=== PATIENT | male | born 1955 | race African-American/Black ===

== ENCOUNTER 2016-02-29 10:43 | Emergency (ER) | payer MEDICARE ==
[~2016-02-29] VITALS: Ht 167.6 cm; Wt 90.7 kg
[~2016-02-29 10:43] MED LIST: AMLO10TA4 PO; HYDR25TA9 PO
[2016-02-29 10:56] VITALS: BP 133/78
--- NOTE | 2016-02-29 12:24 | PHYS DOC ---
Past Medical History Past Medical History: Alcoholism, Arthritis, Hypertension Past Surgical History: Other Additional Past Surgical Histo: right ankle surgery Alcohol Use: Sober Drug Use: Marijuana Adult General Chief Complaint Chief Complaint: FINGER INJURY HPI HPI Patient is a 60 year old male presents to emergency Department today with ongoing concern for pain and inability to fully extend left fifth finger. Patient states is been ongoing for approximately a month. He does not distinctly recall an injury to his finger. He denies any history of bone forming disorders. He does have a history of osteoarthritis. Review of Systems Review of Systems Constitutional: Denies fever or chills [] Eyes: Denies change in visual acuity, redness, or eye pain [] HENT: Denies nasal congestion or sore throat [] Respiratory: Denies cough or shortness of breath [] Cardiovascular: No additional information not addressed in HPI [] GI: Denies abdominal pain, nausea, vomiting, bloody stools or diarrhea [] : Denies dysuria or hematuria [] Musculoskeletal: Denies back pain or joint pain [] Integument: Denies rash or skin lesions [] Neurologic: Denies headache, focal weakness or sensory changes [] Endocrine: Denies polyuria or polydipsia [] Allergies Allergies Allergies Coded Allergies Type Severity Reaction Last Updated Verified No Known Drug Allergies 08/08/14 No Physical Exam Physical Exam Constitutional: Well developed, well nourished, no acute distress, non-toxic appearance. [] HENT: Normocephalic, atraumatic, bilateral external ears normal, oropharynx moist, no oral exudates, nose normal. [] Eyes: PERRLA, EOMI, conjunctiva normal, no discharge. [] Neck: Normal range of motion, no tenderness, supple, no stridor. [] Cardiovascular:Heart rate regular rhythm, no murmur [] Lungs & Thorax: Bilateral breath sounds clear to auscultation [] Abdomen: Bowel sounds normal, soft, no tenderness, no masses, no pulsatile masses. [] Skin: Warm, dry, no erythema, no rash. [] Back: No tenderness, no CVA tenderness. [] Extremities: Left fifth finger shows unopposed flexion at the DIPJ. There is no distinct tenderness to palpation or palpable defect. Fingers neurovascularly intact with capillary refill less than 2 seconds. Neurologic: Alert and oriented X 3, normal motor function, normal sensory function, no focal deficits noted. [] Psychologic: Affect normal, judgement normal, mood normal. [] Current Patient Data Vital Signs Vital Signs Date Time Temp Pulse Resp B/P Pulse Ox O2 Delivery O2 Flow Rate FiO2 02/29/16 10:56 98.1 82 16 98 Room Air 98.1 EKG EKG [] Radiology/Procedures Radiology/Procedures 3 views of left fifth finger show no evidence of acute bony injury or healed avulsion fracture. Course & Med Decision Making Course & Med Decision Making Pertinent Labs and Imaging studies reviewed. (See chart for details) [] Dragon Disclaimer Dragon Disclaimer This electronic medical record was generated, in whole or in part, using a voice recognition dictation system. Departure Departure Impression: Primary Impression: Finger pain, left Disposition: 01 HOME, SELF-CARE Condition: GOOD Referrals: NO PCP (PCP) ANGELA ESCUDERO MD Patient Instructions: Musculoskeletal Pain Additional Instructions: 1. The x-rays of your finger today showed no bony injuries or dislocation. 2. It appears as if you have tendon dysfunction in your left fifth finger. You need to follow-up with an protein specialist to discuss this. 3. Take the medication as prescribed. 4. Call the orthopedic doctors number listed with this discharge paperwork to schedule follow-up appointment. Scripts Diclofenac Sodium 50 Mg Tablet.dr1 Tab PO BID #30 TAB Ref 1 Prov:DAKOTA PEDERSON 02/29/16 DAKOTA PEDERSON Feb 29, 2016 12:24
[2016-02-29] MEDS ORDERED: DICL50TA4 PO (12:26)
--- NOTE | 2016-02-29 12:26 | RAD ---
Three-view study of the fifth digit of the left hand Clinical indications: Fifth digit injury one month ago. Persistent pain of the DIP joint. Findings: No acute fracture or dislocation or osteolytic process is seen. There is a flexion deformity of the DIP joint consistent with an extensor tendon mechanism injury or mallet finger. IMPRESSION: Extensor tendon injury or mallet finger of the fifth DIP joint.
== END 2016-02-29 12:35 | disposition home or self-care (01) ==
LOC: ER 10:47
DX: M79.645 Pain in left finger(s) (principal); M19.90 Unspecified osteoarthritis, unspecified site; F10.20 Alcohol dependence, uncomplicated; I10 Essential (primary) hypertension; F12.10 Cannabis abuse, uncomplicated
CPT/HCPCS: 73140; 99284

== ENCOUNTER 2017-11-28 02:19 | Emergency (ER) | payer MEDICAID, MEDICARE ==
[~2017-11-28] VITALS: Ht 175.3 cm; Wt 78.9 kg
[~2017-11-28 02:19] MED LIST changes: +DICL50TA4 PO
--- NOTE | 2017-11-28 02:30 | PHYS DOC ---
Past Medical History Past Medical History: Alcoholism, Arthritis, Hypertension, Other Past Surgical History: Other Additional Past Surgical Histo: right ankle surgery Alcohol Use: Heavy Drug Use: Marijuana Adult General Chief Complaint Chief Complaint: ALCOHOL INTOXICATION HPI HPI Patient is a 62 year old man who presents with alcohol intoxication Patient is a known alcoholic to the paramedics and presented inebriated in front of [employer]. Patient seen sleeping in front of [employer] for the past 3 hours. Patient regularly gets drunk and wanders around the neighborhood. Patient has no complaints. Review of Systems Review of Systems Constitutional: Denies fever or chills Eyes: Denies change in visual acuity, redness, or eye pain HENT: Denies nasal congestion or sore throat Respiratory: Denies cough or shortness of breath Cardiovascular: Denies chest pain GI: Denies abdominal pain, nausea, vomiting, bloody stools or diarrhea : Denies dysuria or hematuria Musculoskeletal: Denies back pain or joint pain Integument: Denies rash or skin lesions Neurologic: Denies headache, focal weakness or sensory changes Endocrine: Denies polyuria or polydipsia All other systems were reviewed and found to be within normal limits, except as documented in this note. Current Medications Current Medications Current Medications Medications (Trade) Dose Ordered Sig/Kay Start Time Stop Time Status Last Admin Dose Admin Multivitamins 10 ml/Thiamine HCl 100 mg/Folic Acid 1 mg/Sodium Chloride 1,011.2 ml @ 1,000.088 mls/hr 1X ONCE 11/28/17 03:15 11/28/17 04:15 DC 11/28/17 03:11 1,000.088 MLS/HR Ziprasidone (Geodon Im) 20 mg 1X ONCE 11/28/17 02:45 11/28/17 03:00 DC 11/28/17 02:57 20 MG Allergies Allergies Allergies Coded Allergies Type Severity Reaction Last Updated Verified No Known Drug Allergies 08/08/14 No Physical Exam Physical Exam Constitutional: Well developed, well nourished, no acute distress, non-toxic appearance. Inebriated with alcohol on breath HENT: Normocephalic, atraumatic, bilateral external ears normal, oropharynx moist, no oral exudates, nose normal. Eyes: PERRLA, EOMI, conjunctiva normal, no discharge. Neck: Normal range of motion, no tenderness, supple, no stridor. Cardiovascular:Heart rate regular rhythm, no murmur Lungs & Thorax: Bilateral breath sounds clear to auscultation Abdomen: Bowel sounds normal, soft, no tenderness, no masses, no pulsatile masses. Skin: Warm, dry, no erythema, no rash. Back: No tenderness, no CVA tenderness. Extremities: No tenderness, no cyanosis, no clubbing, ROM intact, no edema. Neurologic: Alert and oriented X 3, normal motor function, normal sensory function, no focal deficits noted. Psychologic: Affect normal, judgement normal, mood normal. Current Patient Data Vital Signs Vital Signs Date Time Temp Pulse Resp B/P (MAP) Pulse Ox O2 Delivery O2 Flow Rate FiO2 11/28/17 04:23 84 20 120/76 (91) 97 11/28/17 02:20 97.8 Room Air 97.8 Lab Values Laboratory Tests Test 11/28/17 03:10 11/28/17 04:20 White Blood Count 3.8 x10^3/uL (4.0-11.0) L Red Blood Count 3.98 x10^6/uL (4.30-5.70) L Hemoglobin 12.1 g/dL (13.0-17.5) L Hematocrit 35.8 % (39.0-53.0) L Mean Corpuscular Volume 90 fL (79-100) Mean Corpuscular Hemoglobin 30 pg (25-35) Mean Corpuscular Hemoglobin Concent 34 g/dL (31-37) Red Cell Distribution Width 13.7 % (11.5-14.5) Platelet Count 194 x10^3/uL (140-400) Neutrophils (%) (Auto) 33 % (31-73) Lymphocytes (%) (Auto) 54 % (24-48) H Monocytes (%) (Auto) 13 % (0-9) H Eosinophils (%) (Auto) 1 % (0-3) Basophils (%) (Auto) 0 % (0-3) Neutrophils # (Auto) 1.2 x10^3uL (1.8-7.7) L Lymphocytes # (Auto) 2.0 x10^3/uL (1.0-4.8) Monocytes # (Auto) 0.5 x10^3/uL (0.0-1.1) Eosinophils # (Auto) 0.0 x10^3/uL (0.0-0.7) Basophils # (Auto) 0.0 x10^3/uL (0.0-0.2) Sodium Level 145 mmol/L (136-145) Potassium Level 3.8 mmol/L (3.5-5.1) Chloride Level 110 mmol/L (98-107) H Carbon Dioxide Level 25 mmol/L (21-32) Anion Gap 10 (6-14) Blood Urea Nitrogen 11 mg/dL (8-26) Creatinine 1.1 mg/dL (0.7-1.3) Estimated GFR (Cockcroft-Gault) 82.3 BUN/Creatinine Ratio 10 (6-20) Glucose Level 102 mg/dL (70-99) H Calcium Level 8.0 mg/dL (8.5-10.1) L Total Bilirubin 0.2 mg/dL (0.2-1.0) Aspartate Amino Transferase (AST) 97 U/L (15-37) H Alanine Aminotransferase (ALT) 99 U/L (16-63) H Alkaline Phosphatase 105 U/L (46-116) Total Protein 7.3 g/dL (6.4-8.2) Albumin 2.9 g/dL (3.4-5.0) L Albumin/Globulin Ratio 0.7 (1.0-1.7) L Lipase 406 U/L (73-393) H Ethyl Alcohol Level 305 mg/dL (0-10) H Urine Collection Type U cath Urine Color Yellow Urine Clarity Clear Urine pH 5.5 Urine Specific [place] 1.010 Urine Protein Negative mg/dL (NEG-TRACE) Urine Glucose (UA) Negative mg/dL (NEG) Urine Ketones (Stick) Negative mg/dL (NEG) Urine Blood Negative (NEG) Urine Nitrite Negative (NEG) Urine Bilirubin Negative (NEG) Urine Urobilinogen Dipstick 0.2 mg/dL (0.2 mg/dL) Urine Leukocyte Esterase Negative (NEG) Urine RBC 0 /HPF (0-2) Urine WBC 0 /HPF (0-4) Urine Squamous Epithelial Cells Occ /LPF Urine Bacteria 0 /HPF (0-FEW) Urine Mucus Slight /LPF Urine Opiates Screen Neg (NEG) Urine Methadone Screen Neg (NEG) Urine Barbiturates Neg (NEG) Urine Phencyclidine Screen Neg (NEG) Urine Amphetamine/Methamphetamine Neg (NEG) Urine Benzodiazepines Screen Neg (NEG) Urine Cocaine Screen Neg (NEG) Urine Cannabinoids Screen Pos (NEG) Urine Ethyl Alcohol Pos (NEG) Laboratory Tests 11/28/17 03:10 Laboratory Tests 11/28/17 03:10 EKG EKG ECG 02:54 NSR @ [address]-T wave changes Radiology/Procedures Radiology/Procedures [facility] [address] [place] [address] IMAGING REPORT Signed PATIENT: SHAKIR ROCKWELL ACCOUNT: [id number] : 1955 LOCATION: ER AGE: 62 SEX: M EXAM STATUS: REG ER ORD. PHYSICIAN: ELIE GARSIA MD REASON: AMS PROCEDURE: CT HEAD WO CONTRAST EXAM: CT Head without IV contrast CLINICAL HISTORY: etoh altered mental status. COMPARISON: None. TECHNIQUE: Routine CT of the head without contrast. Soft tissues and bone windows were reviewed. PQRS compliance statement - One or more of the following individualized dose reduction techniques were utilized for this study: 1. Automated exposure control 2. Adjustment of the mA and/or kV according to patient size 3. Use of iterative reconstruction technique FINDINGS: There is no evidence of hemorrhage, mass or extra-axial fluid collection. Arnett-white differentiation is maintained with no evidence of edema. There are non-specific foci of hypodensity in the periventricular and subcortical white matter of the cerebral hemispheres. There is no mass effect or shift of the intracranial structures. The ventricles and cerebral sulci are prominent for the patients stated age consistent with generalized cerebral volume loss. The cerebellum and brainstem are unremarkable. The calvarium demonstrates no evidence of fracture or focal lesion. There is normal aeration of the visualized paranasal sinuses and mastoid air cells. The visualized portions of the orbits are normal. IMPRESSION: 1. No evidence for acute intracranial abnormality. Electronically signed by: Dedrick Roman MD (11/28/2017 3:35 AM) [facility] DICTATED and SIGNED BY: DEDRICK ROMAN MD DATE: 11/28/17 0334 Course & Med Decision Making Course & Med Decision Making Pertinent Labs and Imaging studies reviewed. (See chart for details) Emergency Department Course Patient presents inebriated with environmental exposure and without physical complaint DDx- alcohol intoxication, dehydration, electrolyte abnormality Patient was verbally and physically disruptive in the ED. ECG and troponin showed no evidence of ACS. Patient was given Geodon and fell asleep. Head CT scan unremarkable. CXR unremarkable. Labs remarkable elevated LFTs, elevated Lipase, serum ethanol elevated to 305, UDS positive for cannabis. 06:15 Patient still asleep, intoxicated. Case endorsed to Dr. Joellen Person Disclaimer Naya Disclaimer This electronic medical record was generated, in whole or in part, using a voice recognition dictation system. Departure Departure Impression: Primary Impression: Alcohol intoxication Additional Impression: Cannabis abuse Referrals: NO PCP (PCP) Problem Qualifiers Primary Impression: Alcohol intoxication Complication of substance-induced condition: uncomplicated Qualified Codes: F10.920 - Alcohol use, unspecified with intoxication, uncomplicated ELIE GARSIA MD Nov 28, 2017 02:30
[2017-11-28] MEDS ORDERED: ZIPRASIDONE IM 20 MG VIAL. IM ONE (02:45)
[2017-11-28] MEDS ORDERED: MULTIVIT INFUSN,ADULT 4,VIT K 10 ML, THIAMINE INJ 100 MG, FOLIC ACID INJ 1 MG in IV NOR... IV ONE (03:15)
[2017-11-28 03:25] LABS: BASO % 0 % (0-3); EOS % 1 % (0-3); HEMATOCRIT 35.8 % (39.0-53.0); HEMOGLOBIN 12.1 g/dL (13.0-17.5); LYMPH % 54 % (24-48); MEAN CORPUSCULAR HEMOGLOBIN 30 pg (25-35); MEAN CORPUSCULAR HGB CONC 34 g/dL (31-37); MEAN CORPUSCULAR VOLUME 90 fL (79-100); MONO # 0.5 x10^3/uL (0.0-1.1); MONO % 13 % (0-9); NEUT # 1.2 x10^3uL (1.8-7.7); NEUT % 33 % (31-73); PLATELET COUNT 194 x10^3/uL (140-400); RED BLOOD COUNT 3.98 x10^6/uL (4.30-5.70); RED CELL DISTRIBUTION WIDTH 13.7 % (11.5-14.5); WHITE BLOOD COUNT 3.8 x10^3/uL (4.0-11.0)
[2017-11-28 03:34] LABS: CREATININE 1.1 mg/dL (0.7-1.3); GFR 82.3; POTASSIUM 3.8 mmol/L (3.5-5.1)
--- NOTE | 2017-11-28 03:39 | RAD ---
EXAM: CT Head without IV contrast CLINICAL HISTORY: etoh altered mental status. COMPARISON: None. TECHNIQUE: Routine CT of the head without contrast. Soft tissues and bone windows were reviewed. PQRS compliance statement - One or more of the following individualized dose reduction techniques were utilized for this study: 1. Automated exposure control 2. Adjustment of the mA and/or kV according to patient size 3. Use of iterative reconstruction technique FINDINGS: There is no evidence of hemorrhage, mass or extra-axial fluid collection. Arnett-white differentiation is maintained with no evidence of edema. There are non-specific foci of hypodensity in the periventricular and subcortical white matter of the cerebral hemispheres. There is no mass effect or shift of the intracranial structures. The ventricles and cerebral sulci are prominent for the patients stated age consistent with generalized cerebral volume loss. The cerebellum and brainstem are unremarkable. The calvarium demonstrates no evidence of fracture or focal lesion. There is normal aeration of the visualized paranasal sinuses and mastoid air cells. The visualized portions of the orbits are normal. IMPRESSION: 1. No evidence for acute intracranial abnormality. Electronically signed by: Dedrick Mejia MD (11/28/2017 3:35 AM) [facility]
[2017-11-28 03:40] LABS: ALBUMIN 2.9 g/dL (3.4-5.0); ALBUMIN/GLOBULIN RATIO 0.7 (1.0-1.7); TOTAL BILIRUBIN 0.2 mg/dL (0.2-1.0); TOTAL PROTEIN 7.3 g/dL (6.4-8.2)
[2017-11-28 04:34] LABS: BILIRUBIN,URINE NEGATIVE (NEG); CLARITY,URINE CLEAR; COLOR,URINE YELLOW; NITRITE,URINE NEGATIVE (NEG); PH,URINE 5.5; PROTEIN,URINE NEGATIVE (NEG-TRACE); UROBILINOGEN,URINE 0.2 mg/dL (0.2 mg/dL)
[2017-11-28 04:40] LABS: BARBITURATES NEG (NEG); BENZODIAZEPINES NEG (NEG); CANNABINOIDS POS (NEG); COCAINE NEG (NEG); METHADONE NEG (NEG); OPIATES NEG (NEG); PHENCYCLIDINE NEG (NEG)
[2017-11-28 04:41] LABS: AMPHETAMINE/METHAMPHETAMINE NEG (NEG)
[2017-11-28 04:57] LABS: BACTERIA,URINE 0 /HPF (0-FEW); RBC,URINE 0 /HPF (0-2); SQUAMOUS EPITHELIAL CELL,UR OCC /LPF; WBC,URINE 0 /HPF (0-4)
--- NOTE | 2017-11-28 05:52 | EKG ---
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
--- NOTE | 2017-11-28 07:42 | RAD ---
Portable chest, 11/28/2017: HISTORY: Ethanol intoxication, altered mental status The heart is within normal limits in size. There is minimal linear atelectasis in the left base. The right lung is clear. No pleural fluid is evident. IMPRESSION: Minimal left basilar atelectasis. Electronically signed by: Hola Harrison MD (11/28/2017 7:39 AM) [facility]
[2017-11-28 12:18] VITALS: BP 184/102
== END 2017-11-28 13:47 | disposition home or self-care (01) ==
LOC: ER 02:19
DX: F10.129 Alcohol abuse with intoxication, unspecified (principal); I10 Essential (primary) hypertension; Y90.9 Presence of alcohol in blood, level not specified
CPT/HCPCS: 36415; 70450; 71045; 80053; 80307; 81001; 83690; 85025; 93005; 96365; 96372; 99285; G0480; J3486; J7030; P9612; G0479

== ENCOUNTER 2018-10-22 23:59 | Inpatient (IN) | payer MEDICARE, OTHER ==
[~2018-10-22] VITALS: Ht 167.6 cm; Wt 84.4 kg
[~2018-10-22 23:59] MED LIST changes: +HYDR-2145 PO; -HYDR25TA9 PO; +LEVE500T56 PO; +LISI-334 PO; +PANT40GR PO
--- NOTE | 2018-10-23 00:16 | PHYS DOC ---
Past Medical History Past Medical History: Alcoholism, Arthritis, Hypertension, Seizure, Other Past Surgical History: Other Additional Past Surgical Histo: right ankle surgery Alcohol Use: Heavy Drug Use: Marijuana Adult General Chief Complaint Chief Complaint: ALCOHOL INTOXICATION HPI HPI Patient is a 63-year-old male who presents via EMS with report of being intoxicated. Patient reportedly has smoked some marijuana as well as taking some crack earlier today. Patient states that he is feeling sick and needs help. He denies any chest pain or shortness of breath. He also denies abdominal pain. Patient is not able to say what kind of help he needs. Additional history is limited as patient is very intoxicated.[] Review of Systems Review of Systems Constitutional: Denies fever or chills [] Respiratory: Denies cough or shortness of breath [] Cardiovascular: No additional information not addressed in HPI [] GI: Denies abdominal pain, nausea, vomiting or diarrhea [] Integument: Denies rash or skin lesions [] Neurologic: Denies headache, focal weakness or sensory changes [] Unable to fully assess review of systems due to level of intoxication. Current Medications Current Medications Current Medications Medications (Trade) Dose Ordered Sig/Kay Start Time Stop Time Status Last Admin Dose Admin Lorazepam (Ativan Inj) 1 mg 1X ONCE 10/23/18 02:30 10/23/18 02:31 DC Multivitamins 10 ml/Thiamine HCl 100 mg/Folic Acid 1 mg/Sodium Chloride 1,011.2 ml @ 1,000 mls/ hr 1X ONCE 10/23/18 00:45 10/23/18 01:45 DC 10/23/18 00:25 1,000 MLS/HR Sodium Chloride 1,000 ml @ 500 mls/hr 1X ONCE 10/23/18 02:00 10/23/18 03:59 DC 10/23/18 02:14 500 MLS/HR Allergies Allergies Allergies Coded Allergies Type Severity Reaction Last Updated Verified No Known Drug Allergies 08/08/14 No Physical Exam Physical Exam Constitutional: Well developed, well nourished, no acute distress, strong smell of alcohol on patient and patient clearly intoxicated. [] HENT: Normocephalic, atraumatic, bilateral external ears normal, oropharynx moist, no oral exudates, nose normal. [] Eyes: PERRLA, EOMI, conjunctiva normal, no discharge. [] Neck: Normal range of motion, no tenderness, supple, no stridor. [] Cardiovascular: Regular rate and rhythm[] Lungs & Thorax: Bilateral breath sounds clear to auscultation [] Abdomen: Bowel sounds normal, soft, no tenderness. [] Skin: Warm, dry, no erythema, no rash. [] Extremities: No tenderness, no cyanosis, no clubbing, ROM intact. [] Neurologic: Alert and oriented X 3, no focal deficits noted. [] Current Patient Data Vital Signs Vital Signs Date Time Temp Pulse Resp B/P (MAP) Pulse Ox O2 Delivery O2 Flow Rate FiO2 10/23/18 02:30 88 97 Room Air 10/23/18 01:00 156/95 (115) 10/23/18 00:00 98.7 18 98.7 Lab Values Laboratory Tests Test 10/23/18 00:10 10/23/18 02:00 White Blood Count 3.7 x10^3/uL (4.0-11.0) L Red Blood Count 3.99 x10^6/uL (4.30-5.70) L Hemoglobin 11.9 g/dL (13.0-17.5) L Hematocrit 35.3 % (39.0-53.0) L Mean Corpuscular Volume 89 fL (79-100) Mean Corpuscular Hemoglobin 30 pg (25-35) Mean Corpuscular Hemoglobin Concent 34 g/dL (31-37) Red Cell Distribution Width 14.3 % (11.5-14.5) Platelet Count 126 x10^3/uL (140-400) L Neutrophils (%) (Auto) 35 % (31-73) Lymphocytes (%) (Auto) 50 % (24-48) H Monocytes (%) (Auto) 13 % (0-9) H Eosinophils (%) (Auto) 1 % (0-3) Basophils (%) (Auto) 1 % (0-3) Neutrophils # (Auto) 1.3 x10^3/uL (1.8-7.7) L Lymphocytes # (Auto) 1.9 x10^3/uL (1.0-4.8) Monocytes # (Auto) 0.5 x10^3/uL (0.0-1.1) Eosinophils # (Auto) 0.0 x10^3/uL (0.0-0.7) Basophils # (Auto) 0.0 x10^3/uL (0.0-0.2) Sodium Level 151 mmol/L (136-145) H Potassium Level 3.6 mmol/L (3.5-5.1) Chloride Level 114 mmol/L (98-107) H Carbon Dioxide Level 22 mmol/L (21-32) Anion Gap 15 (6-14) H Blood Urea Nitrogen 9 mg/dL (8-26) Creatinine 0.9 mg/dL (0.7-1.3) Estimated GFR (Cockcroft-Gault) 103.5 Glucose Level 110 mg/dL (70-99) H Calcium Level 7.7 mg/dL (8.5-10.1) L Magnesium Level 1.9 mg/dL (1.8-2.4) Total Bilirubin 0.3 mg/dL (0.2-1.0) Direct Bilirubin 0.2 mg/dL (0.0-0.2) Aspartate Amino Transferase (AST) 117 U/L (15-37) H Alanine Aminotransferase (ALT) 104 U/L (16-63) H Alkaline Phosphatase 110 U/L (46-116) Total Protein 7.7 g/dL (6.4-8.2) Albumin 3.1 g/dL (3.4-5.0) L Ethyl Alcohol Level 367 mg/dL (0-10) H Urine Collection Type Unknown Urine Color Yellow Urine Clarity Clear Urine pH 5.0 Urine Specific [place] 1.015 Urine Protein Negative mg/dL (NEG-TRACE) Urine Glucose (UA) Negative mg/dL (NEG) Urine Ketones (Stick) Negative mg/dL (NEG) Urine Blood Negative (NEG) Urine Nitrite Negative (NEG) Urine Bilirubin Negative (NEG) Urine Urobilinogen Dipstick 1.0 mg/dL (0.2 mg/dL) Urine Leukocyte Esterase Negative (NEG) Urine RBC 0 /HPF (0-2) Urine WBC 1-4 /HPF (0-4) Urine Squamous Epithelial Cells Few /LPF Urine Bacteria 0 /HPF (0-FEW) Urine Mucus Slight /LPF Urine Opiates Screen Neg (NEG) Urine Methadone Screen Neg (NEG) Urine Barbiturates Neg (NEG) Urine Phencyclidine Screen Neg (NEG) Urine Amphetamine/Methamphetamine Neg (NEG) Urine Benzodiazepines Screen Neg (NEG) Urine Cocaine Screen Pos (NEG) Urine Cannabinoids Screen Pos (NEG) Urine Ethyl Alcohol Pos (NEG) Laboratory Tests 10/23/18 00:10 Laboratory Tests 10/23/18 00:10 EKG EKG [] Radiology/Procedures Radiology/Procedures [] Course & Med Decision Making Course & Med Decision Making Pertinent Labs and Imaging studies reviewed. (See chart for details) [] Dragon Disclaimer Dragon Disclaimer This electronic medical record was generated, in whole or in part, using a voice recognition dictation system. Departure Departure Impression: Primary Impression: Hypernatremia Additional Impression: Alcohol intoxication Disposition: ADMITTED INPATIENT Admitting Physician: DAPHNEY Condition: IMPROVED Referrals: NO PCP (PCP) Problem Qualifiers Additional Impression: Alcohol intoxication Complication of substance-induced condition: uncomplicated Qualified Codes: F10.920 - Alcohol use, unspecified with intoxication, uncomplicated SUSAN DEWEY Jr. DO Oct 23, 2018 00:16
[2018-10-23 00:22] LABS: BASO % 1 % (0-3); EOS % 1 % (0-3); HEMATOCRIT 35.3 % (39.0-53.0); HEMOGLOBIN 11.9 g/dL (13.0-17.5); LYMPH # 1.9 x10^3/uL (1.0-4.8); LYMPH % 50 % (24-48); MEAN CORPUSCULAR HEMOGLOBIN 30 pg (25-35); MEAN CORPUSCULAR HGB CONC 34 g/dL (31-37); MEAN CORPUSCULAR VOLUME 89 fL (79-100); MONO # 0.5 x10^3/uL (0.0-1.1); MONO % 13 % (0-9); NEUT # 1.3 x10^3/uL (1.8-7.7); NEUT % 35 % (31-73); PLATELET COUNT 126 x10^3/uL (140-400); RED BLOOD COUNT 3.99 x10^6/uL (4.30-5.70); RED CELL DISTRIBUTION WIDTH 14.3 % (11.5-14.5); WHITE BLOOD COUNT 3.7 x10^3/uL (4.0-11.0)
[2018-10-23 00:29] LABS: CALCIUM 7.7 mg/dL (8.5-10.1); CREATININE 0.9 mg/dL (0.7-1.3); GFR 103.5; POTASSIUM 3.6 mmol/L (3.5-5.1)
[2018-10-23 00:35] LABS: ALBUMIN 3.1 g/dL (3.4-5.0); DIRECT BILIRUBIN 0.2 mg/dL (0.0-0.2); MAGNESIUM 1.9 mg/dL (1.8-2.4); TOTAL BILIRUBIN 0.3 mg/dL (0.2-1.0); TOTAL PROTEIN 7.7 g/dL (6.4-8.2)
[2018-10-23] MEDS ORDERED: MULTIVIT INFUSN,ADULT 4,VIT K 10 ML, THIAMINE INJ 100 MG, FOLIC ACID INJ 1 MG in IV NOR... IV ONE (00:45)
[2018-10-23] MEDS ORDERED: IV 1/2 NORMAL SALINE 1,000 ML IV ONE (02:00)
[2018-10-23 02:22] LABS: BILIRUBIN,URINE NEGATIVE (NEG); CLARITY,URINE CLEAR; COLOR,URINE YELLOW; NITRITE,URINE NEGATIVE (NEG); PROTEIN,URINE NEGATIVE (NEG-TRACE)
[2018-10-23 02:29] LABS: BARBITURATES NEG (NEG); BENZODIAZEPINES NEG (NEG); CANNABINOIDS POS (NEG); COCAINE POS (NEG); METHADONE NEG (NEG); OPIATES NEG (NEG); PHENCYCLIDINE NEG (NEG)
[2018-10-23 02:31] LABS: AMPHETAMINE/METHAMPHETAMINE NEG (NEG)
[2018-10-23 02:34] LABS: BACTERIA,URINE 0 /HPF (0-FEW); RBC,URINE 0 /HPF (0-2); SQUAMOUS EPITHELIAL CELL,UR FEW /LPF
[2018-10-23] MEDS ORDERED: ONDANSETRON PF 4 MG/2 ML VIAL. IV PRN ×2 (04:00→14:15)
[2018-10-23 05:00] VITALS: BP 135/95
[2018-10-23 07:15] VITALS: BP 152/86
--- NOTE | 2018-10-23 07:53 | PDOC1 ---
History and Physical Date of Admission Date of Admission DATE: 10/23/18 TIME: 07:53 Identification/Chief Complaint Chief Complaint seen in er , presented via EMS with report of being intoxicated. Patient reportedly has smoked some marijuana as well as taking some crack earlier 10/22 . Patient states that he is feeling sick and needs help, willing to attend AA . He denies any chest pain or shortness of breath. He also denies abdominal pain. .Reported had 2 seizures on 07/30/19 to be brought to the ER of [facility]. He was reportedly to have a history of alcohol-related seizure in the past. was initially placed in CVICU but downgraded. suspect Alcohol-related seizures. Past Medical History Past Medical History Past Medical History Past Medical History: Alcoholism, Arthritis, Hypertension, Seizure, Other Past Surgical History: Other Additional Past Surgical Histo: right ankle surgery Alcohol Use: Heavy Drug Use: Marijuana FAMILY HX DEPRESSION Cardiovascular: HTN Past Surgical History Past Surgical History: No pertinent history Family History Family History: Hypertension Social History Smoke: <1 pack per day ALCOHOL: heavy Drugs: None, Cocaine Current Problem List Problem List Problems Medical Problems: (1) Alcohol intoxication Status: Acute Current Medications Current Medications Current Medications Multivitamins 10 ml/Thiamine HCl 100 mg/Folic Acid 1 mg/Sodium Chloride 1,011.2 ml @ 1,000 mls/ hr 1X ONCE IV Last administered on 10/23/18at 00:25; Start 10/23/18 at 00:45; Stop 10/23/18 at 01:45; Status DC Sodium Chloride 1,000 ml @ 500 mls/hr 1X ONCE IV Last administered on 10/23/18at 02:14; Start 10/23/18 at 02:00; Stop 10/23/18 at 03:59; Status DC Lorazepam (Ativan Inj) 1 mg 1X ONCE IV ; Start 10/23/18 at 02:30; Stop 10/23/18 at 02:31; Status DC Ondansetron HCl (Zofran) 4 mg PRN Q8HRS PRN IV NAUSEA/VOMITING 1ST CHOICE; Start 10/23/18 at 04:00; Stop 10/24/18 at 03:59 Active Scripts Active Keppra (Levetiracetam) 500 Mg Tablet 500 Mg PO BID 30 Days Reported Protonix Packet (Pantoprazole Sodium) 40 Mg Granpkt.dr 40 Mg PO DAILY Lisinopril 20 Mg Tablet 1 Tab PO DAILY Hydrochlorothiazide Tablet (Hydrochlorothiazide) 25 Mg Tablet 1 Tab PO DAILY Norvasc (Amlodipine Besylate) 10 Mg Tablet 10 Mg PO DAILY Allergies Allergies: Coded Allergies: No Known Drug Allergies (Unverified , 08/08/14) ROS Review of System Review of Systems Review of Systems Constitutional: Denies fever or chills [] Respiratory: Denies cough or shortness of breath [] Cardiovascular: No additional information not addressed in HPI [] GI: Denies abdominal pain, nausea, vomiting or diarrhea [] Integument: Denies rash or skin lesions [] Neurologic: Denies headache, focal weakness or sensory changes [] 14 PT ROS OTHERWISE NEG PSYCHOLOGICAL ROS: YES: Anxiety, Depression ALLERGY AND IMMUNOLOGY: No: Hives, Insect Bite Sensitivity, Itchy/Watery Eyes, Nasal Congestion, Post Nasal Drip, Seasonal Allergies, Other Hematological and Lymphatic: No: Bleeding Problems, Blood Clots, Blood Transfusions, Brusing, Night Sweats, Pallor, Swollen Lymph Nodes, Other Cardiovascular: No Chest Pain, No Palpitations, No Orthopnea, No Paroxysmal Noc. Dyspnea, No Edema, No Lt Headedness, No Other Musculoskeletal: No Gait Disturbance, No Joint Pain, No Joint Stiffness, No Joint Swelling, No Muscle Pain, No Muscular Weakness, No Pain In:, No Swelling In:, No Other Physical Exam Physical Exam Physical Exam Physical Exam Constitutional: Well developed, well nourished, no acute distress, ALERT[] HENT: Normocephalic, atraumatic, bilateral external ears normal, oropharynx moist, no oral exudates, nose normal. [] Eyes: PERRLA, EOMI, conjunctiva normal, no discharge. [] Neck: Normal range of motion, no tenderness, supple, no stridor. [] Cardiovascular: Regular rate and rhythm[] Lungs & Thorax: Bilateral breath sounds clear to auscultation [] Abdomen: Bowel sounds normal, soft, no tenderness. [] Skin: Warm, dry, no erythema, no rash. [] Extremities: No tenderness, no cyanosis, no clubbing, ROM intact. [] Neurologic: Alert and oriented X 3, no focal deficits noted. [] General: Alert, Oriented X3, Cooperative, No acute distress HEENT: Atraumatic, PERRLA, EOMI Lungs: Clear to auscultation Heart: RRR, no thrills, no murmurs Rectal Exam: not examined PELVIC: Examination not indicated Extremities: No cyanosis Skin: No rashes Neuro: Normal speech, Sensation intact, Cranial nerves 3-12 NL Psych/Mental Status: Mental status NL, Mood NL Vitals Vitals Vital Signs Date Time Temp Pulse Resp B/P (MAP) Pulse Ox O2 Delivery O2 Flow Rate FiO2 10/23/18 07:15 97.9 94 20 152/86 (108) 96 Room Air 97.9 Labs Labs Laboratory Tests Test 10/23/18 00:10 10/23/18 02:00 White Blood Count 3.7 x10^3/uL (4.0-11.0) Red Blood Count 3.99 x10^6/uL (4.30-5.70) Hemoglobin 11.9 g/dL (13.0-17.5) Hematocrit 35.3 % (39.0-53.0) Mean Corpuscular Volume 89 fL (79-100) Mean Corpuscular Hemoglobin 30 pg (25-35) Mean Corpuscular Hemoglobin Concent 34 g/dL (31-37) Red Cell Distribution Width 14.3 % (11.5-14.5) Platelet Count 126 x10^3/uL (140-400) Neutrophils (%) (Auto) 35 % (31-73) Lymphocytes (%) (Auto) 50 % (24-48) Monocytes (%) (Auto) 13 % (0-9) Eosinophils (%) (Auto) 1 % (0-3) Basophils (%) (Auto) 1 % (0-3) Neutrophils # (Auto) 1.3 x10^3/uL (1.8-7.7) Lymphocytes # (Auto) 1.9 x10^3/uL (1.0-4.8) Monocytes # (Auto) 0.5 x10^3/uL (0.0-1.1) Eosinophils # (Auto) 0.0 x10^3/uL (0.0-0.7) Basophils # (Auto) 0.0 x10^3/uL (0.0-0.2) Sodium Level 151 mmol/L (136-145) Potassium Level 3.6 mmol/L (3.5-5.1) Chloride Level 114 mmol/L (98-107) Carbon Dioxide Level 22 mmol/L (21-32) Anion Gap 15 (6-14) Blood Urea Nitrogen 9 mg/dL (8-26) Creatinine 0.9 mg/dL (0.7-1.3) Estimated GFR (Cockcroft-Gault) 103.5 Glucose Level 110 mg/dL (70-99) Calcium Level 7.7 mg/dL (8.5-10.1) Magnesium Level 1.9 mg/dL (1.8-2.4) Total Bilirubin 0.3 mg/dL (0.2-1.0) Direct Bilirubin 0.2 mg/dL (0.0-0.2) Aspartate Amino Transf (AST/SGOT) 117 U/L (15-37) Alanine Aminotransferase (ALT/SGPT) 104 U/L (16-63) Alkaline Phosphatase 110 U/L (46-116) Total Protein 7.7 g/dL (6.4-8.2) Albumin 3.1 g/dL (3.4-5.0) Ethyl Alcohol Level 367 mg/dL (0-10) Urine Collection Type Unknown Urine Color Yellow Urine Clarity Clear Urine pH 5.0 Urine Specific [place] 1.015 Urine Protein Negative mg/dL (NEG-TRACE) Urine Glucose (UA) Negative mg/dL (NEG) Urine Ketones (Stick) Negative mg/dL (NEG) Urine Blood Negative (NEG) Urine Nitrite Negative (NEG) Urine Bilirubin Negative (NEG) Urine Urobilinogen Dipstick 1.0 mg/dL (0.2 mg/dL) Urine Leukocyte Esterase Negative (NEG) Urine RBC 0 /HPF (0-2) Urine WBC 1-4 /HPF (0-4) Urine Squamous Epithelial Cells Few /LPF Urine Bacteria 0 /HPF (0-FEW) Urine Mucus Slight /LPF Urine Opiates Screen Neg (NEG) Urine Methadone Screen Neg (NEG) Urine Barbiturates Neg (NEG) Urine Phencyclidine Screen Neg (NEG) Urine Amphetamine/Methamphetamine Neg (NEG) Urine Benzodiazepines Screen Neg (NEG) Urine Cocaine Screen Pos (NEG) Urine Cannabinoids Screen Pos (NEG) Urine Ethyl Alcohol Pos (NEG) Laboratory Tests Test 10/23/18 00:10 10/23/18 02:00 White Blood Count 3.7 x10^3/uL (4.0-11.0) Red Blood Count 3.99 x10^6/uL (4.30-5.70) Hemoglobin 11.9 g/dL (13.0-17.5) Hematocrit 35.3 % (39.0-53.0) Mean Corpuscular Volume 89 fL (79-100) Mean Corpuscular Hemoglobin 30 pg (25-35) Mean Corpuscular Hemoglobin Concent 34 g/dL (31-37) Red Cell Distribution Width 14.3 % (11.5-14.5) Platelet Count 126 x10^3/uL (140-400) Neutrophils (%) (Auto) 35 % (31-73) Lymphocytes (%) (Auto) 50 % (24-48) Monocytes (%) (Auto) 13 % (0-9) Eosinophils (%) (Auto) 1 % (0-3) Basophils (%) (Auto) 1 % (0-3) Neutrophils # (Auto) 1.3 x10^3/uL (1.8-7.7) Lymphocytes # (Auto) 1.9 x10^3/uL (1.0-4.8) Monocytes # (Auto) 0.5 x10^3/uL (0.0-1.1) Eosinophils # (Auto) 0.0 x10^3/uL (0.0-0.7) Basophils # (Auto) 0.0 x10^3/uL (0.0-0.2) Sodium Level 151 mmol/L (136-145) Potassium Level 3.6 mmol/L (3.5-5.1) Chloride Level 114 mmol/L (98-107) Carbon Dioxide Level 22 mmol/L (21-32) Anion Gap 15 (6-14) Blood Urea Nitrogen 9 mg/dL (8-26) Creatinine 0.9 mg/dL (0.7-1.3) Estimated GFR (Cockcroft-Gault) 103.5 Glucose Level 110 mg/dL (70-99) Calcium Level 7.7 mg/dL (8.5-10.1) Magnesium Level 1.9 mg/dL (1.8-2.4) Total Bilirubin 0.3 mg/dL (0.2-1.0) Direct Bilirubin 0.2 mg/dL (0.0-0.2) Aspartate Amino Transf (AST/SGOT) 117 U/L (15-37) Alanine Aminotransferase (ALT/SGPT) 104 U/L (16-63) Alkaline Phosphatase 110 U/L (46-116) Total Protein 7.7 g/dL (6.4-8.2) Albumin 3.1 g/dL (3.4-5.0) Ethyl Alcohol Level 367 mg/dL (0-10) Urine Collection Type Unknown Urine Color Yellow Urine Clarity Clear Urine pH 5.0 Urine Specific [place] 1.015 Urine Protein Negative mg/dL (NEG-TRACE) Urine Glucose (UA) Negative mg/dL (NEG) Urine Ketones (Stick) Negative mg/dL (NEG) Urine Blood Negative (NEG) Urine Nitrite Negative (NEG) Urine Bilirubin Negative (NEG) Urine Urobilinogen Dipstick 1.0 mg/dL (0.2 mg/dL) Urine Leukocyte Esterase Negative (NEG) Urine RBC 0 /HPF (0-2) Urine WBC 1-4 /HPF (0-4) Urine Squamous Epithelial Cells Few /LPF Urine Bacteria 0 /HPF (0-FEW) Urine Mucus Slight /LPF Urine Opiates Screen Neg (NEG) Urine Methadone Screen Neg (NEG) Urine Barbiturates Neg (NEG) Urine Phencyclidine Screen Neg (NEG) Urine Amphetamine/Methamphetamine Neg (NEG) Urine Benzodiazepines Screen Neg (NEG) Urine Cocaine Screen Pos (NEG) Urine Cannabinoids Screen Pos (NEG) Urine Ethyl Alcohol Pos (NEG) VTE Prophylaxis Ordered VTE Prophylaxis Devices: Yes VTE Pharmacological Prophylaxi: Yes Assessment/Plan Assessment/Plan Impression: Hypernatremia Alcohol intoxication, ACUTE HX COCAINE ABUSE OBESITY HX DEPRESSION HX ALCOHOL RELATED SEIZURES ADMITTED ALCOHOL WITHDRAWAL PRECAUTIONS TELE AGREES TO ATTEND AA IV FLUID SUPPORT BANANA BAG DVT PROPHYLAXIS 55 MIN PT EXAM, CHART REVIEW, > 50% OF TIME SPENT WITH EXAM, CHART REVIEW, PT CARE COORDINATION ARDEN RIOS MD Oct 23, 2018 07:53
[2018-10-23 10:54] VITALS: BP 149/81
[2018-10-23] MEDS ORDERED: diphenhydrAMINE 50 MG/ML VIAL IVP PRN (14:00)
[2018-10-23] MEDS ORDERED: LORazepam 1 MG TABLET PO PRN ×2 (14:00)
[2018-10-23] MEDS ORDERED: MULTIVIT INFUSN,ADULT 4,VIT K 10 ML, THIAMINE INJ 100 MG, FOLIC ACID INJ 1 MG in IV NOR... IV SCH ×2 (14:00→14:15)
[2018-10-23] MEDS ORDERED: cloNIDine HCL 0.1 MG TABLET PO PRN (14:00)
[2018-10-23] MEDS ORDERED: HALOPERIDOL LACTATE 5 MG/ML VIAL. IVP PRN (14:00)
--- NOTE | 2018-10-23 14:14 | NUR ---
SW following pt for dc planning. Chart reviewed and pt lives at home. Pt seen by Vicente from PAT team. Pt has a hx of anxiety and referred to [facility] for services. Pt also will f/u with [facility] upon dc for OP tx. Will continue to follow pending dc needs.
[2018-10-23] MEDS ORDERED: 0.9 % SODIUM CHLORIDE 10 ML DISP.SYRIN. IV PRN (14:15)
[2018-10-23] MEDS ORDERED: ALBUTEROL SULFATE 2.5 MG/3 ML NEBU. NEB PRN (14:15)
[2018-10-23] MEDS ORDERED: guaiFENesin ORAL 200 MG/10 ML LIQUID. PO PRN (14:15)
[2018-10-23] MEDS ORDERED: LORazepam 0.5 MG TABLET PO PRN (14:15)
[2018-10-23] MEDS ORDERED: ACETAMINOPHEN 325 MG TABLET. PO PRN (14:15)
[2018-10-23] MEDS ORDERED: DOCUSATE SODIUM 100 MG CAPSULE. PO PRN (14:15)
[2018-10-23] MEDS ORDERED: MAG HYDROX/ALUMINUM HYD/SIMETH 30 ML ORAL.SUSP PO PRN (14:15)
[2018-10-23 14:52] VITALS: BP 177/101
[2018-10-23] MEDS: ENOXAPARIN 40 MG/0.4 ML SYRINGE. SQ SCH (15:00)
--- NOTE | 2018-10-23 17:43 | NUR ---
Pt attempted to AMA r/t severity of withdrawal symptoms. Pt pulled out IV. Ativan was administer'd IM, pt agreed to stay. Will cont. to monitor.
[2018-10-23 19:00] VITALS: BP 142/86
[2018-10-23 23:00] VITALS: BP 164/94
[2018-10-23] MEDS: cloNIDine HCL 0.1 MG TABLET PO PRN (23:36)
[2018-10-24 03:06] VITALS: BP 166/98
[2018-10-24 04:36] LABS: BASO % 0 % (0-3); EOS % 1 % (0-3); HEMATOCRIT 39.8 % (39.0-53.0); HEMOGLOBIN 13.4 g/dL (13.0-17.5); LYMPH % 37 % (24-48); MEAN CORPUSCULAR HEMOGLOBIN 30 pg (25-35); MEAN CORPUSCULAR HGB CONC 34 g/dL (31-37); MEAN CORPUSCULAR VOLUME 88 fL (79-100); MONO # 0.3 x10^3/uL (0.0-1.1); MONO % 13 % (0-9); NEUT # 1.3 x10^3/uL (1.8-7.7); NEUT % 49 % (31-73); PLATELET COUNT 124 x10^3/uL (140-400); RED BLOOD COUNT 4.51 x10^6/uL (4.30-5.70); RED CELL DISTRIBUTION WIDTH 14.2 % (11.5-14.5); WHITE BLOOD COUNT 2.7 x10^3/uL (4.0-11.0)
[2018-10-24 04:55] LABS: CREATININE 0.9 mg/dL (0.7-1.3); GFR 103.5; POTASSIUM 3.2 mmol/L (3.5-5.1)
[2018-10-24 07:00] VITALS: BP 141/95
--- NOTE | 2018-10-24 07:12 | PDOC ---
PROGRESS NOTES History of Present Illness History of Present Illness VTE Prophylaxis Ordered VTE Prophylaxis Devices: Yes VTE Pharmacological Prophylaxi: Yes Assessment/Plan Assessment/Plan Impression: Hypernatremia Alcohol intoxication, ACUTE HX COCAINE ABUSE OBESITY HX DEPRESSION HX ALCOHOL RELATED SEIZURES hypertension ADMITTED ALCOHOL WITHDRAWAL PRECAUTIONS TELE AGREES TO ATTEND AA IV FLUID SUPPORT BANANA BAG DVT PROPHYLAXIS home meds replace lytes 27 MIN PT EXAM, CHART REVIEW, > 50% OF TIME SPENT WITH EXAM, CHART REVIEW, PT CARE COORDINATION Vitals Vitals Vital Signs Date Time Temp Pulse Resp B/P (MAP) Pulse Ox O2 Delivery O2 Flow Rate FiO2 10/24/18 03:06 98.6 74 18 166/98 (120) 97 Room Air 98.6 Physical Exam General: Alert, Oriented X3, Cooperative, No acute distress Heart: Regular rate Lungs: Clear Abdomen: Soft Extremities: No clubbing, No cyanosis, No edema Skin: No rashes Labs LABS Laboratory Tests Test 10/24/18 03:55 White Blood Count 2.7 x10^3/uL (4.0-11.0) Red Blood Count 4.51 x10^6/uL (4.30-5.70) Hemoglobin 13.4 g/dL (13.0-17.5) Hematocrit 39.8 % (39.0-53.0) Mean Corpuscular Volume 88 fL (79-100) Mean Corpuscular Hemoglobin 30 pg (25-35) Mean Corpuscular Hemoglobin Concent 34 g/dL (31-37) Red Cell Distribution Width 14.2 % (11.5-14.5) Platelet Count 124 x10^3/uL (140-400) Neutrophils (%) (Auto) 49 % (31-73) Lymphocytes (%) (Auto) 37 % (24-48) Monocytes (%) (Auto) 13 % (0-9) Eosinophils (%) (Auto) 1 % (0-3) Basophils (%) (Auto) 0 % (0-3) Neutrophils # (Auto) 1.3 x10^3/uL (1.8-7.7) Lymphocytes # (Auto) 1.0 x10^3/uL (1.0-4.8) Monocytes # (Auto) 0.3 x10^3/uL (0.0-1.1) Eosinophils # (Auto) 0.0 x10^3/uL (0.0-0.7) Basophils # (Auto) 0.0 x10^3/uL (0.0-0.2) Sodium Level 142 mmol/L (136-145) Potassium Level 3.2 mmol/L (3.5-5.1) Chloride Level 105 mmol/L (98-107) Carbon Dioxide Level 28 mmol/L (21-32) Anion Gap 9 (6-14) Blood Urea Nitrogen 9 mg/dL (8-26) Creatinine 0.9 mg/dL (0.7-1.3) Estimated GFR (Cockcroft-Gault) 103.5 Glucose Level 96 mg/dL (70-99) Calcium Level 8.0 mg/dL (8.5-10.1) Ionized Calcium 1.02 mmol/L (1.13-1.32) Assessment and Plan Assessmemt and Plan Problems Medical Problems: (1) Alcohol intoxication Status: Acute Comment Review of Relevant I have reviewed the following items edward (where applicable) has been applied. Labs Laboratory Tests Test 10/23/18 00:10 10/23/18 02:00 10/24/18 03:55 White Blood Count 3.7 x10^3/uL (4.0-11.0) 2.7 x10^3/uL (4.0-11.0) Red Blood Count 3.99 x10^6/uL (4.30-5.70) 4.51 x10^6/uL (4.30-5.70) Hemoglobin 11.9 g/dL (13.0-17.5) 13.4 g/dL (13.0-17.5) Hematocrit 35.3 % (39.0-53.0) 39.8 % (39.0-53.0) Mean Corpuscular Volume 89 fL (79-100) 88 fL (79-100) Mean Corpuscular Hemoglobin 30 pg (25-35) 30 pg (25-35) Mean Corpuscular Hemoglobin Concent 34 g/dL (31-37) 34 g/dL (31-37) Red Cell Distribution Width 14.3 % (11.5-14.5) 14.2 % (11.5-14.5) Platelet Count 126 x10^3/uL (140-400) 124 x10^3/uL (140-400) Neutrophils (%) (Auto) 35 % (31-73) 49 % (31-73) Lymphocytes (%) (Auto) 50 % (24-48) 37 % (24-48) Monocytes (%) (Auto) 13 % (0-9) 13 % (0-9) Eosinophils (%) (Auto) 1 % (0-3) 1 % (0-3) Basophils (%) (Auto) 1 % (0-3) 0 % (0-3) Neutrophils # (Auto) 1.3 x10^3/uL (1.8-7.7) 1.3 x10^3/uL (1.8-7.7) Lymphocytes # (Auto) 1.9 x10^3/uL (1.0-4.8) 1.0 x10^3/uL (1.0-4.8) Monocytes # (Auto) 0.5 x10^3/uL (0.0-1.1) 0.3 x10^3/uL (0.0-1.1) Eosinophils # (Auto) 0.0 x10^3/uL (0.0-0.7) 0.0 x10^3/uL (0.0-0.7) Basophils # (Auto) 0.0 x10^3/uL (0.0-0.2) 0.0 x10^3/uL (0.0-0.2) Sodium Level 151 mmol/L (136-145) 142 mmol/L (136-145) Potassium Level 3.6 mmol/L (3.5-5.1) 3.2 mmol/L (3.5-5.1) Chloride Level 114 mmol/L (98-107) 105 mmol/L (98-107) Carbon Dioxide Level 22 mmol/L (21-32) 28 mmol/L (21-32) Anion Gap 15 (6-14) 9 (6-14) Blood Urea Nitrogen 9 mg/dL (8-26) 9 mg/dL (8-26) Creatinine 0.9 mg/dL (0.7-1.3) 0.9 mg/dL (0.7-1.3) Estimated GFR (Cockcroft-Gault) 103.5 103.5 Glucose Level 110 mg/dL (70-99) 96 mg/dL (70-99) Calcium Level 7.7 mg/dL (8.5-10.1) 8.0 mg/dL (8.5-10.1) Magnesium Level 1.9 mg/dL (1.8-2.4) Total Bilirubin 0.3 mg/dL (0.2-1.0) Direct Bilirubin 0.2 mg/dL (0.0-0.2) Aspartate Amino Transf (AST/SGOT) 117 U/L (15-37) Alanine Aminotransferase (ALT/SGPT) 104 U/L (16-63) Alkaline Phosphatase 110 U/L (46-116) Total Protein 7.7 g/dL (6.4-8.2) Albumin 3.1 g/dL (3.4-5.0) Ethyl Alcohol Level 367 mg/dL (0-10) Urine Collection Type Unknown Urine Color Yellow Urine Clarity Clear Urine pH 5.0 Urine Specific [place] 1.015 Urine Protein Negative mg/dL (NEG-TRACE) Urine Glucose (UA) Negative mg/dL (NEG) Urine Ketones (Stick) Negative mg/dL (NEG) Urine Blood Negative (NEG) Urine Nitrite Negative (NEG) Urine Bilirubin Negative (NEG) Urine Urobilinogen Dipstick 1.0 mg/dL (0.2 mg/dL) Urine Leukocyte Esterase Negative (NEG) Urine RBC 0 /HPF (0-2) Urine WBC 1-4 /HPF (0-4) Urine Squamous Epithelial Cells Few /LPF Urine Bacteria 0 /HPF (0-FEW) Urine Mucus Slight /LPF Urine Opiates Screen Neg (NEG) Urine Methadone Screen Neg (NEG) Urine Barbiturates Neg (NEG) Urine Phencyclidine Screen Neg (NEG) Urine Amphetamine/Methamphetamine Neg (NEG) Urine Benzodiazepines Screen Neg (NEG) Urine Cocaine Screen Pos (NEG) Urine Cannabinoids Screen Pos (NEG) Urine Ethyl Alcohol Pos (NEG) Ionized Calcium 1.02 mmol/L (1.13-1.32) Laboratory Tests Test 10/24/18 03:55 White Blood Count 2.7 x10^3/uL (4.0-11.0) Red Blood Count 4.51 x10^6/uL (4.30-5.70) Hemoglobin 13.4 g/dL (13.0-17.5) Hematocrit 39.8 % (39.0-53.0) Mean Corpuscular Volume 88 fL (79-100) Mean Corpuscular Hemoglobin 30 pg (25-35) Mean Corpuscular Hemoglobin Concent 34 g/dL (31-37) Red Cell Distribution Width 14.2 % (11.5-14.5) Platelet Count 124 x10^3/uL (140-400) Neutrophils (%) (Auto) 49 % (31-73) Lymphocytes (%) (Auto) 37 % (24-48) Monocytes (%) (Auto) 13 % (0-9) Eosinophils (%) (Auto) 1 % (0-3) Basophils (%) (Auto) 0 % (0-3) Neutrophils # (Auto) 1.3 x10^3/uL (1.8-7.7) Lymphocytes # (Auto) 1.0 x10^3/uL (1.0-4.8) Monocytes # (Auto) 0.3 x10^3/uL (0.0-1.1) Eosinophils # (Auto) 0.0 x10^3/uL (0.0-0.7) Basophils # (Auto) 0.0 x10^3/uL (0.0-0.2) Sodium Level 142 mmol/L (136-145) Potassium Level 3.2 mmol/L (3.5-5.1) Chloride Level 105 mmol/L (98-107) Carbon Dioxide Level 28 mmol/L (21-32) Anion Gap 9 (6-14) Blood Urea Nitrogen 9 mg/dL (8-26) Creatinine 0.9 mg/dL (0.7-1.3) Estimated GFR (Cockcroft-Gault) 103.5 Glucose Level 96 mg/dL (70-99) Calcium Level 8.0 mg/dL (8.5-10.1) Ionized Calcium 1.02 mmol/L (1.13-1.32) Medications Current Medications Multivitamins 10 ml/Thiamine HCl 100 mg/Folic Acid 1 mg/Sodium Chloride 1,011.2 ml @ 1,000 mls/ hr 1X ONCE IV Last administered on 10/23/18at 00:25; Start 10/23/18 at 00:45; Stop 10/23/18 at 01:45; Status DC Sodium Chloride 1,000 ml @ 500 mls/hr 1X ONCE IV Last administered on 10/23/18at 02:14; Start 10/23/18 at 02:00; Stop 10/23/18 at 03:59; Status DC Lorazepam (Ativan Inj) 1 mg 1X ONCE IV ; Start 10/23/18 at 02:30; Stop 10/23/18 at 02:31; Status DC Ondansetron HCl (Zofran) 4 mg PRN Q8HRS PRN IV NAUSEA/VOMITING 1ST CHOICE; Start 10/23/18 at 04:00; Stop 10/24/18 at 04:00; Status DC Multivitamins 10 ml/Thiamine HCl 100 mg/Folic Acid 1 mg/Sodium Chloride 1,011.2 ml @ 100 mls/ hr DAILY IV ; Start 10/23/18 at 14:00; Stop 10/27/18 at 19:07; Status Cancel Multivitamins (Thera M Plus) 1 tab DAILY PO ; Start 10/28/18 at 09:00 Folic Acid (Folic Acid) 1 mg DAILY PO ; Start 10/28/18 at 09:00 Thiamine HCl 100 mg DAILY IM ; Start 10/24/18 at 09:00; Stop 10/29/18 at 08:59; Status UNV Lorazepam (Ativan) 4 mg PRN Q1HR PRN PO For CIWA 8-14; Start 10/23/18 at 14:00 Lorazepam (Ativan) 8 mg PRN Q1HR PRN PO For CIWA 15 or greater; Start 10/23/18 at 14:00 Lorazepam (Ativan Inj) 2 mg PRN Q1HR PRN IV For CIWA 8-14 Last administered on 10/23/18at 21:01; Start 10/23/18 at 14:00 Lorazepam (Ativan Inj) 4 mg PRN Q1HR PRN IV For CIWA 15 or greater Last administered on 10/23/18at 15:43; Start 10/23/18 at 14:00 Haloperidol Lactate (Haldol Inj) 5 mg PRN Q4HRS PRN IVP Hallucinatns,Confusn,Delirium; Start 10/23/18 at 14:00 Diphenhydramine HCl (Benadryl) 25 mg PRN Q15MIN PRN IVP EPS symptoms 2'Haldol admin; Start 10/23/18 at 14:00 Clonidine HCl (Catapres) 0.1 mg PRN Q1HR PRN PO SBP > 180 or DBP > 100, MRX3; Start 10/23/18 at 14:00; Stop 10/23/18 at 14:13; Status DC Lorazepam (Ativan Inj) 2 mg PRN Q15MIN PRN IV SEE COMMENTS; Start 10/23/18 at 14:00 Lorazepam (Ativan Inj) 4 mg PRN Q15MIN PRN IV SEE COMMENTS; Start 10/23/18 at 14:00 Sodium Chloride (Normal Saline Flush) 3 ml QSHIFT PRN IV AFTER MEDS AND BLOOD DRAWS; Start 10/23/18 at 14:15 Multivitamins 10 ml/Thiamine HCl 100 mg/Folic Acid 1 mg/Sodium Chloride 1,011.2 ml @ 125 mls/ hr Q8H IV ; Start 10/23/18 at 14:15 Ondansetron HCl (Zofran) 4 mg PRN Q4HRS PRN IV NAUSEA/VOMITING; Start 10/23/18 at 14:15 Acetaminophen (Tylenol) 650 mg PRN Q4HRS PRN PO TEMP OVER 100.4F OR MILD PAIN; Start 10/23/18 at 14:15 Al Hydroxide/Mg Hydroxide (Mylanta Plus Xs) 30 ml PRN DAILY PRN PO HEARTBURN / GAS; Start 10/23/18 at 14:15 Clonidine HCl (Catapres) 0.1 mg PRN Q6HRS PRN PO SBP>160 OR DBP>90 Last administered on 10/23/18at 23:36; Start 10/23/18 at 14:15 Docusate Sodium (Colace) 100 mg PRN BID PRN PO CONSTIPATION; Start 10/23/18 at 14:15 Albuterol Sulfate (Ventolin Neb Soln) 2.5 mg PRN Q4HRS PRN NEB SHORTNESS OF BREATH; Start 10/23/18 at 14:15 Guaifenesin (Robitussin) 200 mg PRN Q4HRS PRN PO COUGH; Start 10/23/18 at 14:15 Lorazepam (Ativan) 0.5 mg PRN Q4HRS PRN PO ANXIETY / AGITATION Last administered on 10/23/18at 17:43; Start 10/23/18 at 14:15 Enoxaparin Sodium (Lovenox 40mg Syringe) 40 mg Q24H SQ ; Start 10/23/18 at 15:00 Multivitamins 10 ml/Thiamine HCl 100 mg/Folic Acid 1 mg/Sodium Chloride 1,011.2 ml @ 100 mls/ hr DAILY IV ; Start 10/24/18 at 09:00; Stop 10/27/18 at 19:07 Active Scripts Active Keppra (Levetiracetam) 500 Mg Tablet 500 Mg PO BID 30 Days Reported Protonix Packet (Pantoprazole Sodium) 40 Mg Granmedhatkt. 40 Mg PO DAILY Lisinopril 20 Mg Tablet 1 Tab PO DAILY Hydrochlorothiazide Tablet (Hydrochlorothiazide) 25 Mg Tablet 1 Tab PO DAILY Norvasc (Amlodipine Besylate) 10 Mg Tablet 10 Mg PO DAILY Vitals/I & O Vital Sign - Last 24 Hours 10/23/18 10/23/18 10/23/18 10/23/18 07:15 10:54 14:52 16:55 Temp 97.9 98.2 98.5 97.9 98.2 98.5 Pulse 94 90 88 Resp 20 18 18 B/P (MAP) 152/86 (108) 149/81 (103) 177/101 (126) Pulse Ox 96 97 96 96 O2 Delivery Room Air Room Air Room Air Room Air 10/23/18 10/23/18 10/23/18 10/23/18 19:00 20:20 23:00 23:36 Temp 99.1 98.4 99.1 98.4 Pulse 94 84 84 Resp 18 18 B/P (MAP) 142/86 (104) 164/94 (117) 164/94 Pulse Ox 99 96 O2 Delivery Room Air Room Air Room Air 10/24/18 03:06 Temp 98.6 98.6 Pulse 74 Resp 18 B/P (MAP) 166/98 (120) Pulse Ox 97 O2 Delivery Room Air Intake and Output 10/23/18 10/23/18 10/24/18 14:59 22:59 06:59 Intake Total 560 ml Output Total 0 ml Balance 560 ml 0 ml ARDEN RIOS MD Oct 24, 2018 07:12
--- NOTE | 2018-10-24 07:49 | RAD ---
CHEST PA LATERAL History: Hypertension Comparison: 11/28/2017 Findings: 2 views of the chest are submitted. There is no infiltrate, pneumothorax, or effusion. Pericardial cardiac silhouette is within normal limits in size. There is some atherosclerotic calcification near the aortic arch. Impression: 1. There is no radiographic evidence of acute cardiopulmonary disease. Electronically signed by: Prasad Mirza MD (10/24/2018 7:46 AM) [id number]
[2018-10-24] MEDS: MULTIVIT INFUSN,ADULT 4,VIT K 10 ML, THIAMINE INJ 100 MG, FOLIC ACID INJ 1 MG in IV NOR... IV SCH (08:47)
[2018-10-24] MEDS ORDERED: THIAMINE IM 200 MG/2 ML VIAL. IM SCH (09:00)
[2018-10-24 11:00] VITALS: BP 166/98
--- NOTE | 2018-10-24 11:58 | PDOC2 ---
GI CONSULT Reason For Consult: Alcoholic liver disease HPI: HPI: 63 y/o male with long h/o ETOH abuse. Presented to ER drunk with electrolyte abnormalities. Recalls having been told at [facility] "bad liver". Seems to indicate drinks less now than in the past. Denies any pain. H/o withdrawal seizures in the past, most recently July here. Says checked for viral markers at [facility] and "okay". Had sono there, but no results recalled. No h/o IVDU, transfusions, tattoos. No FH of chronic liver disease. Denies heartburn, dysphagia, PUD, GB, pancreatic history. Smokes some. Tox screen positive for THC and cocaine as well. Denies D, C, overt blood in stool or melena. No prior endoscopy. Wt/appetite OK. No N, V. Denies any FH of other GI issues. PMH: PMH: HTN, OA. Prior right ankle surgery. FH: Family History: Hypertension Social History: Smoke: <1 pack per day ALCOHOL: heavy Drugs: Cocaine, Marijuana ROS: GEN: Denies fevers, chills, sweats HEENT: Denies blurred vision, sore throat CV: Denies chest pain RESP: Denies shortness of air, cough GI: Per HPI : Denies hematuria, dysuria ENDO: Denies weight changes NEURO: Denies confusion, dizziness MSK: Denies weakness, joint pain/swelling SKIN: Denies jaundice, pruritus Vitals: Vitals: Vital Signs Date Time Temp Pulse Resp B/P (MAP) Pulse Ox O2 Delivery O2 Flow Rate FiO2 10/24/18 11:00 98.5 85 12 166/98 (120) 96 Room Air 98.5 Labs: Labs: Laboratory Tests Test 10/24/18 03:55 10/24/18 07:17 White Blood Count 2.7 x10^3/uL (4.0-11.0) Red Blood Count 4.51 x10^6/uL (4.30-5.70) Hemoglobin 13.4 g/dL (13.0-17.5) Hematocrit 39.8 % (39.0-53.0) Mean Corpuscular Volume 88 fL (79-100) Mean Corpuscular Hemoglobin 30 pg (25-35) Mean Corpuscular Hemoglobin Concent 34 g/dL (31-37) Red Cell Distribution Width 14.2 % (11.5-14.5) Platelet Count 124 x10^3/uL (140-400) Neutrophils (%) (Auto) 49 % (31-73) Lymphocytes (%) (Auto) 37 % (24-48) Monocytes (%) (Auto) 13 % (0-9) Eosinophils (%) (Auto) 1 % (0-3) Basophils (%) (Auto) 0 % (0-3) Neutrophils # (Auto) 1.3 x10^3/uL (1.8-7.7) Lymphocytes # (Auto) 1.0 x10^3/uL (1.0-4.8) Monocytes # (Auto) 0.3 x10^3/uL (0.0-1.1) Eosinophils # (Auto) 0.0 x10^3/uL (0.0-0.7) Basophils # (Auto) 0.0 x10^3/uL (0.0-0.2) Sodium Level 142 mmol/L (136-145) Potassium Level 3.2 mmol/L (3.5-5.1) Chloride Level 105 mmol/L (98-107) Carbon Dioxide Level 28 mmol/L (21-32) Anion Gap 9 (6-14) Blood Urea Nitrogen 9 mg/dL (8-26) Creatinine 0.9 mg/dL (0.7-1.3) Estimated GFR (Cockcroft-Gault) 103.5 Glucose Level 96 mg/dL (70-99) Calcium Level 8.0 mg/dL (8.5-10.1) Ionized Calcium 1.02 mmol/L (1.13-1.32) Glucose (Fingerstick) 93 mg/dL (70-99) Mild leukopenia and thrombocytopenia (suspect direct alcoholic marrow toxicity). LFT"s modestly up. Bili normal. Generous globulin fraction c/w CLD. Allergies: Coded Allergies: No Known Drug Allergies (Unverified , 08/08/14) Medications: Current Medications Medications (Trade) Dose Ordered Sig/Kay Route PRN Reason Start Time Stop Time Status Last Admin Dose Admin Lorazepam (Ativan Inj) 2 mg PRN Q1HR PRN IV For CIWA 8-14 10/23/18 14:00 10/23/18 21:01 Lorazepam (Ativan Inj) 4 mg PRN Q1HR PRN IV For CIWA 15 or greater 10/23/18 14:00 10/23/18 15:43 Clonidine HCl (Catapres) 0.1 mg PRN Q6HRS PRN PO SBP>160 OR DBP>90 10/23/18 14:15 10/23/18 23:36 Lorazepam (Ativan) 0.5 mg PRN Q4HRS PRN PO ANXIETY / AGITATION 10/23/18 14:15 10/23/18 17:43 Multivitamins 10 ml/Thiamine HCl 100 mg/Folic Acid 1 mg/Sodium Chloride 1,011.2 ml @ 100 mls/ hr DAILY IV 10/24/18 09:00 10/27/18 19:07 10/24/18 08:47 Imaging: Imaging: No abdominal imaging. PE: GEN: NAD HEENT: Atraumatic, PERRLA LUNGS: CTAB HEART: RRR, no murmurs ABD: NABS, S/ND/NT, no masses EXTREMITY: No edema SKIN: No rashes, no jaundice NEURO/PSYCH: A & O �3. A bit fuzzy on historical details. A/P: A/P: IMP; Chronic liver disease, perhaps cirrhotic, likely from alcohol, though AST/ALT ratio not classic for alcohol. H/o withdrawal seizures. REC: Abdominal sono. Hepatitis markers, iron studies. Continue w/drawal precautions, thiamine, etc. OK to feed as able. MIGNON HURTADO MD Oct 24, 2018 11:57
[2018-10-24] MEDS: cloNIDine HCL 0.1 MG TABLET PO PRN (12:19)
[2018-10-24] MEDS ORDERED: POTASSIUM CHLORIDE 20 MEQ TABLET.ER. PO ONE (12:30)
[2018-10-24] MEDS: LISINOPRIL 20 MG TABLET PO SCH (13:13)
[2018-10-24] MEDS: hydroCHLOROthiazide 25 MG TABLET PO SCH (13:13)
[2018-10-24] MEDS: PANTOPRAZOLE 40 MG TABLET.DR. PO SCH (13:13)
[2018-10-24] MEDS: levETIRAcetam 500 MG TABLET PO SCH ×2 (13:13→21:01)
[2018-10-24] MEDS: amLODIPine BESYLATE 10 MG TABLET PO SCH (13:13)
[2018-10-24] MEDS: ENOXAPARIN 40 MG/0.4 ML SYRINGE. SQ SCH (14:18)
[2018-10-24] MEDS: FLUoxetine HCL 10 MG CAPSULE PO SCH (14:48)
[2018-10-24 15:00] VITALS: BP 119/80
[2018-10-24 19:39] VITALS: BP 142/88
[2018-10-24 23:47] VITALS: BP 156/85
[2018-10-25] VITALS (7 sets, daily range): BP systolic 139–167; BP diastolic 84–99
[2018-10-25 05:04] LABS: BASO % 0 % (0-3); EOS % 2 % (0-3); HEMATOCRIT 39.2 % (39.0-53.0); HEMOGLOBIN 13.2 g/dL (13.0-17.5); LYMPH # 1.3 x10^3/uL (1.0-4.8); LYMPH % 41 % (24-48); MEAN CORPUSCULAR HEMOGLOBIN 30 pg (25-35); MEAN CORPUSCULAR HGB CONC 34 g/dL (31-37); MEAN CORPUSCULAR VOLUME 89 fL (79-100); MONO # 0.4 x10^3/uL (0.0-1.1); MONO % 12 % (0-9); NEUT # 1.5 x10^3/uL (1.8-7.7); NEUT % 46 % (31-73); PLATELET COUNT 120 x10^3/uL (140-400); RED BLOOD COUNT 4.44 x10^6/uL (4.30-5.70); RED CELL DISTRIBUTION WIDTH 14.1 % (11.5-14.5); WHITE BLOOD COUNT 3.3 x10^3/uL (4.0-11.0)
[2018-10-25 05:39] LABS: ALBUMIN/GLOBULIN RATIO 0.7 (1.0-1.7); CALCIUM 8.7 mg/dL (8.5-10.1); CREATININE 0.9 mg/dL (0.7-1.3); GFR 103.5; POTASSIUM 3.4 mmol/L (3.5-5.1); TOTAL BILIRUBIN 1.3 mg/dL (0.2-1.0); TOTAL PROTEIN 7.6 g/dL (6.4-8.2)
--- NOTE | 2018-10-25 07:29 | RAD ---
ABDOMEN COMPLETE History: Chronic liver disease Comparison: None. Findings: Multiple sonographic images of the abdomen are submitted. Exam is limited due to bowel gas. Pancreas is mostly obscured by bowel gas. Abdominal aortic caliber is within normal limits up to 2.7 cm. There is scattered plaque of the abdominal aorta. There is segmental visualization of the inferior vena cava. There is coarsening of the hepatic echotexture. Right lobe of the liver measured 15 cm longitudinal. Gallbladder is present without intraluminal abnormality, wall thickening, pericholecystic fluid. Right kidney measured 10.8 x 4.6 x 3.8 cm, no hydronephrosis. Left kidney measured 11.1 x 5.9 x 4 cm, no hydronephrosis. Spleen measured about 7 cm greatest dimension. Impression: 1. There is coarsening of the hepatic echotexture most commonly due to steatosis. Otherwise no significant abnormality is demonstrated, pancreas not well-visualized due to bowel gas. Electronically signed by: Prasad Mirza MD (10/25/2018 7:26 AM) [id number]
--- NOTE | 2018-10-25 08:26 | PDOC ---
PROGRESS NOTES History of Present Illness History of Present Illness VTE Prophylaxis Ordered VTE Prophylaxis Devices: Yes VTE Pharmacological Prophylaxi: Yes Assessment/Plan Assessment/Plan Impression: Hypernatremia Alcohol intoxication, ACUTE HX COCAINE ABUSE OBESITY HX DEPRESSION HX ALCOHOL RELATED SEIZURES hypertension HYPOKALEMIA coarsening of the hepatic echotexture most commonly due to steatosis. Otherwise no significant abnormality is demonstrated, pancreas not well- visualized due to bowel gas. 10/23 Pt attempted to AMA r/t severity of withdrawal symptoms. Pt pulled out IV THC ABUSE HC ADMITTED ALCOHOL WITHDRAWAL PRECAUTIONS TELE AGREES TO ATTEND AA IV FLUID SUPPORT BANANA BAG DVT PROPHYLAXIS home meds replace lytes GI CONSULTED REPLETE K 29 MIN PT EXAM, CHART REVIEW, > 50% OF TIME SPENT WITH EXAM, CHART REVIEW, PT CARE COORDINATION Vitals Vitals Vital Signs Date Time Temp Pulse Resp B/P (MAP) Pulse Ox O2 Delivery O2 Flow Rate FiO2 10/25/18 07:00 98.4 68 16 149/91 (110) 98 Room Air 98.4 Physical Exam General: Alert, Oriented X3, Cooperative, No acute distress Heart: Regular rate Lungs: Clear Abdomen: Soft Extremities: No clubbing, No cyanosis, No edema Skin: No rashes Labs LABS ABDOMEN COMPLETE History: Chronic liver disease Comparison: None. Findings: Multiple sonographic images of the abdomen are submitted. Exam is limited due to bowel gas. Pancreas is mostly obscured by bowel gas. Abdominal aortic caliber is within normal limits up to 2.7 cm. There is scattered plaque of the abdominal aorta. There is segmental visualization of the inferior vena cava. There is coarsening of the hepatic echotexture. Right lobe of the liver measured 15 cm longitudinal. Gallbladder is present without intraluminal abnormality, wall thickening, pericholecystic fluid. Right kidney measured 10.8 x 4.6 x 3.8 cm, no hydronephrosis. Left kidney measured 11.1 x 5.9 x 4 cm, no hydronephrosis. Spleen measured about 7 cm greatest dimension. Impression: 1. There is coarsening of the hepatic echotexture most commonly due to steatosis. Otherwise no significant abnormality is demonstrated, pancreas not well-visualized due to bowel gas. Electronically signed by: Prasad Mirza MD (10/25/2018 7:26 AM) [id number] Laboratory Tests Test 10/24/18 12:32 10/24/18 16:55 10/25/18 03:30 Glucose (Fingerstick) 98 mg/dL (70-99) 89 mg/dL (70-99) White Blood Count 3.3 x10^3/uL (4.0-11.0) Red Blood Count 4.44 x10^6/uL (4.30-5.70) Hemoglobin 13.2 g/dL (13.0-17.5) Hematocrit 39.2 % (39.0-53.0) Mean Corpuscular Volume 89 fL (79-100) Mean Corpuscular Hemoglobin 30 pg (25-35) Mean Corpuscular Hemoglobin Concent 34 g/dL (31-37) Red Cell Distribution Width 14.1 % (11.5-14.5) Platelet Count 120 x10^3/uL (140-400) Neutrophils (%) (Auto) 46 % (31-73) Lymphocytes (%) (Auto) 41 % (24-48) Monocytes (%) (Auto) 12 % (0-9) Eosinophils (%) (Auto) 2 % (0-3) Basophils (%) (Auto) 0 % (0-3) Neutrophils # (Auto) 1.5 x10^3/uL (1.8-7.7) Lymphocytes # (Auto) 1.3 x10^3/uL (1.0-4.8) Monocytes # (Auto) 0.4 x10^3/uL (0.0-1.1) Eosinophils # (Auto) 0.0 x10^3/uL (0.0-0.7) Basophils # (Auto) 0.0 x10^3/uL (0.0-0.2) Sodium Level 139 mmol/L (136-145) Potassium Level 3.4 mmol/L (3.5-5.1) Chloride Level 103 mmol/L (98-107) Carbon Dioxide Level 26 mmol/L (21-32) Anion Gap 10 (6-14) Blood Urea Nitrogen 12 mg/dL (8-26) Creatinine 0.9 mg/dL (0.7-1.3) Estimated GFR (Cockcroft-Gault) 103.5 BUN/Creatinine Ratio 13 (6-20) Glucose Level 89 mg/dL (70-99) Calcium Level 8.7 mg/dL (8.5-10.1) Total Bilirubin 1.3 mg/dL (0.2-1.0) Aspartate Amino Transf (AST/SGOT) 72 U/L (15-37) Alanine Aminotransferase (ALT/SGPT) 79 U/L (16-63) Alkaline Phosphatase 67 U/L (46-116) Total Protein 7.6 g/dL (6.4-8.2) Albumin 3.0 g/dL (3.4-5.0) Albumin/Globulin Ratio 0.7 (1.0-1.7) Assessment and Plan Assessmemt and Plan Problems Medical Problems: (1) Alcohol intoxication Status: Acute Comment Review of Relevant I have reviewed the following items edward (where applicable) has been applied. Labs Laboratory Tests Test 10/24/18 03:55 10/24/18 07:17 10/24/18 12:32 10/24/18 16:55 White Blood Count 2.7 x10^3/uL (4.0-11.0) Red Blood Count 4.51 x10^6/uL (4.30-5.70) Hemoglobin 13.4 g/dL (13.0-17.5) Hematocrit 39.8 % (39.0-53.0) Mean Corpuscular Volume 88 fL (79-100) Mean Corpuscular Hemoglobin 30 pg (25-35) Mean Corpuscular Hemoglobin Concent 34 g/dL (31-37) Red Cell Distribution Width 14.2 % (11.5-14.5) Platelet Count 124 x10^3/uL (140-400) Neutrophils (%) (Auto) 49 % (31-73) Lymphocytes (%) (Auto) 37 % (24-48) Monocytes (%) (Auto) 13 % (0-9) Eosinophils (%) (Auto) 1 % (0-3) Basophils (%) (Auto) 0 % (0-3) Neutrophils # (Auto) 1.3 x10^3/uL (1.8-7.7) Lymphocytes # (Auto) 1.0 x10^3/uL (1.0-4.8) Monocytes # (Auto) 0.3 x10^3/uL (0.0-1.1) Eosinophils # (Auto) 0.0 x10^3/uL (0.0-0.7) Basophils # (Auto) 0.0 x10^3/uL (0.0-0.2) Sodium Level 142 mmol/L (136-145) Potassium Level 3.2 mmol/L (3.5-5.1) Chloride Level 105 mmol/L (98-107) Carbon Dioxide Level 28 mmol/L (21-32) Anion Gap 9 (6-14) Blood Urea Nitrogen 9 mg/dL (8-26) Creatinine 0.9 mg/dL (0.7-1.3) Estimated GFR (Cockcroft-Gault) 103.5 Glucose Level 96 mg/dL (70-99) Calcium Level 8.0 mg/dL (8.5-10.1) Ionized Calcium 1.02 mmol/L (1.13-1.32) Iron Level 133 ug/dL (65-175) Total Iron Binding Capacity 396 ug/dL (250-450) Iron Saturation 34 % (15-34) Glucose (Fingerstick) 93 mg/dL (70-99) 98 mg/dL (70-99) 89 mg/dL (70-99) Test 10/25/18 03:30 White Blood Count 3.3 x10^3/uL (4.0-11.0) Red Blood Count 4.44 x10^6/uL (4.30-5.70) Hemoglobin 13.2 g/dL (13.0-17.5) Hematocrit 39.2 % (39.0-53.0) Mean Corpuscular Volume 89 fL (79-100) Mean Corpuscular Hemoglobin 30 pg (25-35) Mean Corpuscular Hemoglobin Concent 34 g/dL (31-37) Red Cell Distribution Width 14.1 % (11.5-14.5) Platelet Count 120 x10^3/uL (140-400) Neutrophils (%) (Auto) 46 % (31-73) Lymphocytes (%) (Auto) 41 % (24-48) Monocytes (%) (Auto) 12 % (0-9) Eosinophils (%) (Auto) 2 % (0-3) Basophils (%) (Auto) 0 % (0-3) Neutrophils # (Auto) 1.5 x10^3/uL (1.8-7.7) Lymphocytes # (Auto) 1.3 x10^3/uL (1.0-4.8) Monocytes # (Auto) 0.4 x10^3/uL (0.0-1.1) Eosinophils # (Auto) 0.0 x10^3/uL (0.0-0.7) Basophils # (Auto) 0.0 x10^3/uL (0.0-0.2) Sodium Level 139 mmol/L (136-145) Potassium Level 3.4 mmol/L (3.5-5.1) Chloride Level 103 mmol/L (98-107) Carbon Dioxide Level 26 mmol/L (21-32) Anion Gap 10 (6-14) Blood Urea Nitrogen 12 mg/dL (8-26) Creatinine 0.9 mg/dL (0.7-1.3) Estimated GFR (Cockcroft-Gault) 103.5 BUN/Creatinine Ratio 13 (6-20) Glucose Level 89 mg/dL (70-99) Calcium Level 8.7 mg/dL (8.5-10.1) Total Bilirubin 1.3 mg/dL (0.2-1.0) Aspartate Amino Transf (AST/SGOT) 72 U/L (15-37) Alanine Aminotransferase (ALT/SGPT) 79 U/L (16-63) Alkaline Phosphatase 67 U/L (46-116) Total Protein 7.6 g/dL (6.4-8.2) Albumin 3.0 g/dL (3.4-5.0) Albumin/Globulin Ratio 0.7 (1.0-1.7) Laboratory Tests Test 10/24/18 12:32 10/24/18 16:55 10/25/18 03:30 Glucose (Fingerstick) 98 mg/dL (70-99) 89 mg/dL (70-99) White Blood Count 3.3 x10^3/uL (4.0-11.0) Red Blood Count 4.44 x10^6/uL (4.30-5.70) Hemoglobin 13.2 g/dL (13.0-17.5) Hematocrit 39.2 % (39.0-53.0) Mean Corpuscular Volume 89 fL (79-100) Mean Corpuscular Hemoglobin 30 pg (25-35) Mean Corpuscular Hemoglobin Concent 34 g/dL (31-37) Red Cell Distribution Width 14.1 % (11.5-14.5) Platelet Count 120 x10^3/uL (140-400) Neutrophils (%) (Auto) 46 % (31-73) Lymphocytes (%) (Auto) 41 % (24-48) Monocytes (%) (Auto) 12 % (0-9) Eosinophils (%) (Auto) 2 % (0-3) Basophils (%) (Auto) 0 % (0-3) Neutrophils # (Auto) 1.5 x10^3/uL (1.8-7.7) Lymphocytes # (Auto) 1.3 x10^3/uL (1.0-4.8) Monocytes # (Auto) 0.4 x10^3/uL (0.0-1.1) Eosinophils # (Auto) 0.0 x10^3/uL (0.0-0.7) Basophils # (Auto) 0.0 x10^3/uL (0.0-0.2) Sodium Level 139 mmol/L (136-145) Potassium Level 3.4 mmol/L (3.5-5.1) Chloride Level 103 mmol/L (98-107) Carbon Dioxide Level 26 mmol/L (21-32) Anion Gap 10 (6-14) Blood Urea Nitrogen 12 mg/dL (8-26) Creatinine 0.9 mg/dL (0.7-1.3) Estimated GFR (Cockcroft-Gault) 103.5 BUN/Creatinine Ratio 13 (6-20) Glucose Level 89 mg/dL (70-99) Calcium Level 8.7 mg/dL (8.5-10.1) Total Bilirubin 1.3 mg/dL (0.2-1.0) Aspartate Amino Transf (AST/SGOT) 72 U/L (15-37) Alanine Aminotransferase (ALT/SGPT) 79 U/L (16-63) Alkaline Phosphatase 67 U/L (46-116) Total Protein 7.6 g/dL (6.4-8.2) Albumin 3.0 g/dL (3.4-5.0) Albumin/Globulin Ratio 0.7 (1.0-1.7) Medications Current Medications Multivitamins 10 ml/Thiamine HCl 100 mg/Folic Acid 1 mg/Sodium Chloride 1,011.2 ml @ 1,000 mls/ hr 1X ONCE IV Last administered on 10/23/18at 00:25; Start 9 /13/19 at 00:45; Stop 10/23/18 at 01:45; Status DC Sodium Chloride 1,000 ml @ 500 mls/hr 1X ONCE IV Last administered on 10/11 04/28at 02:14; Start 10/23/18 at 02:00; Stop 10/23/18 at 03:59; Status DC Lorazepam (Ativan Inj) 1 mg 1X ONCE IV ; Start 10/23/18 at 02:30; Stop 10/23/18 at 02:31; Status DC Ondansetron HCl (Zofran) 4 mg PRN Q8HRS PRN IV NAUSEA/VOMITING 1ST CHOICE; Sta rt 10/23/18 at 04:00; Stop 10/24/18 at 04:00; Status DC Multivitamins 10 ml/Thiamine HCl 100 mg/Folic Acid 1 mg/Sodium Chloride 1,011.2 ml @ 100 mls/ hr DAILY IV ; Start 10/23/18 at 14:00; Stop 10/27/18 at 19:07; Status Cancel Multivitamins (Thera M Plus) 1 tab DAILY PO ; Start 10/28/18 at 09:00 Folic Acid (Folic Acid) 1 mg DAILY PO ; Start 10/28/18 at 09:00 Thiamine HCl 100 mg DAILY IM ; Start 10/24/18 at 09:00; Stop 10/29/18 at 08:59; Status UNV Lorazepam (Ativan) 4 mg PRN Q1HR PRN PO For CIWA 8-14; Start 10/23/18 at 14:00 Lorazepam (Ativan) 8 mg PRN Q1HR PRN PO For CIWA 15 or greater; Start 10/23/18 at 14:00 Lorazepam (Ativan Inj) 2 mg PRN Q1HR PRN IV For CIWA 8-14 Last administered on 10/24/18at 17:47; Start 10/23/18 at 14:00 Lorazepam (Ativan Inj) 4 mg PRN Q1HR PRN IV For CIWA 15 or greater Last administered on 10/23/18at 15:43; Start 10/23/18 at 14:00 Haloperidol Lactate (Haldol Inj) 5 mg PRN Q4HRS PRN IVP Hallucinatns,Confusn,Delirium; Start 10/23/18 at 14:00 Diphenhydramine HCl (Benadryl) 25 mg PRN Q15MIN PRN IVP EPS symptoms 2'Haldol admin; Start 10/23/18 at 14:00 Clonidine HCl (Catapres) 0.1 mg PRN Q1HR PRN PO SBP > 180 or DBP > 100, MRX3; Start 10/23/18 at 14:00; Stop 10/23/18 at 14:13; Status DC Lorazepam (Ativan Inj) 2 mg PRN Q15MIN PRN IV SEE COMMENTS; Start 10/23/18 at 14:00; Stop 10/24/18 at 14:15; Status DC Lorazepam (Ativan Inj) 4 mg PRN Q15MIN PRN IV SEE COMMENTS; Start 10/23/18 at 14:00; Stop 10/24/18 at 14:15; Status DC Sodium Chloride (Normal Saline Flush) 3 ml QSHIFT PRN IV AFTER MEDS AND BLOOD DRAWS; Start 10/23/18 at 14:15 Multivitamins 10 ml/Thiamine HCl 100 mg/Folic Acid 1 mg/Sodium Chloride 1,011.2 ml @ 125 mls/ hr Q8H IV ; Start 10/23/18 at 14:15; Status Cancel Ondansetron HCl (Zofran) 4 mg PRN Q4HRS PRN IV NAUSEA/VOMITING; Start 10/23/18 at 14:15 Acetaminophen (Tylenol) 650 mg PRN Q4HRS PRN PO TEMP OVER 100.4F OR MILD PAIN; Start 10/23/18 at 14:15 Al Hydroxide/Mg Hydroxide (Mylanta Plus Xs) 30 ml PRN DAILY PRN PO HEARTBURN / GAS; Start 10/23/18 at 14:15 Clonidine HCl (Catapres) 0.1 mg PRN Q6HRS PRN PO SBP>160 OR DBP>90 Last administered on 10/24/18at 12:19; Start 10/23/18 at 14:15 Docusate Sodium (Colace) 100 mg PRN BID PRN PO CONSTIPATION; Start 10/23/18 at 14:15 Albuterol Sulfate (Ventolin Neb Soln) 2.5 mg PRN Q4HRS PRN NEB SHORTNESS OF BREATH; Start 10/23/18 at 14:15 Guaifenesin (Robitussin) 200 mg PRN Q4HRS PRN PO COUGH; Start 10/23/18 at 14:15 Lorazepam (Ativan) 0.5 mg PRN Q4HRS PRN PO ANXIETY / AGITATION Last administered on 10/23/18at 17:43; Start 10/23/18 at 14:15 Enoxaparin Sodium (Lovenox 40mg Syringe) 40 mg Q24H SQ ; Start 10/23/18 at 15:00 Multivitamins 10 ml/Thiamine HCl 100 mg/Folic Acid 1 mg/Sodium Chloride 1,011.2 ml @ 100 mls/ hr DAILY IV Last administered on 10/24/18at 08:47; Start 10/24/18 at 09:00; Stop 10/27/18 at 19:07 Amlodipine Besylate (Norvasc) 10 mg DAILY PO Last administered on 10/24/18at 13:13; Start 10/24/18 at 13:00 Hydrochlorothiazide (Hydrodiuril) 25 mg DAILY PO Last administered on 10/24/18at 13:13; Start 10/24/18 at 13:00 Levetiracetam (Keppra) 500 mg BID PO Last administered on 10/24/18at 21:01; Start 10/24/18 at 13:00 Lisinopril (Prinivil) 20 mg DAILY PO Last administered on 10/24/18at 13:13; Start 10/24/18 at 13:00 Pantoprazole Sodium (Protonix) 40 mg DAILYAC PO Last administered on 10/24/18at 13:13; Start 10/24/18 at 13:00 Potassium Chloride (Klor-Con) 40 meq 1X ONCE PO Last administered on 10/24/18at 13:13; Start 10/24/18 at 12:30; Stop 10/24/18 at 12:37; Status DC Potassium Chloride (Klor-Con) 20 meq DAILYWBKFT PO ; Start 10/25/18 at 08:00 Fluoxetine HCl (PROzac) 10 mg DAILY PO ; Start 10/24/18 at 15:30 Active Scripts Active Keppra (Levetiracetam) 500 Mg Tablet 500 Mg PO BID 30 Days Reported Protonix Packet (Pantoprazole Sodium) 40 Mg Granpkt.dr 40 Mg PO DAILY Lisinopril 20 Mg Tablet 1 Tab PO DAILY Hydrochlorothiazide Tablet (Hydrochlorothiazide) 25 Mg Tablet 1 Tab PO DAILY Norvasc (Amlodipine Besylate) 10 Mg Tablet 10 Mg PO DAILY Vitals/I & O Vital Sign - Last 24 Hours 10/24/18 10/24/18 10/24/18 10/24/18 11:00 12:19 13:13 13:13 Temp 98.5 98.5 Pulse 85 85 85 85 Resp 12 B/P (MAP) 166/98 (120) 166/98 166/98 166/98 Pulse Ox 96 O2 Delivery Room Air 10/24/18 10/24/18 10/24/18 10/24/18 15:00 19:39 20:00 23:47 Temp 98.3 98.8 98.7 98.3 98.8 98.7 Pulse 64 65 61 Resp 12 18 18 B/P (MAP) 119/80 (93) 142/88 (106) 156/85 (108) Pulse Ox 99 98 94 O2 Delivery Room Air Room Air Room Air Room Air 10/25/18 10/25/18 03:50 07:00 Temp 98.3 98.4 98.3 98.4 Pulse 67 68 Resp 18 16 B/P (MAP) 139/90 (106) 149/91 (110) Pulse Ox 97 98 O2 Delivery Room Air Room Air Intake and Output 10/24/18 10/24/18 10/25/18 14:59 22:59 06:59 Intake Total 0 ml 0 ml Output Total 250 ml Balance -250 ml 0 ml ARDEN RIOS MD Oct 25, 2018 08:26
[2018-10-25] MEDS: PANTOPRAZOLE 40 MG TABLET.DR. PO SCH (09:03)
[2018-10-25] MEDS: amLODIPine BESYLATE 10 MG TABLET PO SCH (09:03)
[2018-10-25] MEDS: POTASSIUM CHLORIDE 20 MEQ TABLET.ER. PO SCH (09:04)
[2018-10-25] MEDS: hydroCHLOROthiazide 25 MG TABLET PO SCH (09:04)
[2018-10-25] MEDS: MULTIVIT INFUSN,ADULT 4,VIT K 10 ML, THIAMINE INJ 100 MG, FOLIC ACID INJ 1 MG in IV NOR... IV SCH (09:04)
[2018-10-25] MEDS: levETIRAcetam 500 MG TABLET PO SCH ×2 (09:04→19:40)
[2018-10-25] MEDS: LISINOPRIL 20 MG TABLET PO SCH (09:04)
[2018-10-25] MEDS: FLUoxetine HCL 10 MG CAPSULE PO SCH (09:04)
--- NOTE | 2018-10-25 12:00 | PDOC ---
G I PROGRESS NOTE Subjective No complaints. Eating well. Physical Exam Lungs clear. RRR Aabdomen soft, not tender nor distended. Review of Relevant I have reviewed the following items edward (where applicable) has been applied. Labs Laboratory Tests Test 10/24/18 03:55 10/24/18 07:17 10/24/18 12:32 10/24/18 16:55 White Blood Count 2.7 x10^3/uL (4.0-11.0) Red Blood Count 4.51 x10^6/uL (4.30-5.70) Hemoglobin 13.4 g/dL (13.0-17.5) Hematocrit 39.8 % (39.0-53.0) Mean Corpuscular Volume 88 fL (79-100) Mean Corpuscular Hemoglobin 30 pg (25-35) Mean Corpuscular Hemoglobin Concent 34 g/dL (31-37) Red Cell Distribution Width 14.2 % (11.5-14.5) Platelet Count 124 x10^3/uL (140-400) Neutrophils (%) (Auto) 49 % (31-73) Lymphocytes (%) (Auto) 37 % (24-48) Monocytes (%) (Auto) 13 % (0-9) Eosinophils (%) (Auto) 1 % (0-3) Basophils (%) (Auto) 0 % (0-3) Neutrophils # (Auto) 1.3 x10^3/uL (1.8-7.7) Lymphocytes # (Auto) 1.0 x10^3/uL (1.0-4.8) Monocytes # (Auto) 0.3 x10^3/uL (0.0-1.1) Eosinophils # (Auto) 0.0 x10^3/uL (0.0-0.7) Basophils # (Auto) 0.0 x10^3/uL (0.0-0.2) Sodium Level 142 mmol/L (136-145) Potassium Level 3.2 mmol/L (3.5-5.1) Chloride Level 105 mmol/L (98-107) Carbon Dioxide Level 28 mmol/L (21-32) Anion Gap 9 (6-14) Blood Urea Nitrogen 9 mg/dL (8-26) Creatinine 0.9 mg/dL (0.7-1.3) Estimated GFR (Cockcroft-Gault) 103.5 Glucose Level 96 mg/dL (70-99) Calcium Level 8.0 mg/dL (8.5-10.1) Ionized Calcium 1.02 mmol/L (1.13-1.32) Iron Level 133 ug/dL (65-175) Total Iron Binding Capacity 396 ug/dL (250-450) Iron Saturation 34 % (15-34) Glucose (Fingerstick) 93 mg/dL (70-99) 98 mg/dL (70-99) 89 mg/dL (70-99) Test 10/25/18 03:30 White Blood Count 3.3 x10^3/uL (4.0-11.0) Red Blood Count 4.44 x10^6/uL (4.30-5.70) Hemoglobin 13.2 g/dL (13.0-17.5) Hematocrit 39.2 % (39.0-53.0) Mean Corpuscular Volume 89 fL (79-100) Mean Corpuscular Hemoglobin 30 pg (25-35) Mean Corpuscular Hemoglobin Concent 34 g/dL (31-37) Red Cell Distribution Width 14.1 % (11.5-14.5) Platelet Count 120 x10^3/uL (140-400) Neutrophils (%) (Auto) 46 % (31-73) Lymphocytes (%) (Auto) 41 % (24-48) Monocytes (%) (Auto) 12 % (0-9) Eosinophils (%) (Auto) 2 % (0-3) Basophils (%) (Auto) 0 % (0-3) Neutrophils # (Auto) 1.5 x10^3/uL (1.8-7.7) Lymphocytes # (Auto) 1.3 x10^3/uL (1.0-4.8) Monocytes # (Auto) 0.4 x10^3/uL (0.0-1.1) Eosinophils # (Auto) 0.0 x10^3/uL (0.0-0.7) Basophils # (Auto) 0.0 x10^3/uL (0.0-0.2) Sodium Level 139 mmol/L (136-145) Potassium Level 3.4 mmol/L (3.5-5.1) Chloride Level 103 mmol/L (98-107) Carbon Dioxide Level 26 mmol/L (21-32) Anion Gap 10 (6-14) Blood Urea Nitrogen 12 mg/dL (8-26) Creatinine 0.9 mg/dL (0.7-1.3) Estimated GFR (Cockcroft-Gault) 103.5 BUN/Creatinine Ratio 13 (6-20) Glucose Level 89 mg/dL (70-99) Calcium Level 8.7 mg/dL (8.5-10.1) Total Bilirubin 1.3 mg/dL (0.2-1.0) Aspartate Amino Transf (AST/SGOT) 72 U/L (15-37) Alanine Aminotransferase (ALT/SGPT) 79 U/L (16-63) Alkaline Phosphatase 67 U/L (46-116) Total Protein 7.6 g/dL (6.4-8.2) Albumin 3.0 g/dL (3.4-5.0) Albumin/Globulin Ratio 0.7 (1.0-1.7) Laboratory Tests Test 10/24/18 12:32 10/24/18 16:55 10/25/18 03:30 Glucose (Fingerstick) 98 mg/dL (70-99) 89 mg/dL (70-99) White Blood Count 3.3 x10^3/uL (4.0-11.0) Red Blood Count 4.44 x10^6/uL (4.30-5.70) Hemoglobin 13.2 g/dL (13.0-17.5) Hematocrit 39.2 % (39.0-53.0) Mean Corpuscular Volume 89 fL (79-100) Mean Corpuscular Hemoglobin 30 pg (25-35) Mean Corpuscular Hemoglobin Concent 34 g/dL (31-37) Red Cell Distribution Width 14.1 % (11.5-14.5) Platelet Count 120 x10^3/uL (140-400) Neutrophils (%) (Auto) 46 % (31-73) Lymphocytes (%) (Auto) 41 % (24-48) Monocytes (%) (Auto) 12 % (0-9) Eosinophils (%) (Auto) 2 % (0-3) Basophils (%) (Auto) 0 % (0-3) Neutrophils # (Auto) 1.5 x10^3/uL (1.8-7.7) Lymphocytes # (Auto) 1.3 x10^3/uL (1.0-4.8) Monocytes # (Auto) 0.4 x10^3/uL (0.0-1.1) Eosinophils # (Auto) 0.0 x10^3/uL (0.0-0.7) Basophils # (Auto) 0.0 x10^3/uL (0.0-0.2) Sodium Level 139 mmol/L (136-145) Potassium Level 3.4 mmol/L (3.5-5.1) Chloride Level 103 mmol/L (98-107) Carbon Dioxide Level 26 mmol/L (21-32) Anion Gap 10 (6-14) Blood Urea Nitrogen 12 mg/dL (8-26) Creatinine 0.9 mg/dL (0.7-1.3) Estimated GFR (Cockcroft-Gault) 103.5 BUN/Creatinine Ratio 13 (6-20) Glucose Level 89 mg/dL (70-99) Calcium Level 8.7 mg/dL (8.5-10.1) Total Bilirubin 1.3 mg/dL (0.2-1.0) Aspartate Amino Transf (AST/SGOT) 72 U/L (15-37) Alanine Aminotransferase (ALT/SGPT) 79 U/L (16-63) Alkaline Phosphatase 67 U/L (46-116) Total Protein 7.6 g/dL (6.4-8.2) Albumin 3.0 g/dL (3.4-5.0) Albumin/Globulin Ratio 0.7 (1.0-1.7) Vitals/I & O Vital Sign - Last 24 Hours 10/24/18 10/24/18 10/24/18 10/24/18 12:19 13:13 13:13 15:00 Temp 98.3 98.3 Pulse 85 85 85 64 Resp 12 B/P (MAP) 166/98 166/98 166/98 119/80 (93) Pulse Ox 99 O2 Delivery Room Air 10/24/18 10/24/18 10/24/18 10/25/18 19:39 20:00 23:47 03:50 Temp 98.8 98.7 98.3 98.8 98.7 98.3 Pulse 65 61 67 Resp 18 18 18 B/P (MAP) 142/88 (106) 156/85 (108) 139/90 (106) Pulse Ox 98 94 97 O2 Delivery Room Air Room Air Room Air Room Air 10/25/18 10/25/18 10/25/18 10/25/18 07:00 08:00 09:04 09:04 Temp 98.4 98.4 Pulse 68 68 68 Resp 16 B/P (MAP) 149/91 (110) 149/91 149/91 Pulse Ox 98 O2 Delivery Room Air Room Air Intake and Output 10/24/18 10/24/18 10/25/18 15:00 23:00 07:00 Intake Total 0 ml 0 ml Output Total 250 ml Balance -250 ml 0 ml Images On sonogram: Impression: 1. There is coarsening of the hepatic echotexture most commonly due to steatosis. Otherwise no significant abnormality is demonstrated, pancreas not well-visualized due to bowel gas. Problem List Problems Medical Problems: (1) Alcohol intoxication Status: Acute Assessment Likely some degree of alcoholic liver disease; could have fibrosis/early cirrhosis. Hepatitis markers pending. Plan of Care: Continue current Tx, Mgmt Plan of Care Note Once out or withdrawal window, OK to dismiss. Await pending results. Admonished to stop ddrinking. MIGNON HURTADO MD Oct 25, 2018 12:00
[2018-10-25] MEDS ORDERED: POTASSIUM CHLORIDE 20 MEQ TABLET.ER. PO ONE (14:30)
[2018-10-25] MEDS: ENOXAPARIN 40 MG/0.4 ML SYRINGE. SQ SCH (15:00)
[2018-10-26 03:35] VITALS: BP 158/96
[2018-10-26 07:00] VITALS: BP 158/93
[2018-10-26] MEDS ORDERED: POTASSIUM CHLORIDE 20 MEQ TABLET.ER. PO SCH (08:00)
[2018-10-26] MEDS: MULTIVIT INFUSN,ADULT 4,VIT K 10 ML, THIAMINE INJ 100 MG, FOLIC ACID INJ 1 MG in IV NOR... IV SCH (08:25)
[2018-10-26] MEDS: POTASSIUM CHLORIDE 20 MEQ TABLET.ER. PO SCH (08:26)
[2018-10-26] MEDS: amLODIPine BESYLATE 10 MG TABLET PO SCH (08:26)
[2018-10-26] MEDS: PANTOPRAZOLE 40 MG TABLET.DR. PO SCH (08:26)
[2018-10-26] MEDS: LISINOPRIL 20 MG TABLET PO SCH (08:27)
[2018-10-26] MEDS: hydroCHLOROthiazide 25 MG TABLET PO SCH (08:27)
[2018-10-26] MEDS: levETIRAcetam 500 MG TABLET PO SCH (08:27)
[2018-10-26] MEDS: FLUoxetine HCL 10 MG CAPSULE PO SCH (08:27)
--- NOTE | 2018-10-26 09:13 | PDOC ---
PROGRESS NOTES Chief Complaint Chief Complaint Assessment/Plan Hypernatremia Alcohol intoxication, ACUTE HX COCAINE ABUSE OBESITY HX DEPRESSION HX ALCOHOL RELATED SEIZURES hypertension HYPOKALEMIA Hepatitic steatosis - coarsening of the hepatic echotexture most commonly due to steatosis. Otherwise no significant abnormality is demonstrated, pancreas not well-visualized due to bowel gas. THC ABUSE HC Plan: ALCOHOL WITHDRAWAL PRECAUTIONS TELE AGREES TO ATTEND AA IV FLUID SUPPORT BANANA BAG DVT PROPHYLAXIS home meds replace lytes GI CONSULTED REPLETE K 29 MIN PT EXAM, CHART REVIEW, > 50% OF TIME SPENT WITH EXAM, CHART REVIEW, PT CARE COORDINATION History of Present Illness History of Present Illness Mr Hoover is a 63 y/o male with long h/o ETOH abuse. Presented to ED intoxicated with ETOH, cocaine, marijuana, also with electrolyte abnormalities. Had chest pain, underwent EKG, troponins, negative for acute HI. Had echocardiogram this morning that was essentially normal. He fills most his medications at [place] and has not filled for a few days, needs med refills. Wishes for discharge. Denies CP or SOB today. Vitals Vitals Vital Signs Date Time Temp Pulse Resp B/P (MAP) Pulse Ox O2 Delivery O2 Flow Rate FiO2 10/26/18 08:27 66 158/93 10/26/18 07:00 98.4 18 98 Room Air 98.4 Physical Exam General: Alert, Oriented X3, Cooperative, No acute distress Heart: Regular rate Lungs: Clear Abdomen: Soft Extremities: No clubbing, No cyanosis, No edema Skin: No rashes Assessment and Plan Assessmemt and Plan Problems Medical Problems: (1) Alcohol intoxication Status: Acute (2) Hypernatremia Status: Acute Comment Review of Relevant I have reviewed the following items edward (where applicable) has been applied. Labs Laboratory Tests Test 10/24/18 12:32 10/24/18 16:55 10/25/18 03:30 Glucose (Fingerstick) 98 mg/dL (70-99) 89 mg/dL (70-99) White Blood Count 3.3 x10^3/uL (4.0-11.0) Red Blood Count 4.44 x10^6/uL (4.30-5.70) Hemoglobin 13.2 g/dL (13.0-17.5) Hematocrit 39.2 % (39.0-53.0) Mean Corpuscular Volume 89 fL (79-100) Mean Corpuscular Hemoglobin 30 pg (25-35) Mean Corpuscular Hemoglobin Concent 34 g/dL (31-37) Red Cell Distribution Width 14.1 % (11.5-14.5) Platelet Count 120 x10^3/uL (140-400) Neutrophils (%) (Auto) 46 % (31-73) Lymphocytes (%) (Auto) 41 % (24-48) Monocytes (%) (Auto) 12 % (0-9) Eosinophils (%) (Auto) 2 % (0-3) Basophils (%) (Auto) 0 % (0-3) Neutrophils # (Auto) 1.5 x10^3/uL (1.8-7.7) Lymphocytes # (Auto) 1.3 x10^3/uL (1.0-4.8) Monocytes # (Auto) 0.4 x10^3/uL (0.0-1.1) Eosinophils # (Auto) 0.0 x10^3/uL (0.0-0.7) Basophils # (Auto) 0.0 x10^3/uL (0.0-0.2) Sodium Level 139 mmol/L (136-145) Potassium Level 3.4 mmol/L (3.5-5.1) Chloride Level 103 mmol/L (98-107) Carbon Dioxide Level 26 mmol/L (21-32) Anion Gap 10 (6-14) Blood Urea Nitrogen 12 mg/dL (8-26) Creatinine 0.9 mg/dL (0.7-1.3) Estimated GFR (Cockcroft-Gault) 103.5 BUN/Creatinine Ratio 13 (6-20) Glucose Level 89 mg/dL (70-99) Calcium Level 8.7 mg/dL (8.5-10.1) Total Bilirubin 1.3 mg/dL (0.2-1.0) Aspartate Amino Transf (AST/SGOT) 72 U/L (15-37) Alanine Aminotransferase (ALT/SGPT) 79 U/L (16-63) Alkaline Phosphatase 67 U/L (46-116) Total Protein 7.6 g/dL (6.4-8.2) Albumin 3.0 g/dL (3.4-5.0) Albumin/Globulin Ratio 0.7 (1.0-1.7) Medications Current Medications Multivitamins 10 ml/Thiamine HCl 100 mg/Folic Acid 1 mg/Sodium Chloride 1,011.2 ml @ 1,000 mls/ hr 1X ONCE IV Last administered on 10/23/18at 00:25; Start 10/23/18 at 00:45; Stop 10/23/18 at 01:45; Status DC Sodium Chloride 1,000 ml @ 500 mls/hr 1X ONCE IV Last administered on 10/23/18at 02:14; Start 10/23/18 at 02:00; Stop 10/23/18 at 03:59; Status DC Lorazepam (Ativan Inj) 1 mg 1X ONCE IV ; Start 10/23/18 at 02:30; Stop 10/23/18 at 02:31; Status DC Ondansetron HCl (Zofran) 4 mg PRN Q8HRS PRN IV NAUSEA/VOMITING 1ST CHOICE; Start 10/23/18 at 04:00; Stop 10/24/18 at 04:00; Status DC Multivitamins 10 ml/Thiamine HCl 100 mg/Folic Acid 1 mg/Sodium Chloride 1,011.2 ml @ 100 mls/ hr DAILY IV ; Start 10/23/18 at 14:00; Stop 10/27/18 at 19:07; Status Cancel Multivitamins (Thera M Plus) 1 tab DAILY PO ; Start 10/27/18 at 09:00 Folic Acid (Folic Acid) 1 mg DAILY PO ; Start 10/27/18 at 09:00 Thiamine HCl 100 mg DAILY IM ; Start 10/24/18 at 09:00; Stop 10/29/18 at 08:59; Status UNV Lorazepam (Ativan) 4 mg PRN Q1HR PRN PO For CIWA 8-14; Start 10/23/18 at 14:00 Lorazepam (Ativan) 8 mg PRN Q1HR PRN PO For CIWA 15 or greater; Start 10/23/18 at 14:00 Lorazepam (Ativan Inj) 2 mg PRN Q1HR PRN IV For CIWA 8-14 Last administered on 10/24/18at 17:47; Start 10/23/18 at 14:00 Lorazepam (Ativan Inj) 4 mg PRN Q1HR PRN IV For CIWA 15 or greater Last administered on 10/23/18at 15:43; Start 10/23/18 at 14:00 Haloperidol Lactate (Haldol Inj) 5 mg PRN Q4HRS PRN IVP Hallucinatns,Confusn,Delirium; Start 10/23/18 at 14:00 Diphenhydramine HCl (Benadryl) 25 mg PRN Q15MIN PRN IVP EPS symptoms 2'Haldol admin; Start 10/23/18 at 14:00 Clonidine HCl (Catapres) 0.1 mg PRN Q1HR PRN PO SBP > 180 or DBP > 100, MRX3; Start 10/23/18 at 14:00; Stop 10/23/18 at 14:13; Status DC Lorazepam (Ativan Inj) 2 mg PRN Q15MIN PRN IV SEE COMMENTS; Start 10/23/18 at 14:00; Stop 10/24/18 at 14:15; Status DC Lorazepam (Ativan Inj) 4 mg PRN Q15MIN PRN IV SEE COMMENTS; Start 10/23/18 at 14:00; Stop 10/24/18 at 14:15; Status DC Sodium Chloride (Normal Saline Flush) 3 ml QSHIFT PRN IV AFTER MEDS AND BLOOD DRAWS; Start 10/23/18 at 14:15 Multivitamins 10 ml/Thiamine HCl 100 mg/Folic Acid 1 mg/Sodium Chloride 1,011.2 ml @ 125 mls/ hr Q8H IV ; Start 10/23/18 at 14:15; Status Cancel Ondansetron HCl (Zofran) 4 mg PRN Q4HRS PRN IV NAUSEA/VOMITING; Start 10/23/18 at 14:15 Acetaminophen (Tylenol) 650 mg PRN Q4HRS PRN PO TEMP OVER 100.4F OR MILD PAIN; Start 10/23/18 at 14:15 Al Hydroxide/Mg Hydroxide (Mylanta Plus Xs) 30 ml PRN DAILY PRN PO HEARTBURN / GAS; Start 10/23/18 at 14:15 Clonidine HCl (Catapres) 0.1 mg PRN Q6HRS PRN PO SBP>160 OR DBP>90 Last administered on 10/24/18at 12:19; Start 10/23/18 at 14:15 Docusate Sodium (Colace) 100 mg PRN BID PRN PO CONSTIPATION; Start 10/23/18 at 14:15 Albuterol Sulfate (Ventolin Neb Soln) 2.5 mg PRN Q4HRS PRN NEB SHORTNESS OF BREATH; Start 10/23/18 at 14:15 Guaifenesin (Robitussin) 200 mg PRN Q4HRS PRN PO COUGH; Start 10/23/18 at 14:15 Lorazepam (Ativan) 0.5 mg PRN Q4HRS PRN PO ANXIETY / AGITATION Last administered on 10/23/18at 17:43; Start 10/23/18 at 14:15 Enoxaparin Sodium (Lovenox 40mg Syringe) 40 mg Q24H SQ ; Start 10/23/18 at 15:00 Multivitamins 10 ml/Thiamine HCl 100 mg/Folic Acid 1 mg/Sodium Chloride 1,011.2 ml @ 100 mls/ hr DAILY IV Last administered on 10/26/18 08:27; Start 10/24/18 at 09:00; Stop 10/26/18 at 23:00 Amlodipine Besylate (Norvasc) 10 mg DAILY PO Last administered on 10/26/18 08 :27; Start 10/24/18 at 13:00 Hydrochlorothiazide (Hydrodiuril) 25 mg DAILY PO Last administered on 10/26/18 08:27; Start 10/24/18 at 13:00 Levetiracetam (Keppra) 500 mg BID PO Last administered on 10/26/18 08:27; Start 10/24/18 at 13:00 Lisinopril (Prinivil) 20 mg DAILY PO Last administered on 10/26/18 08:27; Start 10/24/18 at 13:00 Pantoprazole Sodium (Protonix) 40 mg DAILYAC PO Last administered on 10/26/18 08:27; Start 10/24/18 at 13:00 Potassium Chloride (Klor-Con) 40 meq 1X ONCE PO Last administered on 10/24/18 13:13; Start 10/24/18 at 12:30; Stop 10/24/18 at 12:37; Status DC Potassium Chloride (Klor-Con) 20 meq DAILYWBKFT PO Last administered on 10/26/18 08:27; Start 10/25/18 at 08:00 Fluoxetine HCl (PROzac) 10 mg DAILY PO Last administered on 9/16/19at 08:27; Start 10/24/18 at 15:30 Thiamine Mononitrate (Vitamin B-1) 100 mg DAILY PO ; Start 10/27/18 at 09:00 Potassium Chloride (Klor-Con) 40 meq 1X ONCE PO Last administered on 10/25/18at 15:06; Start 10/25/18 at 14:30; Stop 10/25/18 at 14:31; Status DC Potassium Chloride (Klor-Con) 20 meq DAILYWBKFT PO ; Start 10/26/18 at 08:00; Status UNV Active Scripts Active Keppra (Levetiracetam) 500 Mg Tablet 500 Mg PO BID 30 Days Reported Protonix Packet (Pantoprazole Sodium) 40 Mg Granpkt.dr 40 Mg PO DAILY Lisinopril 20 Mg Tablet 1 Tab PO DAILY Hydrochlorothiazide Tablet (Hydrochlorothiazide) 25 Mg Tablet 1 Tab PO DAILY Norvasc (Amlodipine Besylate) 10 Mg Tablet 10 Mg PO DAILY Vitals/I & O Vital Sign - Last 24 Hours 10/25/18 10/25/18 10/25/18 10/25/18 11:00 15:00 19:50 20:00 Temp 98.5 98.3 98.6 98.5 98.3 98.6 Pulse 108 78 84 Resp 16 18 20 B/P (MAP) 157/89 (111) 149/84 (105) 152/86 (108) Pulse Ox 97 97 96 O2 Delivery Room Air Room Air Room Air Room Air 10/25/18 10/26/18 10/26/18 10/26/18 23:30 03:35 07:00 08:27 Temp 98.5 98.1 98.4 98.5 98.1 98.4 Pulse 77 73 66 66 Resp 18 18 18 B/P (MAP) 167/99 (121) 158/96 (116) 158/93 (114) 158/93 Pulse Ox 96 98 98 O2 Delivery Room Air Room Air Room Air 10/26/18 08:27 Pulse 66 B/P (MAP) 158/93 Intake and Output 10/25/18 10/25/18 10/26/18 14:59 22:59 06:59 Intake Total 450 ml 250 ml Output Total 300 ml Balance 450 ml -50 ml AUSTIN GILBERT MD Oct 26, 2018 09:13
--- NOTE | 2018-10-26 10:21 | PDOC ---
Subjective: Subjective: Feeling okay, tolerating PO. Objective: Vital Signs: Vital Signs Date Time Temp Pulse Resp B/P (MAP) Pulse Ox O2 Delivery O2 Flow Rate FiO2 10/26/18 08:27 66 158/93 10/26/18 08:00 Room Air 10/26/18 07:00 98.4 18 98 98.4 PE: GEN: NAD LUNGS: CTAB HEART: RRR ABD: NABS, S/ND/NT NEURO/PSYCH: A & O �3 - was asleep A/P: Substance abuse/possible alcoholic liver disease Mild leukopenia and thrombocytopenia Hepatic steatosis -- Hepatitis panel pending. Continue same per GI. ORA VERMA Oct 26, 2018 10:21
[2018-10-26 11:17] VITALS: BP 137/85
--- NOTE | 2018-10-26 11:38 | CARD ---
MR#: [id number] Date of Study: 10/26/2018 Ordering Physician: ARDEN RIOS, Referring Physician: ARDEN RIOS, Tech: Isa Muller RDCS APPROVED REPORT EXAM: Two-dimensional and M-mode echocardiogram with Doppler and color Doppler. Other Information Quality : Good INDICATION Hypertension/HCVD 2D DIMENSIONS RVDd2.5 (2.9-3.5cm)Left Atrium(2D)3.9 (1.6-4.0cm) IVSd1.3 (0.7-1.1cm)Aortic Root(2D)2.9 (2.0-3.7cm) LVDd3.8 (3.9-5.9cm)LVOT Diameter2.3 (1.8-2.4cm) PWd1.3 (0.7-1.1cm)LVDs2.5 (2.5-4.0cm) FS (%) 33.2 %SV38.5 ml LVEF(%)60.0 (>50%) Aortic Valve AoV Peak Rebel.117.3cm/sAoV VTI18.2cm AO Peak GR.5.5mmHgLVOT Peak Rebel.81.2cm/s LVOT VTI 15.78cmAO Mean GR.3mmHg ISAAC (VMAX)2.78bm3WZI (VTI)3.70cm2 AI P 1/2 Qotx099im Mitral Valve MV E Vfplimri27.4cm/sMV DECEL QQYX067zo MV A Cdtjthws92.4cm/sMV KMD205bo E/A Ratio0.6MVA (PHT)2.17cm2 TDI E/Lateral E'11.0E/Medial E'16.8 Tricuspid Valve TR P. Gddofrpe247bm/sRAP NXUFQLMI3peIv TR Peak Gr.72uaViQRCB07kyOo Pulmonary Vein S1 Uwwwiyzr65.9cm/sD2 Bgbhgdst64.5cm/s LEFT VENTRICLE The left ventricle is normal size. There is mild concentric left ventricular hypertrophy. The left ve ntricular systolic function is normal. The Ejection Fraction is 55-60%. There is normal LV segmental wall motion. Transmitral Doppler flow pattern is Grade I-abnormal relaxation pattern. RIGHT VENTRICLE The right ventricle is normal size. The right ventricular systolic function is normal. ATRIA The left atrium size is normal. The right atrium size is normal. The interatrial septum is intact wit h no evidence for an atrial septal defect or patent foramen ovale as noted on 2-D or Doppler imaging. AORTIC VALVE The aortic valve is calcified but opens well. Doppler and Color Flow revealed mild aortic regurgitati on. There is no significant aortic valvular stenosis. MITRAL VALVE The mitral valve is calcified but opens well. Mitral annular calcification is mild. There is no evide nce of mitral valve prolapse. There is no mitral valve stenosis. Doppler and Color-flow revealed trac e mitral regurgitation. TRICUSPID VALVE The tricuspid valve is normal in structure and function. Doppler and Color Flow revealed trace tricus pid regurgitation. The PA pressure was estimated at 19 mmHg. There is no tricuspid valve stenosis. PULMONIC VALVE The pulmonic valve is not well visualized. Doppler and Color Flow revealed no pulmonic valvular regur gitation. There is no pulmonic valvular stenosis. GREAT VESSELS The aortic root is normal in size. The ascending aorta is normal in size. The IVC is normal in size a nd collapses >50% with inspiration. PERICARDIAL EFFUSION There is no evidence of significant pericardial effusion. Critical Notification Critical Value: No <Conclusion> The left ventricular systolic function is normal. The Ejection Fraction is 55-60%. There is normal LV segmental wall motion. Transmitral Doppler flow pattern is Grade I-abnormal relaxation pattern. Mild aortic regurgitation. Trace mitral regurgitation. Trace tricuspid regurgitation. The PA pressure was estimated at 19 mmHg. There is no evidence of significant pericardial effusion. Signed by : Delroy Reagan, Electronically Approved : 10/26/2018 11:38:12
[2018-10-26] MEDS ORDERED: LISI-334 PO (12:05)
[2018-10-26] MEDS ORDERED: PANT40GR PO (12:05)
[2018-10-26] MEDS ORDERED: FLUO10CA7 PO (12:05)
[2018-10-26] MEDS ORDERED: HYDR-2145 PO (12:05)
[2018-10-26] MEDS ORDERED: AMLO10TA4 PO (12:05)
--- NOTE | 2018-10-26 14:04 | NUR ---
Discharge Note: RACQUEL ROCKWELL Discharge instructions and discharge home medications reviewed with patient and a copy given. All questions have been answered and understanding verbalized. Prescriptions for fluoxetine, amlodipine, lisinopril, hydrochlorthiazide,and pantoprazole given to the patient. The following instructions and handouts were given: RSI handout, crisis call center given to the patient. Follow up with [facility] for outpatient treatment (substance use, alcohol) Follow up with PCP for continuity of care, GI ff up regarding hepatitis screen. Handouts on anxiety, alcohol withdrawal, intoxication. Abstain from alcohol. Patient education regarding utilizing resources for help, family support available. Discontinued lines and drains: peripheral IV intact, patient tolerated removal, no complications noted. Patient discharged to home via wheelchair accompanied by patient's sister and nephew at 1400.
[2018-10-27] MEDS ORDERED: THIAMINE 100 MG TABLET. PO SCH (09:00)
[2018-10-27] MEDS ORDERED: FOLIC ACID 1 MG TABLET. PO SCH (09:00)
[2018-10-27] MEDS ORDERED: MULTIVITAMIN with MINERAL TABLET. PO SCH (09:00)
== END 2018-10-26 14:00 | disposition home or self-care (01) | DRG 641 ==
LOC: ER 23:59 → 6 SOUTH 10-23 03:53
PROVIDERS: ADMIT Internal Medicine; ATTEND Internal Medicine
DX: E87.0 Hyperosmolality and hypernatremia (principal); E87.6 Hypokalemia; F10.229 Alcohol dependence with intoxication, unspecified; D69.6 Thrombocytopenia, unspecified; D72.819 Decreased white blood cell count, unspecified; M19.90 Unspecified osteoarthritis, unspecified site; I10 Essential (primary) hypertension; F17.210 Nicotine dependence, cigarettes, uncomplicated; F12.10 Cannabis abuse, uncomplicated; E66.9 Obesity, unspecified; K70.9 Alcoholic liver disease, unspecified; K76.0 Fatty (change of) liver, not elsewhere classified; Z82.49 Family history of ischemic heart disease and other diseases of the circulatory system; Z68.30 Body mass index [BMI] 30.0-30.9, adult
CPT/HCPCS: 36415; 71046; 76700; 80048; 80053; 80076; 80307; 81001; 82310; 82962; 83540; 83550; 83735; 85025; 86705; 86709; 86803; 87340; 87521; 93306; 94760; G0480; J2060; J7030; 99285-25; G0378

== ENCOUNTER 2018-10-31 00:30 | Emergency (ER) | payer MEDICARE, OTHER ==
[~2018-10-31] VITALS: Ht 165.1 cm; Wt 81.6 kg
[~2018-10-31 00:30] MED LIST changes: +FLUO10CA7 PO
[2018-10-31] MEDS ORDERED: FAMOTIDINE 20 MG/2 ML VIAL IVP ONE (00:45)
[2018-10-31 00:46] LABS: BASO % 1 % (0-3); EOS % 1 % (0-3); HEMATOCRIT 36.8 % (39.0-53.0); HEMOGLOBIN 12.3 g/dL (13.0-17.5); LYMPH # 2.3 x10^3/uL (1.0-4.8); LYMPH % 58 % (24-48); MEAN CORPUSCULAR HEMOGLOBIN 29 pg (25-35); MEAN CORPUSCULAR HGB CONC 33 g/dL (31-37); MEAN CORPUSCULAR VOLUME 88 fL (79-100); MONO # 0.6 x10^3/uL (0.0-1.1); MONO % 15 % (0-9); NEUT % 26 % (31-73); PLATELET COUNT 160 x10^3/uL (140-400); RED BLOOD COUNT 4.17 x10^6/uL (4.30-5.70); RED CELL DISTRIBUTION WIDTH 15.2 % (11.5-14.5); WHITE BLOOD COUNT 3.9 x10^3/uL (4.0-11.0)
[2018-10-31 00:55] LABS: CALCIUM 8.3 mg/dL (8.5-10.1); CREATININE 1.1 mg/dL (0.7-1.3); GFR 82.1; POTASSIUM 3.6 mmol/L (3.5-5.1)
[2018-10-31 01:01] LABS: ALBUMIN 3.5 g/dL (3.4-5.0); ALBUMIN/GLOBULIN RATIO 0.8 (1.0-1.7); TOTAL BILIRUBIN 0.5 mg/dL (0.2-1.0); TOTAL PROTEIN 8.1 g/dL (6.4-8.2)
--- NOTE | 2018-10-31 01:30 | RAD ---
AP chest x-ray HISTORY: Shortness of breath. COMPARISON: Chest x-ray October 24, 2018. Fines: Heart size normal. Mediastinal silhouette is normal. No pneumothorax, pulmonary opacities or pleural effusions. Bones are unremarkable. IMPRESSION: No acute process. Electronically signed by: Hunter Cool MD (10/31/2018 1:27 AM) [id number]
--- NOTE | 2018-10-31 04:30 | PHYS DOC ---
Past Medical History Past Medical History: Diabetes-Type II, GERD, Hypertension, Liver Disease Past Surgical History: Other Additional Past Surgical Histo: RIGHT ANKLE Alcohol Use: Heavy Drug Use: Cocaine, Marijuana Adult General Chief Complaint Chief Complaint: ALCOHOL INTOXICATION HPI HPI Patient is a 63 year old AA male with type 2 diabetes hypertension who presents with on-call intoxication. Patient consumed a large quantity of alcohol and marijuana prior with possible cocaine to contacting EMS. Denies chest pain palpitations, shortness of breath. Patient nauseated reports midepigastric pain. Requesting food well in the ED. No other acute symptoms or complaints[] Review of Systems Review of Systems Review symptoms limited per patient cooperation. All other systems were reviewed and found to be within normal limits, except as documented in this note. Current Medications Current Medications Current Medications Medications (Trade) Dose Ordered Sig/Kay Start Time Stop Time Status Last Admin Dose Admin Famotidine (Pepcid Vial) 20 mg 1X ONCE 10/31/18 00:45 10/31/18 00:46 DC 10/31/18 01:34 20 MG Allergies Allergies Allergies Coded Allergies Type Severity Reaction Last Updated Verified No Known Drug Allergies 08/08/14 No Physical Exam Physical Exam Constitutional: Shovel, smells of EtOH.. [] HENT: Normocephalic, atraumatic, bilateral external ears normal, oropharynx moist, no oral exudates, nose normal. [] Eyes: PERRLA, EOMI, conjunctiva normal, no discharge. [] Neck: Normal range of motion, no tenderness, supple, no stridor. [] Cardiovascular:Heart rate regular rhythm, no murmur [] Lungs & Thorax: Bilateral breath sounds clear to auscultation [] Abdomen: Bowel sounds normal, soft, no tenderness. [] Skin: Warm, dry, no erythema, no rash. [] Back: No tenderness, no CVA tenderness. [] Extremities: No tenderness. [] Neurologic: Alert and oriented, slurring of speech, normal motor function, normal sensory function, no focal deficits noted. [] Psychologic: Affect is anxious. [] Current Patient Data Vital Signs Vital Signs Date Time Temp Pulse Resp B/P (MAP) Pulse Ox O2 Delivery O2 Flow Rate FiO2 10/31/18 00:40 98.2 106 23 150/114 (126) 97 Room Air 98.2 Lab Values Laboratory Tests Test 10/31/18 00:37 White Blood Count 3.9 x10^3/uL (4.0-11.0) L Red Blood Count 4.17 x10^6/uL (4.30-5.70) L Hemoglobin 12.3 g/dL (13.0-17.5) L Hematocrit 36.8 % (39.0-53.0) L Mean Corpuscular Volume 88 fL (79-100) Mean Corpuscular Hemoglobin 29 pg (25-35) Mean Corpuscular Hemoglobin Concent 33 g/dL (31-37) Red Cell Distribution Width 15.2 % (11.5-14.5) H Platelet Count 160 x10^3/uL (140-400) Neutrophils (%) (Auto) 26 % (31-73) L Lymphocytes (%) (Auto) 58 % (24-48) H Monocytes (%) (Auto) 15 % (0-9) H Eosinophils (%) (Auto) 1 % (0-3) Basophils (%) (Auto) 1 % (0-3) Neutrophils # (Auto) 1.0 x10^3/uL (1.8-7.7) L Lymphocytes # (Auto) 2.3 x10^3/uL (1.0-4.8) Monocytes # (Auto) 0.6 x10^3/uL (0.0-1.1) Eosinophils # (Auto) 0.0 x10^3/uL (0.0-0.7) Basophils # (Auto) 0.0 x10^3/uL (0.0-0.2) Sodium Level 147 mmol/L (136-145) H Potassium Level 3.6 mmol/L (3.5-5.1) Chloride Level 111 mmol/L (98-107) H Carbon Dioxide Level 23 mmol/L (21-32) Anion Gap 13 (6-14) Blood Urea Nitrogen 11 mg/dL (8-26) Creatinine 1.1 mg/dL (0.7-1.3) Estimated GFR (Cockcroft-Gault) 82.1 BUN/Creatinine Ratio 10 (6-20) Glucose Level 147 mg/dL (70-99) H Calcium Level 8.3 mg/dL (8.5-10.1) L Total Bilirubin 0.5 mg/dL (0.2-1.0) Aspartate Amino Transferase (AST) 192 U/L (15-37) H Alanine Aminotransferase (ALT) 145 U/L (16-63) H Alkaline Phosphatase 128 U/L (46-116) H Troponin I Quantitative < 0.017 ng/mL (0.000-0.055) Total Protein 8.1 g/dL (6.4-8.2) Albumin 3.5 g/dL (3.4-5.0) Albumin/Globulin Ratio 0.8 (1.0-1.7) L Lipase 388 U/L (73-393) Laboratory Tests 10/31/18 00:37 Laboratory Tests 10/31/18 00:37 EKG EKG [EKG: Reviewed] Radiology/Procedures Radiology/Procedures [] Course & Med Decision Making Course & Med Decision Making Pertinent Labs and Imaging studies reviewed. (See chart for details) [Patient monitored in the ED for clinical improvement. Labs, EKG reviewed. Patient resting comfortably with stable vital signs at time of discharge. Recommendations are outpatient PCP follow-up. Return precautions reviewed.] Dragon Disclaimer Dragon Disclaimer This electronic medical record was generated, in whole or in part, using a voice recognition dictation system. Departure Departure Impression: Primary Impression: Polysubstance abuse Additional Impression: Accelerated hypertension Disposition: 01 HOME, SELF-CARE Condition: IMPROVED Referrals: NO PCP (PCP) Patient Instructions: Polysubstance Abuse Additional Instructions: Please avoid alcohol and drug use and take blood pressure medications as directed. Follow up with your PCP in 2-3 days. Return to the ED if new or concerning symptoms. Problem Qualifiers SHAHAB MARIE DO Oct 31, 2018 04:30
[2018-10-31 04:36] VITALS: BP 135/161
--- NOTE | 2018-10-31 10:50 | EKG ---
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
== END 2018-10-31 05:30 | disposition home or self-care (01) ==
LOC: ER 00:30
DX: F19.10 Other psychoactive substance abuse, uncomplicated (principal); I10 Essential (primary) hypertension; F10.20 Alcohol dependence, uncomplicated; Y90.9 Presence of alcohol in blood, level not specified; K21.9 Gastro-esophageal reflux disease without esophagitis; E11.9 Type 2 diabetes mellitus without complications
CPT/HCPCS: 36415; 71045; 80053; 83690; 84484; 85025; 93005; 96374; 99285; J3490

== ENCOUNTER 2018-11-04 19:56 | Emergency (ER) | payer MEDICARE, OTHER ==
[~2018-11-04] VITALS: Ht 177.8 cm; Wt 81.6 kg
--- NOTE | 2018-11-04 20:49 | RAD ---
CT HEAD WO CONTRAST dated 11/04/2018 8:24 PM. Comparison: 11/28/2017 Clinical Indication: Pain after injury. Technical factors: Contiguous 5 mm axial images of the head were obtained from the skull base to the vertex. No contrast was administered. One or more of the following individualized dose reduction techniques were utilized for this examination: Automated exposure control, Adjustment of the mA and/or kV according to patient size, Use of iterative reconstruction technique. Findings: Ventricles and sulci are mildly prominent for age. No midline shift or mass effect. Brain parenchyma is of normal attenuation. No hemorrhage or extra-axial collection. Posterior fossa and brainstem unremarkable. Mild mucosal thickening of the bilateral ethmoid air cells. The visualized paranasal sinuses and mastoid air cells are clear. Deformity of the anterior wall of left maxillary sinus and orbital floor system with old healed fracture, unchanged. IMPRESSION: 1. No evidence of acute intracranial hemorrhage or mass. 2. Mild atrophy for age. 3. Deformity of the anterior wall of the left maxillary sinus, similar to prior study, likely related to old healed fracture. Correlate clinically. Impression: No evidence of acute intracranial abnormality. Electronically signed by: Edin Beatty MD (11/04/2018 8:45 PM) [facility]
[2018-11-04] MEDS ORDERED: MIDAZOLAM HCL/PF 5 MG/5 ML VIAL. IM ONE (21:00)
[2018-11-04 22:00] VITALS: BP 96/54
--- NOTE | 2018-11-04 22:13 | PHYS DOC ---
Past Medical History Past Medical History: Diabetes-Type II, GERD, Hypertension, Liver Disease Additional Past Medical Histor: ALCOHOL ABUSE Past Surgical History: Other Additional Past Surgical Histo: RIGHT ANKLE Alcohol Use: Heavy Drug Use: Cocaine, Marijuana Adult General Chief Complaint Chief Complaint: MECHANICAL FALL HPI HPI Patient is a 63 year olD M P/W chief complaint brought in by ambulance mechanical fall at the liquor store heavily intoxicated hit head no loss of consciousness history limited by the patient's cooperation Review of Systems Review of Systems ALLEN BY INTOX Current Medications Current Medications Current Medications Medications (Trade) Dose Ordered Sig/Kay Start Time Stop Time Status Last Admin Dose Admin Midazolam HCl (Versed) 4 mg 1X ONCE 11/04/18 21:00 11/04/18 21:01 DC 11/04/18 20:49 4 MG Allergies Allergies Allergies Coded Allergies Type Severity Reaction Last Updated Verified No Known Drug Allergies 08/08/14 No Physical Exam Physical Exam Constitutional: Well developed, INTOXICATED YELLING HENT: Normocephalic, CONTUSION FOREHEADc, bilateral external ears normal, oropharynx moist, no oral exudates, nose normal. [] Eyes: PERRLA, EOMI, conjunctiva normal, no discharge. [] Neck: Normal range of motion, no tenderness, supple, no stridor. [] NO CHEST WALL TTP NOTED Abdomen: , soft, no tenderness, no masses, no pulsatile masses. [] Skin: Warm, dry, no erythema, no rash. [] Back: No tenderness, no CVA tenderness. [] Extremities: No tenderness, no cyanosis, no clubbing, ROM intact, no edema. [] Neurologic: GCS E 5 V 4 M 6 PSYCH; AIGTATED YELLING CLIMBING OUT OF BED GAVE VERSED IM FOR PT AND STAFF SAFETY Current Patient Data Vital Signs Vital Signs Date Time Temp Pulse Resp B/P (MAP) Pulse Ox O2 Delivery O2 Flow Rate FiO2 11/04/18 19:56 97.9 90 20 125/72 (89) 97 Room Air 97.9 EKG EKG [] Radiology/Procedures Radiology/Procedures [] Impressions: IMPRESSION: 1. No evidence of acute intracranial hemorrhage or mass. 2. Mild atrophy for age. 3. Deformity of the anterior wall of the left maxillary sinus, similar to prior study, likely related to old healed fracture. Correlate clinically. Impression: No evidence of acute intracranial abnormality. Electronically signed by: Edin Beatty MD (11/04/2018 8:45 PM) [facility] Course & Med Decision Making Course & Med Decision Making Pertinent Labs and Imaging studies reviewed. (See chart for details) []Heavily intoxicated mechanical fall at the liquor store patient was given Versed in the emergency room head CT negative waiting for clearance of mental status for discharge on her own power most likely. Dragon Disclaimer Dragon Disclaimer This electronic medical record was generated, in whole or in part, using a voice recognition dictation system. Departure Departure Impression: Primary Impression: Alcohol intoxication Disposition: 01 HOME, SELF-CARE Condition: STABLE Referrals: NO PCP (PCP) Patient Instructions: Alcohol Intoxication, [id number] HAIDER BREWER MD Nov 04, 2018 22:13
== END 2018-11-05 04:30 | disposition home or self-care (01) ==
LOC: ER 19:56
DX: S00.83XA Contusion of other part of head, initial encounter (principal); F10.229 Alcohol dependence with intoxication, unspecified; R45.1 Restlessness and agitation; E11.9 Type 2 diabetes mellitus without complications; K21.9 Gastro-esophageal reflux disease without esophagitis; I10 Essential (primary) hypertension; W18.09XA Striking against other object with subsequent fall, initial encounter; Y93.89 Activity, other specified; Y92.89 Other specified places as the place of occurrence of the external cause; Y99.8 Other external cause status
CPT/HCPCS: 70450; 82962; 96372; 99285; J2250; 99284

== ENCOUNTER 2019-01-19 14:42 | Emergency (ER) | payer MEDICARE, OTHER ==
[~2019-01-19] VITALS: Ht 175.3 cm; Wt 81.6 kg
[~2019-01-19 14:42] MED LIST changes: +FLUO10CA14 PO; -FLUO10CA7 PO
[2019-01-19] MEDS ORDERED: ONDANSETRON PF 4 MG/2 ML VIAL. IV ONE (15:15)
[2019-01-19] MEDS ORDERED: MULTIVIT INFUSN,ADULT 4,VIT K 10 ML, THIAMINE INJ 100 MG, FOLIC ACID INJ 1 MG in IV NOR... IV ONE (15:30)
[2019-01-19 17:30] LABS: BASO % 1 % (0-3); EOS # 0.1 x10^3/uL (0.0-0.7); EOS % 1 % (0-3); HEMATOCRIT 38.5 % (39.0-53.0); LYMPH # 2.5 x10^3/uL (1.0-4.8); LYMPH % 55 % (24-48); MEAN CORPUSCULAR HEMOGLOBIN 30 pg (25-35); MEAN CORPUSCULAR HGB CONC 34 g/dL (31-37); MEAN CORPUSCULAR VOLUME 88 fL (79-100); MONO # 0.4 x10^3/uL (0.0-1.1); MONO % 9 % (0-9); NEUT # 1.6 x10^3/uL (1.8-7.7); NEUT % 34 % (31-73); PLATELET COUNT 171 x10^3/uL (140-400); RED BLOOD COUNT 4.39 x10^6/uL (4.30-5.70); RED CELL DISTRIBUTION WIDTH 15.1 % (11.5-14.5); WHITE BLOOD COUNT 4.6 x10^3/uL (4.0-11.0)
[2019-01-19 17:40] LABS: CALCIUM 7.8 mg/dL (8.5-10.1); GFR 91.6; POTASSIUM 3.8 mmol/L (3.5-5.1)
[2019-01-19 17:45] LABS: ALBUMIN 2.7 g/dL (3.4-5.0); ALBUMIN/GLOBULIN RATIO 0.6 (1.0-1.7); TOTAL BILIRUBIN 0.3 mg/dL (0.2-1.0); TOTAL PROTEIN 7.2 g/dL (6.4-8.2)
[2019-01-19] MEDS ORDERED: IV NORMAL SALINE 1000ML BAG 1,000 ML IV ONE (19:00)
--- NOTE | 2019-01-19 19:10 | PHYS DOC ---
Past Medical History Past Medical History: Alcoholism, Diabetes-Type II, GERD, Hypertension, Liver Disease Additional Past Medical Histor: ALCOHOL ABUSE (BRENNEN SMITH APRN) Past Surgical History: Other Additional Past Surgical Histo: RIGHT ANKLE (BRENNEN SMITH APRN) Alcohol Use: Heavy Drug Use: Cocaine, Marijuana (BRENNEN SMITH APRN) Adult General Chief Complaint Chief Complaint: ALCOHOL INTOXICATION HPI HPI Patient is a 63 year old AA male who is brought to the emergency department by EMS today. EMS reports that the patient was at [facility] when he told employees there to call 911 because he was drunk. Patient denies any complaints, he states he is intoxicated and needs something to eat. Patient denies any chest pain, shortness of breath, nausea, vomiting, diarrhea, or fever. Limited history of present illness due to patient's current intoxicated status. All other ROS is neg unless otherwise noted in HPI. (BRENNEN SMITH APRN) Review of Systems Review of Systems See Above (BRENNEN SMITH APRN) Current Medications Current Medications Current Medications Medications (Trade) Dose Ordered Sig/Kay Start Time Stop Time Status Last Admin Dose Admin Calcium Gluconate (Calcium Gluconate) 1,000 mg 1X ONCE 01/19/19 19:45 01/19/19 19:46 DC Multivitamins 10 ml/Thiamine HCl 100 mg/Folic Acid 1 mg/Sodium Chloride 1,011.2 ml @ 1,000.088 mls/hr 1X ONCE 01/19/19 15:30 01/19/19 16:30 DC 01/19/19 17:28 1,000.088 MLS/HR Ondansetron HCl (Zofran) 4 mg 1X ONCE 01/19/19 15:15 01/19/19 15:16 DC Sodium Chloride 1,000 ml @ 1,000 mls/hr 1X ONCE 01/19/19 19:00 01/19/19 19:59 DC 01/19/19 19:00 1,000 MLS/HR (SHARON BARBER APRN) Allergies Allergies Allergies Coded Allergies Type Severity Reaction Last Updated Verified No Known Drug Allergies 08/08/14 No (SHARON BARBER APRN) Physical Exam Physical Exam See Above Constitutional: Well developed, well nourished, intoxicated, non-toxic appearance. [] HENT: Normocephalic, atraumatic, bilateral external ears normal, nose normal. [] Eyes: PERRLA, EOMI, conjunctiva normal, no discharge. [] Neck: Normal range of motion, no stridor. [] Cardiovascular:Heart rate regular rhythm Lungs & Thorax: Bilateral breath sounds clear to auscultation, Respirations even and unlabored, no retractions, no respiratory distress Skin: Warm, dry Extremities: No cyanosis, ROM intact Neurologic: Alert and oriented X 3, no focal deficits noted. [] Psychologic: Affect intoxicated, judgement impaired, mood agitated. [] (BRENNEN SMITH BUTTON TACKER) Current Patient Data Vital Signs Vital Signs Date Time Temp Pulse Resp B/P (MAP) Pulse Ox O2 Delivery O2 Flow Rate FiO2 01/19/19 19:30 95 16 155/70 (98) 98 Room Air 01/19/19 14:45 98.6 98.6 (SHARON BARBER BUTTON TACKER) Lab Values Laboratory Tests Test 01/19/19 17:25 White Blood Count 4.6 x10^3/uL (4.0-11.0) Red Blood Count 4.39 x10^6/uL (4.30-5.70) Hemoglobin 13.0 g/dL (13.0-17.5) Hematocrit 38.5 % (39.0-53.0) L Mean Corpuscular Volume 88 fL (79-100) Mean Corpuscular Hemoglobin 30 pg (25-35) Mean Corpuscular Hemoglobin Concent 34 g/dL (31-37) Red Cell Distribution Width 15.1 % (11.5-14.5) H Platelet Count 171 x10^3/uL (140-400) Neutrophils (%) (Auto) 34 % (31-73) Lymphocytes (%) (Auto) 55 % (24-48) H Monocytes (%) (Auto) 9 % (0-9) Eosinophils (%) (Auto) 1 % (0-3) Basophils (%) (Auto) 1 % (0-3) Neutrophils # (Auto) 1.6 x10^3/uL (1.8-7.7) L Lymphocytes # (Auto) 2.5 x10^3/uL (1.0-4.8) Monocytes # (Auto) 0.4 x10^3/uL (0.0-1.1) Eosinophils # (Auto) 0.1 x10^3/uL (0.0-0.7) Basophils # (Auto) 0.0 x10^3/uL (0.0-0.2) Sodium Level 141 mmol/L (136-145) Potassium Level 3.8 mmol/L (3.5-5.1) Chloride Level 106 mmol/L (98-107) Carbon Dioxide Level 22 mmol/L (21-32) Anion Gap 13 (6-14) Blood Urea Nitrogen 8 mg/dL (8-26) Creatinine 1.0 mg/dL (0.7-1.3) Estimated GFR (Cockcroft-Gault) 91.6 BUN/Creatinine Ratio 8 (6-20) Glucose Level 155 mg/dL (70-99) H Calcium Level 7.8 mg/dL (8.5-10.1) L Total Bilirubin 0.3 mg/dL (0.2-1.0) Aspartate Amino Transferase (AST) 171 U/L (15-37) H Alanine Aminotransferase (ALT) 180 U/L (16-63) H Alkaline Phosphatase 125 U/L (46-116) H Total Protein 7.2 g/dL (6.4-8.2) Albumin 2.7 g/dL (3.4-5.0) L Albumin/Globulin Ratio 0.6 (1.0-1.7) L Laboratory Tests 01/19/19 17:25 Laboratory Tests 01/19/19 17:25 (SHARON BARBER APRN) EKG EKG [] (BRENNEN SMITH APRN) Radiology/Procedures Radiology/Procedures [] (BRENNEN SMITH APRN) Course & Med Decision Making Course & Med Decision Making Pertinent Labs and Imaging studies reviewed. (See chart for details) Patient is a 63-year-old -Indian male who presented to the emergency room for alcohol intoxication and hunger. CBC was unremarkable, CMP revealed a calcium of 7.7, patient is asymptomatic. He was given a banana bag and 1 L normal saline IV in the emergency department patient has been asleep for several hours at this point. 190- report given to Sharon Barber APRN advised Sharon that once patient awakens as long as he is clinically sober he may be discharged to home. Nursing staff is aware that once pt awakens they need to ambulate him and assess clinical sobriety. [] (BRENNEN SMITH APRN) Course & Med Decision Making Patient did not receive his fluids or his calcium per IV due to the patient pulling out his IV. Patient refusing fluids and medication. I have told Dr. Lee mcgowan of this. Patient is alert oriented and up and walking steady. He's had 2 box lunches. He has dressed himself. Patient is stable for discharge. (SHARON BARBER APRN) Dragon Disclaimer Dragon Disclaimer This electronic medical record was generated, in whole or in part, using a voice recognition dictation system. (BRENNEN SMITH APRN) Departure Departure Impression: Primary Impression: Alcohol intoxication Additional Impression: Hypocalcemia Disposition: 01 HOME, SELF-CARE Condition: STABLE Referrals: NO PCP (PCP) Patient Instructions: Alcohol Intoxication, [id number] Additional Instructions: Increase clear fluids. Follow up with your primary care doctor as needed. Return to the ER if symptoms worsen. Problem Qualifiers Primary Impression: Alcohol intoxication Complication of substance-induced condition: uncomplicated Qualified Codes: F10.920 - Alcohol use, unspecified with intoxication, uncomplicated BRENNEN SMITH APRN Jan 19, 2019 19:10 SHARON BARBER APRN Jan 19, 2019 23:19
[2019-01-19 19:30] VITALS: BP 155/70
[2019-01-19] MEDS ORDERED: CALCIUM GLUCONATE 1,000 MG/10 ML VIAL. IVP ONE (19:45)
== END 2019-01-19 23:26 | disposition home or self-care (01) ==
LOC: ER 14:42
DX: F10.229 Alcohol dependence with intoxication, unspecified (principal); Y90.9 Presence of alcohol in blood, level not specified; E83.51 Hypocalcemia; K21.9 Gastro-esophageal reflux disease without esophagitis; E11.9 Type 2 diabetes mellitus without complications; I10 Essential (primary) hypertension
CPT/HCPCS: 36415; 80053; 85025; 96365; 99284; J7030; 96361

== ENCOUNTER 2019-02-22 17:00 | Emergency (ER) | payer MEDICARE, OTHER ==
[~2019-02-22] VITALS: Ht 167.6 cm; Wt 81.6 kg
[2019-02-22] MEDS ORDERED: MULTIVIT INFUSN,ADULT 4,VIT K 10 ML, THIAMINE INJ 100 MG, FOLIC ACID INJ 1 MG in IV NOR... IV ONE (18:30)
[2019-02-22] MEDS ORDERED: cloNIDine HCL 0.1 MG TABLET PO ONE ×2 (18:30→22:45)
[2019-02-22 18:46] LABS: BASO # 0.1 x10^3/uL (0.0-0.2); BASO % 3 % (0-3); EOS % 1 % (0-3); HEMATOCRIT 35.8 % (39.0-53.0); HEMOGLOBIN 11.8 g/dL (13.0-17.5); LYMPH # 1.1 x10^3/uL (1.0-4.8); LYMPH % 40 % (24-48); MEAN CORPUSCULAR HEMOGLOBIN 29 pg (25-35); MEAN CORPUSCULAR HGB CONC 33 g/dL (31-37); MEAN CORPUSCULAR VOLUME 87 fL (79-100); MONO # 0.5 x10^3/uL (0.0-1.1); MONO % 18 % (0-9); NEUT % 39 % (31-73); PLATELET COUNT 166 x10^3/uL (140-400); RED BLOOD COUNT 4.11 x10^6/uL (4.30-5.70); RED CELL DISTRIBUTION WIDTH 15.8 % (11.5-14.5); WHITE BLOOD COUNT 2.7 x10^3/uL (4.0-11.0)
[2019-02-22 18:53] LABS: PROTHROMBIN TIME PATIENT 13.3 SEC (11.7-14.0)
[2019-02-22 18:59] LABS: CALCIUM 8.2 mg/dL (8.5-10.1); CREATININE 1.1 mg/dL (0.7-1.3); GFR 82.1
[2019-02-22 19:04] LABS: ETHANOL 191 mg/dL (0-10); SALIC < 2.8 mg/dL (2.8-20.0)
[2019-02-22 19:05] LABS: ACETAMIN < 2.0 mcg/ml (10-30); ALBUMIN/GLOBULIN RATIO 0.8 (1.0-1.7); TOTAL BILIRUBIN 0.3 mg/dL (0.2-1.0)
[2019-02-22 19:08] LABS: % LYMPHS 43 % (24-48); % MONOS 10 % (0-10); % SEGS 47 % (35-66); ANISOCYTOSIS SLIGHT; HYPOCHROMIA SLIGHT; PLT ESTIMATE ADEQUATE (ADEQUATE)
[2019-02-22] MEDS ORDERED: LABETALOL 20 MG/4 ML DISP.SYRIN. IVP ONE ×2 (22:00→23:30)
[2019-02-22 23:27] VITALS: BP 169/74
--- NOTE | 2019-02-22 23:45 | PHYS DOC ---
Past Medical History Past Medical History: Hypertension Additional Past Medical Histor: ALCOHOL ABUSE Past Surgical History: Other Additional Past Surgical Histo: pt reports right ankle has pins put in 1994. Additional Information: 02/13 ppd Alcohol Use: Heavy Additional Information: reports drinking beer daily, and occasional vodka Drug Use: Cocaine, Marijuana Adult General Chief Complaint Chief Complaint: HYPERTENSION HPI HPI Patient is a 63 year old male patient who presents to the ED today complaining of high blood pressure as well as alcohol intoxication and requesting help for alcohol abuse. Patient reports he ran out of his blood pressure medications a month ago. He reports today his sister came and requested him to walk to the nearest EMS station and get help for high blood pressure as well as alcohol intoxication. Patient reports his drank 1/5 of vodka and 12, 24 oz of beer. He also reports he smoked weed. He states he did have dizziness early on but it cleared out. Review of Systems Review of Systems Constitutional: Denies fever or chills [] Eyes: Denies change in visual acuity, redness, or eye pain [] HENT: Denies nasal congestion or sore throat [] Respiratory: Denies cough or shortness of breath [] Cardiovascular: No additional information not addressed in HPI [] GI: Denies abdominal pain, nausea, vomiting, bloody stools or diarrhea [] : Denies dysuria or hematuria [] Musculoskeletal: Denies back pain or joint pain [] Integument: Denies rash or skin lesions [] Neurologic: Reports dizziness. Denies headache, focal weakness or sensory changes [] Psych:reports alcohol intoxication and marijuana use All other systems were reviewed and found to be within normal limits, except as documented in this note. Current Medications Current Medications Current Medications Medications (Trade) Dose Ordered Sig/Kay Start Time Stop Time Status Last Admin Dose Admin Clonidine HCl (Catapres) 0.2 mg 1X ONCE 02/22/19 22:45 02/22/19 22:46 DC 02/22/19 23:20 0.2 MG Labetalol HCl (Normodyne Iv Push) 10 mg 1X ONCE 02/22/19 23:30 02/22/19 23:31 DC 02/22/19 23:27 10 MG Multivitamins 10 ml/Thiamine HCl 100 mg/Folic Acid 1 mg/Sodium Chloride 1,011.2 ml @ 1,000.088 mls/hr 1X ONCE 02/22/19 18:30 02/22/19 19:30 DC 02/22/19 18:49 1,000.088 MLS/HR Allergies Allergies Allergies Coded Allergies Type Severity Reaction Last Updated Verified No Known Drug Allergies 08/08/14 No Physical Exam Physical Exam Constitutional: Well developed, well nourished, no acute distress, non-toxic appearance. [] HENT: Normocephalic, atraumatic, bilateral external ears normal, oropharynx moist, no oral exudates, nose normal. [] Eyes: PERRLA, EOMI, conjunctiva normal, no discharge. [] Neck: Normal range of motion, no tenderness, supple, no stridor. [] Cardiovascular:Heart rate regular rhythm, no murmur [] Lungs & Thorax: Bilateral breath sounds clear to auscultation [] Abdomen: Bowel sounds normal, soft, no tenderness, no masses, no pulsatile masses. [] Skin: Warm, dry, no erythema, no rash. [] Back: No tenderness, no CVA tenderness. [] Extremities: No tenderness, no cyanosis, no clubbing, ROM intact, no edema. [] Neurologic: Alert and oriented X 3, normal motor function, normal sensory function, no focal deficits noted. [] Psychologic: Very happy jovial patient appears very intoxicated, smells of marijuana Current Patient Data Vital Signs Vital Signs Date Time Temp Pulse Resp B/P (MAP) Pulse Ox O2 Delivery O2 Flow Rate FiO2 02/22/19 23:27 88 169/74 02/22/19 20:52 16 95 02/22/19 18:00 98.2 Room Air 98.2 Lab Values Laboratory Tests Test 02/22/19 18:33 White Blood Count 2.7 x10^3/uL (4.0-11.0) L Red Blood Count 4.11 x10^6/uL (4.30-5.70) L Hemoglobin 11.8 g/dL (13.0-17.5) L Hematocrit 35.8 % (39.0-53.0) L Mean Corpuscular Volume 87 fL (79-100) Mean Corpuscular Hemoglobin 29 pg (25-35) Mean Corpuscular Hemoglobin Concent 33 g/dL (31-37) Red Cell Distribution Width 15.8 % (11.5-14.5) H Platelet Count 166 x10^3/uL (140-400) Neutrophils (%) (Auto) 39 % (31-73) Lymphocytes (%) (Auto) 40 % (24-48) Monocytes (%) (Auto) 18 % (0-9) H Eosinophils (%) (Auto) 1 % (0-3) Basophils (%) (Auto) 3 % (0-3) Neutrophils # (Auto) 1.0 x10^3/uL (1.8-7.7) L Lymphocytes # (Auto) 1.1 x10^3/uL (1.0-4.8) Monocytes # (Auto) 0.5 x10^3/uL (0.0-1.1) Eosinophils # (Auto) 0.0 x10^3/uL (0.0-0.7) Basophils # (Auto) 0.1 x10^3/uL (0.0-0.2) Segmented Neutrophils % 47 % (35-66) Lymphocytes % 43 % (24-48) Monocytes % 10 % (0-10) Platelet Estimate Adequate (ADEQUATE) Hypochromasia Slight Anisocytosis Slight Prothrombin Time 13.3 SEC (11.7-14.0) Prothrombin Time INR 1.0 (0.8-1.1) Activated Partial Thromboplast Time 29 SEC (24-38) Sodium Level 145 mmol/L (136-145) Potassium Level 4.0 mmol/L (3.5-5.1) Chloride Level 109 mmol/L (98-107) H Carbon Dioxide Level 24 mmol/L (21-32) Anion Gap 12 (6-14) Blood Urea Nitrogen 11 mg/dL (8-26) Creatinine 1.1 mg/dL (0.7-1.3) Estimated GFR (Cockcroft-Gault) 82.1 BUN/Creatinine Ratio 10 (6-20) Glucose Level 165 mg/dL (70-99) H Calcium Level 8.2 mg/dL (8.5-10.1) L Total Bilirubin 0.3 mg/dL (0.2-1.0) Aspartate Amino Transferase (AST) 128 U/L (15-37) H Alanine Aminotransferase (ALT) 119 U/L (16-63) H Alkaline Phosphatase 140 U/L (46-116) H Total Protein 7.0 g/dL (6.4-8.2) Albumin 3.0 g/dL (3.4-5.0) L Albumin/Globulin Ratio 0.8 (1.0-1.7) L Salicylates Level < 2.8 mg/dL (2.8-20.0) L Salicylate Last Dose Date Unk Salicylate Last Dose Time Unk Acetaminophen Level < 2.0 mcg/ml (10-30) L Acetaminophen Last Dose Date Unk Acetaminophen Last Dose Time Unk Ethyl Alcohol Level 191 mg/dL (0-10) H Laboratory Tests 02/22/19 18:33 Laboratory Tests 02/22/19 18:33 EKG EKG [] Radiology/Procedures Radiology/Procedures [] Course & Med Decision Making Course & Med Decision Making Pertinent Labs and Imaging studies reviewed. (See chart for details) This is a 63 year old male presenting to the Ed today and requesting help with alcohol as well as blood pressure. BP is in the 160s over 70s on arrival to the ED. He ran out of his blood pressure medications month ago. CBC with a WBC of 2.7, patient has history of low WBC. Alcohol level 191. Labs with elevated CMP with AST of 128, ALT of 119, ALT of 140 Patient refused to give us urine Reina from the PAT team came and evaluated patient, patient will head to [facility]. Rx. for BP medicines provided for use at [facility]. Dragon Disclaimer Dragon Disclaimer This electronic medical record was generated, in whole or in part, using a voice recognition dictation system. Departure Departure Impression: Primary Impression: Hypertension Additional Impressions: Alcohol intoxication Transaminitis Marijuana abuse Disposition: 05 TRANSFER OTHER Condition: STABLE Referrals: NO PCP (PCP) Please head to adult detox unit. Patient Instructions: Alcohol Intoxication, Hypertension Additional Instructions: Please head to [facility] right away. Scripts Lisinopril (LISINOPRIL) 10 Mg Tablet 1 TAB PO DAILY, #30 TAB Prov: ROCHELLE OLIVEIRA APRN 02/23/19 Hydrochlorothiazide (HYDROCHLOROTHIAZIDE TABLET) 12.5 Mg Tablet 12.5 MG PO DAILY for DIURETIC, #30 TAB 0 Refills Prov: ROCHELLE OLIVEIRA APRN 02/23/19 Amlodipine Besylate (AMLODIPINE BESYLATE) 10 Mg Tablet 10 MG PO DAILY, #30 TAB Prov: ROCHELLE OLIVEIRA APRN 02/23/19 Problem Qualifiers Primary Impression: Hypertension Hypertension type: unspecified Qualified Codes: I10 - Essential (primary) hypertension Additional Impressions: Alcohol intoxication Complication of substance-induced condition: with unspecified complication Qualified Codes: F10.929 - Alcohol use, unspecified with intoxication, unspecified ROCHELLE OLIVEIRA SKATE HOP Feb 22, 2019 23:45
[2019-02-23] MEDS ORDERED: AMLO10TA8 PO (00:08)
[2019-02-23] MEDS ORDERED: LISI10TA2 PO (00:08)
[2019-02-23] MEDS ORDERED: HYDR12.58 PO (00:08)
== END 2019-02-23 00:20 | disposition home or self-care (01) ==
LOC: ER 17:00
DX: I10 Essential (primary) hypertension (principal); F10.229 Alcohol dependence with intoxication, unspecified; Y90.6 Blood alcohol level of 120-199 mg/100 ml; R74.0 Nonspecific elevation of levels of transaminase and lactic acid dehydrogenase [LDH]; F12.10 Cannabis abuse, uncomplicated
CPT/HCPCS: 36415; 80053; 80329; 85007; 85025; 85610; 85730; 96365; 96375; 96376; 99284; G0480; J3490; J7030

== ENCOUNTER 2019-03-20 20:29 | Emergency (ER) | payer MEDICARE, OTHER ==
[~2019-03-20] VITALS: Ht 167.6 cm; Wt 68.2 kg
[~2019-03-20 20:29] MED LIST changes: +AMLO10TA8 PO; +HYDR12.58 PO; +LISI10TA2 PO
[2019-03-20 20:49] LABS: BASO % 0 % (0-3); EOS # 0.1 x10^3/uL (0.0-0.7); EOS % 2 % (0-3); HEMATOCRIT 38.9 % (39.0-53.0); HEMOGLOBIN 12.9 g/dL (13.0-17.5); LYMPH # 2.2 x10^3/uL (1.0-4.8); LYMPH % 51 % (24-48); MEAN CORPUSCULAR HEMOGLOBIN 28 pg (25-35); MEAN CORPUSCULAR HGB CONC 33 g/dL (31-37); MEAN CORPUSCULAR VOLUME 85 fL (79-100); MONO # 0.5 x10^3/uL (0.0-1.1); MONO % 11 % (0-9); NEUT # 1.6 x10^3/uL (1.8-7.7); NEUT % 36 % (31-73); PLATELET COUNT 221 x10^3/uL (140-400); RED BLOOD COUNT 4.55 x10^6/uL (4.30-5.70); RED CELL DISTRIBUTION WIDTH 15.9 % (11.5-14.5); WHITE BLOOD COUNT 4.4 x10^3/uL (4.0-11.0)
[2019-03-20 20:59] LABS: CALCIUM 8.1 mg/dL (8.5-10.1); CREATININE 1.1 mg/dL (0.7-1.3); GFR 82.1; POTASSIUM 3.8 mmol/L (3.5-5.1)
[2019-03-20] MEDS ORDERED: MULTIVIT INFUSN,ADULT 4,VIT K 10 ML, THIAMINE INJ 100 MG, FOLIC ACID INJ 1 MG in IV NOR... IV ONE (21:00)
[2019-03-20 21:04] LABS: ALBUMIN 3.1 g/dL (3.4-5.0); ALBUMIN/GLOBULIN RATIO 0.7 (1.0-1.7); TOTAL BILIRUBIN 0.2 mg/dL (0.2-1.0); TOTAL PROTEIN 7.5 g/dL (6.4-8.2)
[2019-03-20 21:05] LABS: ACETAMIN < 2 mcg/ml (10-30); ETHANOL 299 mg/dL (0-10); SALIC < 2.8 mg/dL (2.8-20.0)
[2019-03-20 21:06] VITALS: BP 127/72
--- NOTE | 2019-03-20 21:32 | PHYS DOC ---
Past Medical History Past Medical History: Alcoholism, Hypertension Additional Past Medical Histor: ALCOHOL ABUSE (ROCHELLE OLIVEIRA APRN) Past Surgical History: Other Additional Past Surgical Histo: pt reports right ankle has pins put in 1994. (ROCHELLE OLIVEIRA APRN) Smoking Status: Current Every Day Smoker Alcohol Use: Heavy Drug Use: Cocaine, Marijuana (ROCHELLE OLIVEIRA APRN) Attending Signature I have participated in the care of this patient and I have reviewed and agree with all pertinent clinical information above including history, exam, and recommendations. (PRERNA CASTRO MD) Adult General Chief Complaint Chief Complaint: ALCOHOL INTOXICATION HPI HPI Patient is a 63 year old male with history of alcoholism, hypertension, who presents to the ED today via EMS to be evaluated for alcohol intoxication. Patient himself reports having taken some [place], use Marijuana, crack and cocaine. (ROCHELLE OLIVEIRA APRN) Review of Systems Review of Systems Constitutional: Denies fever or chills [] Eyes: Denies change in visual acuity, redness, or eye pain [] HENT: Denies nasal congestion or sore throat [] Respiratory: Denies cough or shortness of breath [] Cardiovascular: No additional information not addressed in HPI [] GI: Denies abdominal pain, nausea, vomiting, bloody stools or diarrhea [] : Denies dysuria or hematuria [] Musculoskeletal: Denies back pain or joint pain [] Integument: Denies rash or skin lesions [] Neurologic: Denies headache, focal weakness or sensory changes [] Psych: Alcohol intoxication All other systems were reviewed and found to be within normal limits, except as documented in this note. (ROCHELLE OLIVEIRA APRN) Current Medications Current Medications Current Medications Medications (Trade) Dose Ordered Sig/Kay Start Time Stop Time Status Last Admin Dose Admin Multivitamins 10 ml/Thiamine HCl 100 mg/Folic Acid 1 mg/Sodium Chloride 1,011.2 ml @ 1,000.088 mls/hr 1X ONCE 03/20/19 21:00 03/20/19 22:00 03/20/19 21:02 1,000.088 MLS/HR (PRERNA CASTRO MD) Allergies Allergies Allergies Coded Allergies Type Severity Reaction Last Updated Verified No Known Drug Allergies 08/08/14 No (PRERNA CASTRO MD) Physical Exam Physical Exam Constitutional: Well developed, well nourished, no acute distress, non-toxic appearance. [] HENT: Normocephalic, atraumatic, bilateral external ears normal, oropharynx moist, no oral exudates, nose normal. [] Eyes: PERRLA, EOMI, conjunctiva normal, no discharge. [] Neck: Normal range of motion, no tenderness, supple, no stridor. [] Cardiovascular:Heart rate regular rhythm, no murmur [] Lungs & Thorax: Bilateral breath sounds clear to auscultation [] Abdomen: Bowel sounds normal, soft, no tenderness, no masses, no pulsatile masses. [] Skin: Warm, dry, no erythema, no rash. [] Back: No tenderness, no CVA tenderness. [] Extremities: No tenderness, no cyanosis, no clubbing, ROM intact, no edema. [] Neurologic: Alert and oriented X 3, normal motor function, normal sensory function, no focal deficits noted. [] Psychologic: Appears intoxicated, smells of marijuana (MUTUNGA,ROCHELLE [employer]) Current Patient Data Vital Signs Vital Signs Date Time Temp Pulse Resp B/P (MAP) Pulse Ox O2 Delivery O2 Flow Rate FiO2 03/20/19 20:29 98.0 80 18 153/81 (105) 97 Room Air 98.0 (PRERNA CASTRO MD) Lab Values Laboratory Tests Test 03/20/19 20:33 White Blood Count 4.4 x10^3/uL (4.0-11.0) Red Blood Count 4.55 x10^6/uL (4.30-5.70) Hemoglobin 12.9 g/dL (13.0-17.5) L Hematocrit 38.9 % (39.0-53.0) L Mean Corpuscular Volume 85 fL (79-100) Mean Corpuscular Hemoglobin 28 pg (25-35) Mean Corpuscular Hemoglobin Concent 33 g/dL (31-37) Red Cell Distribution Width 15.9 % (11.5-14.5) H Platelet Count 221 x10^3/uL (140-400) Neutrophils (%) (Auto) 36 % (31-73) Lymphocytes (%) (Auto) 51 % (24-48) H Monocytes (%) (Auto) 11 % (0-9) H Eosinophils (%) (Auto) 2 % (0-3) Basophils (%) (Auto) 0 % (0-3) Neutrophils # (Auto) 1.6 x10^3/uL (1.8-7.7) L Lymphocytes # (Auto) 2.2 x10^3/uL (1.0-4.8) Monocytes # (Auto) 0.5 x10^3/uL (0.0-1.1) Eosinophils # (Auto) 0.1 x10^3/uL (0.0-0.7) Basophils # (Auto) 0.0 x10^3/uL (0.0-0.2) Sodium Level 145 mmol/L (136-145) Potassium Level 3.8 mmol/L (3.5-5.1) Chloride Level 108 mmol/L (98-107) H Carbon Dioxide Level 26 mmol/L (21-32) Anion Gap 11 (6-14) Blood Urea Nitrogen 11 mg/dL (8-26) Creatinine 1.1 mg/dL (0.7-1.3) Estimated GFR (Cockcroft-Gault) 82.1 BUN/Creatinine Ratio 10 (6-20) Glucose Level 105 mg/dL (70-99) H Calcium Level 8.1 mg/dL (8.5-10.1) L Total Bilirubin 0.2 mg/dL (0.2-1.0) Aspartate Amino Transferase (AST) 102 U/L (15-37) H Alanine Aminotransferase (ALT) 83 U/L (16-63) H Alkaline Phosphatase 142 U/L (46-116) H Total Protein 7.5 g/dL (6.4-8.2) Albumin 3.1 g/dL (3.4-5.0) L Albumin/Globulin Ratio 0.7 (1.0-1.7) L Lipase 431 U/L (73-393) H Salicylates Level < 2.8 mg/dL (2.8-20.0) L Salicylate Last Dose Date Unk Salicylate Last Dose Time Unk Acetaminophen Level < 2 mcg/ml (10-30) L Acetaminophen Last Dose Date Unk Acetaminophen Last Dose Time Unk Ethyl Alcohol Level 299 mg/dL (0-10) H Laboratory Tests 03/20/19 20:33 Laboratory Tests 03/20/19 20:33 (PRERNA CASTRO MD) EKG EKG [] (ROCHELLE OLIVEIRA APRN) Radiology/Procedures Radiology/Procedures [] (ROCHELLE OLIVEIRA APRN) Course & Med Decision Making Course & Med Decision Making Pertinent Labs and Imaging studies reviewed. (See chart for details) This is a 63-year-old male patient well known to this department presenting to be evaluated for alcohol intoxication. Patient also used marijuana, crack and cocaine. After a few minutes in the ED, patient got up by himself, dressed up and started walking out on the ED. He states he wants to be discharged and go to his sister's house. The nurse helped him call the sister who requested patient be discharged and she will send a cab for patient because she does not drive. Patient is alert oriented able to make his own decisions. He has been able to ambulate by himself in the ED with no difficulties. He has continued to refuse care. He left AGAINST MEDICAL ADVICE. (ROCHELLE OLVIEIRA APRN) Dragon Disclaimer Dragon Disclaimer This electronic medical record was generated, in whole or in part, using a voice recognition dictation system. (ROCHELLE OLIVEIRA APRN) Departure Departure Impression: Primary Impression: Alcohol intoxication Additional Impressions: Pancreatitis, acute Transaminitis Disposition: 07 AGAINST MEDICAL ADVICE ( from his) Condition: STABLE Referrals: NO PCP (PCP) Problem Qualifiers Primary Impression: Alcohol intoxication Complication of substance-induced condition: with unspecified complication Qualified Codes: F10.929 - Alcohol use, unspecified with intoxication, unspecified Additional Impressions: Pancreatitis, acute Pancreatitis type: unspecified pancreatitis type Acute pancreatitis complication: unspecified Qualified Codes: K85.90 - Acute pancreatitis without necrosis or infection, unspecified ROCHELLE OLIVEIRA APRN Mar 20, 2019 21:32 PRERNA CASTRO MD Mar 20, 2019 21:55
== END 2019-03-20 21:31 | disposition left against medical advice (07) ==
LOC: ER 20:29
DX: F10.229 Alcohol dependence with intoxication, unspecified (principal); Y90.8 Blood alcohol level of 240 mg/100 ml or more; I10 Essential (primary) hypertension; F12.10 Cannabis abuse, uncomplicated; F14.10 Cocaine abuse, uncomplicated; F17.200 Nicotine dependence, unspecified, uncomplicated
CPT/HCPCS: 36415; 80053; 80329; 83690; 85025; 96365; 99284; G0480; J7030

== ENCOUNTER → 2019-05-13 | Emergency (ER) | payer MEDICARE, OTHER ==
[~2019-05-13] VITALS: Ht 167.6 cm; Wt 100.0 kg
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
[2019-05-13 03:10] VITALS: BP 188/106
--- NOTE | 2019-05-13 04:12 | RAD ---
INDICATION: Trauma COMPARISON: CT head January 28, 2019 TECHNIQUE: Axial CT images obtained through the head, face and spine. One or more of the following individualized dose reduction techniques were utilized for this examination: 1. Automated exposure control; 2. Adjustment of the mA and/or kV according to patient size; 3. Use of iterative reconstruction technique. FINDINGS: Head: No midline shift. Suprasellar cistern is not effaced. Diffuse prominence of ventricles and sulci which can be seen with age-related volume loss. Scattered foci low density of white matter. No evidence of acute intracranial hemorrhage. Cervical spine: Degenerative changes with multilevel central canal and neural foraminal stenosis. No evidence of acute fracture or dislocation. Facial: Fracture of multiple kumar of the right maxillary sinus with hemorrhage within the sinus. This includes mildly comminuted fracture of the lateral wall with the fracture extending through the superior wall at the orbital floor. The orbital floor this appears essentially nondisplaced. There is some air and swelling within the adjacent soft tissues. IMPRESSION: * No acute intracranial hemorrhage. * Scattered foci of low density of the white matter. Nonspecific but can be seen with chronic small vessel ischemic disease. * Degenerative changes of the cervical spine without cervical spine fracture seen. * Comminuted fracture of the right maxillary sinus including extending through the orbital floor with hemorrhage within the sinus. Electronically signed by: Missael Worthington MD (05/13/2019 4:10 AM) [id number]
== END ==
LOC: ER 01:30
DX: S00.11XA Contusion of right eyelid and periocular area, initial encounter (principal); F10.229 Alcohol dependence with intoxication, unspecified; I10 Essential (primary) hypertension; F17.200 Nicotine dependence, unspecified, uncomplicated; F12.90 Cannabis use, unspecified, uncomplicated; F14.90 Cocaine use, unspecified, uncomplicated; Z98.890 Other specified postprocedural states; Y08.89XA Assault by other specified means, initial encounter; Y93.89 Activity, other specified; Y92.89 Other specified places as the place of occurrence of the external cause; Y99.8 Other external cause status
CPT/HCPCS: 70450; 70486; 72125; 99285

== ENCOUNTER 2019-10-16 02:40 | Emergency (ER) | payer MEDICARE, OTHER ==
[~2019-10-16] VITALS: Ht 167.6 cm; Wt 77.3 kg
--- NOTE | 2019-10-16 03:04 | PHYS DOC ---
Past Medical History Past Medical History: Alcoholism, Hypertension Additional Past Medical Histor: ALCOHOL ABUSE Past Surgical History: Other Additional Past Surgical Histo: pt reports right ankle has pins put in 1994, AND HERNIA REPAIR Smoking Status: Current Every Day Smoker Alcohol Use: Heavy Drug Use: Cocaine, Marijuana General Adult EDM: Chief Complaint: ALCOHOL INTOXICATION HPI: HPI: Patient is a 64 year old male with past medical history of hypertension and alcohol abuse presents via ems for evaluation. Patient admits to drinking and smoke THC tonight. States he called 911 because he was drunk and high. Patient denies any pain. Patient requesting refill for his blood pressure medications and money for a ride home. Review of Systems: Review of Systems: Constitutional: Denies fever or chills. [] Eyes: Denies change in visual acuity. [] HENT: Denies nasal congestion or sore throat. [] Respiratory: Denies cough or shortness of breath. [] Cardiovascular: Denies chest pain or edema. [] GI: Denies abdominal pain, nausea, vomiting, bloody stools or diarrhea. [] : Denies dysuria. [] Musculoskeletal: Denies back pain or joint pain. [] Integument: Denies rash. [] Neurologic: Denies headache, focal weakness or sensory changes. [] Endocrine: Denies polyuria or polydipsia. [] Lymphatic: Denies swollen glands. [] Psychiatric: Denies depression or anxiety. [] Heart Score: Risk Factors: Risk Factors: DM, Current or recent (<one month) smoker, HTN, HLP, family history of CAD, obesity. Risk Scores: Score 0 - 3: 2.5% MACE over next 6 weeks - Discharge Home Score 4 - 6: 20.3% MACE over next 6 weeks - Admit for Clinical Observation Score 7 - 10: 72.7% MACE over next 6 weeks - Early Invasive Strategies Allergies: Allergies: Allergies Coded Allergies Type Severity Reaction Last Updated Verified No Known Drug Allergies 08/08/14 No Physical Exam: PE: Constitutional: Well developed, well nourished, no acute distress, non-toxic appearance. [] HENT: Normocephalic, atraumatic, bilateral external ears normal, oropharynx moist, no oral exudates, nose normal. [] Eyes: PERRLA, EOMI, conjunctiva normal, no discharge. [] Neck: Normal range of motion, no tenderness, supple, no stridor. [] Cardiovascular:Heart rate regular rhythm, no murmur [] Lungs & Thorax: Bilateral breath sounds clear to auscultation [] Abdomen: Bowel sounds normal, soft, no tenderness, no masses, no pulsatile masses. [] Skin: Warm, dry, no erythema, no rash. [] Back: No tenderness, no CVA tenderness. [] Extremities: No tenderness, no cyanosis, no clubbing, ROM intact, no edema. [] Neurologic: Alert and oriented X 3, normal motor function, normal sensory function, no focal deficits noted. [slurring words, intoxicated] Psychologic: Affect normal, judgement normal, mood normal. [] EKG: EKG: [] Radiology/Procedures: Radiology/Procedures: [] Course & Med Decision Making: Course & Med Decision Making Pertinent Labs and Imaging studies reviewed. (See chart for details) []Patient observed for 1hr and 45 minutes Patient clinically sober. Ambulates with steady gait. WIll dc home Refill norvasc and hctz [place] Disclaimer: Naya Disclaimer: This electronic medical record was generated, in whole or in part, using a voice recognition dictation system. Departure Departure Impression: Primary Impression: Alcohol dependence Additional Impressions: Alcohol intoxication Medication refill Disposition: HOME, SELF-CARE Condition: STABLE Referrals: NO PCP (PCP) Patient Instructions: Alcohol Intoxication, Hypertension Scripts Hydrochlorothiazide (HYDROCHLOROTHIAZIDE TABLET ) 25 Mg Tablet 25 MG PO DAILY for DIURETIC, #30 TAB 0 Refills Prov: SHON ESPITIA I DO 10/16/19 Amlodipine Besylate (NORVASC) 10 Mg Tablet 10 MG PO DAILY, #30 TAB Prov: SHON ESPITIA I DO 10/16/19 Justicifation of Admission Dx: Justifications for Admission: Justification of Admission Dx: N/A SHON ESPITIA I DO Oct 16, 2019 03:04
[2019-10-16 04:11] VITALS: BP 136/71
[2019-10-16] MEDS ORDERED: AMLO10TA4 PO (04:22)
[2019-10-16] MEDS ORDERED: HYDR-2145 PO (04:22)
== END 2019-10-16 05:00 | disposition home or self-care (01) ==
LOC: ER 02:40
DX: F10.229 Alcohol dependence with intoxication, unspecified (principal); I10 Essential (primary) hypertension; F17.200 Nicotine dependence, unspecified, uncomplicated; F12.90 Cannabis use, unspecified, uncomplicated; F14.90 Cocaine use, unspecified, uncomplicated; Z98.890 Other specified postprocedural states
CPT/HCPCS: 99284

== ENCOUNTER 2019-12-07 21:15 | Emergency (ER) | payer MEDICARE, OTHER ==
[~2019-12-07] VITALS: Ht 170.2 cm; Wt 77.0 kg
[~2019-12-07 21:15] MED LIST changes: +AMLO-187 PO; -AMLO10TA8 PO; -FLUO10CA14 PO; +FLUO10CA15 PO
[2019-12-07 22:06] LABS: BASO % 1 % (0-3); EOS % 0 % (0-3); HEMATOCRIT 44.8 % (39.0-53.0); LYMPH # 1.8 x10^3/uL (1.0-4.8); LYMPH % 34 % (24-48); MEAN CORPUSCULAR HEMOGLOBIN 30 pg (25-35); MEAN CORPUSCULAR HGB CONC 34 g/dL (31-37); MEAN CORPUSCULAR VOLUME 88 fL (79-100); MONO # 0.7 x10^3/uL (0.0-1.1); MONO % 14 % (0-9); NEUT # 2.7 x10^3/uL (1.8-7.7); NEUT % 51 % (31-73); PLATELET COUNT 199 x10^3/uL (140-400); RED BLOOD COUNT 5.09 x10^6/uL (4.30-5.70); RED CELL DISTRIBUTION WIDTH 15.5 % (11.5-14.5); WHITE BLOOD COUNT 5.2 x10^3/uL (4.0-11.0)
[2019-12-07 22:13] LABS: CREATININE 1.7 mg/dL (0.7-1.3); GFR 49.5; POTASSIUM 3.1 mmol/L (3.5-5.1)
[2019-12-07 22:19] LABS: ALBUMIN 3.4 g/dL (3.4-5.0); ALBUMIN/GLOBULIN RATIO 0.6 (1.0-1.7); TOTAL BILIRUBIN 1.4 mg/dL (0.2-1.0); TOTAL PROTEIN 8.8 g/dL (6.4-8.2)
[2019-12-07] MEDS ORDERED: POTA20TA4 PO (22:30)
--- NOTE | 2019-12-07 22:39 | PHYS DOC ---
Past Medical History Past Medical History: Alcoholism, Hypertension Additional Past Medical Histor: ALCOHOL ABUSE Past Surgical History: Other Additional Past Surgical Histo: pt reports right ankle has pins put in 1994, AND HERNIA REPAIR Smoking Status: Current Every Day Smoker Alcohol Use: Heavy Drug Use: Cocaine, Marijuana General Adult EDM: Chief Complaint: SEIZURE HPI: HPI: Patient is a 64 year old male who is a daily drinker presents for for ev aluation due to a possible seizure. Patient brought to the emergency department by family member who states patient had seizure-like activity at 2100 hrs. Patient tells me he drinks 4-5 beers daily states today has only drank 4 beers. States his last beer was 1 hour prior to arrival. Patient states he used to drink hard alcohol but has been cutting back. Patient states his brother brought him to the hospital to be checked out. When I examined the patient he had no signs of alcohol withdrawal he was alert and oriented x4. His blood pressure was within normal limits and his heart rate was not tachycardic. Patient did not have any tremors. Review of Systems: Review of Systems: Constitutional: Denies fever or chills. [] Eyes: Denies change in visual acuity. [] HENT: Denies nasal congestion or sore throat. [] Respiratory: Denies cough or shortness of breath. [] Cardiovascular: Denies chest pain or edema. [] GI: Denies abdominal pain, nausea, vomiting, bloody stools or diarrhea. [] : Denies dysuria. [] Musculoskeletal: Denies back pain or joint pain. [] Integument: Denies rash. [] Neurologic: Denies headache, focal weakness or sensory changes. [] Endocrine: Denies polyuria or polydipsia. [] Lymphatic: Denies swollen glands. [] Psychiatric: Denies depression or anxiety. [] Heart Score: Risk Factors: Risk Factors: DM, Current or recent (<one month) smoker, HTN, HLP, family history of CAD, obesity. Risk Scores: Score 0 - 3: 2.5% MACE over next 6 weeks - Discharge Home Score 4 - 6: 20.3% MACE over next 6 weeks - Admit for Clinical Observation Score 7 - 10: 72.7% MACE over next 6 weeks - Early Invasive Strategies Current Medications: Current Medications Medications (Trade) Dose Ordered Sig/Kay Start Time Stop Time Status Last Admin Dose Admin Potassium Chloride (Klor-Con) 40 meq 1X ONCE 12/07/19 23:00 12/07/19 23:01 12/07/19 22:29 40 MEQ Sodium Chloride 500 ml @ 500 mls/hr 1X ONCE 12/07/19 23:00 12/07/19 23:59 12/07/19 22:29 500 MLS/HR Allergies: Allergies: Allergies Coded Allergies Type Severity Reaction Last Updated Verified No Known Drug Allergies 08/08/14 No Physical Exam: PE: Constitutional: Well developed, well nourished, no acute distress, non-toxic appearance. [] HENT: Normocephalic, atraumatic, bilateral external ears normal, oropharynx mo ist, no oral exudates, nose normal. [] Eyes: PERRLA, EOMI, conjunctiva normal, no discharge. [] Neck: Normal range of motion, no tenderness, supple, no stridor. [] Cardiovascular:Heart rate regular rhythm, no murmur [] Lungs & Thorax: Bilateral breath sounds clear to auscultation [] Abdomen: Bowel sounds normal, soft, no tenderness, no masses, no pulsatile masses. [] Skin: Warm, dry, no erythema, no rash. [] Back: No tenderness, no CVA tenderness. [] Extremities: No tenderness, no cyanosis, no clubbing, ROM intact, no edema. [] Neurologic: Alert and oriented X 3, normal motor function, normal sensory function, no focal deficits noted. [] Psychologic: Affect normal, judgement normal, mood normal. [] Current Patient Data: Labs: Laboratory Tests Test 12/07/19 21:25 White Blood Count 5.2 x10^3/uL (4.0-11.0) Red Blood Count 5.09 x10^6/uL (4.30-5.70) Hemoglobin 15.0 g/dL (13.0-17.5) Hematocrit 44.8 % (39.0-53.0) Mean Corpuscular Volume 88 fL (79-100) Mean Corpuscular Hemoglobin 30 pg (25-35) Mean Corpuscular Hemoglobin Concent 34 g/dL (31-37) Red Cell Distribution Width 15.5 % (11.5-14.5) H Platelet Count 199 x10^3/uL (140-400) Neutrophils (%) (Auto) 51 % (31-73) Lymphocytes (%) (Auto) 34 % (24-48) Monocytes (%) (Auto) 14 % (0-9) H Eosinophils (%) (Auto) 0 % (0-3) Basophils (%) (Auto) 1 % (0-3) Neutrophils # (Auto) 2.7 x10^3/uL (1.8-7.7) Lymphocytes # (Auto) 1.8 x10^3/uL (1.0-4.8) Monocytes # (Auto) 0.7 x10^3/uL (0.0-1.1) Eosinophils # (Auto) 0.0 x10^3/uL (0.0-0.7) Basophils # (Auto) 0.0 x10^3/uL (0.0-0.2) Sodium Level 127 mmol/L (136-145) L Potassium Level 3.1 mmol/L (3.5-5.1) L Chloride Level 91 mmol/L (98-107) L Carbon Dioxide Level 17 mmol/L (21-32) L Anion Gap 19 (6-14) H Blood Urea Nitrogen 13 mg/dL (8-26) Creatinine 1.7 mg/dL (0.7-1.3) H Estimated GFR (Cockcroft-Gault) 49.5 BUN/Creatinine Ratio 8 (6-20) Glucose Level 158 mg/dL (70-99) H Calcium Level 9.0 mg/dL (8.5-10.1) Total Bilirubin 1.4 mg/dL (0.2-1.0) H Aspartate Amino Transferase (AST) 142 U/L (15-37) H Alanine Aminotransferase (ALT) 125 U/L (16-63) H Alkaline Phosphatase 90 U/L (46-116) Total Protein 8.8 g/dL (6.4-8.2) H Albumin 3.4 g/dL (3.4-5.0) Albumin/Globulin Ratio 0.6 (1.0-1.7) L Laboratory Tests 12/07/19 21:25 Laboratory Tests 12/07/19 21:25 Vital Signs: Vital Signs Date Time Temp Pulse Resp B/P (MAP) Pulse Ox O2 Delivery O2 Flow Rate FiO2 12/07/19 21:34 98.6 96 18 87/65 (72) 96 Room Air 98.6 EKG: EKG: Time 2126 heart rate 99 sinus rhythm left axis deviation no STEMI Radiology/Procedures: Radiology/Procedures: [] Course & Med Decision Making: Course & Med Decision Making Pertinent Labs and Imaging studies reviewed. (See chart for details) [] Patient was evaluated for chief complaint. Work-up consisted of laboratory analysis and EKG. Results reviewed. Patient noted to have a sodium of 127 potassium of 3.1 and creatinine 1.7. Patient was treated with potassium p.o. and IV fluids. Patient blood pressure within normal limits patient was not tachycardic. Patient did not have any tremor and A/O x4. Patient was discharged home with instructions about alcohol abuse he received a prescription of potassium patient instructed to follow-up with primary care physician. Naya Disclaimer: Naya Disclaimer: This electronic medical record was generated, in whole or in part, using a voice recognition dictation system. Departure Departure Impression: Primary Impression: Hypokalemia Additional Impressions: Alcohol dependence JENIFER (acute kidney injury) Disposition: 01 DC HOME SELF CARE/HOMELESS Condition: STABLE Referrals: NO PCP UNKNOWN PCP NAME (PCP) Patient Instructions: Hypokalemia, Alcohol Intoxication, Alcohol Problems, Dehydration, Adult Scripts Potassium Chloride (POTASSIUM CHLORIDE ) 20 Meq Tablet.er 20 MEQ PO DAILY for SUPPLEMENT for 10 Days, #10 TAB.SR Prov: SHON ESPITIA DO 12/07/19 SHON ESPITIA DO Dec 07, 2019 22:39
[2019-12-07 22:54] VITALS: BP 124/75
[2019-12-07] MEDS ORDERED: POTASSIUM CHLORIDE 20 MEQ TABLET.ER. PO ONE (23:00)
[2019-12-07] MEDS ORDERED: IV NORMAL SALINE 500ML BAG 500 ML IV ONE (23:00)
== END 2019-12-07 22:55 | disposition home or self-care (01) ==
LOC: ER 21:15
DX: E87.6 Hypokalemia (principal); F10.20 Alcohol dependence, uncomplicated; Y90.9 Presence of alcohol in blood, level not specified; N17.9 Acute kidney failure, unspecified; I10 Essential (primary) hypertension; F17.200 Nicotine dependence, unspecified, uncomplicated
CPT/HCPCS: 36415; 80053; 85025; 99284; J7040

== ENCOUNTER 2020-01-17 19:53 | Emergency (ER) | payer MEDICARE, OTHER ==
[~2020-01-17] VITALS: Ht 165.1 cm; Wt 90.0 kg
[~2020-01-17 19:53] MED LIST changes: +POTA20TA4 PO
[2020-01-17 19:56] VITALS: BP 148/83
--- NOTE | 2020-01-17 20:34 | ED.ADGEN ---
Past Medical History Past Medical History: Alcoholism, Hypertension Additional Past Medical Histor: ALCOHOL ABUSE Past Surgical History: Other Additional Past Surgical Histo: pt reports right ankle has pins put in 1994, AND HERNIA REPAIR Smoking Status: Current Every Day Smoker Alcohol Use: Heavy Drug Use: Cocaine, Marijuana General Adult EDM: Chief Complaint: ALCOHOL INTOXICATION HPI: HPI: Patient is a 64 year old male coming in via [facility] after being found laying in a parking lot intoxicated. Patient has several visits for intoxication. Patient does not have any medical complaints. Review of Systems: Review of Systems: Review of systems negative, impaired by patient's intoxication and refusal to cooperate Allergies: Allergies: Allergies Coded Allergies Type Severity Reaction Last Updated Verified No Known Drug Allergies 08/08/14 No Physical Exam: PE: Constitutional: Well developed, well nourished, no acute distress, non-toxic appearance. [] HENT: Normocephalic, atraumatic, bilateral external ears normal, oropharynx moist, no oral exudates, nose normal. [] Eyes: PERRLA, EOMI, conjunctiva normal, no discharge. [] Neck: Normal range of motion, no tenderness, supple, no stridor. [] Cardiovascular:Heart rate regular rhythm, no murmur [] Lungs & Thorax: Bilateral breath sounds clear to auscultation [] Abdomen: Bowel sounds normal, soft, no tenderness, no masses, no pulsatile masses. [] Skin: Warm, dry, no erythema, no rash. [] Back: No tenderness, no CVA tenderness. [] Extremities: No tenderness, no cyanosis, no clubbing, ROM intact, no edema. [] Neurologic: Alert and oriented X 3, normal motor function, normal sensory function, no focal deficits noted. [] Psychologic: Intoxicated, aggressively yelling at staff EKG: EKG: [] Heart Score: Risk Factors: Risk Factors: DM, Current or recent (<one month) smoker, HTN, HLP, family history of CAD, obesity. Risk Scores: Score 0 - 3: 2.5% MACE over next 6 weeks - Discharge Home Score 4 - 6: 20.3% MACE over next 6 weeks - Admit for Clinical Observation Score 7 - 10: 72.7% MACE over next 6 weeks - Early Invasive Strategies Radiology/Procedures: Radiology/Procedures: [] Course & Med Decision Making: Course & Med Decision Making Patient stated he wants to leave. Able to answer questions he is alert and oriented. Able to ambulate with a steady gait [] Naya Disclaimer: Naya Disclaimer: This electronic medical record was generated, in whole or in part, using a voice recognition dictation system. Departure Departure Impression: Primary Impression: Alcohol intoxication Disposition: 07 AMA/ELOPED/LWBS Condition: STABLE Referrals: UNKNOWN PCP NAME (PCP) Patient Instructions: Alcohol Intoxication, [id number] FABRIZIO LEWIS MD Jan 17, 2020 20:34
== END 2020-01-17 20:44 | disposition home or self-care (01) ==
LOC: ER 19:53
DX: F10.229 Alcohol dependence with intoxication, unspecified (principal); Y90.9 Presence of alcohol in blood, level not specified; I10 Essential (primary) hypertension; F17.200 Nicotine dependence, unspecified, uncomplicated
CPT/HCPCS: 99284

== ENCOUNTER → 2020-01-18 | Emergency (ER) | payer MEDICARE, OTHER ==
[~2020-01-18] VITALS: Ht 165.1 cm; Wt 90.1 kg
[2020-01-18 20:05] VITALS: BP 136/79
== END | disposition left against medical advice (07) ==
LOC: ER 18:21
DX: R07.81 Pleurodynia (principal); F10.10 Alcohol abuse, uncomplicated; Y90.9 Presence of alcohol in blood, level not specified; Z53.21 Procedure and treatment not carried out due to patient leaving prior to being seen by health care provider

== ENCOUNTER 2020-02-15 22:52 | Emergency (ER) | payer MEDICARE, OTHER ==
[~2020-02-15] VITALS: Ht 175.3 cm; Wt 90.9 kg
[~2020-02-15 22:52] MED LIST changes: -LISI-334 PO; +LISI10TA16 PO; -LISI10TA2 PO; +LISI20TA18 PO
[2020-02-15 23:00] VITALS: BP 139/76
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
== END 2020-02-16 00:10 | disposition home or self-care (01) ==
LOC: ER 22:52
DX: F10.229 Alcohol dependence with intoxication, unspecified (principal); Y90.9 Presence of alcohol in blood, level not specified; I10 Essential (primary) hypertension; F17.200 Nicotine dependence, unspecified, uncomplicated
CPT/HCPCS: 99284

== ENCOUNTER 2020-02-18 23:00 | Emergency (ER) | payer MEDICARE, OTHER ==
[~2020-02-18] VITALS: Ht 167.6 cm; Wt 75.0 kg
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
--- NOTE | 2020-02-19 00:29 | RAD ---
INDICATION: Reason: blunt trauma / Spl. Instructions: / History: COMPARISON: None. IMPRESSION: Thoracic spine: 4 views obtained. Degenerative changes the spine with osteophyte formation. The upper thoracic spine is obscured on the lateral view secondary to overlap of structures. A definite acute compression fracture is not seen within limits of this exam. Enlarged cardiomediastinal silhouette in cidentally noted. Electronically signed by: Missael Worthington MD (02/19/2020 12:26 AM) [id number]
[2020-02-19 05:35] VITALS: BP 164/79
== END 2020-02-19 06:09 | disposition home or self-care (01) ==
LOC: ER 23:00
DX: F10.229 Alcohol dependence with intoxication, unspecified (principal); M54.5 Low back pain; R40.1 Stupor; I10 Essential (primary) hypertension; F17.200 Nicotine dependence, unspecified, uncomplicated; F12.90 Cannabis use, unspecified, uncomplicated; F14.90 Cocaine use, unspecified, uncomplicated; Z98.890 Other specified postprocedural states
CPT/HCPCS: 72072; 99285

== ENCOUNTER 2020-03-02 02:56 | Inpatient (IN) | payer MEDICARE, OTHER ==
[~2020-03-02] VITALS: Ht 167.6 cm; Wt 87.2 kg
[2020-03-02] VITALS (17 sets, daily range): BP systolic 137–223; BP diastolic 62–106
[2020-03-02] MEDS ORDERED: IV NORMAL SALINE 1000ML BAG 1,000 ML IV ONE ×2 (03:30→05:00)
[2020-03-02 03:40] LABS: BASO % 0 % (0-3); EOS % 0 % (0-3); HEMATOCRIT 41.5 % (39.0-53.0); HEMOGLOBIN 13.9 g/dL (13.0-17.5); LYMPH # 0.4 x10^3/uL (1.0-4.8); LYMPH % 8 % (24-48); MEAN CORPUSCULAR HEMOGLOBIN 30 pg (25-35); MEAN CORPUSCULAR HGB CONC 34 g/dL (31-37); MEAN CORPUSCULAR VOLUME 89 fL (79-100); MONO # 0.4 x10^3/uL (0.0-1.1); MONO % 7 % (0-9); NEUT # 4.4 x10^3/uL (1.8-7.7); NEUT % 84 % (31-73); PLATELET COUNT 86 x10^3/uL (140-400); RED BLOOD COUNT 4.68 x10^6/uL (4.30-5.70); RED CELL DISTRIBUTION WIDTH 15.6 % (11.5-14.5); WHITE BLOOD COUNT 5.2 x10^3/uL (4.0-11.0)
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
[2020-03-02 03:46] LABS: AMPHETAMINE/METHAMPHETAMINE NEG (NEG); BARBITURATES NEG (NEG); BENZODIAZEPINES NEG (NEG); CANNABINOIDS POS (NEG); COCAINE NEG (NEG); METHADONE NEG (NEG); OPIATES NEG (NEG); PHENCYCLIDINE NEG (NEG)
[2020-03-02 03:47] LABS: CALCIUM 8.5 mg/dL (8.5-10.1); CREATININE 1.1 mg/dL (0.7-1.3); GFR 81.8; POTASSIUM 3.1 mmol/L (3.5-5.1)
[2020-03-02 03:50] LABS: PROTHROMBIN TIME PATIENT 13.9 SEC (11.7-14.0)
[2020-03-02] MEDS ORDERED: hydrALAZINE 20 MG/ML VIAL. IVP ONE (04:00)
[2020-03-02] MEDS ORDERED: PRENATAL MULTIVITAMIN TABLET. PO ONE (04:00)
[2020-03-02] MEDS ORDERED: THIAMINE INJ 100 MG in IV DEXTROSE 5% 50 ML IV ONE (04:00)
[2020-03-02] MEDS ORDERED: METOCLOPRAMIDE HCL 10 MG/2 ML VIAL. IVP ONE (04:00)
--- NOTE | 2020-03-02 04:06 | RAD ---
EXAM: CT head, maxillofacial bones, and cervical spine without contrast INDICATION: Fall abrasion over left upper back COMPARISON: CT head, face, and cervical spine 05/13/2019 TECHNIQUE: Axial CT imaging through the head, facial bones, and cervical spine without intravenous co ntrast. Sagittal and coronal reformats were obtained. One or more of the following individualized dose reduction techniques were utilized for this examinat ion: 1. Automated exposure control 2. Adjustment of the mA and/or kV according to patient size 3. Use of iterative reconstruction technique. FINDINGS: CT head: The ventricles and sulci are mildly enlarged. Arnett-white matter differentiation is maintained. There is no intracranial hemorrhage, acute infarct, or mass lesion. Basal cisterns are clear. The skull an d scalp are intact. Paranasal sinuses and mastoid air cells are clear. Globes and orbits are intact. Ct Facial Bones: No acute fracture of the facial bones. Temporomandibular joints are normally aligned . Paranasal sinuses and mastoid air cells are clear. Globes and orbits are intact. No focal soft tiss ue abnormality. CT cervical spine: No acute fracture. No listhesis. Unchanged reversal of lordosis. Moderate disc space narrowing with a nterior osteophytes at C5-C6 is unchanged. Facet joints are normal. Prevertebral soft tissue is lidya l. IMPRESSION: 1. No acute intracranial abnormality. 2. No acute fracture of facial bones. 3. No acute osseous abnormality of the cervical spine. Electronically signed by: Erica Mathews MD (03/02/2020 4:04 AM) [id number]
[2020-03-02 04:15] LABS: BILIRUBIN,URINE NEGATIVE (NEG); CLARITY,URINE CLEAR; COLOR,URINE YELLOW; NITRITE,URINE NEGATIVE (NEG); PH,URINE 5.5 (<5.0-8.0); PROTEIN,URINE 100 mg/dL (NEG-TRACE)
[2020-03-02 04:21] LABS: ALBUMIN 3.4 g/dL (3.4-5.0); DIRECT BILIRUBIN 0.8 mg/dL (0.0-0.2); MAGNESIUM 2.1 mg/dL (1.8-2.4); TOTAL PROTEIN 8.9 g/dL (6.4-8.2)
--- NOTE | 2020-03-02 04:21 | RAD ---
EXAM: CT CHEST WITHOUT CONTRAST HISTORY: Fall, abrasion over left upper back COMPARISON: None TECHNIQUE: Helical CT of the chest performed without contrast. Coronal and sagittal reformats were o btained. One or more of the following individualized dose reduction techniques were utilized for this examinat ion: 1. Automated exposure control 2. Adjustment of the mA and/or kV according to patient size 3. Use of iterative reconstruction technique. FINDINGS: Thyroid gland and thoracic inlet: Normal. Heart and great vessels: Heart is normal in size. No pericardial effusion. Thoracic aorta is normal i n caliber. Mediastinum and cesar: Normal. Lungs and pleura: There is a 4 mm nodule along the minor fissure. The lungs are otherwise clear. No p leural effusion or pneumothorax. Chest wall and axillae: Mild subcutaneous soft tissue contusion of the left back. No soft tissue nichole lisa. Upper abdomen: Unremarkable. Bones: There is subtle superior endplate compression deformity of T8 with minimal height loss, age in determinate. No definite acute fracture. IMPRESSION: 1. Mild subcutaneous soft tissue contusion of the left back. No rib fracture or pneumothorax. 2. Subtle superior endplate compression deformity of T8, age indeterminate. Correlate with physical e xam for acuity. 3. 4 mm pulmonary nodule along the minor fissure. In a high risk patient, optional twelve-month follo w-up CT could be obtained to ensure stability. Electronically signed by: Erica Mathews MD (03/02/2020 4:18 AM) [id number]
[2020-03-02 04:22] LABS: ACETAMIN < 2 mcg/ml (10-30); BACTERIA,URINE 0 /HPF (0-FEW); RBC,URINE OCC /HPF (0-2); SALIC < 2.8 mg/dL (2.8-20.0); WBC,URINE OCC /HPF (0-4)
[2020-03-02 04:23] LABS: HYALINE CASTS, URINE FEW /HPF
[2020-03-02] MEDS ORDERED: MAGNESIUM SULFATE 2GM 50 ML IV ONE (04:30)
--- NOTE | 2020-03-02 04:31 | RAD ---
EXAM: XR CHEST 1V 03/02/2020 3:51 AM CLINICAL INDICATION: Fall, back pain COMPARISON: Chest radiograph 01/27/2019 TECHNIQUE: AP supine view the chest FINDINGS: The heart and mediastinum are normal. Lungs are adequately expanded. No consolidation, ple ural effusion, or pneumothorax. No displaced fracture. IMPRESSION: No acute cardiopulmonary abnormality. Electronically signed by: Erica Mathews MD (03/02/2020 4:29 AM) [id number]
[2020-03-02] MEDS ORDERED: ACETAMINOPHEN 325 MG TABLET. PO PRN (05:00)
[2020-03-02] MEDS ORDERED: POTASSIUM CL 40MEQ IN 0.9%NACL 1,000 ML IV ONE (05:00)
[2020-03-02] MEDS ORDERED: ONDANSETRON PF 4 MG/2 ML VIAL. IV PRN (05:00)
--- NOTE | 2020-03-02 07:47 | EKG ---
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
[2020-03-02] MEDS ORDERED: THIAMINE INJ 100 MG, FOLIC ACID INJ 1 MG in IV NORMAL SALINE 1000ML BAG 1,000 ML IV SCH (09:00)
[2020-03-02] MEDS ORDERED: METOPROLOL IV PUSH 5 MG/5 ML VIAL. IVP ONE (09:45)
[2020-03-02] MEDS: levETIRAcetam 500 MG TABLET PO SCH ×2 (09:58→20:59)
[2020-03-02] MEDS: LISINOPRIL 10 MG TABLET PO SCH (09:59)
[2020-03-02] MEDS ORDERED: PIP/TAZO PER PHARMACY MC PRN (10:00)
[2020-03-02] MEDS ORDERED: IV NORMAL SALINE 1000ML BAG 1,000 ML IV PRN (10:00)
[2020-03-02] MEDS ORDERED: hydroCHLOROthiazide 25 MG TABLET PO SCH (10:00)
--- NOTE | 2020-03-02 10:04 | NUR ---
SS following for discharge planning. SS reviewed pt chart and discussed with pt RN. Pt is from home and is currently on room air. COVID19 test pending. Pt has history of substance use. [facility] protocol for alcohol withdraw. Pt on IV Zosyn. Not stable for PAT team at this time per RN. SS will continue to follow for discharge planning.
--- NOTE | 2020-03-02 10:23 | PDOC1 ---
History and Physical Date of Admission Date of Admission DATE: 03/02/20 TIME: 09:41 Identification/Chief Complaint Chief Complaint Fall Source Source: Chart review History of Present Illness History of Present Illness Patient is a 61-year-old male with past medical history of alcoholism who presented to the ER for evaluation due to concern for possible fall. He a llegedly reported falling in a bathroom. He reportedly drank 2 beers earlier in the evening. Unable obtain much more history at this time. Concern for alcohol withdrawal seizure with delirium tremens in patient with altered mental status and history of alcohol abuse. He was hypertensive and reportedly tremulous in the ED. He was treated with hydralazine, Ativan, thiamine, folic acid, and multivitamin. He also reportedly vomited in the ED. Will admit patient for further medical management. EtOH <10, CK 1575, Lactic Acid 4.2 Past Medical History Cardiovascular: HTN Pulmonary: No pertinent hx CENTRAL NERVOUS SYSTEM: Seizure GI: GERD Heme/Onc: No pertinent hx Hepatobiliary: Other Psych: Anxiety, Other Musculoskeletal: Osteoarthritis Rheumatologic: No pertinent hx Infectious disease: No pertinent hx Endocrine: No pertinent hx Past Surgical History Past Surgical History Right ankle surgery, hernia repair Past Surgical History: Other Family History Family History: Hypertension Social History Smoke: 1 pack per day ALCOHOL: heavy Drugs: Cocaine, Marijuana, Heroin Current Problem List Problem List Problems Medical Problems: (1) Alcohol withdrawal seizure with delirium Status: Acute (2) AMS (altered mental status) Status: Acute (3) Facial abrasion Status: Acute (4) Head trauma Status: Acute (5) Need for Tdap vaccination Status: Acute (6) Rhabdomyolysis Status: Acute (7) Uncontrolled hypertension Status: Acute Current Medications Current Medications Current Medications Sodium Chloride 1,000 ml @ 1,000 mls/hr 1X ONCE IV Last administered on 03/02/20at 03:34; Start 03/02/20 at 03:30; Stop 03/02/20 at 04:29; Status DC Thiamine HCl 100 mg/Dextrose 51 ml @ 102 mls/hr 1X ONCE IV Last administered on 03/02/20at 04:15; Start 03/02/20 at 04:00; Stop 03/02/20 at 04:29; Status DC Multivit/ Folic Acid/Iron (Multivitamin ) 1 tab ONCE ONCE PO Last administered on 03/02/20at 04:15; Start 03/02/20 at 04:00; Stop 03/02/20 at 04:01; Status DC Metoclopramide HCl (Reglan Vial) 10 mg 1X ONCE IVP Last administered on 03/02/20at 04:00; Start 03/02/20 at 04:00; Stop 03/02/20 at 04:23; Status DC Hydralazine HCl (Apresoline Inj) 10 mg 1X ONCE IVP Last administered on 03/02/20at 04:16; Start 03/02/20 at 04:00; Stop 03/02/20 at 04:23; Status DC Lorazepam (Ativan Inj) 2 mg 1X ONCE IVP Last administered on 03/02/20at 04:10; Start 03/02/20 at 04:15; Stop 03/02/20 at 04:23; Status DC Magnesium Sulfate 50 ml @ 25 mls/hr 1X ONCE IV Last administered on 03/02/20at 04:51; Start 03/02/20 at 04:30; Stop 03/02/20 at 06:29; Status DC Lorazepam (Ativan Inj) 2 mg 1X ONCE IVP Last administered on 03/02/20at 04:48; Start 03/02/20 at 04:45; Stop 03/02/20 at 04:46; Status DC Sodium Chloride 1,000 ml @ 1,000 mls/hr 1X ONCE IV Last administered on 03/02/20at 04:30; Start 03/02/20 at 05:00; Stop 03/02/20 at 05:59; Status DC Potassium Chloride/Sodium Chloride 1,000 ml @ 100 mls/hr Q10H ONCE IV Last administered on 03/02/20at 05:53; Start 03/02/20 at 05:00; Stop 03/02/20 at 14:59 Ondansetron HCl (Zofran) 4 mg PRN Q8HRS PRN IV NAUSEA/VOMITING; Start 03/02/20 at 05:00; Stop 03/03/20 at 04:59 Acetaminophen (Tylenol) 650 mg PRN Q4HRS PRN PO FEVER > 100.3'F; Start 03/02/20 at 05:00; Stop 03/03/20 at 04:59 Thiamine HCl 100 mg/Folic Acid 1 mg/Sodium Chloride 1,001.2 ml @ 99.012 mls/hr DAILY IV Last administered on 03/02/20at 09:22; Start 03/02/20 at 09:00; Stop 03/06/20 at 19:07 Multivitamins (Thera M Plus) 1 tab DAILY PO ; Start 03/07/20 at 09:00 Folic Acid (Folic Acid) 1 mg DAILY PO ; Start 03/07/20 at 09:00 Thiamine HCl 100 mg/Dextrose 51 ml @ 100 mls/hr DAILY IV ; Start 03/03/20 at 09:00; Stop 03/07/20 at 09:31 Lorazepam (Ativan Inj) 2 mg PRN Q1HR PRN IV For CIWA 8-14; Start 03/02/20 at 05:00 Lorazepam (Ativan Inj) 4 mg PRN Q1HR PRN IV For CIWA 15 or greater; Start 03/02/20 at 05:00 Lorazepam (Ativan Inj) 2 mg PRN Q15MIN PRN IV SEE COMMENTS; Start 03/02/20 at 05:00 Lorazepam (Ativan Inj) 4 mg PRN Q15MIN PRN IV SEE COMMENTS; Start 03/02/20 at 05:00 Amlodipine Besylate (Norvasc) 10 mg DAILY PO ; Start 03/02/20 at 10:00 Hydrochlorothiazide (Hydrodiuril) 25 mg DAILY PO ; Start 03/02/20 at 10:00 Levetiracetam (Keppra) 500 mg BID PO ; Start 03/02/20 at 10:00 Lisinopril (Prinivil) 10 mg DAILY PO ; Start 03/02/20 at 10:00 Enoxaparin Sodium (Lovenox Per Pharmacy Prophylaxis Dosing) 1 each PRN DAILY PRN MC SEE COMMENTS; Start 03/02/20 at 09:30 Enoxaparin Sodium (Lovenox 40mg Syringe) 40 mg Q24H SQ ; Start 03/02/20 at 16:00 Metoprolol Tartrate (Lopressor Vial) 5 mg 1X ONCE IVP ; Start 03/02/20 at 09:45; Stop 03/02/20 at 09:46 Active Scripts Active Potassium Chloride (Potassium Chloride) 20 Meq Tablet.er 20 Meq PO DAILY 10 Days Hydrochlorothiazide Tablet (Hydrochlorothiazide) 25 Mg Tablet 25 Mg PO DAILY Norvasc (Amlodipine Besylate) 10 Mg Tablet 10 Mg PO DAILY Lisinopril 10 Mg Tablet 1 Tab PO DAILY Lisinopril 10 Mg Tablet 1 Tab PO DAILY Hydrochlorothiazide Tablet (Hydrochlorothiazide) 12.5 Mg Tablet 12.5 Mg PO DAILY Amlodipine Besylate 10 Mg Tablet 10 Mg PO DAILY Fluoxetine Hcl 10 Mg Capsule 10 Mg PO DAILY 30 Days Protonix Packet (Pantoprazole Sodium) 40 Mg Granpkt.dr 40 Mg PO DAILY 30 Days Lisinopril 20 Mg Tablet 1 Tab PO DAILY 30 Days Hydrochlorothiazide Tablet (Hydrochlorothiazide) 25 Mg Tablet 1 Tab PO DAILY 30 Days Norvasc (Amlodipine Besylate) 10 Mg Tablet 10 Mg PO DAILY 30 Days Keppra (Levetiracetam) 500 Mg Tablet 500 Mg PO BID 30 Days Allergies Allergies: Coded Allergies: No Known Drug Allergies (Unverified , 08/08/14) ROS Review of System Unable to obtain this time due to clinical condition Physical Exam Physical Exam General: Lethargic, no acute distress HEENT: Superficial laceration above left lip, left scalp abrasion, right tongue laceration, c-collar in place. PERRLA, EOMI Lungs: Clear to auscultation, Normal air movement Heart: Tachycardic, no murmurs Cardiovascular: S1, S2 Abdomen: Normal bowel sounds, Soft, No tenderness Extremities: +1 bilateral lower extremity edema. No clubbing, No cyanosis Skin: Multiple superficial abrasions Neuro: Confused, Normal tone. Psych/Mental Status: Somnolent Vitals Vitals Vital Signs Date Time Temp Pulse Resp B/P (MAP) Pulse Ox O2 Delivery O2 Flow Rate FiO2 03/02/20 07:10 102 18 163/79 (107) 99 Room Air 03/02/20 03:00 99.3 99.3 Labs Labs Laboratory Tests Test 03/02/20 03:25 03/02/20 07:50 White Blood Count 5.2 x10^3/uL (4.0-11.0) Red Blood Count 4.68 x10^6/uL (4.30-5.70) Hemoglobin 13.9 g/dL (13.0-17.5) Hematocrit 41.5 % (39.0-53.0) Mean Corpuscular Volume 89 fL (79-100) Mean Corpuscular Hemoglobin 30 pg (25-35) Mean Corpuscular Hemoglobin Concent 34 g/dL (31-37) Red Cell Distribution Width 15.6 % (11.5-14.5) Platelet Count 86 x10^3/uL (140-400) Neutrophils (%) (Auto) 84 % (31-73) Lymphocytes (%) (Auto) 8 % (24-48) Monocytes (%) (Auto) 7 % (0-9) Eosinophils (%) (Auto) 0 % (0-3) Basophils (%) (Auto) 0 % (0-3) Neutrophils # (Auto) 4.4 x10^3/uL (1.8-7.7) Lymphocytes # (Auto) 0.4 x10^3/uL (1.0-4.8) Monocytes # (Auto) 0.4 x10^3/uL (0.0-1.1) Eosinophils # (Auto) 0.0 x10^3/uL (0.0-0.7) Basophils # (Auto) 0.0 x10^3/uL (0.0-0.2) Prothrombin Time 13.9 SEC (11.7-14.0) Prothromb Time International Ratio 1.1 (0.8-1.1) Activated Partial Thromboplast Time 29 SEC (24-38) Urine Collection Type Unknown Urine Color Yellow Urine Clarity Clear Urine pH 5.5 (<5.0-8.0) Urine Specific [place] 1.015 (1.000-1.030) Urine Protein 100 mg/dL (NEG-TRACE) Urine Glucose (UA) 100 mg/dL (NEG) Urine Ketones (Stick) Trace mg/dL (NEG) Urine Blood Large (NEG) Urine Nitrite Negative (NEG) Urine Bilirubin Negative (NEG) Urine Urobilinogen Dipstick 1.0 mg/dL (0.2 mg/dL) Urine Leukocyte Esterase Negative (NEG) Urine RBC Occ /HPF (0-2) Urine WBC Occ /HPF (0-4) Urine Squamous Epithelial Cells Occ /LPF Urine Bacteria 0 /HPF (0-FEW) Urine Hyaline Casts Few /HPF Urine Mucus Slight /LPF Sodium Level 131 mmol/L (136-145) Potassium Level 3.1 mmol/L (3.5-5.1) Chloride Level 95 mmol/L (98-107) Carbon Dioxide Level 23 mmol/L (21-32) Anion Gap 13 (6-14) Blood Urea Nitrogen 9 mg/dL (8-26) Creatinine 1.1 mg/dL (0.7-1.3) Estimated GFR (Cockcroft-Gault) 81.8 Glucose Level 125 mg/dL (70-99) Lactic Acid Level 4.2 mmol/L (0.4-2.0) 1.6 mmol/L (0.4-2.0) Calcium Level 8.5 mg/dL (8.5-10.1) Magnesium Level 2.1 mg/dL (1.8-2.4) Total Bilirubin 2.0 mg/dL (0.2-1.0) Direct Bilirubin 0.8 mg/dL (0.0-0.2) Aspartate Amino Transf (AST/SGOT) 236 U/L (15-37) Alanine Aminotransferase (ALT/SGPT) 205 U/L (16-63) Alkaline Phosphatase 124 U/L (46-116) Creatine Kinase 1575 U/L (39-308) Troponin I Quantitative 0.032 ng/mL (0.000-0.055) Total Protein 8.9 g/dL (6.4-8.2) Albumin 3.4 g/dL (3.4-5.0) Salicylates Level < 2.8 mg/dL (2.8-20.0) Salicylate Last Dose Date Unk Salicylate Last Dose Time Unk Urine Opiates Screen Neg (NEG) Urine Methadone Screen Neg (NEG) Acetaminophen Level < 2 mcg/ml (10-30) Acetaminophen Last Dose Date Unk Acetaminophen Last Dose Time Unk Urine Barbiturates Neg (NEG) Urine Phencyclidine Screen Neg (NEG) Urine Amphetamine/Methamphetamine Neg (NEG) Urine Benzodiazepines Screen Neg (NEG) Urine Cocaine Screen Neg (NEG) Urine Cannabinoids Screen Pos (NEG) Ethyl Alcohol Level < 10 mg/dL (0-10) Urine Ethyl Alcohol Neg (NEG) Laboratory Tests Test 03/02/20 03:25 03/02/20 07:50 White Blood Count 5.2 x10^3/uL (4.0-11.0) Red Blood Count 4.68 x10^6/uL (4.30-5.70) Hemoglobin 13.9 g/dL (13.0-17.5) Hematocrit 41.5 % (39.0-53.0) Mean Corpuscular Volume 89 fL (79-100) Mean Corpuscular Hemoglobin 30 pg (25-35) Mean Corpuscular Hemoglobin Concent 34 g/dL (31-37) Red Cell Distribution Width 15.6 % (11.5-14.5) Platelet Count 86 x10^3/uL (140-400) Neutrophils (%) (Auto) 84 % (31-73) Lymphocytes (%) (Auto) 8 % (24-48) Monocytes (%) (Auto) 7 % (0-9) Eosinophils (%) (Auto) 0 % (0-3) Basophils (%) (Auto) 0 % (0-3) Neutrophils # (Auto) 4.4 x10^3/uL (1.8-7.7) Lymphocytes # (Auto) 0.4 x10^3/uL (1.0-4.8) Monocytes # (Auto) 0.4 x10^3/uL (0.0-1.1) Eosinophils # (Auto) 0.0 x10^3/uL (0.0-0.7) Basophils # (Auto) 0.0 x10^3/uL (0.0-0.2) Prothrombin Time 13.9 SEC (11.7-14.0) Prothromb Time International Ratio 1.1 (0.8-1.1) Activated Partial Thromboplast Time 29 SEC (24-38) Urine Collection Type Unknown Urine Color Yellow Urine Clarity Clear Urine pH 5.5 (<5.0-8.0) Urine Specific [place] 1.015 (1.000-1.030) Urine Protein 100 mg/dL (NEG-TRACE) Urine Glucose (UA) 100 mg/dL (NEG) Urine Ketones (Stick) Trace mg/dL (NEG) Urine Blood Large (NEG) Urine Nitrite Negative (NEG) Urine Bilirubin Negative (NEG) Urine Urobilinogen Dipstick 1.0 mg/dL (0.2 mg/dL) Urine Leukocyte Esterase Negative (NEG) Urine RBC Occ /HPF (0-2) Urine WBC Occ /HPF (0-4) Urine Squamous Epithelial Cells Occ /LPF Urine Bacteria 0 /HPF (0-FEW) Urine Hyaline Casts Few /HPF Urine Mucus Slight /LPF Sodium Level 131 mmol/L (136-145) Potassium Level 3.1 mmol/L (3.5-5.1) Chloride Level 95 mmol/L (98-107) Carbon Dioxide Level 23 mmol/L (21-32) Anion Gap 13 (6-14) Blood Urea Nitrogen 9 mg/dL (8-26) Creatinine 1.1 mg/dL (0.7-1.3) Estimated GFR (Cockcroft-Gault) 81.8 Glucose Level 125 mg/dL (70-99) Lactic Acid Level 4.2 mmol/L (0.4-2.0) 1.6 mmol/L (0.4-2.0) Calcium Level 8.5 mg/dL (8.5-10.1) Magnesium Level 2.1 mg/dL (1.8-2.4) Total Bilirubin 2.0 mg/dL (0.2-1.0) Direct Bilirubin 0.8 mg/dL (0.0-0.2) Aspartate Amino Transf (AST/SGOT) 236 U/L (15-37) Alanine Aminotransferase (ALT/SGPT) 205 U/L (16-63) Alkaline Phosphatase 124 U/L (46-116) Creatine Kinase 1575 U/L (39-308) Troponin I Quantitative 0.032 ng/mL (0.000-0.055) Total Protein 8.9 g/dL (6.4-8.2) Albumin 3.4 g/dL (3.4-5.0) Salicylates Level < 2.8 mg/dL (2.8-20.0) Salicylate Last Dose Date Unk Salicylate Last Dose Time Unk Urine Opiates Screen Neg (NEG) Urine Methadone Screen Neg (NEG) Acetaminophen Level < 2 mcg/ml (10-30) Acetaminophen Last Dose Date Unk Acetaminophen Last Dose Time Unk Urine Barbiturates Neg (NEG) Urine Phencyclidine Screen Neg (NEG) Urine Amphetamine/Methamphetamine Neg (NEG) Urine Benzodiazepines Screen Neg (NEG) Urine Cocaine Screen Neg (NEG) Urine Cannabinoids Screen Pos (NEG) Ethyl Alcohol Level < 10 mg/dL (0-10) Urine Ethyl Alcohol Neg (NEG) Images Images EXAM: CT head, maxillofacial bones, and cervical spine without contrast INDICATION: Fall abrasion over left upper back COMPARISON: CT head, face, and cervical spine 05/13/2019 TECHNIQUE: Axial CT imaging through the head, facial bones, and cervical spine without intravenous contrast. Sagittal and coronal reformats were obtained. One or more of the following individualized dose reduction techniques were utilized for this examination: 1. Automated exposure control 2. Adjustment of the mA and/or kV according to patient size 3. Use of iterative reconstruction technique. FINDINGS: CT head: The ventricles and sulci are mildly enlarged. Arnett-white matter differentiation is maintained. There is no intracranial hemorrhage, acute infarct, or mass lesion. Basal cisterns are clear. The skull and scalp are intact. Paranasal sinuses and mastoid air cells are clear. Globes and orbits are intact. Ct Facial Bones: No acute fracture of the facial bones. Temporomandibular joints are normally aligned. Paranasal sinuses and mastoid air cells are clear. Globes and orbits are intact. No focal soft tissue abnormality. CT cervical spine: No acute fracture. No listhesis. Unchanged reversal of lordosis. Moderate disc space narrowing with anterior osteophytes at C5-C6 is unchanged. Facet joints are normal. Prevertebral soft tissue is normal. IMPRESSION: 1. No acute intracranial abnormality. 2. No acute fracture of facial bones. 3. No acute osseous abnormality of the cervical spine. Electronically signed by: Erica Mathews MD (03/02/2020 4:04 AM) [id number] DICTATED and SIGNED BY: ERICA MATHEWS MD DATE: 03/02/20 [id number] IMAGING REPORT Signed PATIENT: SHAKIR ROCKWELL ACCOUNT: [id number] : 1955 LOCATION: ER AGE: 64 SEX: M EXAM STATUS: REG ER ORD. PHYSICIAN: ELIUD AGARWAL DO REASON: abrasion over left upper back PROCEDURE: CT CHEST WO CONTRAST EXAM: CT CHEST WITHOUT CONTRAST HISTORY: Fall, abrasion over left upper back COMPARISON: None TECHNIQUE: Helical CT of the chest performed without contrast. Coronal and sagittal reformats were obtained. One or more of the following individualized dose reduction techniques were utilized for this examination: 1. Automated exposure control 2. Adjustment of the mA and/or kV according to patient size 3. Use of iterative reconstruction technique. FINDINGS: Thyroid gland and thoracic inlet: Normal. Heart and great vessels: Heart is normal in size. No pericardial effusion. Thoracic aorta is normal in caliber. Mediastinum and cesar: Normal. Lungs and pleura: There is a 4 mm nodule along the minor fissure. The lungs are otherwise clear. No pleural effusion or pneumothorax. Chest wall and axillae: Mild subcutaneous soft tissue contusion of the left back. No soft tissue hematoma. Upper abdomen: Unremarkable. Bones: There is subtle superior endplate compression deformity of T8 with minimal height loss, age indeterminate. No definite acute fracture. IMPRESSION: 1. Mild subcutaneous soft tissue contusion of the left back. No rib fracture or pneumothorax. 2. Subtle superior endplate compression deformity of T8, age indeterminate. C orrelate with physical exam for acuity. 3. 4 mm pulmonary nodule along the minor fissure. In a high risk patient, optional twelve-month follow-up CT could be obtained to ensure stability. Electronically signed by: Erica Mathews MD (03/02/2020 4:18 AM) [id number] IMAGING REPORT Signed PATIENT: SHAKIR ROCKWELL ACCOUNT: [id number] : 1955 LOCATION: ER AGE: 64 SEX: M EXAM STATUS: REG ER ORD. PHYSICIAN: ELIUD AGARWAL DO REASON: fall PROCEDURE: PORTABLE CHEST 1V EXAM: XR CHEST 1V 03/02/2020 3:51 AM CLINICAL INDICATION: Fall, back pain COMPARISON: Chest radiograph 01/27/2019 TECHNIQUE: AP supine view the chest FINDINGS: The heart and mediastinum are normal. Lungs are adequately expanded. No consolidation, pleural effusion, or pneumothorax. No displaced fracture. IMPRESSION: No acute cardiopulmonary abnormality. VTE Prophylaxis Ordered VTE Prophylaxis Devices: No VTE Pharmacological Prophylaxi: Yes Assessment/Plan Assessment/Plan Alcohol withdrawal seizure Rhabdomyolysis Hypertensive urgency Lactic acidosis Hyponatremia Hypokalemia Transaminitis 4 mm pulmonary nodule COVID-19 PUI Plan: Patient admitted to the ICU on CIWA protocol. Keppra was noted on his home medication list. Will continue when confirmed with patient or his pharmacy that this is an active medication. Due to vomiting in the ED and fever, concern for possible aspiration. Repeat chest x-ray; empiric Zosyn COVID-19 pending, flu pending IV fluids, Zofran as needed Follow-up CT in 12 months for 4 mm pulmonary nodule Resume home medications FEN - Cardiac diet PPX - Lovenox FULL CODE Dispo - inpatient for above Justifications for Admission Other Justification MATEUS BURDICK MD Mar 02, 2020 10:23
[2020-03-02 11:51] LABS: INFLUENZA A PATIENT NEGATIVE (NEGATIVE); INFLUENZA B PATIENT NEGATIVE (NEGATIVE)
[2020-03-02] MEDS: PIPERACILLIN/TAZOBACTAM 3.375 GM in IV NORMAL SALINE 50ML 50 ML IV SCH ×3 (13:18→23:42)
--- NOTE | 2020-03-02 14:38 | PDOC2 ---
NEUROLOGY CONSULT Date of Service DOS: DATE: 03/02/20 TIME: 14:32 Reason for Consult Reason for Consult: Alcoholic seizures Referring Physician Referring Physician: Dr. Rodrigez Source Source: Chart review, Patient History of Present Illness History of Present Illness The patient is a 64-year-old right-handed male with history of alcoholism and seizures. He is been noncompliant, he never takes his anticonvulsants.. He has had seizures for several years. He was in the hospital last week and was just discharged, came home and had a couple beers, then fell in the bathroom. His brother tried to get into the bathroom and could not, he believes the patient was having seizures. The patient was brought here and admitted and is on [facility] protocol. No further seizures have been observed. Note that I did see the patient when he was admitted here in July 2018, EEG was negative then. Past Medical History Cardiovascular: HTN CENTRAL NERVOUS SYSTEM: Seizure GI: GERD Hepatobiliary: Cirrhosis Psych: Addictions (alcohol), Depression Musculoskeletal: Osteoarthritis Endocrine: Diabetes (Borderline) Past Surgical History Past Surgical History: Other (Right ankle) Family History Family History: No pertinent hx Social History Social History Unemployed, at least 4 alcoholic beverages a day, tobacco, former cocaine user Current Medications Current Medications Current Medications Sodium Chloride 1,000 ml @ 1,000 mls/hr 1X ONCE IV Last administered on 03/02/20at 03:34; Start 03/02/20 at 03:30; Stop 03/02/20 at 04:29; Status DC Thiamine HCl 100 mg/Dextrose 51 ml @ 102 mls/hr 1X ONCE IV Last administered on 03/02/20at 04:15; Start 03/02/20 at 04:00; Stop 03/02/20 at 04:29; Status DC Multivit/ Folic Acid/Iron (Multivitamin ) 1 tab ONCE ONCE PO Last administered on 03/02/20at 04:15; Start 03/02/20 at 04:00; Stop 03/02/20 at 04:01; Status DC Metoclopramide HCl (Reglan Vial) 10 mg 1X ONCE IVP Last administered on 03/02/20at 04:00; Start 03/02/20 at 04:00; Stop 03/02/20 at 04:23; Status DC Hydralazine HCl (Apresoline Inj) 10 mg 1X ONCE IVP Last administered on 03/02/20at 04:16; Start 03/02/20 at 04:00; Stop 03/02/20 at 04:23; Status DC Lorazepam (Ativan Inj) 2 mg 1X ONCE IVP Last administered on 03/02/20at 04:10; Start 03/02/20 at 04:15; Stop 03/02/20 at 04:23; Status DC Magnesium Sulfate 50 ml @ 25 mls/hr 1X ONCE IV Last administered on 03/02/20at 04:51; Start 03/02/20 at 04:30; Stop 03/02/20 at 06:29; Status DC Lorazepam (Ativan Inj) 2 mg 1X ONCE IVP Last administered on 03/02/20at 04:48; Start 03/02/20 at 04:45; Stop 03/02/20 at 04:46; Status DC Sodium Chloride 1,000 ml @ 1,000 mls/hr 1X ONCE IV Last administered on 03/02/20at 04:30; Start 03/02/20 at 05:00; Stop 03/02/20 at 05:59; Status DC Potassium Chloride/Sodium Chloride 1,000 ml @ 100 mls/hr Q10H ONCE IV Last administered on 03/02/20at 05:53; Start 03/02/20 at 05:00; Stop 03/02/20 at 14:59 Ondansetron HCl (Zofran) 4 mg PRN Q8HRS PRN IV NAUSEA/VOMITING; Start 03/02/20 at 05:00; Stop 03/03/20 at 04:59 Acetaminophen (Tylenol) 650 mg PRN Q4HRS PRN PO FEVER > 100.3'F Last administered on 03/02/20at 09:59; Start 03/02/20 at 05:00; Stop 03/03/20 at 04:59 Thiamine HCl 100 mg/Folic Acid 1 mg/Sodium Chloride 1,001.2 ml @ 99.012 mls/hr DAILY IV Last administered on 03/02/20at 09:22; Start 03/02/20 at 09:00; Stop 03/06/20 at 19:07 Multivitamins (Thera M Plus) 1 tab DAILY PO ; Start 03/07/20 at 09:00 Folic Acid (Folic Acid) 1 mg DAILY PO ; Start 03/07/20 at 09:00 Thiamine HCl 100 mg/Dextrose 51 ml @ 100 mls/hr DAILY IV ; Start 03/03/20 at 09:00; Stop 03/07/20 at 09:31 Lorazepam (Ativan Inj) 2 mg PRN Q1HR PRN IV For CIWA 8-14; Start 03/02/20 at 05:00 Lorazepam (Ativan Inj) 4 mg PRN Q1HR PRN IV For CIWA 15 or greater Last administered on 03/02/20at 10:21; Start 03/02/20 at 05:00 Lorazepam (Ativan Inj) 2 mg PRN Q15MIN PRN IV SEE COMMENTS; Start 03/02/20 at 05:00 Lorazepam (Ativan Inj) 4 mg PRN Q15MIN PRN IV SEE COMMENTS; Start 03/02/20 at 05:00 Amlodipine Besylate (Norvasc) 10 mg DAILY PO Last administered on 03/02/20at 10:00; Start 03/02/20 at 10:00 Hydrochlorothiazide (Hydrodiuril) 25 mg DAILY PO Last administered on 03/02/20at 09:58; Start 03/02/20 at 10:00 Levetiracetam (Keppra) 500 mg BID PO Last administered on 03/02/20at 09:58; Start 03/02/20 at 10:00 Lisinopril (Prinivil) 10 mg DAILY PO Last administered on 03/02/20at 09:59; Start 03/02/20 at 10:00 Enoxaparin Sodium (Lovenox Per Pharmacy Prophylaxis Dosing) 1 each PRN DAILY PRN MC SEE COMMENTS; Start 03/02/20 at 09:30 Enoxaparin Sodium (Lovenox 40mg Syringe) 40 mg Q24H SQ ; Start 03/02/20 at 16:00 Metoprolol Tartrate (Lopressor Vial) 5 mg 1X ONCE IVP Last administered on 03/02/20at 09:58; Start 03/02/20 at 09:45; Stop 03/02/20 at 09:46; Status DC Piperacillin Sod/ Tazobactam Sod (Zosyn Per Pharmacy) 1 each PRN DAILY PRN [facility] SEE COMMENTS; Start 03/02/20 at 10:00 Piperacillin Sod/ Tazobactam Sod 3.375 gm/Sodium Chloride 50 ml @ 100 mls/hr Q6HRS IV Last administered on 03/02/20at 13:18; Start 03/02/20 at 12:00 Sodium Chloride 1,000 ml @ 100 mls/hr CONT PRN IV SEE I/O RECORD; Start 03/02/20 at 10:00 Active Scripts Active Potassium Chloride (Potassium Chloride) 20 Meq Tablet.er 20 Meq PO DAILY 10 Days Hydrochlorothiazide Tablet (Hydrochlorothiazide) 25 Mg Tablet 25 Mg PO DAILY Norvasc (Amlodipine Besylate) 10 Mg Tablet 10 Mg PO DAILY Lisinopril 10 Mg Tablet 1 Tab PO DAILY Lisinopril 10 Mg Tablet 1 Tab PO DAILY Hydrochlorothiazide Tablet (Hydrochlorothiazide) 12.5 Mg Tablet 12.5 Mg PO DAILY Amlodipine Besylate 10 Mg Tablet 10 Mg PO DAILY Fluoxetine Hcl 10 Mg Capsule 10 Mg PO DAILY 30 Days Protonix Packet (Pantoprazole Sodium) 40 Mg Granpkt.dr 40 Mg PO DAILY 30 Days Lisinopril 20 Mg Tablet 1 Tab PO DAILY 30 Days Hydrochlorothiazide Tablet (Hydrochlorothiazide) 25 Mg Tablet 1 Tab PO DAILY 30 Days Norvasc (Amlodipine Besylate) 10 Mg Tablet 10 Mg PO DAILY 30 Days Keppra (Levetiracetam) 500 Mg Tablet 500 Mg PO BID 30 Days Allergies Allergies: Coded Allergies: No Known Drug Allergies (Unverified , 08/08/14) ROS Review of System Negative for fever, chills, weight loss, shortness of breath, chest pain, indigestion, hematochezia, melena, and dysuria. Full 14-point review of systems is negative. Physical Exam Physical Examination General: Well-developed, well-nourished black male in no acute distress HEENT: Normocephalic andatraumatic. Temporal arteriespulsatile and nontender. Neck: Supple without bruit, no meningismus Musculoskeletal: Stability:see neurologic. Gait exam:see neurologic. Tone:see neurologic.Strength:see neurologic. Neurological: Mental Status: Knows he is in the hospital, does not know the name of hospital or location. Names and repeats well. He is lying askew in the bed, but is not agitated and not very tremulous. Cranial Nerves:Pupils equal and reactive to light, extraocular movements areintact, visual whitehead are full to confr ontation. Facial sensation is normal. There is no facial asymmetry. Vestibulo- ocular reflex is intact. Palate elevates and tongue protrudes in midline. All other cranial related problems are negative except as mentioned before.Reflexes:2+ and symmetric with flexor plantar responses. Motor:5/5 strength with normal tone and bulk. Coordination:Finger-nose finger and [id number] testing are normal. Rapid alternating movements and fine finger movements are intact. Gait:Not tested. Sensory:Normal pinprick, vibration, light touch, proprioception. Vitals VITALS Vital Signs Date Time Temp Pulse Resp B/P (MAP) Pulse Ox O2 Delivery O2 Flow Rate FiO2 03/02/20 13:30 84 22 137/62 (87) 98 Room Air 03/02/20 12:00 99.8 99.8 Labs Labs Laboratory Tests Test 03/02/20 03:25 03/02/20 07:50 03/02/20 10:22 White Blood Count 5.2 x10^3/uL (4.0-11.0) Red Blood Count 4.68 x10^6/uL (4.30-5.70) Hemoglobin 13.9 g/dL (13.0-17.5) Hematocrit 41.5 % (39.0-53.0) Mean Corpuscular Volume 89 fL (79-100) Mean Corpuscular Hemoglobin 30 pg (25-35) Mean Corpuscular Hemoglobin Concent 34 g/dL (31-37) Red Cell Distribution Width 15.6 % (11.5-14.5) Platelet Count 86 x10^3/uL (140-400) Neutrophils (%) (Auto) 84 % (31-73) Lymphocytes (%) (Auto) 8 % (24-48) Monocytes (%) (Auto) 7 % (0-9) Eosinophils (%) (Auto) 0 % (0-3) Basophils (%) (Auto) 0 % (0-3) Neutrophils # (Auto) 4.4 x10^3/uL (1.8-7.7) Lymphocytes # (Auto) 0.4 x10^3/uL (1.0-4.8) Monocytes # (Auto) 0.4 x10^3/uL (0.0-1.1) Eosinophils # (Auto) 0.0 x10^3/uL (0.0-0.7) Basophils # (Auto) 0.0 x10^3/uL (0.0-0.2) Prothrombin Time 13.9 SEC (11.7-14.0) Prothromb Time International Ratio 1.1 (0.8-1.1) Activated Partial Thromboplast Time 29 SEC (24-38) Urine Collection Type Unknown Urine Color Yellow Urine Clarity Clear Urine pH 5.5 (<5.0-8.0) Urine Specific [place] 1.015 (1.000-1.030) Urine Protein 100 mg/dL (NEG-TRACE) Urine Glucose (UA) 100 mg/dL (NEG) Urine Ketones (Stick) Trace mg/dL (NEG) Urine Blood Large (NEG) Urine Nitrite Negative (NEG) Urine Bilirubin Negative (NEG) Urine Urobilinogen Dipstick 1.0 mg/dL (0.2 mg/dL) Urine Leukocyte Esterase Negative (NEG) Urine RBC Occ /HPF (0-2) Urine WBC Occ /HPF (0-4) Urine Squamous Epithelial Cells Occ /LPF Urine Bacteria 0 /HPF (0-FEW) Urine Hyaline Casts Few /HPF Urine Mucus Slight /LPF Sodium Level 131 mmol/L (136-145) Potassium Level 3.1 mmol/L (3.5-5.1) Chloride Level 95 mmol/L (98-107) Carbon Dioxide Level 23 mmol/L (21-32) Anion Gap 13 (6-14) Blood Urea Nitrogen 9 mg/dL (8-26) Creatinine 1.1 mg/dL (0.7-1.3) Estimated GFR (Cockcroft-Gault) 81.8 Glucose Level 125 mg/dL (70-99) Lactic Acid Level 4.2 mmol/L (0.4-2.0) 1.6 mmol/L (0.4-2.0) Calcium Level 8.5 mg/dL (8.5-10.1) Magnesium Level 2.1 mg/dL (1.8-2.4) Total Bilirubin 2.0 mg/dL (0.2-1.0) Direct Bilirubin 0.8 mg/dL (0.0-0.2) Aspartate Amino Transf (AST/SGOT) 236 U/L (15-37) Alanine Aminotransferase (ALT/SGPT) 205 U/L (16-63) Alkaline Phosphatase 124 U/L (46-116) Creatine Kinase 1575 U/L (39-308) Troponin I Quantitative 0.032 ng/mL (0.000-0.055) Total Protein 8.9 g/dL (6.4-8.2) Albumin 3.4 g/dL (3.4-5.0) Salicylates Level < 2.8 mg/dL (2.8-20.0) Salicylate Last Dose Date Unk Salicylate Last Dose Time Unk Urine Opiates Screen Neg (NEG) Urine Methadone Screen Neg (NEG) Acetaminophen Level < 2 mcg/ml (10-30) Acetaminophen Last Dose Date Unk Acetaminophen Last Dose Time Unk Urine Barbiturates Neg (NEG) Urine Phencyclidine Screen Neg (NEG) Urine Amphetamine/Methamphetamine Neg (NEG) Urine Benzodiazepines Screen Neg (NEG) Urine Cocaine Screen Neg (NEG) Urine Cannabinoids Screen Pos (NEG) Ethyl Alcohol Level < 10 mg/dL (0-10) Urine Ethyl Alcohol Neg (NEG) Influenza Type A Antigen Negative (NEGATIVE) Influenza Type B Antigen Negative (NEGATIVE) Laboratory Tests Test 03/02/20 03:25 03/02/20 07:50 03/02/20 10:22 White Blood Count 5.2 x10^3/uL (4.0-11.0) Red Blood Count 4.68 x10^6/uL (4.30-5.70) Hemoglobin 13.9 g/dL (13.0-17.5) Hematocrit 41.5 % (39.0-53.0) Mean Corpuscular Volume 89 fL (79-100) Mean Corpuscular Hemoglobin 30 pg (25-35) Mean Corpuscular Hemoglobin Concent 34 g/dL (31-37) Red Cell Distribution Width 15.6 % (11.5-14.5) Platelet Count 86 x10^3/uL (140-400) Neutrophils (%) (Auto) 84 % (31-73) Lymphocytes (%) (Auto) 8 % (24-48) Monocytes (%) (Auto) 7 % (0-9) Eosinophils (%) (Auto) 0 % (0-3) Basophils (%) (Auto) 0 % (0-3) Neutrophils # (Auto) 4.4 x10^3/uL (1.8-7.7) Lymphocytes # (Auto) 0.4 x10^3/uL (1.0-4.8) Monocytes # (Auto) 0.4 x10^3/uL (0.0-1.1) Eosinophils # (Auto) 0.0 x10^3/uL (0.0-0.7) Basophils # (Auto) 0.0 x10^3/uL (0.0-0.2) Prothrombin Time 13.9 SEC (11.7-14.0) Prothromb Time International Ratio 1.1 (0.8-1.1) Activated Partial Thromboplast Time 29 SEC (24-38) Urine Collection Type Unknown Urine Color Yellow Urine Clarity Clear Urine pH 5.5 (<5.0-8.0) Urine Specific [place] 1.015 (1.000-1.030) Urine Protein 100 mg/dL (NEG-TRACE) Urine Glucose (UA) 100 mg/dL (NEG) Urine Ketones (Stick) Trace mg/dL (NEG) Urine Blood Large (NEG) Urine Nitrite Negative (NEG) Urine Bilirubin Negative (NEG) Urine Urobilinogen Dipstick 1.0 mg/dL (0.2 mg/dL) Urine Leukocyte Esterase Negative (NEG) Urine RBC Occ /HPF (0-2) Urine WBC Occ /HPF (0-4) Urine Squamous Epithelial Cells Occ /LPF Urine Bacteria 0 /HPF (0-FEW) Urine Hyaline Casts Few /HPF Urine Mucus Slight /LPF Sodium Level 131 mmol/L (136-145) Potassium Level 3.1 mmol/L (3.5-5.1) Chloride Level 95 mmol/L (98-107) Carbon Dioxide Level 23 mmol/L (21-32) Anion Gap 13 (6-14) Blood Urea Nitrogen 9 mg/dL (8-26) Creatinine 1.1 mg/dL (0.7-1.3) Estimated GFR (Cockcroft-Gault) 81.8 Glucose Level 125 mg/dL (70-99) Lactic Acid Level 4.2 mmol/L (0.4-2.0) 1.6 mmol/L (0.4-2.0) Calcium Level 8.5 mg/dL (8.5-10.1) Magnesium Level 2.1 mg/dL (1.8-2.4) Total Bilirubin 2.0 mg/dL (0.2-1.0) Direct Bilirubin 0.8 mg/dL (0.0-0.2) Aspartate Amino Transf (AST/SGOT) 236 U/L (15-37) Alanine Aminotransferase (ALT/SGPT) 205 U/L (16-63) Alkaline Phosphatase 124 U/L (46-116) Creatine Kinase 1575 U/L (39-308) Troponin I Quantitative 0.032 ng/mL (0.000-0.055) Total Protein 8.9 g/dL (6.4-8.2) Albumin 3.4 g/dL (3.4-5.0) Salicylates Level < 2.8 mg/dL (2.8-20.0) Salicylate Last Dose Date Unk Salicylate Last Dose Time Unk Urine Opiates Screen Neg (NEG) Urine Methadone Screen Neg (NEG) Acetaminophen Level < 2 mcg/ml (10-30) Acetaminophen Last Dose Date Unk Acetaminophen Last Dose Time Unk Urine Barbiturates Neg (NEG) Urine Phencyclidine Screen Neg (NEG) Urine Amphetamine/Methamphetamine Neg (NEG) Urine Benzodiazepines Screen Neg (NEG) Urine Cocaine Screen Neg (NEG) Urine Cannabinoids Screen Pos (NEG) Ethyl Alcohol Level < 10 mg/dL (0-10) Urine Ethyl Alcohol Neg (NEG) Influenza Type A Antigen Negative (NEGATIVE) Influenza Type B Antigen Negative (NEGATIVE) Images Images CT head, maxillofacial bones, and cervical spine without contrast INDICATION: Fall abrasion over left upper back COMPARISON: CT head, face, and cervical spine 05/13/2019 TECHNIQUE: Axial CT imaging through the head, facial bones, and cervical spine without intravenous contrast. Sagittal and coronal reformats were obtained. One or more of the following individualized dose reduction techniques were utilized for this examination: 1. Automated exposure control 2. Adjustment of the mA and/or kV according to patient size 3. Use of iterative reconstruction technique. FINDINGS: CT head: The ventricles and sulci are mildly enlarged. Arnett-white matter differentiation is maintained. There is no intracranial hemorrhage, acute infarct, or mass lesion. Basal cisterns are clear. The skull and scalp are intact. Paranasal sinuses and mastoid air cells are clear. Globes and orbits are intact. Ct Facial Bones: No acute fracture of the facial bones. Temporomandibular joints are normally aligned. Paranasal sinuses and mastoid air cells are clear. Globes and orbits are intact. No focal soft tissue abnormality. CT cervical spine: No acute fracture. No listhesis. Unchanged reversal of lordosis. Moderate disc space narrowing with anterior osteophytes at C5-C6 is unchanged. Facet joints are normal. Prevertebral soft tissue is normal. IMPRESSION: 1. No acute intracranial abnormality. 2. No acute fracture of facial bones. 3. No acute osseous abnormality of the cervical spine. Assessment/Plan Assessment/Plan Impression: Alcohol related seizures, negative epilepsy work-up in past He is still wearing a cervical collar, CT of the cervical spine is totally normal. Recommendations: Continue levetiracetam, can send home with a prescription, I doubt he will take it He needs to stop drinking CIWA protocol No additional neurological studies needed Okay to discontinue cervical collar Thank you for letting me help with the patient's care. KEIRY BEGUM MD Mar 02, 2020 14:38
--- NOTE | 2020-03-02 15:04 | RAD ---
ADDENDUM #1 Additional clinical information: Fall, pain Electronically signed by: Prasad Dan MD (03/22/2020 8:41 AM) [id number] ORIGINAL REPORT XR CHEST 1V INDICATION: Possible aspiration pneumonia / Spl. Instructions: / History: . COMPARISON STUDY: CT and radiograph 03/02/2020. FINDINGS: Lungs: Normal lung volume. No focal airspace disease. Normal pulmonary vasculature. Pleura: No pleural effusion or pneumothorax. Heart and Mediastinum: Stable cardiomediastinal silhouette and great vessels. IMPRESSION: No acute cardiopulmonary process. Electronically signed by: Prasad Dan MD (03/02/2020 3:02 PM) [id number]
[2020-03-02] MEDS: ENOXAPARIN 40 MG/0.4 ML SYRINGE. SQ SCH (16:00)
--- NOTE | 2020-03-02 16:14 | NUR ---
Patient refused Lovenox shot and is attempting to get out of bed. Patient is unsteady on feet. 4mg of Ativan has been given to calm patient.
[2020-03-02] MEDS: HALOPERIDOL LACTATE 5 MG/ML VIAL. IVP PRN (18:36)
--- NOTE | 2020-03-02 20:28 | NUR ---
Patient restless in bed, took gown and tele off. Mitts placed. Wants to get OOB "to smoke a cigarette." Oriented to self and birthday.
--- NOTE | 2020-03-02 21:00 | NUR ---
Awakened for meds. Crushed in pudding and swallowed w/o dysphagia. Incontinent of liquid greenish brown stool and urine. Linens and gown changed. Diaper applied.
--- NOTE | 2020-03-02 22:20 | NUR ---
Transferred pt to room 250.
[2020-03-03 03:20] VITALS: BP 161/101
[2020-03-03] MEDS: PIPERACILLIN/TAZOBACTAM 3.375 GM in IV NORMAL SALINE 50ML 50 ML IV SCH ×3 (05:48→17:48)
[2020-03-03 06:52] LABS: BASO % 0 % (0-3); EOS % 0 % (0-3); HEMATOCRIT 39.7 % (39.0-53.0); LYMPH # 1.1 x10^3/uL (1.0-4.8); LYMPH % 21 % (24-48); MEAN CORPUSCULAR HEMOGLOBIN 29 pg (25-35); MEAN CORPUSCULAR HGB CONC 33 g/dL (31-37); MEAN CORPUSCULAR VOLUME 89 fL (79-100); MONO # 0.4 x10^3/uL (0.0-1.1); MONO % 7 % (0-9); NEUT # 3.5 x10^3/uL (1.8-7.7); NEUT % 71 % (31-73); PLATELET COUNT 76 x10^3/uL (140-400); RED BLOOD COUNT 4.45 x10^6/uL (4.30-5.70); RED CELL DISTRIBUTION WIDTH 15.5 % (11.5-14.5)
[2020-03-03 06:59] LABS: PROTHROMBIN TIME PATIENT 14.1 SEC (11.7-14.0)
[2020-03-03 07:00] VITALS: BP 188/93
[2020-03-03 07:02] LABS: ALBUMIN 2.8 g/dL (3.4-5.0); ALBUMIN/GLOBULIN RATIO 0.6 (1.0-1.7); CALCIUM 8.2 mg/dL (8.5-10.1); CREATININE 1.1 mg/dL (0.7-1.3); GFR 81.8; TOTAL BILIRUBIN 2.5 mg/dL (0.2-1.0); TOTAL PROTEIN 7.5 g/dL (6.4-8.2)
[2020-03-03 07:05] LABS: POTASSIUM 2.8 mmol/L (3.5-5.1)
--- NOTE | 2020-03-03 08:14 | PDOC ---
[facility] PROGRESS NOTE Date of Service DOS: DATE: 03/03/20 TIME: 08:06 Chief Complaint Chief Complaint A/P: Severe alcohol withdrawal Acute encephalopathy Alcohol use disorder HX COCAINE ABUSE OBESITY HX DEPRESSION HX ALCOHOL RELATED SEIZURES hypertension HYPOKALEMIA Hepatitic steatosis THC ABUSE HC History of Present Illness History of Present Illness Mr Hoover is a 61-year-old male with past medical history of alcoholism who presented to the ER for evaluation due to concern for possible fall. He allegedly reported falling in a bathroom. He reportedly drank 2 beers earlier in the evening. Unable obtain much more history at this time. Concern for alcohol withdrawal seizure with delirium tremens in patient with altered mental status and history of alcohol abuse. He was hypertensive and reportedly tremulous in the ED. He was treated with hydralazine, Ativan, thiamine, folic acid, and multivitamin. He also reportedly vomited in the ED. EtOH <10, CK 1575, Lactic Acid 4.[address] [place] [place] 2[place] [address]. Asking for [place] fries. Still very confused and agitated requiring mittens. Is easily redirected. Counseled on ETOH cessation and med compliance. Vitals/I&O Vitals/I&O: Vital Signs Date Time Temp Pulse Resp B/P (MAP) Pulse Ox O2 Delivery O2 Flow Rate FiO2 03/03/20 03:20 98.0 100 19 161/101 (121) 100 Room Air 98.0 I & O 03/02/20 03/02/20 03/03/20 15:00 23:00 07:00 Intake Total 1000 ml 220 ml 190 ml Output Total 1100 ml 1375 ml Balance -100 ml -1155 ml 190 ml Physical Exam Lungs: Clear Labs Labs: Laboratory Tests Test 03/02/20 10:22 03/02/20 11:35 03/03/20 05:40 Influenza Type A Antigen Negative (NEGATIVE) Influenza Type B Antigen Negative (NEGATIVE) Coronavirus (PCR) Not detected (Not Detected) White Blood Count 5.0 x10^3/uL (4.0-11.0) Red Blood Count 4.45 x10^6/uL (4.30-5.70) Hemoglobin 13.0 g/dL (13.0-17.5) Hematocrit 39.7 % (39.0-53.0) Mean Corpuscular Volume 89 fL (79-100) Mean Corpuscular Hemoglobin 29 pg (25-35) Mean Corpuscular Hemoglobin Concent 33 g/dL (31-37) Red Cell Distribution Width 15.5 % (11.5-14.5) Platelet Count 76 x10^3/uL (140-400) Neutrophils (%) (Auto) 71 % (31-73) Lymphocytes (%) (Auto) 21 % (24-48) Monocytes (%) (Auto) 7 % (0-9) Eosinophils (%) (Auto) 0 % (0-3) Basophils (%) (Auto) 0 % (0-3) Neutrophils # (Auto) 3.5 x10^3/uL (1.8-7.7) Lymphocytes # (Auto) 1.1 x10^3/uL (1.0-4.8) Monocytes # (Auto) 0.4 x10^3/uL (0.0-1.1) Eosinophils # (Auto) 0.0 x10^3/uL (0.0-0.7) Basophils # (Auto) 0.0 x10^3/uL (0.0-0.2) Prothrombin Time 14.1 SEC (11.7-14.0) Prothromb Time International Ratio 1.1 (0.8-1.1) Sodium Level 140 mmol/L (136-145) Potassium Level 2.8 mmol/L (3.5-5.1) Chloride Level 104 mmol/L (98-107) Carbon Dioxide Level 21 mmol/L (21-32) Anion Gap 15 (6-14) Blood Urea Nitrogen 11 mg/dL (8-26) Creatinine 1.1 mg/dL (0.7-1.3) Estimated GFR (Cockcroft-Gault) 81.8 BUN/Creatinine Ratio 10 (6-20) Glucose Level 76 mg/dL (70-99) Calcium Level 8.2 mg/dL (8.5-10.1) Total Bilirubin 2.5 mg/dL (0.2-1.0) Aspartate Amino Transf (AST/SGOT) 254 U/L (15-37) Alanine Aminotransferase (ALT/SGPT) 152 U/L (16-63) Alkaline Phosphatase 81 U/L (46-116) Creatine Kinase 24075 U/L (39-308) Total Protein 7.5 g/dL (6.4-8.2) Albumin 2.8 g/dL (3.4-5.0) Albumin/Globulin Ratio 0.6 (1.0-1.7) Assessment and Plan Assessmemt and Plan Problems Medical Problems: (1) Alcohol withdrawal seizure with delirium Status: Acute (2) AMS (altered mental status) Status: Acute (3) Facial abrasion Status: Acute (4) Head trauma Status: Acute (5) Need for Tdap vaccination Status: Acute (6) Rhabdomyolysis Status: Acute (7) Uncontrolled hypertension Status: Acute Comment Review of Relevant I have reviewed the following items edward (where applicable) has been applied. Medications: Current Medications Medications (Trade) Dose Ordered Sig/Kay Route PRN Reason Start Time Stop Time Status Last Admin Dose Admin Thiamine HCl 100 mg/Folic Acid 1 mg/Sodium Chloride 1,001.2 ml @ 99.012 mls/hr DAILY IV 03/02/20 09:00 03/06/20 19:07 03/02/20 09:22 Amlodipine Besylate (Norvasc) 10 mg DAILY PO 03/02/20 10:00 03/02/20 10:00 Hydrochlorothiazide (Hydrodiuril) 25 mg DAILY PO 03/02/20 10:00 03/02/20 18:30 DC 03/02/20 09:58 Levetiracetam (Keppra) 500 mg BID PO 03/02/20 10:00 03/02/20 20:59 Lisinopril (Prinivil) 10 mg DAILY PO 03/02/20 10:00 03/02/20 09:59 Metoprolol Tartrate (Lopressor Vial) 5 mg 1X ONCE IVP 03/02/20 09:45 03/02/20 09:46 DC 03/02/20 09:58 Piperacillin Sod/ Tazobactam Sod 3.375 gm/Sodium Chloride 50 ml @ 100 mls/hr Q6HRS IV 03/02/20 12:00 03/03/20 05:48 Sodium Chloride 1,000 ml @ 100 mls/hr CONT PRN IV SEE I/O RECORD 03/02/20 10:00 03/02/20 23:11 Haloperidol Lactate (Haldol Inj) 5 mg PRN Q6HRS PRN IVP AGITATION 03/02/20 18:30 03/02/20 18:36 Justifications for Admission Other Justification AUSTIN GILBERT MD Mar 03, 2020 08:14
[2020-03-03] MEDS: POTASSIUM CHLORIDE 10MEQ 100 ML IV SCH ×4 (08:25→13:02)
[2020-03-03] MEDS: THIAMINE INJ 100 MG in IV DEXTROSE 5% 50 ML IV SCH (08:32)
[2020-03-03] MEDS: LISINOPRIL 10 MG TABLET PO SCH (08:40)
[2020-03-03] MEDS: levETIRAcetam 500 MG TABLET PO SCH ×2 (08:41→20:18)
--- NOTE | 2020-03-03 09:25 | PDOC ---
PROGRESS NOTES Date of Service DATE: 03/03/20 TIME: 09:23 Assessment Problems Medical Problems: (1) Alcohol withdrawal seizure with delirium Status: Acute (2) AMS (altered mental status) Status: Acute (3) Facial abrasion Status: Acute (4) Head trauma Status: Acute (5) Need for Tdap vaccination Status: Acute (6) Rhabdomyolysis Status: Acute (7) Uncontrolled hypertension Status: Acute Alcohol related seizures, negative epilepsy work-up in past Plan Continue levetiracetam, can send home with a prescription, I doubt he will take it He understand he needs to stop drinking CIWA protocol No additional neurological studies needed Subjective No complaints Objective Vital Signs Date Time Temp Pulse Resp B/P (MAP) Pulse Ox O2 Delivery O2 Flow Rate FiO2 03/03/20 08:41 107 203/102 03/03/20 08:00 Room Air 03/03/20 07:00 99.8 16 100 99.8 Intake and Output 03/03/20 07:00 Intake Total 1410 ml Output Total 2475 ml Balance -1065 ml Intake Oral 0 ml IV Total 1190 ml Blood Product IV Normal Saline Flush 220 ml Output Urine Total 2475 ml # Voids 7 PHYSICAL EXAM Alert. Oriented to "hospital" and person, does not know date. Follows commands. PERRL. EOMI. CN: no focal findings. Muscle tone: normal. Muscle strength: 5/5 DTR: 2+ Plantar reflex: Severe Gait: not examined in bed. Sensory exam: no abnormal findings. No cerebellar signs elicited. No tremulousness. Review of Relevant I have reviewed the following items edward (where applicable) has been applied. Labs Laboratory Tests Test 03/02/20 03:25 03/02/20 07:50 03/02/20 10:22 03/02/20 11:35 White Blood Count 5.2 x10^3/uL (4.0-11.0) Red Blood Count 4.68 x10^6/uL (4.30-5.70) Hemoglobin 13.9 g/dL (13.0-17.5) Hematocrit 41.5 % (39.0-53.0) Mean Corpuscular Volume 89 fL (79-100) Mean Corpuscular Hemoglobin 30 pg (25-35) Mean Corpuscular Hemoglobin Concent 34 g/dL (31-37) Red Cell Distribution Width 15.6 % (11.5-14.5) Platelet Count 86 x10^3/uL (140-400) Neutrophils (%) (Auto) 84 % (31-73) Lymphocytes (%) (Auto) 8 % (24-48) Monocytes (%) (Auto) 7 % (0-9) Eosinophils (%) (Auto) 0 % (0-3) Basophils (%) (Auto) 0 % (0-3) Neutrophils # (Auto) 4.4 x10^3/uL (1.8-7.7) Lymphocytes # (Auto) 0.4 x10^3/uL (1.0-4.8) Monocytes # (Auto) 0.4 x10^3/uL (0.0-1.1) Eosinophils # (Auto) 0.0 x10^3/uL (0.0-0.7) Basophils # (Auto) 0.0 x10^3/uL (0.0-0.2) Prothrombin Time 13.9 SEC (11.7-14.0) Prothromb Time International Ratio 1.1 (0.8-1.1) Activated Partial Thromboplast Time 29 SEC (24-38) Urine Collection Type Unknown Urine Color Yellow Urine Clarity Clear Urine pH 5.5 (<5.0-8.0) Urine Specific Byron 1.015 (1.000-1.030) Urine Protein 100 mg/dL (NEG-TRACE) Urine Glucose (UA) 100 mg/dL (NEG) Urine Ketones (Stick) Trace mg/dL (NEG) Urine Blood Large (NEG) Urine Nitrite Negative (NEG) Urine Bilirubin Negative (NEG) Urine Urobilinogen Dipstick 1.0 mg/dL (0.2 mg/dL) Urine Leukocyte Esterase Negative (NEG) Urine RBC Occ /HPF (0-2) Urine WBC Occ /HPF (0-4) Urine Squamous Epithelial Cells Occ /LPF Urine Bacteria 0 /HPF (0-FEW) Urine Hyaline Casts Few /HPF Urine Mucus Slight /LPF Sodium Level 131 mmol/L (136-145) Potassium Level 3.1 mmol/L (3.5-5.1) Chloride Level 95 mmol/L (98-107) Carbon Dioxide Level 23 mmol/L (21-32) Anion Gap 13 (6-14) Blood Urea Nitrogen 9 mg/dL (8-26) Creatinine 1.1 mg/dL (0.7-1.3) Estimated GFR (Cockcroft-Gault) 81.8 Glucose Level 125 mg/dL (70-99) Lactic Acid Level 4.2 mmol/L (0.4-2.0) 1.6 mmol/L (0.4-2.0) Calcium Level 8.5 mg/dL (8.5-10.1) Magnesium Level 2.1 mg/dL (1.8-2.4) Total Bilirubin 2.0 mg/dL (0.2-1.0) Direct Bilirubin 0.8 mg/dL (0.0-0.2) Aspartate Amino Transf (AST/SGOT) 236 U/L (15-37) Alanine Aminotransferase (ALT/SGPT) 205 U/L (16-63) Alkaline Phosphatase 124 U/L (46-116) Creatine Kinase 1575 U/L (39-308) Troponin I Quantitative 0.032 ng/mL (0.000-0.055) Total Protein 8.9 g/dL (6.4-8.2) Albumin 3.4 g/dL (3.4-5.0) Salicylates Level < 2.8 mg/dL (2.8-20.0) Salicylate Last Dose Date Unk Salicylate Last Dose Time Unk Urine Opiates Screen Neg (NEG) Urine Methadone Screen Neg (NEG) Acetaminophen Level < 2 mcg/ml (10-30) Acetaminophen Last Dose Date Unk Acetaminophen Last Dose Time Unk Urine Barbiturates Neg (NEG) Urine Phencyclidine Screen Neg (NEG) Urine Amphetamine/Methamphetamine Neg (NEG) Urine Benzodiazepines Screen Neg (NEG) Urine Cocaine Screen Neg (NEG) Urine Cannabinoids Screen Pos (NEG) Ethyl Alcohol Level < 10 mg/dL (0-10) Urine Ethyl Alcohol Neg (NEG) Influenza Type A Antigen Negative (NEGATIVE) Influenza Type B Antigen Negative (NEGATIVE) Coronavirus (PCR) Not detected (Not Detected) Test 03/03/20 05:40 White Blood Count 5.0 x10^3/uL (4.0-11.0) Red Blood Count 4.45 x10^6/uL (4.30-5.70) Hemoglobin 13.0 g/dL (13.0-17.5) Hematocrit 39.7 % (39.0-53.0) Mean Corpuscular Volume 89 fL (79-100) Mean Corpuscular Hemoglobin 29 pg (25-35) Mean Corpuscular Hemoglobin Concent 33 g/dL (31-37) Red Cell Distribution Width 15.5 % (11.5-14.5) Platelet Count 76 x10^3/uL (140-400) Neutrophils (%) (Auto) 71 % (31-73) Lymphocytes (%) (Auto) 21 % (24-48) Monocytes (%) (Auto) 7 % (0-9) Eosinophils (%) (Auto) 0 % (0-3) Basophils (%) (Auto) 0 % (0-3) Neutrophils # (Auto) 3.5 x10^3/uL (1.8-7.7) Lymphocytes # (Auto) 1.1 x10^3/uL (1.0-4.8) Monocytes # (Auto) 0.4 x10^3/uL (0.0-1.1) Eosinophils # (Auto) 0.0 x10^3/uL (0.0-0.7) Basophils # (Auto) 0.0 x10^3/uL (0.0-0.2) Prothrombin Time 14.1 SEC (11.7-14.0) Prothromb Time International Ratio 1.1 (0.8-1.1) Sodium Level 140 mmol/L (136-145) Potassium Level 2.8 mmol/L (3.5-5.1) Chloride Level 104 mmol/L (98-107) Carbon Dioxide Level 21 mmol/L (21-32) Anion Gap 15 (6-14) Blood Urea Nitrogen 11 mg/dL (8-26) Creatinine 1.1 mg/dL (0.7-1.3) Estimated GFR (Cockcroft-Gault) 81.8 BUN/Creatinine Ratio 10 (6-20) Glucose Level 76 mg/dL (70-99) Calcium Level 8.2 mg/dL (8.5-10.1) Magnesium Level 2.1 mg/dL (1.8-2.4) Total Bilirubin 2.5 mg/dL (0.2-1.0) Aspartate Amino Transf (AST/SGOT) 254 U/L (15-37) Alanine Aminotransferase (ALT/SGPT) 152 U/L (16-63) Alkaline Phosphatase 81 U/L (46-116) Creatine Kinase 10867 U/L (39-308) Total Protein 7.5 g/dL (6.4-8.2) Albumin 2.8 g/dL (3.4-5.0) Albumin/Globulin Ratio 0.6 (1.0-1.7) Laboratory Tests Test 03/02/20 10:22 03/02/20 11:35 03/03/20 05:40 Influenza Type A Antigen Negative (NEGATIVE) Influenza Type B Antigen Negative (NEGATIVE) Coronavirus (PCR) Not detected (Not Detected) White Blood Count 5.0 x10^3/uL (4.0-11.0) Red Blood Count 4.45 x10^6/uL (4.30-5.70) Hemoglobin 13.0 g/dL (13.0-17.5) Hematocrit 39.7 % (39.0-53.0) Mean Corpuscular Volume 89 fL (79-100) Mean Corpuscular Hemoglobin 29 pg (25-35) Mean Corpuscular Hemoglobin Concent 33 g/dL (31-37) Red Cell Distribution Width 15.5 % (11.5-14.5) Platelet Count 76 x10^3/uL (140-400) Neutrophils (%) (Auto) 71 % (31-73) Lymphocytes (%) (Auto) 21 % (24-48) Monocytes (%) (Auto) 7 % (0-9) Eosinophils (%) (Auto) 0 % (0-3) Basophils (%) (Auto) 0 % (0-3) Neutrophils # (Auto) 3.5 x10^3/uL (1.8-7.7) Lymphocytes # (Auto) 1.1 x10^3/uL (1.0-4.8) Monocytes # (Auto) 0.4 x10^3/uL (0.0-1.1) Eosinophils # (Auto) 0.0 x10^3/uL (0.0-0.7) Basophils # (Auto) 0.0 x10^3/uL (0.0-0.2) Prothrombin Time 14.1 SEC (11.7-14.0) Prothromb Time International Ratio 1.1 (0.8-1.1) Sodium Level 140 mmol/L (136-145) Potassium Level 2.8 mmol/L (3.5-5.1) Chloride Level 104 mmol/L (98-107) Carbon Dioxide Level 21 mmol/L (21-32) Anion Gap 15 (6-14) Blood Urea Nitrogen 11 mg/dL (8-26) Creatinine 1.1 mg/dL (0.7-1.3) Estimated GFR (Cockcroft-Gault) 81.8 BUN/Creatinine Ratio 10 (6-20) Glucose Level 76 mg/dL (70-99) Calcium Level 8.2 mg/dL (8.5-10.1) Magnesium Level 2.1 mg/dL (1.8-2.4) Total Bilirubin 2.5 mg/dL (0.2-1.0) Aspartate Amino Transf (AST/SGOT) 254 U/L (15-37) Alanine Aminotransferase (ALT/SGPT) 152 U/L (16-63) Alkaline Phosphatase 81 U/L (46-116) Creatine Kinase 64658 U/L (39-308) Total Protein 7.5 g/dL (6.4-8.2) Albumin 2.8 g/dL (3.4-5.0) Albumin/Globulin Ratio 0.6 (1.0-1.7) Microbiology 03/02/20 Blood Culture - Preliminary, Resulted NO GROWTH AFTER 1 DAY Medications Current Medications Sodium Chloride 1,000 ml @ 1,000 mls/hr 1X ONCE IV Last administered on 03/02/20at 03:34; Start 03/02/20 at 03:30; Stop 03/02/20 at 04:29; Status DC Thiamine HCl 100 mg/Dextrose 51 ml @ 102 mls/hr 1X ONCE IV Last administered on 03/02/20at 04:15; Start 03/02/20 at 04:00; Stop 03/02/20 at 04:29; Status DC Multivit/ Folic Acid/Iron (Multivitamin ) 1 tab ONCE ONCE PO Last administered on 03/02/20at 04:15; Start 03/02/20 at 04:00; Stop 03/02/20 at 04:01; Status DC Metoclopramide HCl (Reglan Vial) 10 mg 1X ONCE IVP Last administered on 03/02/20at 04:00; Start 03/02/20 at 04:00; Stop 03/02/20 at 04:23; Status DC Hydralazine HCl (Apresoline Inj) 10 mg 1X ONCE IVP Last administered on 03/02/20at 04:16; Start 03/02/20 at 04:00; Stop 03/02/20 at 04:23; Status DC Lorazepam (Ativan Inj) 2 mg 1X ONCE IVP Last administered on 03/02/20at 04:10; Start 03/02/20 at 04:15; Stop 03/02/20 at 04:23; Status DC Magnesium Sulfate 50 ml @ 25 mls/hr 1X ONCE IV Last administered on 03/02/20at 04:51; Start 03/02/20 at 04:30; Stop 03/02/20 at 06:29; Status DC Lorazepam (Ativan Inj) 2 mg 1X ONCE IVP Last administered on 03/02/20at 04:48; Start 03/02/20 at 04:45; Stop 03/02/20 at 04:46; Status DC Sodium Chloride 1,000 ml @ 1,000 mls/hr 1X ONCE IV Last administered on 03/02/20at 04:30; Start 03/02/20 at 05:00; Stop 03/02/20 at 05:59; Status DC Potassium Chloride/Sodium Chloride 1,000 ml @ 100 mls/hr Q10H ONCE IV Last administered on 03/02/20at 05:53; Start 03/02/20 at 05:00; Stop 03/02/20 at 14:59; Status DC Ondansetron HCl (Zofran) 4 mg PRN Q8HRS PRN IV NAUSEA/VOMITING; Start 03/02/20 at 05:00; Stop 03/03/20 at 04:59; Status DC Acetaminophen (Tylenol) 650 mg PRN Q4HRS PRN PO FEVER > 100.3'F Last administered on 03/02/20at 09:59; Start 03/02/20 at 05:00; Stop 03/03/20 at 04:59; Status DC Thiamine HCl 100 mg/Folic Acid 1 mg/Sodium Chloride 1,001.2 ml @ 99.012 mls/hr DAILY IV Last administered on 03/02/20at 09:22; Start 03/02/20 at 09:00; Stop 03/06/20 at 19:07 Multivitamins (Thera M Plus) 1 tab DAILY PO ; Start 03/07/20 at 09:00 Folic Acid (Folic Acid) 1 mg DAILY PO ; Start 03/07/20 at 09:00 Thiamine HCl 100 mg/Dextrose 51 ml @ 100 mls/hr DAILY IV Last administered on 03/03/20at 08:32; Start 03/03/20 at 09:00; Stop 03/07/20 at 09:31 Lorazepam (Ativan Inj) 2 mg PRN Q1HR PRN IV For CIWA 8-14 Last administered on 03/02/20at 23:10; Start 03/02/20 at 05:00 Lorazepam (Ativan Inj) 4 mg PRN Q1HR PRN IV For CIWA 15 or greater Last administered on 03/02/20at 21:20; Start 03/02/20 at 05:00 Lorazepam (Ativan Inj) 2 mg PRN Q15MIN PRN IV SEE COMMENTS; Start 03/02/20 at 05:00 Lorazepam (Ativan Inj) 4 mg PRN Q15MIN PRN IV SEE COMMENTS Last administered on 03/02/20at 18:53; Start 03/02/20 at 05:00 Amlodipine Besylate (Norvasc) 10 mg DAILY PO Last administered on 03/03/20at 08:41; Start 03/02/20 at 10:00 Hydrochlorothiazide (Hydrodiuril) 25 mg DAILY PO Last administered on 03/02/20at 09:58; Start 03/02/20 at 10:00; Stop 03/02/20 at 18:30; Status DC Levetiracetam (Keppra) 500 mg BID PO Last administered on 03/03/20at 08:41; Start 03/02/20 at 10:00 Lisinopril (Prinivil) 10 mg DAILY PO Last administered on 03/03/20at 08:40; Start 03/02/20 at 10:00 Enoxaparin Sodium (Lovenox Per Pharmacy Prophylaxis Dosing) 1 each PRN DAILY PRN MC SEE COMMENTS; Start 03/02/20 at 09:30 Enoxaparin Sodium (Lovenox 40mg Syringe) 40 mg Q24H SQ ; Start 03/02/20 at 16:00 Metoprolol Tartrate (Lopressor Vial) 5 mg 1X ONCE IVP Last administered on 03/02/20at 09:58; Start 03/02/20 at 09:45; Stop 03/02/20 at 09:46; Status DC Piperacillin Sod/ Tazobactam Sod (Zosyn Per Pharmacy) 1 each PRN DAILY PRN MC SEE COMMENTS; Start 03/02/20 at 10:00 Piperacillin Sod/ Tazobactam Sod 3.375 gm/Sodium Chloride 50 ml @ 100 mls/hr Q6HRS IV Last administered on 03/03/20at 05:48; Start 03/02/20 at 12:00 Sodium Chloride 1,000 ml @ 100 mls/hr CONT PRN IV SEE I/O RECORD Last administered on 03/02/20at 23:11; Start 03/02/20 at 10:00 Haloperidol Lactate (Haldol Inj) 5 mg PRN Q6HRS PRN IVP AGITATION Last administered on 03/02/20at 18:36; Start 03/02/20 at 18:30 Potassium Chloride/Water 100 ml @ 100 mls/hr Q1H IV Last administered on 03/03/20at 08:25; Start 03/03/20 at 07:30; Stop 03/03/20 at 11:29 Sodium Chloride 1,000 ml @ 100 mls/hr Q10H IV ; Start 03/03/20 at 08:30 Active Scripts Active Potassium Chloride (Potassium Chloride) 20 Meq Tablet.er 20 Meq PO DAILY 10 Days Hydrochlorothiazide Tablet (Hydrochlorothiazide) 25 Mg Tablet 25 Mg PO DAILY Norvasc (Amlodipine Besylate) 10 Mg Tablet 10 Mg PO DAILY Lisinopril 10 Mg Tablet 1 Tab PO DAILY Lisinopril 10 Mg Tablet 1 Tab PO DAILY Hydrochlorothiazide Tablet (Hydrochlorothiazide) 12.5 Mg Tablet 12.5 Mg PO DAILY Amlodipine Besylate 10 Mg Tablet 10 Mg PO DAILY Fluoxetine Hcl 10 Mg Capsule 10 Mg PO DAILY 30 Days Protonix Packet (Pantoprazole Sodium) 40 Mg Granpkt.dr 40 Mg PO DAILY 30 Days Lisinopril 20 Mg Tablet 1 Tab PO DAILY 30 Days Hydrochlorothiazide Tablet (Hydrochlorothiazide) 25 Mg Tablet 1 Tab PO DAILY 30 Days Norvasc (Amlodipine Besylate) 10 Mg Tablet 10 Mg PO DAILY 30 Days Keppra (Levetiracetam) 500 Mg Tablet 500 Mg PO BID 30 Days Vitals/I & O Vital Sign - Last 24 Hours 03/02/20 03/02/20 03/02/20 03/02/20 09:30 09:58 09:59 10:00 Temp 102.5 102.5 Pulse 106 101 96 96 Resp 18 B/P (MAP) 223/91 (135) 215/110 207/97 207/97 Pulse Ox 92 O2 Delivery Room Air 03/02/20 03/02/20 03/02/20 03/02/20 10:00 10:30 11:00 11:30 Pulse 90 90 96 94 Resp 16 16 18 16 B/P (MAP) 218/106 (143) 174/82 (112) 188/92 (124) 168/93 (118) Pulse Ox 92 98 93 93 O2 Delivery Room Air Room Air Room Air Room Air 03/02/20 03/02/20 03/02/20 03/02/20 12:00 12:00 12:30 13:00 Temp 99.8 99.8 Pulse 98 82 90 Resp 18 18 20 B/P (MAP) 186/92 (123) 184/94 (124) 197/102 (133) Pulse Ox 98 99 99 O2 Delivery Room Air Room Air Room Air Room Air 03/02/20 03/02/20 03/02/20 03/02/20 13:30 14:00 14:30 15:00 Temp 99.2 99.2 Pulse 84 80 83 86 Resp 22 16 16 16 B/P (MAP) 137/62 (87) 156/64 (94) 141/67 (91) 171/77 (108) Pulse Ox 98 99 98 98 O2 Delivery Room Air Room Air Room Air Room Air 03/02/20 03/02/20 03/02/20 03/02/20 15:30 16:00 16:00 16:30 Pulse 94 92 84 Resp 20 20 20 B/P (MAP) 158/78 (104) Pulse Ox 98 90 92 O2 Delivery Room Air Room Air Room Air Room Air 03/02/20 03/02/20 03/02/20 03/02/20 17:00 17:30 18:00 20:00 Temp 98.9 98.9 Pulse 88 88 90 84 Resp 20 20 20 36 B/P (MAP) 172/99 (123) 159/78 (105) Pulse Ox 90 92 92 98 O2 Delivery Room Air Room Air Room Air Room Air 03/02/20 03/02/20 03/02/20 03/03/20 20:16 21:00 22:30 03:20 Temp 98.8 98.0 98.8 98.0 Pulse 23 90 100 Resp 24 18 19 B/P (MAP) 186/95 (125) 184/102 (129) 161/101 (121) Pulse Ox 98 100 100 O2 Delivery Room Air Room Air Room Air Room Air 03/03/20 03/03/20 03/03/20 03/03/20 07:00 08:00 08:40 08:41 Temp 99.8 99.8 Pulse 96 98 107 Resp 16 B/P (MAP) 188/93 (124) 203/102 203/102 Pulse Ox 100 O2 Delivery Room Air Room Air Intake and Output 03/02/20 03/02/20 03/03/20 15:00 23:00 07:00 Intake Total 1000 ml 220 ml 190 ml Output Total 1100 ml 1375 ml Balance -100 ml -1155 ml 190 ml Justicifation of Admission Dx: Justifications for Admission: Justification of Admission Dx: N/A KEIRY BEGUM MD Mar 03, 2020 09:25
[2020-03-03 11:00] VITALS: BP 181/97
[2020-03-03] MEDS: IV NORMAL SALINE 1000ML BAG 1,000 ML IV SCH ×2 (11:27→23:50)
[2020-03-03 15:00] VITALS: BP 166/94
--- NOTE | 2020-03-03 15:02 | NUR ---
SS following up with discharge planning. SS reviewed pt chart and discussed with pt RN. Pt is currently on room air. COVID19 negative. Per RN, pt appropriate to see PAT team today. Referral made for PAT team for substance use. PAT team to see today. SS will continue to follow for discharge planning.
[2020-03-03] MEDS: ENOXAPARIN 40 MG/0.4 ML SYRINGE. SQ SCH (17:09)
--- NOTE | 2020-03-03 18:35 | NUR ---
Patient transferred to room 200. Report given to JADA Brannon. One sister notified of transfer.
[2020-03-03 19:31] VITALS: BP 151/95
[2020-03-03 22:24] VITALS: BP 180/101
[2020-03-04] MEDS: PIPERACILLIN/TAZOBACTAM 3.375 GM in IV NORMAL SALINE 50ML 50 ML IV SCH ×4 (00:03→17:15)
[2020-03-04] MEDS: HALOPERIDOL LACTATE 5 MG/ML VIAL. IVP PRN ×2 (00:23→10:49)
--- NOTE | 2020-03-04 00:28 | NUR ---
PT CONTINUES TO ATTEMT TO GET OOB, STATES HE IS LEAVING. HALLUCINATES ABOUT WHAT HE IS DOING WITH HIS BROTHER. HAVE GIVEN ATIVAN TWICE 8 TOTAL MG AND HALDOL. PT BROKE IV LINE, HAVE HAD TO PUT MITTS ON HIM DUE TO HIM NOT BEING COOPERATIVE , SO HE WONT PULL AT LINES OR IV'S ETC... LCRN
[2020-03-04 02:47] VITALS: BP 161/90
[2020-03-04 05:40] LABS: ALBUMIN 2.9 g/dL (3.4-5.0); CALCIUM 8.3 mg/dL (8.5-10.1); CREATININE 1.1 mg/dL (0.7-1.3); GFR 81.8; PHOSPHORUS 3.6 mg/dL (2.6-4.7); POTASSIUM 3.1 mmol/L (3.5-5.1)
[2020-03-04 07:00] VITALS: BP 165/103
[2020-03-04] MEDS: levETIRAcetam 500 MG TABLET PO SCH ×2 (09:34→21:23)
[2020-03-04] MEDS: THIAMINE INJ 100 MG in IV DEXTROSE 5% 50 ML IV SCH (09:34)
[2020-03-04] MEDS: LISINOPRIL 10 MG TABLET PO SCH (09:35)
[2020-03-04] MEDS: IV NORMAL SALINE 1000ML BAG 1,000 ML IV SCH (09:40)
[2020-03-04 11:00] VITALS: BP 170/98
[2020-03-04] MEDS ORDERED: POTASSIUM CHLORIDE 20 MEQ TABLET.ER. PO ONE (11:15)
[2020-03-04] MEDS ORDERED: IV NORMAL SALINE 1000ML BAG 1,000 ML IV ONE (11:30)
[2020-03-04] MEDS: POTASSIUM CL 20MEQ D5-0.45NACL 1,000 ML IV SCH ×2 (11:40→19:44)
--- NOTE | 2020-03-04 14:15 | PDOC ---
PROGRESS NOTES Date of Service: DATE: 03/04/20 TIME: 14:12 Chief Complaint Chief Complaint Severe alcohol withdrawal Acute toxic encephalopathy, thiamine given to try to avoid permanence Alcohol use disorder obese, BMI 32 HX DEPRESSION HX ALCOHOL RELATED SEIZURES hypertension HYPOKALEMIA Hepatitic steatosis, alcoholic THC ABUSE HC History of Present Illness History of Present Illness he was admitted s/p a fall, was confused and AMS persistted, eh was hypertensive and reportedly tremulous in the ED. He was treated with hydralazine, Ativan, thiamine, folic acid, and multivitamin. He also reportedly vomited in the ED. EtOH <10, CK 1575, Lactic Acid 4.2 03/04, cont the treatment for acute alcohol withdrawl, CK consistent with seizure from EtOH withdrawl, cont aggressive IV fluid ativan and PRN haldol, Still very confused and agitated requiring mittens. Is easily redirected. Vitals Vitals Vital Signs Date Time Temp Pulse Resp B/P (MAP) Pulse Ox O2 Delivery O2 Flow Rate FiO2 03/04/20 11:00 99.2 104 30 170/98 (122) 98 Room Air 99.2 Physical Exam General: Alert, mild distress, Other (not oriented, hard to understand, wants to eat ) Heart: No murmurs Lungs: Clear Abdomen: No tenderness Extremities: No clubbing Skin: No rashes Labs LABS Laboratory Tests Test 03/04/20 05:00 Sodium Level 138 mmol/L (136-145) Potassium Level 3.1 mmol/L (3.5-5.1) Chloride Level 102 mmol/L (98-107) Carbon Dioxide Level 21 mmol/L (21-32) Anion Gap 15 (6-14) Blood Urea Nitrogen 10 mg/dL (8-26) Creatinine 1.1 mg/dL (0.7-1.3) Estimated GFR (Cockcroft-Gault) 81.8 Glucose Level 90 mg/dL (70-99) Calcium Level 8.3 mg/dL (8.5-10.1) Phosphorus Level 3.6 mg/dL (2.6-4.7) Albumin 2.9 g/dL (3.4-5.0) Review of Systems Review of Systems confusion, lethargy Assessment and Plan Assessmemt and Plan Problems Medical Problems: (1) Alcohol withdrawal seizure with delirium Status: Acute (2) AMS (altered mental status) Status: Acute (3) Facial abrasion Status: Acute (4) Head trauma Status: Acute (5) Need for Tdap vaccination Status: Acute (6) Rhabdomyolysis Status: Acute (7) Uncontrolled hypertension Status: Acute Comment Review of Relevant I have reviewed the following items edward (where applicable) has been applied. Labs Laboratory Tests Test 03/03/20 05:40 03/04/20 05:00 White Blood Count 5.0 x10^3/uL (4.0-11.0) Red Blood Count 4.45 x10^6/uL (4.30-5.70) Hemoglobin 13.0 g/dL (13.0-17.5) Hematocrit 39.7 % (39.0-53.0) Mean Corpuscular Volume 89 fL (79-100) Mean Corpuscular Hemoglobin 29 pg (25-35) Mean Corpuscular Hemoglobin Concent 33 g/dL (31-37) Red Cell Distribution Width 15.5 % (11.5-14.5) Platelet Count 76 x10^3/uL (140-400) Neutrophils (%) (Auto) 71 % (31-73) Lymphocytes (%) (Auto) 21 % (24-48) Monocytes (%) (Auto) 7 % (0-9) Eosinophils (%) (Auto) 0 % (0-3) Basophils (%) (Auto) 0 % (0-3) Neutrophils # (Auto) 3.5 x10^3/uL (1.8-7.7) Lymphocytes # (Auto) 1.1 x10^3/uL (1.0-4.8) Monocytes # (Auto) 0.4 x10^3/uL (0.0-1.1) Eosinophils # (Auto) 0.0 x10^3/uL (0.0-0.7) Basophils # (Auto) 0.0 x10^3/uL (0.0-0.2) Prothrombin Time 14.1 SEC (11.7-14.0) Prothromb Time International Ratio 1.1 (0.8-1.1) Sodium Level 140 mmol/L (136-145) 138 mmol/L (136-145) Potassium Level 2.8 mmol/L (3.5-5.1) 3.1 mmol/L (3.5-5.1) Chloride Level 104 mmol/L (98-107) 102 mmol/L (98-107) Carbon Dioxide Level 21 mmol/L (21-32) 21 mmol/L (21-32) Anion Gap 15 (6-14) 15 (6-14) Blood Urea Nitrogen 11 mg/dL (8-26) 10 mg/dL (8-26) Creatinine 1.1 mg/dL (0.7-1.3) 1.1 mg/dL (0.7-1.3) Estimated GFR (Cockcroft-Gault) 81.8 81.8 BUN/Creatinine Ratio 10 (6-20) Glucose Level 76 mg/dL (70-99) 90 mg/dL (70-99) Calcium Level 8.2 mg/dL (8.5-10.1) 8.3 mg/dL (8.5-10.1) Magnesium Level 2.1 mg/dL (1.8-2.4) Total Bilirubin 2.5 mg/dL (0.2-1.0) Aspartate Amino Transf (AST/SGOT) 254 U/L (15-37) Alanine Aminotransferase (ALT/SGPT) 152 U/L (16-63) Alkaline Phosphatase 81 U/L (46-116) Creatine Kinase 07669 U/L (39-308) Total Protein 7.5 g/dL (6.4-8.2) Albumin 2.8 g/dL (3.4-5.0) 2.9 g/dL (3.4-5.0) Albumin/Globulin Ratio 0.6 (1.0-1.7) Phosphorus Level 3.6 mg/dL (2.6-4.7) Laboratory Tests Test 03/04/20 05:00 Sodium Level 138 mmol/L (136-145) Potassium Level 3.1 mmol/L (3.5-5.1) Chloride Level 102 mmol/L (98-107) Carbon Dioxide Level 21 mmol/L (21-32) Anion Gap 15 (6-14) Blood Urea Nitrogen 10 mg/dL (8-26) Creatinine 1.1 mg/dL (0.7-1.3) Estimated GFR (Cockcroft-Gault) 81.8 Glucose Level 90 mg/dL (70-99) Calcium Level 8.3 mg/dL (8.5-10.1) Phosphorus Level 3.6 mg/dL (2.6-4.7) Albumin 2.9 g/dL (3.4-5.0) Microbiology 03/02/20 Blood Culture - Preliminary, Resulted NO GROWTH AFTER 2 DAYS Medications Current Medications Sodium Chloride 1,000 ml @ 1,000 mls/hr 1X ONCE IV Last administered on 03/02/20at 03:34; Start 03/02/20 at 03:30; Stop 03/02/20 at 04:29; Status DC Thiamine HCl 100 mg/Dextrose 51 ml @ 102 mls/hr 1X ONCE IV Last administered on 03/02/20at 04:15; Start 03/02/20 at 04:00; Stop 03/02/20 at 04:29; Status DC Multivit/ Folic Acid/Iron (Multivitamin ) 1 tab ONCE ONCE PO Last administered on 03/02/20at 04:15; Start 03/02/20 at 04:00; Stop 03/02/20 at 04:01; Status DC Metoclopramide HCl (Reglan Vial) 10 mg 1X ONCE IVP Last administered on 03/02/20at 04:00; Start 03/02/20 at 04:00; Stop 03/02/20 at 04:23; Status DC Hydralazine HCl (Apresoline Inj) 10 mg 1X ONCE IVP Last administered on 03/02/20at 04:16; Start 03/02/20 at 04:00; Stop 03/02/20 at 04:23; Status DC Lorazepam (Ativan Inj) 2 mg 1X ONCE IVP Last administered on 03/02/20at 04:10; Start 03/02/20 at 04:15; Stop 03/02/20 at 04:23; Status DC Magnesium Sulfate 50 ml @ 25 mls/hr 1X ONCE IV Last administered on 03/02/20at 04:51; Start 03/02/20 at 04:30; Stop 03/02/20 at 06:29; Status DC Lorazepam (Ativan Inj) 2 mg 1X ONCE IVP Last administered on 03/02/20at 04:48; Start 03/02/20 at 04:45; Stop 03/02/20 at 04:46; Status DC Sodium Chloride 1,000 ml @ 1,000 mls/hr 1X ONCE IV Last administered on 03/02/20at 04:30; Start 03/02/20 at 05:00; Stop 03/02/20 at 05:59; Status DC Potassium Chloride/Sodium Chloride 1,000 ml @ 100 mls/hr Q10H ONCE IV Last administered on 03/02/20at 05:53; Start 03/02/20 at 05:00; Stop 03/02/20 at 14:59; Status DC Ondansetron HCl (Zofran) 4 mg PRN Q8HRS PRN IV NAUSEA/VOMITING; Start 03/02/20 at 05:00; Stop 03/03/20 at 04:59; Status DC Acetaminophen (Tylenol) 650 mg PRN Q4HRS PRN PO FEVER > 100.3'F Last administered on 03/02/20at 09:59; Start 03/02/20 at 05:00; Stop 03/03/20 at 04:59; Status DC Thiamine HCl 100 mg/Folic Acid 1 mg/Sodium Chloride 1,001.2 ml @ 99.012 mls/hr DAILY IV Last administered on 03/02/20at 09:22; Start 03/02/20 at 09:00; Stop 03/03/20 at 10:30; Status DC Multivitamins (Thera M Plus) 1 tab DAILY PO ; Start 03/07/20 at 09:00 Folic Acid (Folic Acid) 1 mg DAILY PO ; Start 03/07/20 at 09:00 Thiamine HCl 100 mg/Dextrose 51 ml @ 100 mls/hr DAILY IV Last administered on 03/04/20at 09:34; Start 03/03/20 at 09:00; Stop 03/07/20 at 09:31 Lorazepam (Ativan Inj) 2 mg PRN Q1HR PRN IV For CIWA 8-14 Last administered on 03/04/20at 11:32; Start 03/02/20 at 05:00 Lorazepam (Ativan Inj) 4 mg PRN Q1HR PRN IV For CIWA 15 or greater Last administered on 03/04/20at 12:43; Start 03/02/20 at 05:00 Lorazepam (Ativan Inj) 2 mg PRN Q15MIN PRN IV SEE COMMENTS; Start 03/02/20 at 05:00 Lorazepam (Ativan Inj) 4 mg PRN Q15MIN PRN IV SEE COMMENTS Last administered on 03/02/20at 18:53; Start 03/02/20 at 05:00 Amlodipine Besylate (Norvasc) 10 mg DAILY PO Last administered on 03/04/20at 09:34; Start 03/02/20 at 10:00 Hydrochlorothiazide (Hydrodiuril) 25 mg DAILY PO Last administered on 03/02/20at 09:58; Start 03/02/20 at 10:00; Stop 03/02/20 at 18:30; Status DC Levetiracetam (Keppra) 500 mg BID PO Last administered on 03/04/20at 09:34; Start 03/02/20 at 10:00 Lisinopril (Prinivil) 10 mg DAILY PO Last administered on 03/04/20at 09:35; Start 03/02/20 at 10:00 Enoxaparin Sodium (Lovenox Per Pharmacy Prophylaxis Dosing) 1 each PRN DAILY PRN MC SEE COMMENTS; Start 03/02/20 at 09:30 Enoxaparin Sodium (Lovenox 40mg Syringe) 40 mg Q24H SQ Last administered on 03/03/20at 17:09; Start 03/02/20 at 16:00 Metoprolol Tartrate (Lopressor Vial) 5 mg 1X ONCE IVP Last administered on 03/02/20at 09:58; Start 03/02/20 at 09:45; Stop 03/02/20 at 09:46; Status DC Piperacillin Sod/ Tazobactam Sod (Zosyn Per Pharmacy) 1 each PRN DAILY PRN MC SEE COMMENTS; Start 03/02/20 at 10:00 Piperacillin Sod/ Tazobactam Sod 3.375 gm/Sodium Chloride 50 ml @ 100 mls/hr Q6HRS IV Last administered on 03/04/20at 11:30; Start 03/02/20 at 12:00 Sodium Chloride 1,000 ml @ 100 mls/hr CONT PRN IV SEE I/O RECORD Last administered on 03/02/20at 23:11; Start 03/02/20 at 10:00 Haloperidol Lactate (Haldol Inj) 5 mg PRN Q6HRS PRN IVP AGITATION Last administered on 03/04/20at 10:49; Start 03/02/20 at 18:30 Potassium Chloride/Water 100 ml @ 100 mls/hr Q1H IV Last administered on 03/03/20at 13:02; Start 03/03/20 at 07:30; Stop 03/03/20 at 11:29; Status DC Sodium Chloride 1,000 ml @ 100 mls/hr Q10H IV Last administered on 03/04/20at 09:40; Start 03/03/20 at 08:30; Stop 03/04/20 at 11:21; Status DC Potassium Chloride (Klor-Con) 20 meq [id number] PO ; Start 03/05/20 at 08:00 Potassium Chloride (Klor-Con) 40 meq 1X ONCE PO Last administered on 03/04/20at 11:37; Start 03/04/20 at 11:15; Stop 03/04/20 at 11:17; Status DC Potassium Chloride/Dextrose/ Sod Cl 1,000 ml @ 125 mls/hr Q8H IV Last administered on 03/04/20at 11:40; Start 03/04/20 at 11:30 Sodium Chloride 1,000 ml @ 1,000 mls/hr 1X ONCE IV Last administered on 03/04/20at 11:34; Start 03/04/20 at 11:30; Stop 03/04/20 at 12:29; Status DC Active Scripts Active Potassium Chloride (Potassium Chloride) 20 Meq Tablet.er 20 Meq PO DAILY 10 Days Hydrochlorothiazide Tablet (Hydrochlorothiazide) 25 Mg Tablet 25 Mg PO DAILY Norvasc (Amlodipine Besylate) 10 Mg Tablet 10 Mg PO DAILY Lisinopril 10 Mg Tablet 1 Tab PO DAILY Lisinopril 10 Mg Tablet 1 Tab PO DAILY Hydrochlorothiazide Tablet (Hydrochlorothiazide) 12.5 Mg Tablet 12.5 Mg PO DAILY Amlodipine Besylate 10 Mg Tablet 10 Mg PO DAILY Fluoxetine Hcl 10 Mg Capsule 10 Mg PO DAILY 30 Days Protonix Packet (Pantoprazole Sodium) 40 Mg Granpkt.dr 40 Mg PO DAILY 30 Days Lisinopril 20 Mg Tablet 1 Tab PO DAILY 30 Days Hydrochlorothiazide Tablet (Hydrochlorothiazide) 25 Mg Tablet 1 Tab PO DAILY 30 Days Norvasc (Amlodipine Besylate) 10 Mg Tablet 10 Mg PO DAILY 30 Days Keppra (Levetiracetam) 500 Mg Tablet 500 Mg PO BID 30 Days Vitals/I & O Vital Sign - Last 24 Hours 1/22/03/03/20 03/03/20 03/03/20 15:00 19:31 20:00 22:24 Temp 100.2 101.7 100.2 100.2 101.7 100.2 Pulse 112 110 102 Resp 16 18 28 B/P (MAP) 166/94 (118) 151/95 (113) 180/101 (127) Pulse Ox 95 95 94 O2 Delivery Room Air Room Air Room Air Room Air 03/04/20 03/04/20 03/04/20 03/04/20 02:47 07:00 08:00 09:34 Temp 100.8 100.0 100.8 100.0 Pulse 118 105 105 Resp 30 30 B/P (MAP) 161/90 (113) 165/103 (123) 165/103 Pulse Ox 97 98 O2 Delivery Room Air Room Air Room Air 03/04/20 03/04/20 09:35 11:00 Temp 99.2 99.2 Pulse 105 104 Resp 30 B/P (MAP) 165/103 170/98 (122) Pulse Ox 98 O2 Delivery Room Air Intake and Output 03/03/20 03/03/20 03/04/20 15:00 23:00 07:00 Intake Total 500 ml 1000 ml 1300 ml Balance 500 ml 1000 ml 1300 ml Justicifation of Admission Dx: Justifications for Admission: Justification of Admission Dx: N/A ARNIE SHIN MD Mar 04, 2020 14:15
[2020-03-04 15:00] VITALS: BP 129/83
[2020-03-04] MEDS: ENOXAPARIN 40 MG/0.4 ML SYRINGE. SQ SCH (16:31)
[2020-03-04 19:58] VITALS: BP 168/103
[2020-03-04 23:44] VITALS: BP 166/103
[2020-03-05] MEDS: PIPERACILLIN/TAZOBACTAM 3.375 GM in IV NORMAL SALINE 50ML 50 ML IV SCH ×5 (00:02→22:44)
[2020-03-05 03:59] VITALS: BP 171/105
[2020-03-05 04:42] LABS: BASO % 1 % (0-3); EOS % 1 % (0-3); HEMATOCRIT 38.9 % (39.0-53.0); HEMOGLOBIN 13.2 g/dL (13.0-17.5); LYMPH % 31 % (24-48); MEAN CORPUSCULAR HEMOGLOBIN 30 pg (25-35); MEAN CORPUSCULAR HGB CONC 34 g/dL (31-37); MEAN CORPUSCULAR VOLUME 89 fL (79-100); MONO # 0.5 x10^3/uL (0.0-1.1); MONO % 15 % (0-9); NEUT # 1.6 x10^3/uL (1.8-7.7); NEUT % 52 % (31-73); PLATELET COUNT 104 x10^3/uL (140-400); RED BLOOD COUNT 4.38 x10^6/uL (4.30-5.70); RED CELL DISTRIBUTION WIDTH 15.7 % (11.5-14.5); WHITE BLOOD COUNT 3.1 x10^3/uL (4.0-11.0)
[2020-03-05 05:27] LABS: ALBUMIN 2.9 g/dL (3.4-5.0); ALBUMIN/GLOBULIN RATIO 0.6 (1.0-1.7); CALCIUM 8.3 mg/dL (8.5-10.1); CREATININE 0.9 mg/dL (0.7-1.3); GFR 103.1; POTASSIUM 3.3 mmol/L (3.5-5.1); TOTAL PROTEIN 7.7 g/dL (6.4-8.2)
[2020-03-05] MEDS: POTASSIUM CL 20MEQ D5-0.45NACL 1,000 ML IV SCH ×3 (05:44→17:49)
[2020-03-05 07:00] VITALS: BP 181/104
[2020-03-05] MEDS: levETIRAcetam 500 MG TABLET PO SCH ×2 (08:04→21:10)
[2020-03-05] MEDS: POTASSIUM CHLORIDE 20 MEQ TABLET.ER. PO SCH (08:04)
[2020-03-05] MEDS: LISINOPRIL 10 MG TABLET PO SCH (08:05)
[2020-03-05] MEDS: THIAMINE INJ 100 MG in IV DEXTROSE 5% 50 ML IV SCH (08:58)
[2020-03-05 11:00] VITALS: BP 157/92
[2020-03-05] MEDS ORDERED: SODIUM BICARB ADULT 8.4% 50 MEQ/50 ML DISP.SYRIN. IV ONE (13:00)
--- NOTE | 2020-03-05 14:34 | PDOC ---
PROGRESS NOTES Date of Service: DATE: 03/05/20 TIME: 14:33 Chief Complaint Chief Complaint rhabdomyolysis, Severe alcohol withdrawal Acute toxic encephalopathy, thiamine given to try to avoid permanence Alcohol use disorder obese, BMI 32 HX DEPRESSION HX ALCOHOL RELATED SEIZURES hypertension HYPOKALEMIA Hepatitic steatosis, alcoholic THC ABUSE HC History of Present Illness History of Present Illness 03/05, still confused, still in mittens, post -ictal, cont therapy, EtOH withdrawl and delirium persist increase fluid and given IV bicarb for rhabdo, renal fxn is preserved he was admitted s/p a fall, was confused and AMS persistted, eh was hypertensive and reportedly tremulous in the ED. He was treated with hydralazine, Ativan, thiamine, folic acid, and multivitamin. He also reportedly vomited in the ED. EtOH <10, CK 1575, Lactic Acid 4.2 03/04, cont the treatment for acute alcohol withdrawl, CK consistent with seizure from EtOH withdrawl, cont aggressive IV fluid ativan and PRN haldol, Still very confused and agitated requiring mittens. Is easily redirected. Vitals Vitals Vital Signs Date Time Temp Pulse Resp B/P (MAP) Pulse Ox O2 Delivery O2 Flow Rate FiO2 03/05/20 11:00 98.2 100 18 157/92 (113) 96 Room Air 98.2 Physical Exam General: Alert, mild distress, Other (not oriented, hard to understand, wants to eat ) Heart: No murmurs Lungs: Clear Abdomen: No tenderness Extremities: No clubbing Skin: No rashes Labs LABS Laboratory Tests Test 03/05/20 04:30 White Blood Count 3.1 x10^3/uL (4.0-11.0) Red Blood Count 4.38 x10^6/uL (4.30-5.70) Hemoglobin 13.2 g/dL (13.0-17.5) Hematocrit 38.9 % (39.0-53.0) Mean Corpuscular Volume 89 fL (79-100) Mean Corpuscular Hemoglobin 30 pg (25-35) Mean Corpuscular Hemoglobin Concent 34 g/dL (31-37) Red Cell Distribution Width 15.7 % (11.5-14.5) Platelet Count 104 x10^3/uL (140-400) Neutrophils (%) (Auto) 52 % (31-73) Lymphocytes (%) (Auto) 31 % (24-48) Monocytes (%) (Auto) 15 % (0-9) Eosinophils (%) (Auto) 1 % (0-3) Basophils (%) (Auto) 1 % (0-3) Neutrophils # (Auto) 1.6 x10^3/uL (1.8-7.7) Lymphocytes # (Auto) 1.0 x10^3/uL (1.0-4.8) Monocytes # (Auto) 0.5 x10^3/uL (0.0-1.1) Eosinophils # (Auto) 0.0 x10^3/uL (0.0-0.7) Basophils # (Auto) 0.0 x10^3/uL (0.0-0.2) Sodium Level 140 mmol/L (136-145) Potassium Level 3.3 mmol/L (3.5-5.1) Chloride Level 106 mmol/L (98-107) Carbon Dioxide Level 20 mmol/L (21-32) Anion Gap 14 (6-14) Blood Urea Nitrogen 8 mg/dL (8-26) Creatinine 0.9 mg/dL (0.7-1.3) Estimated GFR (Cockcroft-Gault) 103.1 BUN/Creatinine Ratio 9 (6-20) Glucose Level 98 mg/dL (70-99) Calcium Level 8.3 mg/dL (8.5-10.1) Total Bilirubin 2.0 mg/dL (0.2-1.0) Aspartate Amino Transf (AST/SGOT) 390 U/L (15-37) Alanine Aminotransferase (ALT/SGPT) 167 U/L (16-63) Alkaline Phosphatase 70 U/L (46-116) Creatine Kinase 78868 U/L (39-308) Total Protein 7.7 g/dL (6.4-8.2) Albumin 2.9 g/dL (3.4-5.0) Albumin/Globulin Ratio 0.6 (1.0-1.7) Assessment and Plan Assessmemt and Plan Problems Medical Problems: (1) Alcohol withdrawal seizure with delirium Status: Acute (2) AMS (altered mental status) Status: Acute (3) Facial abrasion Status: Acute (4) Head trauma Status: Acute (5) Need for Tdap vaccination Status: Acute (6) Rhabdomyolysis Status: Acute (7) Uncontrolled hypertension Status: Acute Comment Review of Relevant I have reviewed the following items edward (where applicable) has been applied. Labs Laboratory Tests Test 03/04/20 05:00 03/05/20 04:30 Sodium Level 138 mmol/L (136-145) 140 mmol/L (136-145) Potassium Level 3.1 mmol/L (3.5-5.1) 3.3 mmol/L (3.5-5.1) Chloride Level 102 mmol/L (98-107) 106 mmol/L (98-107) Carbon Dioxide Level 21 mmol/L (21-32) 20 mmol/L (21-32) Anion Gap 15 (6-14) 14 (6-14) Blood Urea Nitrogen 10 mg/dL (8-26) 8 mg/dL (8-26) Creatinine 1.1 mg/dL (0.7-1.3) 0.9 mg/dL (0.7-1.3) Estimated GFR (Cockcroft-Gault) 81.8 103.1 Glucose Level 90 mg/dL (70-99) 98 mg/dL (70-99) Calcium Level 8.3 mg/dL (8.5-10.1) 8.3 mg/dL (8.5-10.1) Phosphorus Level 3.6 mg/dL (2.6-4.7) Albumin 2.9 g/dL (3.4-5.0) 2.9 g/dL (3.4-5.0) White Blood Count 3.1 x10^3/uL (4.0-11.0) Red Blood Count 4.38 x10^6/uL (4.30-5.70) Hemoglobin 13.2 g/dL (13.0-17.5) Hematocrit 38.9 % (39.0-53.0) Mean Corpuscular Volume 89 fL (79-100) Mean Corpuscular Hemoglobin 30 pg (25-35) Mean Corpuscular Hemoglobin Concent 34 g/dL (31-37) Red Cell Distribution Width 15.7 % (11.5-14.5) Platelet Count 104 x10^3/uL (140-400) Neutrophils (%) (Auto) 52 % (31-73) Lymphocytes (%) (Auto) 31 % (24-48) Monocytes (%) (Auto) 15 % (0-9) Eosinophils (%) (Auto) 1 % (0-3) Basophils (%) (Auto) 1 % (0-3) Neutrophils # (Auto) 1.6 x10^3/uL (1.8-7.7) Lymphocytes # (Auto) 1.0 x10^3/uL (1.0-4.8) Monocytes # (Auto) 0.5 x10^3/uL (0.0-1.1) Eosinophils # (Auto) 0.0 x10^3/uL (0.0-0.7) Basophils # (Auto) 0.0 x10^3/uL (0.0-0.2) BUN/Creatinine Ratio 9 (6-20) Total Bilirubin 2.0 mg/dL (0.2-1.0) Aspartate Amino Transf (AST/SGOT) 390 U/L (15-37) Alanine Aminotransferase (ALT/SGPT) 167 U/L (16-63) Alkaline Phosphatase 70 U/L (46-116) Creatine Kinase 76827 U/L (39-308) Total Protein 7.7 g/dL (6.4-8.2) Albumin/Globulin Ratio 0.6 (1.0-1.7) Laboratory Tests Test 03/05/20 04:30 White Blood Count 3.1 x10^3/uL (4.0-11.0) Red Blood Count 4.38 x10^6/uL (4.30-5.70) Hemoglobin 13.2 g/dL (13.0-17.5) Hematocrit 38.9 % (39.0-53.0) Mean Corpuscular Volume 89 fL (79-100) Mean Corpuscular Hemoglobin 30 pg (25-35) Mean Corpuscular Hemoglobin Concent 34 g/dL (31-37) Red Cell Distribution Width 15.7 % (11.5-14.5) Platelet Count 104 x10^3/uL (140-400) Neutrophils (%) (Auto) 52 % (31-73) Lymphocytes (%) (Auto) 31 % (24-48) Monocytes (%) (Auto) 15 % (0-9) Eosinophils (%) (Auto) 1 % (0-3) Basophils (%) (Auto) 1 % (0-3) Neutrophils # (Auto) 1.6 x10^3/uL (1.8-7.7) Lymphocytes # (Auto) 1.0 x10^3/uL (1.0-4.8) Monocytes # (Auto) 0.5 x10^3/uL (0.0-1.1) Eosinophils # (Auto) 0.0 x10^3/uL (0.0-0.7) Basophils # (Auto) 0.0 x10^3/uL (0.0-0.2) Sodium Level 140 mmol/L (136-145) Potassium Level 3.3 mmol/L (3.5-5.1) Chloride Level 106 mmol/L (98-107) Carbon Dioxide Level 20 mmol/L (21-32) Anion Gap 14 (6-14) Blood Urea Nitrogen 8 mg/dL (8-26) Creatinine 0.9 mg/dL (0.7-1.3) Estimated GFR (Cockcroft-Gault) 103.1 BUN/Creatinine Ratio 9 (6-20) Glucose Level 98 mg/dL (70-99) Calcium Level 8.3 mg/dL (8.5-10.1) Total Bilirubin 2.0 mg/dL (0.2-1.0) Aspartate Amino Transf (AST/SGOT) 390 U/L (15-37) Alanine Aminotransferase (ALT/SGPT) 167 U/L (16-63) Alkaline Phosphatase 70 U/L (46-116) Creatine Kinase 65686 U/L (39-308) Total Protein 7.7 g/dL (6.4-8.2) Albumin 2.9 g/dL (3.4-5.0) Albumin/Globulin Ratio 0.6 (1.0-1.7) Microbiology 03/02/20 Blood Culture - Preliminary, Resulted NO GROWTH AFTER 3 DAYS Medications Current Medications Sodium Chloride 1,000 ml @ 1,000 mls/hr 1X ONCE IV Last administered on 03/02/20at 03:34; Start 03/02/20 at 03:30; Stop 03/02/20 at 04:29; Status DC Thiamine HCl 100 mg/Dextrose 51 ml @ 102 mls/hr 1X ONCE IV Last administered on 03/02/20at 04:15; Start 03/02/20 at 04:00; Stop 03/02/20 at 04:29; Status DC Multivit/ Folic Acid/Iron (Multivitamin ) 1 tab ONCE ONCE PO Last administered on 03/02/20at 04:15; Start 03/02/20 at 04:00; Stop 03/02/20 at 04:01; Status DC Metoclopramide HCl (Reglan Vial) 10 mg 1X ONCE IVP Last administered on 03/02/20at 04:00; Start 03/02/20 at 04:00; Stop 03/02/20 at 04:23; Status DC Hydralazine HCl (Apresoline Inj) 10 mg 1X ONCE IVP Last administered on 03/02/20at 04:16; Start 03/02/20 at 04:00; Stop 03/02/20 at 04:23; Status DC Lorazepam (Ativan Inj) 2 mg 1X ONCE IVP Last administered on 03/02/20at 04:10; Start 03/02/20 at 04:15; Stop 03/02/20 at 04:23; Status DC Magnesium Sulfate 50 ml @ 25 mls/hr 1X ONCE IV Last administered on 03/02/20at 04:51; Start 03/02/20 at 04:30; Stop 03/02/20 at 06:29; Status DC Lorazepam (Ativan Inj) 2 mg 1X ONCE IVP Last administered on 03/02/20at 04:48; Start 03/02/20 at 04:45; Stop 03/02/20 at 04:46; Status DC Sodium Chloride 1,000 ml @ 1,000 mls/hr 1X ONCE IV Last administered on 03/02/20at 04:30; Start 03/02/20 at 05:00; Stop 03/02/20 at 05:59; Status DC Potassium Chloride/Sodium Chloride 1,000 ml @ 100 mls/hr Q10H ONCE IV Last administered on 03/02/20at 05:53; Start 03/02/20 at 05:00; Stop 03/02/20 at 14:59; Status DC Ondansetron HCl (Zofran) 4 mg PRN Q8HRS PRN IV NAUSEA/VOMITING; Start 03/02/20 at 05:00; Stop 03/03/20 at 04:59; Status DC Acetaminophen (Tylenol) 650 mg PRN Q4HRS PRN PO FEVER > 100.3'F Last administered on 03/02/20at 09:59; Start 03/02/20 at 05:00; Stop 03/03/20 at 04:59; Status DC Thiamine HCl 100 mg/Folic Acid 1 mg/Sodium Chloride 1,001.2 ml @ 99.012 mls/hr DAILY IV Last administered on 03/02/20at 09:22; Start 03/02/20 at 09:00; Stop 03/03/20 at 10:30; Status DC Multivitamins (Thera M Plus) 1 tab DAILY PO ; Start 03/07/20 at 09:00 Folic Acid (Folic Acid) 1 mg DAILY PO ; Start 03/07/20 at 09:00 Thiamine HCl 100 mg/Dextrose 51 ml @ 100 mls/hr DAILY IV Last administered on 03/05/20at 08:58; Start 03/03/20 at 09:00; Stop 03/07/20 at 09:31 Lorazepam (Ativan Inj) 2 mg PRN Q1HR PRN IV For CIWA 8-14 Last administered on 03/04/20at 11:32; Start 03/02/20 at 05:00 Lorazepam (Ativan Inj) 4 mg PRN Q1HR PRN IV For CIWA 15 or greater Last administered on 03/05/20at 12:28; Start 03/02/20 at 05:00 Lorazepam (Ativan Inj) 2 mg PRN Q15MIN PRN IV SEE COMMENTS; Start 03/02/20 at 05:00 Lorazepam (Ativan Inj) 4 mg PRN Q15MIN PRN IV SEE COMMENTS Last administered on 03/02/20at 18:53; Start 03/02/20 at 05:00 Amlodipine Besylate (Norvasc) 10 mg DAILY PO Last administered on 03/05/20at 08:05; Start 03/02/20 at 10:00 Hydrochlorothiazide (Hydrodiuril) 25 mg DAILY PO Last administered on 03/02/20at 09:58; Start 03/02/20 at 10:00; Stop 03/02/20 at 18:30; Status DC Levetiracetam (Keppra) 500 mg BID PO Last administered on 03/05/20at 08:04; Start 03/02/20 at 10:00 Lisinopril (Prinivil) 10 mg DAILY PO Last administered on 03/05/20at 08:05; Start 03/02/20 at 10:00 Enoxaparin Sodium (Lovenox Per Pharmacy Prophylaxis Dosing) 1 each PRN DAILY PRN MC SEE COMMENTS; Start 03/02/20 at 09:30 Enoxaparin Sodium (Lovenox 40mg Syringe) 40 mg Q24H SQ Last administered on 03/04/20at 16:31; Start 03/02/20 at 16:00 Metoprolol Tartrate (Lopressor Vial) 5 mg 1X ONCE IVP Last administered on 03/02/20at 09:58; Start 03/02/20 at 09:45; Stop 03/02/20 at 09:46; Status DC Piperacillin Sod/ Tazobactam Sod (Zosyn Per Pharmacy) 1 each PRN DAILY PRN MC SEE COMMENTS; Start 03/02/20 at 10:00 Piperacillin Sod/ Tazobactam Sod 3.375 gm/Sodium Chloride 50 ml @ 100 mls/hr Q6HRS IV Last administered on 03/05/20at 12:02; Start 03/02/20 at 12:00 Sodium Chloride 1,000 ml @ 100 mls/hr CONT PRN IV SEE I/O RECORD Last administered on 03/02/20at 23:11; Start 03/02/20 at 10:00 Haloperidol Lactate (Haldol Inj) 5 mg PRN Q6HRS PRN IVP AGITATION Last administered on 03/04/20at 10:49; Start 03/02/20 at 18:30 Potassium Chloride/Water 100 ml @ 100 mls/hr Q1H IV Last administered on 03/03/20at 13:02; Start 03/03/20 at 07:30; Stop 03/03/20 at 11:29; Status DC Sodium Chloride 1,000 ml @ 100 mls/hr Q10H IV Last administered on 03/04/20at 09:40; Start 03/03/20 at 08:30; Stop 03/04/20 at 11:21; Status DC Potassium Chloride (Klor-Con) 20 meq DAILYWBKFT PO Last administered on 03/05/20at 08:04; Start 03/05/20 at 08:00 Potassium Chloride (Klor-Con) 40 meq 1X ONCE PO Last administered on 03/04/20at 11:37; Start 03/04/20 at 11:15; Stop 03/04/20 at 11:17; Status DC Potassium Chloride/Dextrose/ Sod Cl 1,000 ml @ 150 mls/hr Q6H40M IV Last administered on 03/05/20at 05:44; Start 03/04/20 at 11:30 Sodium Chloride 1,000 ml @ 1,000 mls/hr 1X ONCE IV Last administered on 03/04/20at 11:34; Start 03/04/20 at 11:30; Stop 03/04/20 at 12:29; Status DC Sodium Bicarbonate (Sodium Bicarb Adult 8.4% Syr) 50 meq 1X ONCE IV Last administered on 03/05/20at 14:10; Start 03/05/20 at 13:00; Stop 03/05/20 at 13: 01; Status DC Active Scripts Active Potassium Chloride (Potassium Chloride) 20 Meq Tablet.er 20 Meq PO DAILY 10 Days Hydrochlorothiazide Tablet (Hydrochlorothiazide) 25 Mg Tablet 25 Mg PO DAILY Norvasc (Amlodipine Besylate) 10 Mg Tablet 10 Mg PO DAILY Lisinopril 10 Mg Tablet 1 Tab PO DAILY Lisinopril 10 Mg Tablet 1 Tab PO DAILY Hydrochlorothiazide Tablet (Hydrochlorothiazide) 12.5 Mg Tablet 12.5 Mg PO DAILY Amlodipine Besylate 10 Mg Tablet 10 Mg PO DAILY Fluoxetine Hcl 10 Mg Capsule 10 Mg PO DAILY 30 Days Protonix Packet (Pantoprazole Sodium) 40 Mg Granpkt.dr 40 Mg PO DAILY 30 Days Lisinopril 20 Mg Tablet 1 Tab PO DAILY 30 Days Hydrochlorothiazide Tablet (Hydrochlorothiazide) 25 Mg Tablet 1 Tab PO DAILY 30 Days Norvasc (Amlodipine Besylate) 10 Mg Tablet 10 Mg PO DAILY 30 Days Keppra (Levetiracetam) 500 Mg Tablet 500 Mg PO BID 30 Days Vitals/I & O Vital Sign - Last 24 Hours 03/04/20 03/04/20 03/04/20 03/04/20 15:00 19:58 20:07 23:44 Temp 99.3 97.7 98.2 99.3 97.7 98.2 Pulse 87 98 100 Resp 30 24 22 B/P (MAP) 129/83 (98) 168/103 (124) 166/103 (124) Pulse Ox 95 99 99 O2 Delivery Room Air Room Air Room Air Room Air 03/05/20 03/05/20 03/05/20 03/05/20 03:59 07:00 07:54 08:05 Temp 98.1 98.0 98.1 98.0 Pulse 104 101 104 Resp 18 18 B/P (MAP) 171/105 (127) 181/104 (129) 171/105 Pulse Ox 97 98 O2 Delivery Room Air Room Air Room Air 03/05/20 03/05/20 08:05 11:00 Temp 98.2 98.2 Pulse 104 100 Resp 18 B/P (MAP) 171/105 157/92 (113) Pulse Ox 96 O2 Delivery Room Air Intake and Output 03/04/20 03/04/20 03/05/20 15:00 23:00 07:00 Intake Total 0 ml Balance 0 ml Justicifation of Admission Dx: Justifications for Admission: Justification of Admission Dx: N/A ARNIE SHIN MD Mar 05, 2020 14:34
[2020-03-05 15:00] VITALS: BP 159/91
[2020-03-05] MEDS: ENOXAPARIN 40 MG/0.4 ML SYRINGE. SQ SCH (16:28)
[2020-03-05 19:00] VITALS: BP 147/84
[2020-03-05] MEDS: LACTOBACILLUS RHAMNOSUS GG 1 CAPSULE. PO SCH (21:10)
[2020-03-05 22:52] VITALS: BP 166/104
[2020-03-06] MEDS: HALOPERIDOL LACTATE 5 MG/ML VIAL. IVP PRN ×4 (00:12→21:33)
[2020-03-06 02:47] VITALS: BP 172/99
[2020-03-06] MEDS: POTASSIUM CL 20MEQ D5-0.45NACL 1,000 ML IV SCH ×2 (03:31→08:29)
[2020-03-06] MEDS: PIPERACILLIN/TAZOBACTAM 3.375 GM in IV NORMAL SALINE 50ML 50 ML IV SCH ×3 (05:45→17:17)
[2020-03-06 07:00] VITALS: BP 139/93
[2020-03-06] MEDS: LACTOBACILLUS RHAMNOSUS GG 1 CAPSULE. PO SCH ×2 (08:27→21:12)
[2020-03-06] MEDS: levETIRAcetam 500 MG TABLET PO SCH ×2 (08:27→21:12)
[2020-03-06] MEDS: POTASSIUM CHLORIDE 20 MEQ TABLET.ER. PO SCH (08:27)
[2020-03-06] MEDS: LISINOPRIL 10 MG TABLET PO SCH (08:28)
[2020-03-06] MEDS: THIAMINE INJ 100 MG in IV DEXTROSE 5% 50 ML IV SCH (09:07)
[2020-03-06 10:00] VITALS: BP 100/71
--- NOTE | 2020-03-06 11:04 | PDOC ---
PROGRESS NOTES Date of Service DATE: 03/06/20 TIME: 11:02 Assessment Problems Medical Problems: (1) Alcohol withdrawal seizure with delirium Status: Acute (2) AMS (altered mental status) Status: Acute (3) Facial abrasion Status: Acute (4) Head trauma Status: Acute (5) Need for Tdap vaccination Status: Acute (6) Rhabdomyolysis Status: Acute (7) Uncontrolled hypertension Status: Acute Alcohol related seizures, negative epilepsy work-up in past Rhabdomyolysis Plan Continue levetiracetam, can send home with a prescription, I doubt he will take it He understand he needs to stop drinking CIWA protocol including thiamine No additional neurological studies needed Subjective Denies pain Objective Vital Signs Date Time Temp Pulse Resp B/P (MAP) Pulse Ox O2 Delivery O2 Flow Rate FiO2 03/06/20 10:00 98.5 85 16 100/71 (81) 97 Room Air 98.5 Intake and Output 03/06/20 07:00 Intake Total 3242 ml Balance 3242 ml Intake Oral 610 ml IV Total 2632 ml # Voids 7 PHYSICAL EXAM Alert. Oriented to "hospital" and person, does not know date. Follows commands. Wearing mittens PERRL. EOMI. CN: no focal findings. Muscle tone: normal. Muscle strength: 5/5 DTR: 2+ Plantar reflex: Severe Gait: not examined in bed. Sensory exam: no abnormal findings. No cerebellar signs elicited. No tremulousness. Review of Relevant I have reviewed the following items edward (where applicable) has been applied. Labs Laboratory Tests Test 03/05/20 04:30 White Blood Count 3.1 x10^3/uL (4.0-11.0) Red Blood Count 4.38 x10^6/uL (4.30-5.70) Hemoglobin 13.2 g/dL (13.0-17.5) Hematocrit 38.9 % (39.0-53.0) Mean Corpuscular Volume 89 fL (79-100) Mean Corpuscular Hemoglobin 30 pg (25-35) Mean Corpuscular Hemoglobin Concent 34 g/dL (31-37) Red Cell Distribution Width 15.7 % (11.5-14.5) Platelet Count 104 x10^3/uL (140-400) Neutrophils (%) (Auto) 52 % (31-73) Lymphocytes (%) (Auto) 31 % (24-48) Monocytes (%) (Auto) 15 % (0-9) Eosinophils (%) (Auto) 1 % (0-3) Basophils (%) (Auto) 1 % (0-3) Neutrophils # (Auto) 1.6 x10^3/uL (1.8-7.7) Lymphocytes # (Auto) 1.0 x10^3/uL (1.0-4.8) Monocytes # (Auto) 0.5 x10^3/uL (0.0-1.1) Eosinophils # (Auto) 0.0 x10^3/uL (0.0-0.7) Basophils # (Auto) 0.0 x10^3/uL (0.0-0.2) Sodium Level 140 mmol/L (136-145) Potassium Level 3.3 mmol/L (3.5-5.1) Chloride Level 106 mmol/L (98-107) Carbon Dioxide Level 20 mmol/L (21-32) Anion Gap 14 (6-14) Blood Urea Nitrogen 8 mg/dL (8-26) Creatinine 0.9 mg/dL (0.7-1.3) Estimated GFR (Cockcroft-Gault) 103.1 BUN/Creatinine Ratio 9 (6-20) Glucose Level 98 mg/dL (70-99) Calcium Level 8.3 mg/dL (8.5-10.1) Total Bilirubin 2.0 mg/dL (0.2-1.0) Aspartate Amino Transf (AST/SGOT) 390 U/L (15-37) Alanine Aminotransferase (ALT/SGPT) 167 U/L (16-63) Alkaline Phosphatase 70 U/L (46-116) Creatine Kinase 14595 U/L (39-308) Total Protein 7.7 g/dL (6.4-8.2) Albumin 2.9 g/dL (3.4-5.0) Albumin/Globulin Ratio 0.6 (1.0-1.7) Microbiology 03/02/20 Blood Culture - Preliminary, Resulted NO GROWTH AFTER 4 DAYS Medications Current Medications Sodium Chloride 1,000 ml @ 1,000 mls/hr 1X ONCE IV Last administered on 03/02/20at 03:34; Start 03/02/20 at 03:30; Stop 03/02/20 at 04:29; Status DC Thiamine HCl 100 mg/Dextrose 51 ml @ 102 mls/hr 1X ONCE IV Last administered on 03/02/20at 04:15; Start 03/02/20 at 04:00; Stop 03/02/20 at 04:29; Status DC Multivit/ Folic Acid/Iron (Multivitamin ) 1 tab ONCE ONCE PO Last administered on 03/02/20at 04:15; Start 03/02/20 at 04:00; Stop 03/02/20 at 04:01; Status DC Metoclopramide HCl (Reglan Vial) 10 mg 1X ONCE IVP Last administered on 03/02/20at 04:00; Start 03/02/20 at 04:00; Stop 03/02/20 at 04:23; Status DC Hydralazine HCl (Apresoline Inj) 10 mg 1X ONCE IVP Last administered on 03/02/20at 04:16; Start 03/02/20 at 04:00; Stop 03/02/20 at 04:23; Status DC Lorazepam (Ativan Inj) 2 mg 1X ONCE IVP Last administered on 03/02/20at 04:10; Start 03/02/20 at 04:15; Stop 03/02/20 at 04:23; Status DC Magnesium Sulfate 50 ml @ 25 mls/hr 1X ONCE IV Last administered on 03/02/20at 04:51; Start 03/02/20 at 04:30; Stop 03/02/20 at 06:29; Status DC Lorazepam (Ativan Inj) 2 mg 1X ONCE IVP Last administered on 03/02/20at 04:48; Start 03/02/20 at 04:45; Stop 03/02/20 at 04:46; Status DC Sodium Chloride 1,000 ml @ 1,000 mls/hr 1X ONCE IV Last administered on 03/02/20at 04:30; Start 03/02/20 at 05:00; Stop 03/02/20 at 05:59; Status DC Potassium Chloride/Sodium Chloride 1,000 ml @ 100 mls/hr Q10H ONCE IV Last administered on 03/02/20at 05:53; Start 03/02/20 at 05:00; Stop 03/02/20 at 14:59 ; Status DC Ondansetron HCl (Zofran) 4 mg PRN Q8HRS PRN IV NAUSEA/VOMITING; Start 03/02/20 at 05:00; Stop 03/03/20 at 04:59; Status DC Acetaminophen (Tylenol) 650 mg PRN Q4HRS PRN PO FEVER > 100.3'F Last administered on 03/02/20at 09:59; Start 03/02/20 at 05:00; Stop 03/03/20 at 04:59; Status DC Thiamine HCl 100 mg/Folic Acid 1 mg/Sodium Chloride 1,001.2 ml @ 99.012 mls/hr DAILY IV Last administered on 03/02/20at 09:22; Start 03/02/20 at 09:00; Stop 03/03/20 at 10:30; Status DC Multivitamins (Thera M Plus) 1 tab DAILY PO ; Start 03/07/20 at 09:00 Folic Acid (Folic Acid) 1 mg DAILY PO ; Start 03/07/20 at 09:00 Thiamine HCl 100 mg/Dextrose 51 ml @ 100 mls/hr DAILY IV Last administered on 03/06/20at 09:07; Start 03/03/20 at 09:00; Stop 03/07/20 at 09:31 Lorazepam (Ativan Inj) 2 mg PRN Q1HR PRN IV For CIWA 8-14 Last administered on 03/06/20at 08:28; Start 03/02/20 at 05:00 Lorazepam (Ativan Inj) 4 mg PRN Q1HR PRN IV For CIWA 15 or greater Last administered on 03/06/20at 03:53; Start 03/02/20 at 05:00 Lorazepam (Ativan Inj) 2 mg PRN Q15MIN PRN IV SEE COMMENTS; Start 03/02/20 at 05:00; Stop 03/06/20 at 09:16; Status DC Lorazepam (Ativan Inj) 4 mg PRN Q15MIN PRN IV SEE COMMENTS Last administered on 03/02/20at 18:53; Start 03/02/20 at 05:00; Stop 03/06/20 at 09:17; Status DC Amlodipine Besylate (Norvasc) 10 mg DAILY PO Last administered on 03/06/20at 08:27; Start 03/02/20 at 10:00 Hydrochlorothiazide (Hydrodiuril) 25 mg DAILY PO Last administered on 03/02/20at 09:58; Start 03/02/20 at 10:00; Stop 03/02/20 at 18:30; Status DC Levetiracetam (Keppra) 500 mg BID PO Last administered on 03/06/20at 08:27; Start 03/02/20 at 10:00 Lisinopril (Prinivil) 10 mg DAILY PO Last administered on 03/06/20at 08:28; Start 03/02/20 at 10:00 Enoxaparin Sodium (Lovenox Per Pharmacy Prophylaxis Dosing) 1 each PRN DAILY PRN MC SEE COMMENTS; Start 03/02/20 at 09:30 Enoxaparin Sodium (Lovenox 40mg Syringe) 40 mg Q24H SQ Last administered on 03/05/20at 16:28; Start 03/02/20 at 16:00 Metoprolol Tartrate (Lopressor Vial) 5 mg 1X ONCE IVP Last administered on 03/02/20at 09:58; Start 03/02/20 at 09:45; Stop 03/02/20 at 09:46; Status DC Piperacillin Sod/ Tazobactam Sod (Zosyn Per Pharmacy) 1 each PRN DAILY PRN MC SEE COMMENTS; Start 03/02/20 at 10:00 Piperacillin Sod/ Tazobactam Sod 3.375 gm/Sodium Chloride 50 ml @ 100 mls/hr Q6HRS IV Last administered on 03/06/20at 05:45; Start 03/02/20 at 12:00 Sodium Chloride 1,000 ml @ 100 mls/hr CONT PRN IV SEE I/O RECORD Last administered on 03/02/20at 23:11; Start 03/02/20 at 10:00 Haloperidol Lactate (Haldol Inj) 5 mg PRN Q6HRS PRN IVP AGITATION Last administered on 03/06/20at 08:28; Start 03/02/20 at 18:30 Potassium Chloride/Water 100 ml @ 100 mls/hr Q1H IV Last administered on 03/03/20at 13:02; Start 03/03/20 at 07:30; Stop 03/03/20 at 11:29; Status DC Sodium Chloride 1,000 ml @ 100 mls/hr Q10H IV Last administered on 03/04/20at 09:40; Start 03/03/20 at 08:30; Stop 03/04/20 at 11:21; Status DC Potassium Chloride (Klor-Con) 20 meq DAILYWBKFT PO Last administered on 03/06/20at 08:27; Start 03/05/20 at 08:00 Potassium Chloride (Klor-Con) 40 meq 1X ONCE PO Last administered on 03/04/20at 11:37; Start 03/04/20 at 11:15; Stop 03/04/20 at 11:17; Status DC Potassium Chloride/Dextrose/ Sod Cl 1,000 ml @ 150 mls/hr [id number] IV Last administered on 03/06/20at 08:29; Start 03/04/20 at 11:30 Sodium Chloride 1,000 ml @ 1,000 mls/hr 1X ONCE IV Last administered on 03/04/20at 11:34; Start 03/04/20 at 11:30; Stop 03/04/20 at 12:29; Status DC Sodium Bicarbonate (Sodium Bicarb Adult 8.4% Syr) 50 meq 1X ONCE IV Last administered on 03/05/20at 14:10; Start 03/05/20 at 13:00; Stop 03/05/20 at 13:01; Status DC Lactobacillus Rhamnosus (Culturelle) 1 cap BID PO Last administered on 03/06/20at 08:27; Start 03/05/20 at 21:00 Thiamine Mononitrate (Vitamin B-1) 100 mg DAILY PO ; Start 03/08/20 at 09:00 Active Scripts Active Potassium Chloride (Potassium Chloride) 20 Meq Tablet.er 20 Meq PO DAILY 10 Days Hydrochlorothiazide Tablet (Hydrochlorothiazide) 25 Mg Tablet 25 Mg PO DAILY Norvasc (Amlodipine Besylate) 10 Mg Tablet 10 Mg PO DAILY Lisinopril 10 Mg Tablet 1 Tab PO DAILY Lisinopril 10 Mg Tablet 1 Tab PO DAILY Hydrochlorothiazide Tablet (Hydrochlorothiazide) 12.5 Mg Tablet 12.5 Mg PO DAILY Amlodipine Besylate 10 Mg Tablet 10 Mg PO DAILY Fluoxetine Hcl 10 Mg Capsule 10 Mg PO DAILY 30 Days Protonix Packet (Pantoprazole Sodium) 40 Mg Granpkt.dr 40 Mg PO DAILY 30 Days Lisinopril 20 Mg Tablet 1 Tab PO DAILY 30 Days Hydrochlorothiazide Tablet (Hydrochlorothiazide) 25 Mg Tablet 1 Tab PO DAILY 30 Days Norvasc (Amlodipine Besylate) 10 Mg Tablet 10 Mg PO DAILY 30 Days Keppra (Levetiracetam) 500 Mg Tablet 500 Mg PO BID 30 Days Vitals/I & O Vital Sign - Last 24 Hours 03/05/20 03/05/20 03/05/20 03/05/20 15:00 19:00 20:05 22:52 Temp 97.9 98.0 98.4 97.9 98.0 98.4 Pulse 93 97 100 Resp 18 18 20 B/P (MAP) 159/91 (113) 147/84 (105) 166/104 (124) Pulse Ox 95 98 100 O2 Delivery Room Air Room Air Room Air Room Air 03/06/20 03/06/20 03/06/20 03/06/20 02:47 07:00 08:00 08:27 Temp 98.3 98.7 98.3 98.7 Pulse 111 86 86 Resp 22 22 B/P (MAP) 172/99 (123) 139/93 (108) 139/93 Pulse Ox 93 97 O2 Delivery Room Air Room Air Room Air 03/06/20 03/06/20 08:28 10:00 Temp 98.5 98.5 Pulse 86 85 Resp 16 B/P (MAP) 139/93 100/71 (81) Pulse Ox 97 O2 Delivery Room Air Intake and Output 03/05/20 03/05/20 03/06/20 15:00 23:00 07:00 Intake Total 651 ml 1575 ml 1016 ml Balance 651 ml 1575 ml 1016 ml Justicifation of Admission Dx: Justifications for Admission: Justification of Admission Dx: N/A KEIRY BEGUM MD Mar 06, 2020 11:04
[2020-03-06] MEDS: POTASSIUM CL 20MEQ-0.45% NACL 1,000 ML IV SCH ×2 (11:25→17:19)
--- NOTE | 2020-03-06 12:02 | PDOC2 ---
CONSULT Date of Consult Date of Consult DATE: 03/06/20 TIME: 11:54 Reason for Consult Reason for Consult: JENIFER/RHABDOMYOLYSIS Referring Physician Referring Physician: KIP Identification/Chief Complaint Chief Complaint CONFUSION Source Source: Chart review History of Present Illness Reason for Visit: THIS IS A 61 YR ODL WITH FALLING. HAS HX OF ETOH ABUSE. ADMITTED WITH DT'S AND SEIZURE AND CONFUSION. ON ADMIT WAS HYPERTENSIVE. RENAL CONSULT DUE TO INCREASED CK LEVELS AND CONCERNS OF JENIFER. ELEVATED LFT'S ALSO NOTED. UA SUGGESTIVE OF RHABD OMYOLYSIS. NO PRIOR KNOW HX OF CKD OR ANY OTHER NEPHROTOXINS NOTED. RECEIVING HYDRATION AND SEEING NEUROLOGY AT THIS TIME WELL. UDS POS OF MARIJUANA Past Medical History Cardiovascular: HTN Pulmonary: No pertinent hx CENTRAL NERVOUS SYSTEM: Seizure GI: GERD Heme/Onc: No pertinent hx Hepatobiliary: Cirrhosis Psych: Addictions (alcohol), Depression Musculoskeletal: Osteoarthritis Rheumatologic: No pertinent hx Infectious disease: No pertinent hx Endocrine: Diabetes (Borderline) Past Surgical History Past Surgical History: Other (Right ankle) Family History Family History: Hypertension Social History 1 pack per day ALCOHOL: heavy Drugs: Cocaine, Marijuana, Heroin Lives: Alone Current Problem List Problem List Problems Medical Problems: (1) Alcohol withdrawal seizure with delirium Status: Acute (2) AMS (altered mental status) Status: Acute (3) Facial abrasion Status: Acute (4) Head trauma Status: Acute (5) Need for Tdap vaccination Status: Acute (6) Rhabdomyolysis Status: Acute (7) Uncontrolled hypertension Status: Acute Current Medications Current Medications Current Medications Sodium Chloride 1,000 ml @ 1,000 mls/hr 1X ONCE IV Last administered on 03/02/20at 03:34; Start 03/02/20 at 03:30; Stop 03/02/20 at 04:29; Status DC Thiamine HCl 100 mg/Dextrose 51 ml @ 102 mls/hr 1X ONCE IV Last administered on 03/02/20at 04:15; Start 03/02/20 at 04:00; Stop 03/02/20 at 04:29; Status DC Multivit/ Folic Acid/Iron (Multivitamin ) 1 tab ONCE ONCE PO Last administered on 03/02/20at 04:15; Start 03/02/20 at 04:00; Stop 03/02/20 at 04:01; Status DC Metoclopramide HCl (Reglan Vial) 10 mg 1X ONCE IVP Last administered on 03/02/20at 04:00; Start 03/02/20 at 04:00; Stop 03/02/20 at 04:23; Status DC Hydralazine HCl (Apresoline Inj) 10 mg 1X ONCE IVP Last administered on 03/02/20at 04:16; Start 03/02/20 at 04:00; Stop 03/02/20 at 04:23; Status DC Lorazepam (Ativan Inj) 2 mg 1X ONCE IVP Last administered on 03/02/20at 04:10; Start 03/02/20 at 04:15; Stop 03/02/20 at 04:23; Status DC Magnesium Sulfate 50 ml @ 25 mls/hr 1X ONCE IV Last administered on 03/02/20at 04:51; Start 03/02/20 at 04:30; Stop 03/02/20 at 06:29; Status DC Lorazepam (Ativan Inj) 2 mg 1X ONCE IVP Last administered on 03/02/20at 04:48; Start 03/02/20 at 04:45; Stop 03/02/20 at 04:46; Status DC Sodium Chloride 1,000 ml @ 1,000 mls/hr 1X ONCE IV Last administered on 03/02/20at 04:30; Start 03/02/20 at 05:00; Stop 03/02/20 at 05:59; Status DC Potassium Chloride/Sodium Chloride 1,000 ml @ 100 mls/hr Q10H ONCE IV Last administered on 03/02/20at 05:53; Start 03/02/20 at 05:00; Stop 03/02/20 at 14:59; Status DC Ondansetron HCl (Zofran) 4 mg PRN Q8HRS PRN IV NAUSEA/VOMITING; Start 03/02/20 at 05:00; Stop 03/03/20 at 04:59; Status DC Acetaminophen (Tylenol) 650 mg PRN Q4HRS PRN PO FEVER > 100.3'F Last administered on 03/02/20at 09:59; Start 03/02/20 at 05:00; Stop 03/03/20 at 04:59; Status DC Thiamine HCl 100 mg/Folic Acid 1 mg/Sodium Chloride 1,001.2 ml @ 99.012 mls/hr DAILY IV Last administered on 03/02/20at 09:22; Start 03/02/20 at 09:00; Stop 03/03/20 at 10:30; Status DC Multivitamins (Thera M Plus) 1 tab DAILY PO ; Start 03/07/20 at 09:00 Folic Acid (Folic Acid) 1 mg DAILY PO ; Start 03/07/20 at 09:00 Thiamine HCl 100 mg/Dextrose 51 ml @ 100 mls/hr DAILY IV Last administered on 03/06/20at 09:07; Start 03/03/20 at 09:00; Stop 03/07/20 at 09:31 Lorazepam (Ativan Inj) 2 mg PRN Q1HR PRN IV For CIWA 8-14 Last administered on 03/06/20at 11:06; Start 03/02/20 at 05:00 Lorazepam (Ativan Inj) 4 mg PRN Q1HR PRN IV For CIWA 15 or greater Last administered on 03/06/20at 03:53; Start 03/02/20 at 05:00 Lorazepam (Ativan Inj) 2 mg PRN Q15MIN PRN IV SEE COMMENTS; Start 03/02/20 at 05:00; Stop 03/06/20 at 09:16; Status DC Lorazepam (Ativan Inj) 4 mg PRN Q15MIN PRN IV SEE COMMENTS Last administered on 03/02/20at 18:53; Start 03/02/20 at 05:00; Stop 03/06/20 at 09:17; Status DC Amlodipine Besylate (Norvasc) 10 mg DAILY PO Last administered on 03/06/20at 08:27; Start 03/02/20 at 10:00 Hydrochlorothiazide (Hydrodiuril) 25 mg DAILY PO Last administered on 03/02/20at 09:58; Start 03/02/20 at 10:00; Stop 03/02/20 at 18:30; Status DC Levetiracetam (Keppra) 500 mg BID PO Last administered on 03/06/20at 08:27; Start 03/02/20 at 10:00 Lisinopril (Prinivil) 10 mg DAILY PO Last administered on 03/06/20at 08:28; Start 03/02/20 at 10:00 Enoxaparin Sodium (Lovenox Per Pharmacy Prophylaxis Dosing) 1 each PRN DAILY PRN MC SEE COMMENTS; Start 03/02/20 at 09:30 Enoxaparin Sodium (Lovenox 40mg Syringe) 40 mg Q24H SQ Last administered on 03/05/20at 16:28; Start 03/02/20 at 16:00 Metoprolol Tartrate (Lopressor Vial) 5 mg 1X ONCE IVP Last administered on 03/02/20at 09:58; Start 03/02/20 at 09:45; Stop 03/02/20 at 09:46; Status DC Piperacillin Sod/ Tazobactam Sod (Zosyn Per Pharmacy) 1 each PRN DAILY PRN MC SEE COMMENTS; Start 03/02/20 at 10:00 Piperacillin Sod/ Tazobactam Sod 3.375 gm/Sodium Chloride 50 ml @ 100 mls/hr Q6HRS IV Last administered on 03/06/20at 11:10; Start 03/02/20 at 12:00 Sodium Chloride 1,000 ml @ 100 mls/hr CONT PRN IV SEE I/O RECORD Last administered on 03/02/20at 23:11; Start 03/02/20 at 10:00 Haloperidol Lactate (Haldol Inj) 5 mg PRN Q6HRS PRN IVP AGITATION Last administered on 03/06/20at 08:28; Start 03/02/20 at 18:30 Potassium Chloride/Water 100 ml @ 100 mls/hr Q1H IV Last administered on 03/03/20at 13:02; Start 03/03/20 at 07:30; Stop 03/03/20 at 11:29; Status DC Sodium Chloride 1,000 ml @ 100 mls/hr Q10H IV Last administered on 03/04/20at 09:40; Start 03/03/20 at 08:30; Stop 03/04/20 at 11:21; Status DC Potassium Chloride (Klor-Con) 20 meq DAILYWBKFT PO Last administered on 03/06/20at 08:27; Start 03/05/20 at 08:00 Potassium Chloride (Klor-Con) 40 meq 1X ONCE PO Last administered on 03/04/20at 11:37; Start 03/04/20 at 11:15; Stop 03/04/20 at 11:17; Status DC Potassium Chloride/Dextrose/ Sod Cl 1,000 ml @ 150 mls/hr Q6H40M IV Last administered on 03/06/20at 08:29; Start 03/04/20 at 11:30; Stop 03/06/20 at 11:25; Status DC Sodium Chloride 1,000 ml @ 1,000 mls/hr 1X ONCE IV Last administered on 03/04/20at 11:34; Start 03/04/20 at 11:30; Stop 03/04/20 at 12:29; Status DC Sodium Bicarbonate (Sodium Bicarb Adult 8.4% Syr) 50 meq 1X ONCE IV Last administered on 03/05/20at 14:10; Start 03/05/20 at 13:00; Stop 03/05/20 at 13: 01; Status DC Lactobacillus Rhamnosus (Culturelle) 1 cap BID PO Last administered on 03/06/20at 08:27; Start 03/05/20 at 21:00 Thiamine Mononitrate (Vitamin B-1) 100 mg DAILY PO ; Start 03/08/20 at 09:00 Potassium Chloride/Sodium Chloride 1,000 ml @ 125 mls/hr Q8H IV ; Start 03/06/20 at 11:30 Active Scripts Active Potassium Chloride (Potassium Chloride) 20 Meq Tablet.er 20 Meq PO DAILY 10 Days Hydrochlorothiazide Tablet (Hydrochlorothiazide) 25 Mg Tablet 25 Mg PO DAILY Norvasc (Amlodipine Besylate) 10 Mg Tablet 10 Mg PO DAILY Lisinopril 10 Mg Tablet 1 Tab PO DAILY Lisinopril 10 Mg Tablet 1 Tab PO DAILY Hydrochlorothiazide Tablet (Hydrochlorothiazide) 12.5 Mg Tablet 12.5 Mg PO DAILY Amlodipine Besylate 10 Mg Tablet 10 Mg PO DAILY Fluoxetine Hcl 10 Mg Capsule 10 Mg PO DAILY 30 Days Protonix Packet (Pantoprazole Sodium) 40 Mg Granpkt.dr 40 Mg PO DAILY 30 Days Lisinopril 20 Mg Tablet 1 Tab PO DAILY 30 Days Hydrochlorothiazide Tablet (Hydrochlorothiazide) 25 Mg Tablet 1 Tab PO DAILY 30 Days Norvasc (Amlodipine Besylate) 10 Mg Tablet 10 Mg PO DAILY 30 Days Keppra (Levetiracetam) 500 Mg Tablet 500 Mg PO BID 30 Days Allergies Allergies: Coded Allergies: No Known Drug Allergies (Unverified , 08/08/14) ROS Review of System UNABLE TO OBTAIN Physical Exam General: Cooperative, No acute distress HEENT: Atraumatic, PERRLA Lungs: Clear to auscultation Heart: Regular rate, Other (OCC TACHY) Abdomen: Normal bowel sounds Extremities: No clubbing, No cyanosis, No edema Skin: No breakdown Neuro: Other (SOMNOLENT) Psych/Mental Status: Other (SOMNOLENT) MUSCULOSKELETAL: No joint tenderness, No deformity Vitals VITALS Vital Signs Date Time Temp Pulse Resp B/P (MAP) Pulse Ox O2 Delivery O2 Flow Rate FiO2 03/06/20 10:00 98.5 85 16 100/71 (81) 97 Room Air 98.5 Labs Labs Laboratory Tests Test 03/05/20 04:30 White Blood Count 3.1 x10^3/uL (4.0-11.0) Red Blood Count 4.38 x10^6/uL (4.30-5.70) Hemoglobin 13.2 g/dL (13.0-17.5) Hematocrit 38.9 % (39.0-53.0) Mean Corpuscular Volume 89 fL (79-100) Mean Corpuscular Hemoglobin 30 pg (25-35) Mean Corpuscular Hemoglobin Concent 34 g/dL (31-37) Red Cell Distribution Width 15.7 % (11.5-14.5) Platelet Count 104 x10^3/uL (140-400) Neutrophils (%) (Auto) 52 % (31-73) Lymphocytes (%) (Auto) 31 % (24-48) Monocytes (%) (Auto) 15 % (0-9) Eosinophils (%) (Auto) 1 % (0-3) Basophils (%) (Auto) 1 % (0-3) Neutrophils # (Auto) 1.6 x10^3/uL (1.8-7.7) Lymphocytes # (Auto) 1.0 x10^3/uL (1.0-4.8) Monocytes # (Auto) 0.5 x10^3/uL (0.0-1.1) Eosinophils # (Auto) 0.0 x10^3/uL (0.0-0.7) Basophils # (Auto) 0.0 x10^3/uL (0.0-0.2) Sodium Level 140 mmol/L (136-145) Potassium Level 3.3 mmol/L (3.5-5.1) Chloride Level 106 mmol/L (98-107) Carbon Dioxide Level 20 mmol/L (21-32) Anion Gap 14 (6-14) Blood Urea Nitrogen 8 mg/dL (8-26) Creatinine 0.9 mg/dL (0.7-1.3) Estimated GFR (Cockcroft-Gault) 103.1 BUN/Creatinine Ratio 9 (6-20) Glucose Level 98 mg/dL (70-99) Calcium Level 8.3 mg/dL (8.5-10.1) Total Bilirubin 2.0 mg/dL (0.2-1.0) Aspartate Amino Transf (AST/SGOT) 390 U/L (15-37) Alanine Aminotransferase (ALT/SGPT) 167 U/L (16-63) Alkaline Phosphatase 70 U/L (46-116) Creatine Kinase 12284 U/L (39-308) Total Protein 7.7 g/dL (6.4-8.2) Albumin 2.9 g/dL (3.4-5.0) Albumin/Globulin Ratio 0.6 (1.0-1.7) Assessment/Plan Assessment/Plan IMP RHABDOMYOLYSIS HYPOKALEMIA ETOH ABUSE ETOH WITHDRAWAL ACUTE ENCEPHALOPATHY LABILE HTN SEIZURE MARIJUANA USE PLAN HYDRATION CLONIDINE NEEDED F/U CK LEVEL MONITOR TO JENIFER WILL FOLLOW TROY MORTON MD Mar 06, 2020 12:02
[2020-03-06 14:09] VITALS: BP 119/68
[2020-03-06] MEDS: ENOXAPARIN 40 MG/0.4 ML SYRINGE. SQ SCH (15:22)
--- NOTE | 2020-03-06 15:30 | PDOC ---
[facility] PROGRESS NOTE Date of Service DOS: DATE: 03/06/20 TIME: 15:27 Chief Complaint Chief Complaint rhabdomyolysis, Severe alcohol withdrawal Acute toxic encephalopathy, thiamine given to try to avoid permanence Alcohol use disorder obese, BMI 32 HX DEPRESSION HX ALCOHOL RELATED SEIZURES hypertension HYPOKALEMIA Hepatitic steatosis, alcoholic THC ABUSE HC History of Present Illness History of Present Illness 03/06/20 No acute events overnights. Remains afebrile. Confused but following commands. RASS -1. Switched D51/2NS to 1/[address] fountain and titrate UOP to at least 200cc/hr. > 50% time spent in patient chart, labs, and image review and discussion with RN and SW. CK trending down from 20,000 to 6400 03/05, still confused, still in mittens, post -ictal, cont therapy, EtOH withdrawl and delirium persist increase fluid and given IV bicarb for rhabdo, renal fxn is preserved he was admitted s/p a fall, was confused and AMS persistted, eh was hypertensive and reportedly tremulous in the ED. He was treated with hydralazine, Ativan, thiamine, folic acid, and multivitamin. He also reportedly vomited in the ED. EtOH <10, CK 1575, Lactic Acid 4.2 03/04, cont the treatment for acute alcohol withdrawl, CK consistent with seizure from EtOH withdrawl, cont aggressive IV fluid ativan and PRN haldol, Still very confused and agitated requiring mittens. Is easily redirected. Vitals/I&O Vitals/I&O: Vital Signs Date Time Temp Pulse Resp B/P (MAP) Pulse Ox O2 Delivery O2 Flow Rate FiO2 03/06/20 14:09 99.0 84 18 119/68 (85) 93 Room Air 99.0 I & O 03/05/20 03/05/20 03/06/20 14:59 22:59 06:59 Intake Total 651 ml 1575 ml 1016 ml Balance 651 ml 1575 ml 1016 ml Physical Exam General: Cooperative, No acute distress Heart: Regular rate, Other (OCC TACHY) Lungs: Clear Abdomen: Normal bowel sounds Extremities: No clubbing, No cyanosis, No edema Skin: No breakdown Labs Labs: Laboratory Tests Test 03/06/20 12:00 Creatine Kinase 6457 U/L (39-308) Assessment and Plan Assessmemt and Plan Problems Medical Problems: (1) Alcohol withdrawal seizure with delirium Status: Acute (2) AMS (altered mental status) Status: Acute (3) Facial abrasion Status: Acute (4) Head trauma Status: Acute (5) Need for Tdap vaccination Status: Acute (6) Rhabdomyolysis Status: Acute (7) Uncontrolled hypertension Status: Acute Comment Review of Relevant I have reviewed the following items edward (where applicable) has been applied. Medications: Current Medications Medications (Trade) Dose Ordered Sig/Kay Route PRN Reason Start Time Stop Time Status Last Admin Dose Admin Lactobacillus Rhamnosus (Culturelle) 1 cap BID PO 03/05/20 21:00 03/06/20 08:27 Justifications for Admission Other Justification GIANFRANCO SHAH MD Mar 06, 2020 15:30
[2020-03-06 19:05] VITALS: BP 146/92
[2020-03-06 23:40] VITALS: BP 132/77
--- NOTE | 2020-03-07 00:32 | NUR ---
Dye Box Operator request Stat q6hrs CK draws be changed to Routine q6hr lab draws.
[2020-03-07] MEDS: PIPERACILLIN/TAZOBACTAM 3.375 GM in IV NORMAL SALINE 50ML 50 ML IV SCH ×5 (00:37→23:16)
[2020-03-07 03:55] VITALS: BP 129/75
[2020-03-07] MEDS: POTASSIUM CL 20MEQ-0.45% NACL 1,000 ML IV SCH ×3 (03:59→20:05)
[2020-03-07 07:00] VITALS: BP 139/79
[2020-03-07 07:17] LABS: CREATININE 1.1 mg/dL (0.7-1.3); GFR 81.8; MAGNESIUM 1.9 mg/dL (1.8-2.4); POTASSIUM 3.7 mmol/L (3.5-5.1)
[2020-03-07] MEDS: LACTOBACILLUS RHAMNOSUS GG 1 CAPSULE. PO SCH ×2 (08:11→20:13)
[2020-03-07] MEDS: LISINOPRIL 10 MG TABLET PO SCH (08:12)
[2020-03-07] MEDS: MULTIVITAMIN with MINERAL TABLET. PO SCH (08:13)
[2020-03-07] MEDS: levETIRAcetam 500 MG TABLET PO SCH ×2 (08:13→20:13)
[2020-03-07] MEDS: POTASSIUM CHLORIDE 20 MEQ TABLET.ER. PO SCH (08:13)
[2020-03-07] MEDS: FOLIC ACID 1 MG TABLET. PO SCH (08:13)
[2020-03-07] MEDS: THIAMINE INJ 100 MG in IV DEXTROSE 5% 50 ML IV SCH (09:53)
[2020-03-07 10:40] VITALS: BP 126/73
--- NOTE | 2020-03-07 11:44 | PDOC ---
[facility] [facility] PROGRESS NOTE Date of Service DOS: DATE: 03/07/20 TIME: 11:42 Chief Complaint Chief Complaint rhabdomyolysis continue IV fluids and monitor creatinine Severe alcohol withdrawal Acute toxic encephalopathy, thiamine given to try to avoid permanence Alcohol use disorder obese, BMI 32 HX DEPRESSION HX ALCOHOL RELATED SEIZURES hypertension HYPOKALEMIA Hepatitic steatosis, alcoholic THC ABUSE HC History of Present Illness History of Present Illness 03/07/2020 No acute events overnight. Afebrile. More awake and alert. Following commands knows patient is oriented in the hospital. Decrease IV fluids. Urine output is adequate. CK is trending down to 2500. Patient's chart, labs, images were reviewed and discussed with RN 03/06/20 No acute events overnights. Remains afebrile. Confused but following commands. RASS -1. Switched D51/2NS to 1/[address] fountain and titrate UOP to at least 200cc/hr. > 50% time spent in patient chart, labs, and image review and discussion with RN and SW. CK trending down from 20,000 to 6400 03/05, still confused, still in mittens, post -ictal, cont therapy, EtOH withdrawl and delirium persist increase fluid and given IV bicarb for rhabdo, renal fxn is preserved he was admitted s/p a fall, was confused and AMS persistted, eh was hypertensive and reportedly tremulous in the ED. He was treated with hydralazine, Ativan, thiamine, folic acid, and multivitamin. He also reportedly vomited in the ED. EtOH <10, CK 1575, Lactic Acid 4.2 03/04, cont the treatment for acute alcohol withdrawl, CK consistent with seizure from EtOH withdrawl, cont aggressive IV fluid ativan and PRN haldol, Still very confused and agitated requiring mittens. Is easily redirected. Vitals/I&O Vitals/I&O: Vital Signs Date Time Temp Pulse Resp B/P (MAP) Pulse Ox O2 Delivery O2 Flow Rate FiO2 03/07/20 10:40 98.7 85 20 126/73 (90) 96 Room Air 98.7 I & O 03/06/20 03/06/20 03/07/20 15:00 23:00 07:00 Intake Total 1351 ml 1300 ml 1100 ml Output Total 400 ml 950 ml Balance 1351 ml 900 ml 150 ml Physical Exam General: Cooperative, No acute distress Heart: Regular rate, Other (OCC TACHY) Lungs: Clear Abdomen: Normal bowel sounds Extremities: No clubbing, No cyanosis, No edema Skin: No breakdown Labs Labs: Laboratory Tests Test 03/06/20 12:00 03/06/20 17:45 03/07/20 05:12 03/07/20 05:52 Creatine Kinase 6457 U/L (39-308) 5313 U/L (39-308) 2587 U/L (39-308) Sodium Level 140 mmol/L (136-145) Potassium Level 3.7 mmol/L (3.5-5.1) Chloride Level 107 mmol/L (98-107) Carbon Dioxide Level 22 mmol/L (21-32) Anion Gap 11 (6-14) Blood Urea Nitrogen 10 mg/dL (8-26) Creatinine 1.1 mg/dL (0.7-1.3) Estimated GFR (Cockcroft-Gault) 81.8 Glucose Level 83 mg/dL (70-99) Calcium Level 8.0 mg/dL (8.5-10.1) Phosphorus Level 4.0 mg/dL (2.6-4.7) Magnesium Level 1.9 mg/dL (1.8-2.4) Assessment and Plan Assessmemt and Plan Problems Medical Problems: (1) Alcohol withdrawal seizure with delirium Status: Acute (2) AMS (altered mental status) Status: Acute (3) Facial abrasion Status: Acute (4) Head trauma Status: Acute (5) Need for Tdap vaccination Status: Acute (6) Rhabdomyolysis Status: Acute (7) Uncontrolled hypertension Status: Acute Comment Review of Relevant I have reviewed the following items edward (where applicable) has been applied. Medications: Current Medications Medications (Trade) Dose Ordered Sig/Kay Route PRN Reason Start Time Stop Time Status Last Admin Dose Admin Multivitamins (Thera M Plus) 1 tab DAILY PO 03/07/20 09:00 03/07/20 08:13 Folic Acid (Folic Acid) 1 mg DAILY PO 03/07/20 09:00 03/07/20 08:13 Justifications for Admission Other Justification GIANFRANCO SHAH MD Mar 07, 2020 11:44
--- NOTE | 2020-03-07 11:50 | NUR ---
SS following up with discharge planning. SS reviewed pt chart and discussed with pt RN. Pt is currently on room air. COVID19 negative. Pt on IV Zosyn. PT/OT ordered due to weakness. SS will continue to follow for discharge planning.
--- NOTE | 2020-03-07 11:54 | PDOC ---
Renal-Progress Notes Subjective Notes Notes NONE History of Present Illness Hx of present illness CONFUSED Vitals Vitals Vital Signs Date Time Temp Pulse Resp B/P (MAP) Pulse Ox O2 Delivery O2 Flow Rate FiO2 03/07/20 10:40 98.7 85 20 126/73 (90) 96 Room Air 98.7 Weight Weight [ ] I.O. Intake and Output l Intake and Output 03/07/20 07:00 Intake Total 3751 ml Output Total 1350 ml Balance 2401 ml Intake Oral 650 ml IV Total 3101 ml Output Urine Total 1350 ml Labs Labs Laboratory Tests Test 03/06/20 12:00 03/06/20 17:45 03/07/20 05:12 03/07/20 05:52 Creatine Kinase 6457 U/L (39-308) 5313 U/L (39-308) 2587 U/L (39-308) Sodium Level 140 mmol/L (136-145) Potassium Level 3.7 mmol/L (3.5-5.1) Chloride Level 107 mmol/L (98-107) Carbon Dioxide Level 22 mmol/L (21-32) Anion Gap 11 (6-14) Blood Urea Nitrogen 10 mg/dL (8-26) Creatinine 1.1 mg/dL (0.7-1.3) Estimated GFR (Cockcroft-Gault) 81.8 Glucose Level 83 mg/dL (70-99) Calcium Level 8.0 mg/dL (8.5-10.1) Phosphorus Level 4.0 mg/dL (2.6-4.7) Magnesium Level 1.9 mg/dL (1.8-2.4) Micro Micro Microbiology 03/02/20 Blood Culture - Final, Complete NO GROWTH AFTER 5 DAYS Review of Systems Constitutional: yes: other (UNABLE TO OBTAIN) Physical Exam General Appearance: no apparent distress Skin: warm Respiratory: decreased breath sounds Heart: S1S2 Abdomen: bowel sounds present Genitourinary: bladder flat Extremities: pulses present Neurology: alert, confused Musculoskeletal: Osteoarthritis Assessment Assessment IMP RHABDOMYOLYSIS-CK DOWN TO 2587 HYPOKALEMIA-CORRECTED ETOH ABUSE ETOH WITHDRAWAL ACUTE ENCEPHALOPATHY LABILE HTN-IMPROVED SEIZURE MARIJUANA USE PLAN NO JENIFER LYTES STABLE WILL SIGN OFF TROY MORTON MD Mar 07, 2020 11:54
[2020-03-07 14:44] VITALS: BP 129/79
[2020-03-07] MEDS: ENOXAPARIN 40 MG/0.4 ML SYRINGE. SQ SCH (17:25)
[2020-03-07 19:41] VITALS: BP 145/82
[2020-03-07] MEDS: HALOPERIDOL LACTATE 5 MG/ML VIAL. IVP PRN (20:13)
[2020-03-07 22:50] VITALS: BP 136/90
[2020-03-08 02:58] VITALS: BP 145/83
[2020-03-08] MEDS: POTASSIUM CL 20MEQ-0.45% NACL 1,000 ML IV SCH ×2 (05:10→16:55)
[2020-03-08] MEDS: PIPERACILLIN/TAZOBACTAM 3.375 GM in IV NORMAL SALINE 50ML 50 ML IV SCH ×2 (05:10→12:59)
[2020-03-08 07:00] VITALS: BP 131/75
[2020-03-08] MEDS: levETIRAcetam 500 MG TABLET PO SCH ×2 (08:39→20:31)
[2020-03-08] MEDS: THIAMINE 100 MG TABLET. PO SCH (08:39)
[2020-03-08] MEDS: LACTOBACILLUS RHAMNOSUS GG 1 CAPSULE. PO SCH ×2 (08:39→20:31)
[2020-03-08] MEDS: POTASSIUM CHLORIDE 20 MEQ TABLET.ER. PO SCH (08:40)
[2020-03-08] MEDS: MULTIVITAMIN with MINERAL TABLET. PO SCH (08:40)
[2020-03-08] MEDS: LISINOPRIL 10 MG TABLET PO SCH (08:40)
[2020-03-08] MEDS: FOLIC ACID 1 MG TABLET. PO SCH (08:40)
[2020-03-08 11:00] VITALS: BP 128/67
--- NOTE | 2020-03-08 12:46 | PDOC ---
[employer] [facility] PROGRESS NOTE Date of Service DOS: DATE: 03/08/20 TIME: 12:44 Chief Complaint Chief Complaint rhabdomyolysis continue IV fluids and monitor creatinine Severe alcohol withdrawal Acute toxic encephalopathy, thiamine given to try to avoid permanence Alcohol use disorder obese, BMI 32 HX DEPRESSION HX ALCOHOL RELATED SEIZURES hypertension HYPOKALEMIA Hepatitic steatosis, alcoholic THC ABUSE HC History of Present Illness History of Present Illness 03/08/2020 No acute events overnight. Patient is more awake today and sitting up in the recliner. Patient states that he does live with his sister. He is still slightly confused and does not realize the severity of his situation. He knows that his girlfriend does help him with ADLs and IADLs at home. Pending PT OT to work with him. Patient's chart, labs, images were reviewed and discussed with RN 03/07/2020 No acute events overnight. Afebrile. More awake and alert. Following commands knows patient is oriented in the hospital. Decrease IV fluids. Urine output is adequate. CK is trending down to 2500. Patient's chart, labs, images were reviewed and discussed with RN 03/06/20 No acute events overnights. Remains afebrile. Confused but following commands. RASS -1. Switched D51/2NS to 1/[address] fountain and titrate UOP to at least 200cc/hr. > 50% time spent in patient chart, labs, and image review and discussion with RN and SW. CK trending down from 20,000 to 6400 03/05, still confused, still in mittens, post -ictal, cont therapy, EtOH withdrawl and delirium persist increase fluid and given IV bicarb for rhabdo, renal fxn is preserved he was admitted s/p a fall, was confused and AMS persistted, eh was hypertensive and reportedly tremulous in the ED. He was treated with hydralazine, Ativan, thiamine, folic acid, and multivitamin. He also reportedly vomited in the ED. EtOH <10, CK 1575, Lactic Acid 4.2 03/04, cont the treatment for acute alcohol withdrawl, CK consistent with seizure from EtOH withdrawl, cont aggressive IV fluid ativan and PRN haldol, Still very confused and agitated requiring mittens. Is easily redirected. Vitals/I&O Vitals/I&O: Vital Signs Date Time Temp Pulse Resp B/P (MAP) Pulse Ox O2 Delivery O2 Flow Rate FiO2 03/08/20 11:00 97.8 76 18 128/67 (87) 97 Room Air 97.8 I & O 03/07/20 03/07/20 03/08/20 15:00 23:00 07:00 Intake Total 560 ml 360 ml 1580 ml Output Total 1025 ml 2700 ml 1800 ml Balance -465 ml -2340 ml -220 ml Physical Exam General: Cooperative, No acute distress Heart: Regular rate, Other (OCC TACHY) Lungs: Clear Abdomen: Normal bowel sounds Extremities: No clubbing, No cyanosis, No edema Skin: No breakdown Labs Labs: Laboratory Tests Test 03/07/20 18:05 03/08/20 03:50 Creatine Kinase 2246 U/L (39-308) 1279 U/L (39-308) Assessment and Plan Assessmemt and Plan Problems Medical Problems: (1) Alcohol withdrawal seizure with delirium Status: Acute (2) AMS (altered mental status) Status: Acute (3) Facial abrasion Status: Acute (4) Head trauma Status: Acute (5) Need for Tdap vaccination Status: Acute (6) Rhabdomyolysis Status: Acute (7) Uncontrolled hypertension Status: Acute Comment Review of Relevant I have reviewed the following items edward (where applicable) has been applied. Medications: Current Medications Medications (Trade) Dose Ordered Sig/Kay Route PRN Reason Start Time Stop Time Status Last Admin Dose Admin Thiamine Mononitrate (Vitamin B-1) 100 mg DAILY PO 03/08/20 09:00 03/08/20 08:39 Justifications for Admission Other Justification GIANFRANCO SHAH MD Mar 08, 2020 12:46
--- NOTE | 2020-03-08 14:52 | NUR ---
SS following up with discharge planning. SS reviewed pt chart and discussed with pt RN. Pt is currently on room air. PT/OT recommending longterm unit. COVID19 negative. SS met with pt and discussed longterm unit and discharge planning. Pt agreeable to longterm unit and requesting referral be phoned and faxed to [facility] of [place], [place], ; fax [phone]. SS phoned and faxed referral to [facility] as requested. SS awaiting acceptance decision. SS will continue to follow for discharge planning.
[2020-03-08 15:30] VITALS: BP 136/73
[2020-03-08] MEDS: ENOXAPARIN 40 MG/0.4 ML SYRINGE. SQ SCH (16:04)
--- NOTE | 2020-03-08 16:38 | NUR ---
SS following up with discharge planning. Pt accepted at [facility] of [place], [place]. Dr. Hopkins notified.
[2020-03-08 19:48] VITALS: BP 140/79
[2020-03-08] MEDS: HALOPERIDOL LACTATE 5 MG/ML VIAL. IVP PRN (20:32)
[2020-03-08 23:04] VITALS: BP 169/87
[2020-03-09] MEDS: POTASSIUM CL 20MEQ-0.45% NACL 1,000 ML IV SCH (02:36)
[2020-03-09 03:30] VITALS: BP 146/82
[2020-03-09 07:15] VITALS: BP 137/83
[2020-03-09] MEDS: POTASSIUM CHLORIDE 20 MEQ TABLET.ER. PO SCH (08:17)
[2020-03-09] MEDS: MULTIVITAMIN with MINERAL TABLET. PO SCH (08:18)
[2020-03-09] MEDS: THIAMINE 100 MG TABLET. PO SCH (08:18)
[2020-03-09] MEDS: levETIRAcetam 500 MG TABLET PO SCH (08:18)
[2020-03-09] MEDS: FOLIC ACID 1 MG TABLET. PO SCH (08:18)
[2020-03-09] MEDS: LACTOBACILLUS RHAMNOSUS GG 1 CAPSULE. PO SCH (08:19)
[2020-03-09] MEDS: LISINOPRIL 10 MG TABLET PO SCH (08:19)
[2020-03-09] MEDS ORDERED: Folic Acid PO (09:34)
[2020-03-09] MEDS ORDERED: THIA100T22 PO (09:34)
[2020-03-09 10:28] VITALS: BP 113/61
--- NOTE | 2020-03-09 10:56 | NUR ---
SS following up with discharge planning. SS reviewed pt chart and discussed with pt RN. Pt is currently on room air. PT/OT [facility]. Pt accepted at [facility] [place], [place], ; fax [phone]. Discharge orders received and phoned and faxed to [facility]. Pt will discharge today and go to [facility] between 1130 and 1200. [facility] to provide transportation. Pt, pt's RN, and pt's family notified.
--- NOTE | 2020-03-09 11:28 | SNU/HH DC ---
DISCHARGE ORDERS DISCHARGE INFORMATION: DISCHARGE DATE: Mar 09, 2020 FINAL DIAGNOSIS Problems Medical Problems: (1) Alcohol withdrawal seizure with delirium Status: Acute (2) AMS (altered mental status) Status: Acute (3) Facial abrasion Status: Acute (4) Head trauma Status: Acute (5) Need for Tdap vaccination Status: Acute (6) Rhabdomyolysis Status: Acute (7) Uncontrolled hypertension Status: Acute CONDITION ON DISCHARGE: Stable CODE STATUS: Code Status: Full PRISON: SNF STAY <30 DAYS: Yes POST DISCHARGE ORDERS: ACTIVITY ORDERS: Activity as tolerated WEIGHT BEARING STATUS: As tolerated DIET AFTER DISCHARGE: Cardiac WOUND/INCISION CARE: No wound care needed CHECKS AFTER DISCHARGE: CHECKS AFTER DISCHARGE: Check blood press - daily, Check your Temp as needed, Weigh Yourself Daily FOLLOW-UP: PHYSICIAN FOLLOW-UP: Dr. Meyers (nephrology) as needed [phone] ADDITIONAL FOLLOW-UP: PCP in 1 week LAB ORDERS FOR FOLLOW-UP: CBC, CMP TREATMENT/EQUIPMENT ORDERS: Physical Therapy For: Evalulation/Treatment Occupational Therapy For: Evaluation/Treatment DISCHARGE MEDICATIONS: Home Meds Active Scripts Thiamine Mononitrate (VITAMIN B-1) 100 Mg Tablet, 100 MG PO DAILY for supplement for 30 Days, #30 TAB Prov:GIANFRANCO SHAH MD 03/09/20 [Folic Acid] 1 MG TABLET No Conflict Check, 1 MG PO DAILY for SUPPLEMENT for 30 Days, #30 Prov:GIANFRANCO SHAH MD 03/09/20 Lisinopril (LISINOPRIL) 10 Mg Tablet, 1 TAB PO DAILY, #30 TAB Prov:ROCHELLE OLIVEIRA APRN 02/23/19 Fluoxetine Hcl (FLUOXETINE HCL) 10 Mg Capsule, 10 MG PO DAILY for Depression for 30 Days, #30 CAP 2 Refills Prov:AUSTIN GILBERT MD 10/26/18 Pantoprazole Sodium (PROTONIX PACKET) 40 Mg , 40 MG PO DAILY for gerd for 30 Days, #30 TAB Prov:AUSTIN GILBERT MD 10/26/18 Amlodipine Besylate (NORVASC) 10 Mg Tablet, 10 MG PO DAILY for HTN for 30 Days, #30 TAB 2 Refills Prov:AUSTIN GILBERT MD 10/26/18 Levetiracetam (KEPPRA) 500 Mg Tablet, 500 MG PO BID for seizure for 30 Days, #60 TAB 2 Refills Prov:FIONA GREENBERG MD 08/04/18 Discontinued Scripts Potassium Chloride (POTASSIUM CHLORIDE ) 20 Meq Tablet.er, 20 MEQ PO DAILY for SUPPLEMENT for 10 Days, #10 TAB.SR Prov:SHON ESPITIA DO 12/07/19 Hydrochlorothiazide (HYDROCHLOROTHIAZIDE TABLET ) 25 Mg Tablet, 25 MG PO DAILY for DIURETIC, #30 TAB 0 Refills Prov:SHON ESPITIA DO 10/16/19 Amlodipine Besylate (NORVASC) 10 Mg Tablet, 10 MG PO DAILY, #30 TAB Prov:SHON ESPITIA DO 10/16/19 Lisinopril (LISINOPRIL) 10 Mg Tablet, 1 TAB PO DAILY, #30 TAB 0 Refills Prov:MARIELY COLORADO MD 05/13/19 Hydrochlorothiazide (HYDROCHLOROTHIAZIDE TABLET) 12.5 Mg Tablet, 12.5 MG PO DAILY for DIURETIC, #30 TAB 0 Refills Prov:ROCHELEL OLIVEIRA APRN 02/23/19 Amlodipine Besylate (AMLODIPINE BESYLATE) 10 Mg Tablet, 10 MG PO DAILY, #30 TAB Prov:ROCHELLE OLIVERIA APRN 02/23/19 Lisinopril (LISINOPRIL) 20 Mg Tablet, 1 TAB PO DAILY for htn for 30 Days, #30 TAB 2 Refills Prov:AUSTIN GILBERT MD 10/26/18 Hydrochlorothiazide (HYDROCHLOROTHIAZIDE TABLET ) 25 Mg Tablet, 1 TAB PO DAILY for Blood Pressure for 30 Days, #30 TAB 2 Refills Prov:AUSTIN GILBERT MD 10/26/18 GIANFRANCO SHAH MD Mar 09, 2020 11:28
--- NOTE | 2020-03-09 12:05 | NUR ---
Discharge Note: SHAKIR ROCKWELL 2 Discharge instructions and discharge home medications reviewed with Other facility and a copy given. All questions have been answered and understanding verbalized. The following instructions and handouts were given: discharge instructions, med list, alcohol abuse info, seizure info, rhabdo info Discontinued lines and drains: Peripheral IV intact. Patient discharged to Rehab Facility with transportation via Wheelchair at 1205.
--- NOTE | 2020-03-09 12:58 | PDOC ---
PROGRESS NOTES Date of Service DATE: 03/09/20 TIME: 12:57 Assessment Problems Medical Problems: (1) Alcohol withdrawal seizure with delirium Status: Acute (2) AMS (altered mental status) Status: Acute (3) Facial abrasion Status: Acute (4) Head trauma Status: Acute (5) Need for Tdap vaccination Status: Acute (6) Rhabdomyolysis Status: Acute (7) Uncontrolled hypertension Status: Acute Alcohol related seizures, negative epilepsy work-up in past Rhabdomyolysis Plan Note plans to discharge to shelter unit Continue levetiracetam, can send home with a prescription, I doubt he will take it He understand he needs to stop drinking No additional neurological studies needed Subjective He denies pain Objective Vital Signs Date Time Temp Pulse Resp B/P (MAP) Pulse Ox O2 Delivery O2 Flow Rate FiO2 03/09/20 10:28 98.2 77 16 113/61 (78) 98 Room Air 98.2 Intake and Output 03/09/20 07:00 Intake Total 2080 ml Output Total 1300 ml Balance 780 ml Intake Oral 1080 ml IV Total 1000 ml Output Urine Total 1300 ml # Voids 3 PHYSICAL EXAM Alert. Oriented to "hospital" and person, does not know date. Follows commands. PERRL. EOMI. CN: no focal findings. Muscle tone: normal. Muscle strength: 5/5 DTR: 2+ Plantar reflex: Severe Gait: not examined in bed. Sensory exam: no abnormal findings. No cerebellar signs elicited. No tremulousness. Review of Relevant I have reviewed the following items edward (where applicable) has been applied. Labs Laboratory Tests Test 03/07/20 18:05 03/08/20 03:50 Creatine Kinase 2246 U/L (39-308) 1279 U/L (39-308) Microbiology 03/02/20 Blood Culture - Final, Complete NO GROWTH AFTER 5 DAYS Medications Current Medications Sodium Chloride 1,000 ml @ 1,000 mls/hr 1X ONCE IV Last administered on 03/02/20at 03:34; Start 03/02/20 at 03:30; Stop 03/02/20 at 04:29; Status DC Thiamine HCl 100 mg/Dextrose 51 ml @ 102 mls/hr 1X ONCE IV Last administered on 03/02/20at 04:15; Start 03/02/20 at 04:00; Stop 03/02/20 at 04:29; Status DC Multivit/ Folic Acid/Iron (Multivitamin ) 1 tab ONCE ONCE PO Last administered on 03/02/20at 04:15; Start 03/02/20 at 04:00; Stop 03/02/20 at 04:01; Status DC Metoclopramide HCl (Reglan Vial) 10 mg 1X ONCE IVP Last administered on 03/02/20at 04:00; Start 03/02/20 at 04:00; Stop 03/02/20 at 04:23; Status DC Hydralazine HCl (Apresoline Inj) 10 mg 1X ONCE IVP Last administered on 03/02/20at 04:16; Start 03/02/20 at 04:00; Stop 03/02/20 at 04:23; Status DC Lorazepam (Ativan Inj) 2 mg 1X ONCE IVP Last administered on 03/02/20at 04:10; Start 03/02/20 at 04:15; Stop 03/02/20 at 04:23; Status DC Magnesium Sulfate 50 ml @ 25 mls/hr 1X ONCE IV Last administered on 03/02/20at 04:51; Start 03/02/20 at 04:30; Stop 03/02/20 at 06:29; Status DC Lorazepam (Ativan Inj) 2 mg 1X ONCE IVP Last administered on 03/02/20at 04:48; Start 03/02/20 at 04:45; Stop 03/02/20 at 04:46; Status DC Sodium Chloride 1,000 ml @ 1,000 mls/hr 1X ONCE IV Last administered on 03/02/20at 04:30; Start 03/02/20 at 05:00; Stop 03/02/20 at 05:59; Status DC Potassium Chloride/Sodium Chloride 1,000 ml @ 100 mls/hr Q10H ONCE IV Last administered on 03/02/20at 05:53; Start 03/02/20 at 05:00; Stop 03/02/20 at 14:59; Status DC Ondansetron HCl (Zofran) 4 mg PRN Q8HRS PRN IV NAUSEA/VOMITING; Start 03/02/20 at 05:00; Stop 03/03/20 at 04:59; Status DC Acetaminophen (Tylenol) 650 mg PRN Q4HRS PRN PO FEVER > 100.3'F Last administered on 03/02/20at 09:59; Start 03/02/20 at 05:00; Stop 03/03/20 at 04:59; Status DC Thiamine HCl 100 mg/Folic Acid 1 mg/Sodium Chloride 1,001.2 ml @ 99.012 mls/hr DAILY IV Last administered on 03/02/20at 09:22; Start 03/02/20 at 09:00; Stop 03/03/20 at 10:30; Status DC Multivitamins (Thera M Plus) 1 tab DAILY PO Last administered on 03/09/20at 08:18; Start 03/07/20 at 09:00 Folic Acid (Folic Acid) 1 mg DAILY PO Last administered on 03/09/20at 08:18; Start 03/07/20 at 09:00 Thiamine HCl 100 mg/Dextrose 51 ml @ 100 mls/hr DAILY IV Last administered on 03/07/20at 09:53; Start 03/03/20 at 09:00; Stop 03/07/20 at 09:31; Status DC Lorazepam (Ativan Inj) 2 mg PRN Q1HR PRN IV For CIWA 8-14 Last administered on 03/08/20at 20:32; Start 03/02/20 at 05:00 Lorazepam (Ativan Inj) 4 mg PRN Q1HR PRN IV For CIWA 15 or greater Last administered on 03/07/20at 02:58; Start 03/02/20 at 05:00 Lorazepam (Ativan Inj) 2 mg PRN Q15MIN PRN IV SEE COMMENTS; Start 03/02/20 at 05:00; Stop 03/06/20 at 09:16; Status DC Lorazepam (Ativan Inj) 4 mg PRN Q15MIN PRN IV SEE COMMENTS Last administered on 03/02/20at 18:53; Start 03/02/20 at 05:00; Stop 03/06/20 at 09:17; Status DC Amlodipine Besylate (Norvasc) 10 mg DAILY PO Last administered on 03/09/20at 08:18; Start 03/02/20 at 10:00 Hydrochlorothiazide (Hydrodiuril) 25 mg DAILY PO Last administered on 03/02/20at 09:58; Start 03/02/20 at 10:00; Stop 03/02/20 at 18:30; Status DC Levetiracetam (Keppra) 500 mg BID PO Last administered on 03/09/20at 08:18; Start 03/02/20 at 10:00 Lisinopril (Prinivil) 10 mg DAILY PO Last administered on 03/09/20at 08:19; Start 03/02/20 at 10:00 Enoxaparin Sodium (Lovenox Per Pharmacy Prophylaxis Dosing) 1 each PRN DAILY PRN MC SEE COMMENTS; Start 03/02/20 at 09:30 Enoxaparin Sodium (Lovenox 40mg Syringe) 40 mg Q24H SQ Last administered on 03/08/20at 16:04; Start 03/02/20 at 16:00 Metoprolol Tartrate (Lopressor Vial) 5 mg 1X ONCE IVP Last administered on 03/02/20at 09:58; Start 03/02/20 at 09:45; Stop 03/02/20 at 09:46; Status DC Piperacillin Sod/ Tazobactam Sod (Zosyn Per Pharmacy) 1 each PRN DAILY PRN MC SEE COMMENTS; Start 03/02/20 at 10:00; Stop 03/08/20 at 13:34; Status DC Piperacillin Sod/ Tazobactam Sod 3.375 gm/Sodium Chloride 50 ml @ 100 mls/hr Q6HRS IV Last administered on 03/08/20at 12:59; Start 03/02/20 at 12:00; Stop 03/08/20 at 13:34; Status DC Sodium Chloride 1,000 ml @ 100 mls/hr CONT PRN IV SEE I/O RECORD Last administered on 03/02/20at 23:11; Start 03/02/20 at 10:00 Haloperidol Lactate (Haldol Inj) 5 mg PRN Q6HRS PRN IVP AGITATION Last administered on 03/08/20at 20:32; Start 03/02/20 at 18:30 Potassium Chloride/Water 100 ml @ 100 mls/hr Q1H IV Last administered on 03/03/20at 13:02; Start 03/03/20 at 07:30; Stop 03/03/20 at 11:29; Status DC Sodium Chloride 1,000 ml @ 100 mls/hr Q10H IV Last administered on 03/04/20at 09:40; Start 03/03/20 at 08:30; Stop 03/04/20 at 11:21; Status DC Potassium Chloride (Klor-Con) 20 meq [id number] PO Last administered on 03/09at 08:17; Start 03/05/20 at 08:00 Potassium Chloride (Klor-Con) 40 meq 1X ONCE PO Last administered on 03/04/20at 11:37; Start 03/04/20 at 11:15; Stop 03/04/20 at 11:17; Status DC Potassium Chloride/Dextrose/ Sod Cl 1,000 ml @ 150 mls/hr Q6H40M IV Last administered on 03/06/20at 08:29; Start 03/04/20 at 11:30; Stop 03/06/20 at 11:25; Status DC Sodium Chloride 1,000 ml @ 1,000 mls/hr 1X ONCE IV Last administered on 03/04/20at 11:34; Start 03/04/20 at 11:30; Stop 03/04/20 at 12:29; Status DC Sodium Bicarbonate (Sodium Bicarb Adult 8.4% Syr) 50 meq 1X ONCE IV Last administered on 03/05/20at 14:10; Start 03/05/20 at 13:00; Stop 03/05/20 at 13:01; Status DC Lactobacillus Rhamnosus (Culturelle) 1 cap BID PO Last administered on 03/09/20at 08:19; Start 03/05/20 at 21:00 Thiamine Mononitrate (Vitamin B-1) 100 mg DAILY PO Last administered on 03/09/20at 08:18; Start 03/08/20 at 09:00 Potassium Chloride/Sodium Chloride 1,000 ml @ 100 mls/hr Q10H IV Last administered on 03/09/20at 02:36; Start 03/06/20 at 11:30 Active Scripts Active Vitamin B-1 (Thiamine Mononitrate) 100 Mg Tablet 100 Mg PO DAILY 30 Days [Folic Acid] 1 MG Tablet 1 Mg PO DAILY 30 Days Lisinopril 10 Mg Tablet 1 Tab PO DAILY Fluoxetine Hcl 10 Mg Capsule 10 Mg PO DAILY 30 Days Protonix Packet (Pantoprazole Sodium) 40 Mg Granpkt.dr 40 Mg PO DAILY 30 Days Norvasc (Amlodipine Besylate) 10 Mg Tablet 10 Mg PO DAILY 30 Days Keppra (Levetiracetam) 500 Mg Tablet 500 Mg PO BID 30 Days Vitals/I & O Vital Sign - Last 24 Hours 03/08/20 03/08/20 03/08/20 03/08/20 15:30 19:46 19:48 23:04 Temp 98.6 99.0 98.8 98.6 99.0 98.8 Pulse 76 67 81 Resp 18 16 16 B/P (MAP) 136/73 (94) 140/79 (99) 169/87 (114) Pulse Ox 96 98 98 O2 Delivery Room Air Room Air Room Air Room Air 03/09/20 03/09/20 03/09/20 03/09/20 03:30 07:15 08:00 08:18 Temp 98.8 98.6 98.8 98.6 Pulse 68 72 72 Resp 16 16 B/P (MAP) 146/82 (103) 137/83 (101) 137/83 Pulse Ox 98 97 O2 Delivery Room Air Room Air Room Air 03/09/20 03/09/20 08:19 10:28 Temp 98.2 98.2 Pulse 72 77 Resp 16 B/P (MAP) 137/83 113/61 (78) Pulse Ox 98 O2 Delivery Room Air Intake and Output 03/08/20 03/08/20 03/09/20 15:00 23:00 07:00 Intake Total 180 ml 780 ml 1120 ml Output Total 600 ml 700 ml Balance -420 ml 80 ml 1120 ml Justicifation of Admission Dx: Justifications for Admission: Justification of Admission Dx: N/A KEIRY BEGUM MD Mar 09, 2020 12:58
--- NOTE | 2020-03-09 14:46 | PDOC3 ---
[facility]-Discharge Summary Date of Admission: Date of Admission: Mar 02, 2020 Date of Discharge: Date of Discharge: Mar 09, 2020 Discharge Diagnosis: Discharge Diagnosis: rhabdomyolysis continue IV fluids and monitor creatinine Severe alcohol withdrawal Acute toxic encephalopathy, thiamine given to try to avoid permanence Alcohol use disorder obese, BMI 32 HX DEPRESSION HX ALCOHOL RELATED SEIZURES hypertension HYPOKALEMIA Hepatitic steatosis, alcoholic THC ABUSE HC Hospital Course: Hospital Course: By day of discharge, patient renal fxn remained stable, he was clinically improved with improved mentation and CK levels trended down to near normal. He remained seizure free and was working well with PT/OT. Rest of his hospital course was uneventful. 03/08/2020 No acute events overnight. Patient is more awake today and sitting up in the re cliner. Patient states that he does live with his sister. He is still slightly confused and does not realize the severity of his situation. He knows that his girlfriend does help him with ADLs and IADLs at home. Pending PT OT to work with him. Patient's chart, labs, images were reviewed and discussed with RN 03/07/2020 No acute events overnight. Afebrile. More awake and alert. Following commands knows patient is oriented in the hospital. Decrease IV fluids. Urine output is adequate. CK is trending down to 2500. Patient's chart, labs, images were reviewed and discussed with RN 03/06/20 No acute events overnights. Remains afebrile. Confused but following commands. RASS -1. Switched D51/2NS to 1/[address] fountain and titrate UOP to at least 200cc/hr. > 50% time spent in patient chart, labs, and image review and discussion with RN and SW. CK trending down from 20,000 to 6400 03/05, still confused, still in mittens, post -ictal, cont therapy, EtOH withdrawl and delirium persist increase fluid and given IV bicarb for rhabdo, renal fxn is preserved he was admitted s/p a fall, was confused and AMS persistted, eh was hypertensive and reportedly tremulous in the ED. He was treated with hydralazine, Ativan, thiamine, folic acid, and multivitamin. He also reportedly vomited in the ED. EtOH <10, CK 1575, Lactic Acid 4.2 03/04, cont the treatment for acute alcohol withdrawl, CK consistent with seizure from EtOH withdrawl, cont aggressive IV fluid ativan and PRN marsha, 61-year-old male with past medical history of alcoholism who presented to the ER for evaluation due to concern for possible fall. He allegedly reported falling in a bathroom. He reportedly drank 2 beers earlier in the evening. Unable obtain much more history at this time. Concern for alcohol withdrawal seizure with delirium tremens in patient with altered mental status and history of alcohol abuse. He was hypertensive and reportedly tremulous in the ED. He was treated with hydralazine, Ativan, thiamine, folic acid, and multivitamin. He also reportedly vomited in the ED. Will admit patient for further medical management. Disposition: Disposition/Orders: D/C to Home, D/C to Another Facility Activity: Activity: Resume previous activity Diet: Diet: Regular Medications: Home Meds Active Scripts Thiamine Mononitrate (VITAMIN B-1) 100 Mg Tablet, 100 MG PO DAILY for supplement for 30 Days, #30 TAB Prov:GIANFRANCO SHAH MD 03/09/20 [Folic Acid] 1 MG TABLET No Conflict Check, 1 MG PO DAILY for SUPPLEMENT for 30 Days, #30 Prov:GIANFRANCO SHAH MD 03/09/20 Lisinopril (LISINOPRIL) 10 Mg Tablet, 1 TAB PO DAILY, #30 TAB Prov:ROCHELLE OLIVEIRA APRN 02/23/19 Fluoxetine Hcl (FLUOXETINE HCL) 10 Mg Capsule, 10 MG PO DAILY for Depression for 30 Days, #30 CAP 2 Refills Prov:AUSTIN GILBERT MD 10/26/18 Pantoprazole Sodium (PROTONIX PACKET) 40 Mg Granpkt.dr, 40 MG PO DAILY for gerd for 30 Days, #30 TAB Prov:AUSTIN GILBERT MD 10/26/18 Amlodipine Besylate (NORVASC) 10 Mg Tablet, 10 MG PO DAILY for HTN for 30 Days, #30 TAB 2 Refills Prov:AUSTIN GILBERT MD 10/26/18 Levetiracetam (KEPPRA) 500 Mg Tablet, 500 MG PO BID for seizure for 30 Days, #60 TAB 2 Refills Prov:FIONA GREENBERG MD 08/04/18 Discontinued Scripts Potassium Chloride (POTASSIUM CHLORIDE ) 20 Meq Tablet.er, 20 MEQ PO DAILY for SUPPLEMENT for 10 Days, #10 TAB.SR Prov:SHON ESPITIA I DO 12/07/19 Hydrochlorothiazide (HYDROCHLOROTHIAZIDE TABLET ) 25 Mg Tablet, 25 MG PO DAILY for DIURETIC, #30 TAB 0 Refills Prov:SHON ESPITIA DO 10/16/19 Amlodipine Besylate (NORVASC) 10 Mg Tablet, 10 MG PO DAILY, #30 TAB Prov:SHON ESPITIA I DO 10/16/19 Lisinopril (LISINOPRIL) 10 Mg Tablet, 1 TAB PO DAILY, #30 TAB 0 Refills Prov:MARIELY COLORADO MD 05/13/19 Hydrochlorothiazide (HYDROCHLOROTHIAZIDE TABLET) 12.5 Mg Tablet, 12.5 MG PO DAILY for DIURETIC, #30 TAB 0 Refills Prov:ROCHELLE OLIVEIRA APRN 02/23/19 Amlodipine Besylate (AMLODIPINE BESYLATE) 10 Mg Tablet, 10 MG PO DAILY, #30 TAB Prov:RCOHELLE OLIVEIRA APRN 02/23/19 Lisinopril (LISINOPRIL) 20 Mg Tablet, 1 TAB PO DAILY for htn for 30 Days, #30 TAB 2 Refills Prov:AUSTIN GILBERT MD 10/26/18 Hydrochlorothiazide (HYDROCHLOROTHIAZIDE TABLET ) 25 Mg Tablet, 1 TAB PO DAILY for Blood Pressure for 30 Days, #30 TAB 2 Refills Prov:AUSTIN GILBERT MD 10/26/18 Scheduled Amlodipine Besylate (Norvasc), 10 MG PO DAILY Fluoxetine Hcl (Fluoxetine Hcl), 10 MG PO DAILY Levetiracetam (Keppra), 500 MG PO BID Lisinopril (Lisinopril), 1 TAB PO DAILY Pantoprazole Sodium (Protonix Packet), 40 MG PO DAILY Thiamine Mononitrate (Vitamin B-1), 100 MG PO DAILY [Folic Acid], 1 MG PO DAILY Discontinued Medications Amlodipine Besylate (Amlodipine Besylate), 10 MG PO DAILY Amlodipine Besylate (Norvasc), 10 MG PO DAILY Hydrochlorothiazide (Hydrochlorothiazide Tablet ), 1 TAB PO DAILY Hydrochlorothiazide (Hydrochlorothiazide Tablet), 12.5 MG PO DAILY Hydrochlorothiazide (Hydrochlorothiazide Tablet ), 25 MG PO DAILY Lisinopril (Lisinopril), 1 TAB PO DAILY Lisinopril (Lisinopril), 1 TAB PO DAILY Potassium Chloride (Potassium Chloride ), 20 MEQ PO DAILY Total Time: Total Time: Total time spent was 50 minutes in preparing scripts, discharge planning with SW and RN, and preparing this discharge summary. Patient seen and examined on day of discharge. Justicifation of Admission Dx: Justifications for Admission: Justification of Admission Dx: N/A GIANFRANCO SHAH MD Mar 09, 2020 14:46
== END 2020-03-09 12:05 | DRG 557 ==
LOC: ER 02:56 → 1 WEST ICU 04:50 → 2 SOUTH 22:48 → 2 NORTH 03-03 18:38
PROVIDERS: ADMIT Family Medicine; ATTEND Family Medicine
DX: M62.82 Rhabdomyolysis (principal); G92 Toxic encephalopathy; F10.231 Alcohol dependence with withdrawal delirium; E87.1 Hypo-osmolality and hyponatremia; E87.2 Acidosis; E87.6 Hypokalemia; E66.9 Obesity, unspecified; F10.229 Alcohol dependence with intoxication, unspecified; F12.10 Cannabis abuse, uncomplicated; F17.210 Nicotine dependence, cigarettes, uncomplicated; I10 Essential (primary) hypertension; I16.0 Hypertensive urgency; K74.60 Unspecified cirrhosis of liver; S00.81XA Abrasion of other part of head, initial encounter; X58.XXXA Exposure to other specified factors, initial encounter; Z20.822 Contact with and (suspected) exposure to COVID-19; Z68.32 Body mass index [BMI] 32.0-32.9, adult; Z82.49 Family history of ischemic heart disease and other diseases of the circulatory system; Z91.19 Patient's noncompliance with other medical treatment and regimen; F32.9 Major depressive disorder, single episode, unspecified; F41.9 Anxiety disorder, unspecified; K21.9 Gastro-esophageal reflux disease without esophagitis; M19.90 Unspecified osteoarthritis, unspecified site; W18.39XA Other fall on same level, initial encounter; Y93.89 Activity, other specified; Y92.89 Other specified places as the place of occurrence of the external cause; Y99.8 Other external cause status; Z68.31 Body mass index [BMI] 31.0-31.9, adult
CPT/HCPCS: 36415; 70450; 70486; 71045; 71250; 72125; 80048; 80053; 80069; 80076; 80307; 80329; 81001; 82550; 83605; 83735; 84100; 84484; 85025; 85610; 85730; 87040; 87804; 93005; 96361; 96365; 96368; 96375; 96376; G0480; J0360; J1630; J1650; J2060; J2543; J2765; J3411; J3475; J3480; J3490; J7030; J7060; U0003; 97530-GP; 99285-25; G0378

== ENCOUNTER 2020-04-01 22:18 | Inpatient (IN) | payer MEDICARE, OTHER ==
[~2020-04-01] VITALS: Ht 167.6 cm; Wt 94.7 kg
[~2020-04-01 22:18] MED LIST changes: +Folic Acid PO; +THIA100T22 PO
--- NOTE | 2020-04-01 23:23 | PHYS DOC ---
Past Medical History Past Medical History: Alcoholism, Hypertension Additional Past Medical Histor: ALCOHOL ABUSE Past Surgical History: Other Additional Past Surgical Histo: pt reports right ankle has pins put in 1994, AND HERNIA REPAIR Smoking Status: Current Every Day Smoker Alcohol Use: Heavy Drug Use: Cocaine, Marijuana General Adult EDM: Chief Complaint: ALCOHOL INTOXICATION HPI: HPI: Patient is a 64 year old male who presents to the ED via EMS for fall secondary to acute alcohol intoxication that began about an hour ago. HPI is limited secondary to patient's acute alcohol intoxication. Patient states that he was walking next to [employer] when he fell, tripped, and landed on his chest. He states that he lost consciousness for about "a moment" and then told a [employer] employee to call EMS. He reports that he has been drinking beer and vodka today but is unable to tell me how much he drank. He notes that his last drink was 2 hours ago. Patient is complaining of pain throughout his body but is unable to localize the pain specifically. Patient also reports that he smokes marijuana and uses crack cocaine. No further complaints at this time Review of Systems: Review of Systems: Constitutional: Denies fever or chills Eyes: Denies redness or eye pain HENT: Denies nasal congestion or sore throat Respiratory: Denies cough or shortness of breath Cardiovascular: Denies chest pain or palpitations GI: Positive for abdominal pain, but denies nausea and vomiting : Denies dysuria or hematuria Musculoskeletal: For back pain and bilateral leg pain Integument: Denies rash or skin lesions Neurologic: Denies focal weakness or sensory changes Review of systems limited secondary to patient's acute alcohol intoxication Allergies: Allergies: Allergies Coded Allergies Type Severity Reaction Last Updated Verified No Known Drug Allergies 08/08/14 No Physical Exam: PE: Constitutional: Well developed, moderate acute distress, non-toxic appearance HENT: Normocephalic, atraumatic Eyes: PERRL, EOMI, conjunctiva normal, no discharge Neck: Normal range of motion, no tenderness, supple Lungs & Thorax: No respiratory distress, equal chest rise and fall Abdomen: Use tenderness to palpation Skin: Warm, dry, no erythema, no rash Back: No tenderness, no CVA tenderness Extremities: Diffuse tenderness to palpation, ROM intact, no edema Neurologic: Alert and oriented X 3, normal motor function, normal sensory function, no focal deficits noted Psychologic: Affect normal, intoxicated EKG: EKG: [] Radiology/Procedures: Radiology/Procedures: PROCEDURE: CT HEAD AND CERVICAL SPINE WO STUDY: CT head and cervical spine without contrast INDICATION: Fall. COMPARISON: 03/02/2020 TECHNIQUE: Axial CT imaging through the head and cervical spine without the use of intravenous contrast. Sagittal and coronal reformats were obtained. One or more of the following individualized dose reduction techniques were utilized for this examination: 1. Automated exposure control 2. Adjustment of the mA and/or kV according to patient size 3. Use of iterative reconstruction technique. FINDINGS: CT head: No acute intracranial hemorrhage. No localized mass effect, midline shift or hydrocephalus. Saunders-white matter differentiation is maintained. Redemonstrated white matter findings which could indicate chronic microvascular ischemic change. Parenchymal volume loss. Small right frontal scalp lipoma. No depressed calvarial fracture. CT cervical spine: No acute fracture or traumatic malalignment. Unchanged mild retrolisthesis of C5 on C6. Degenerative changes with associated central canal narrowing again greatest at C5-C6. No soft tissue sequela of trauma. Unremarkable thyroid and lung apices. IMPRESSION: CT head: 1. No acute intracranial abnormality by CT. No significant change from the 03/02/[address] cervical spine: 1. No acute fracture or traumatic malalignment. 2. Scattered degenerative changes which have not progressed and are again greatest at C5-C6. Electronically signed by: GUNNER [place]KE MD (04/02/2020 12:37 AM) [facility] Course & Med Decision Making: Course & Med Decision Making Pertinent Labs and Imaging studies reviewed. (See chart for details) [] Naya Disclaimer: Naya Disclaimer: This electronic medical record was generated, in whole or in part, using a voice recognition dictation system. Departure Departure Impression: Primary Impression: Alcohol abuse Disposition: 09 ADMITTED INPT THIS HOSP Admitting Physician: DAPHNEY Wilkins) Condition: STABLE Referrals: NO PCP (PCP) MIGNON SNOW DO Apr 01, 2020 23:23
[2020-04-01 23:44] LABS: BILIRUBIN,URINE NEGATIVE (NEG); CLARITY,URINE CLEAR; COLOR,URINE YELLOW; NITRITE,URINE NEGATIVE (NEG); PROTEIN,URINE NEGATIVE (NEG-TRACE); UROBILINOGEN,URINE 0.2 mg/dL (0.2 mg/dL)
[2020-04-01] MEDS ORDERED: IV NORMAL SALINE 1000ML BAG 1,000 ML IV ONE (23:45)
[2020-04-01 23:51] LABS: BARBITURATES NEG (NEG); BENZODIAZEPINES NEG (NEG); CANNABINOIDS NEG (NEG); COCAINE NEG (NEG); METHADONE NEG (NEG); OPIATES NEG (NEG); PHENCYCLIDINE NEG (NEG)
[2020-04-01 23:52] LABS: AMPHETAMINE/METHAMPHETAMINE NEG (NEG)
[2020-04-01] MEDS ORDERED: PRENATAL MULTIVITAMIN TABLET. PO ONE (23:55)
[2020-04-01] MEDS ORDERED: THIAMINE INJ 100 MG in IV DEXTROSE 5% 50 ML IV ONE (23:55)
[2020-04-01 23:57] LABS: BACTERIA,URINE 0 /HPF (0-FEW); RBC,URINE 0 /HPF (0-2); WBC,URINE 0 /HPF (0-4)
--- NOTE | 2020-04-02 00:40 | RAD ---
STUDY: CT head and cervical spine without contrast INDICATION: Fall. COMPARISON: 03/02/2020 TECHNIQUE: Axial CT imaging through the head and cervical spine without the use of intravenous contra st. Sagittal and coronal reformats were obtained. One or more of the following individualized dose reduction techniques were utilized for this examinat ion: 1. Automated exposure control 2. Adjustment of the mA and/or kV according to patient size 3. Use of iterative reconstruction technique. FINDINGS: CT head: No acute intracranial hemorrhage. No localized mass effect, midline shift or hydrocephalus. Saunders-whit e matter differentiation is maintained. Redemonstrated white matter findings which could indicate chr onic microvascular ischemic change. Parenchymal volume loss. Small right frontal scalp lipoma. No depressed calvarial fracture. CT cervical spine: No acute fracture or traumatic malalignment. Unchanged mild retrolisthesis of C5 on C6. Degenerative changes with associated central canal narrowi ng again greatest at C5-C6. No soft tissue sequela of trauma. Unremarkable thyroid and lung apices. IMPRESSION: CT head: 1. No acute intracranial abnormality by CT. No significant change from the 03/02/[address] cervical spine: 1. No acute fracture or traumatic malalignment. 2. Scattered degenerative changes which have not progressed and are again greatest at C5-C6. Electronically signed by: GUNNER LAKE MD (04/02/2020 12:37 AM) [facility] [place]
[2020-04-02 00:44] LABS: BASO # 0.1 x10^3/uL (0.0-0.2); BASO % 1 % (0-3); EOS % 1 % (0-3); HEMATOCRIT 41.5 % (39.0-53.0); HEMOGLOBIN 13.7 g/dL (13.0-17.5); LYMPH # 2.3 x10^3/uL (1.0-4.8); LYMPH % 47 % (24-48); MEAN CORPUSCULAR HEMOGLOBIN 30 pg (25-35); MEAN CORPUSCULAR HGB CONC 33 g/dL (31-37); MEAN CORPUSCULAR VOLUME 90 fL (79-100); MONO # 0.5 x10^3/uL (0.0-1.1); MONO % 9 % (0-9); NEUT % 42 % (31-73); PLATELET COUNT 153 x10^3/uL (140-400); RED BLOOD COUNT 4.62 x10^6/uL (4.30-5.70); RED CELL DISTRIBUTION WIDTH 15.1 % (11.5-14.5); WHITE BLOOD COUNT 4.9 x10^3/uL (4.0-11.0)
[2020-04-02 00:53] LABS: CALCIUM 8.1 mg/dL (8.5-10.1); CREATININE 0.8 mg/dL (0.7-1.3); GFR 118.1; POTASSIUM 3.5 mmol/L (3.5-5.1)
[2020-04-02 00:58] LABS: ALBUMIN 3.1 g/dL (3.4-5.0); ALBUMIN/GLOBULIN RATIO 0.6 (1.0-1.7); MAGNESIUM 1.9 mg/dL (1.8-2.4); TOTAL BILIRUBIN 0.5 mg/dL (0.2-1.0); TOTAL PROTEIN 8.1 g/dL (6.4-8.2)
[2020-04-02] MEDS ORDERED: ONDANSETRON PF 4 MG/2 ML VIAL. IV PRN (02:00)
[2020-04-02 03:00] VITALS: BP 150/85
[2020-04-02 07:00] VITALS: BP 134/62
[2020-04-02] MEDS ORDERED: HALOPERIDOL LACTATE 5 MG/ML VIAL. IVP PRN (09:15)
[2020-04-02] MEDS ORDERED: ACETAMINOPHEN 325 MG TABLET. PO PRN (09:15)
--- NOTE | 2020-04-02 09:35 | PDOC1 ---
History and Physical Date of Admission Date of Admission DATE: 04/02/20 TIME: 09:17 Identification/Chief Complaint Chief Complaint Fall, intoxication Source Source: Chart review, Patient History of Present Illness History of Present Illness Mr Hoover is a 64-year-old male with past medical history of alcohol abuse, depression, HTN, smoker, cocaine abuse who presented to the ER for evaluation due to concern for possible fall. Brought to ED via EMS for fall secondary to acute alcohol intoxication that began about an hour prior to ED presentation. Told ED staff he was near [employer] when he fell, tripped, and landed on his chest and did not strike his head, but he lost consciousness and awoke to ask a [employer] employee to call EMS. He drank his usual daily 2 beers and vodka, but could not quantify it. He was unsteady in ED and there was concern for alcohol withdrawal delirium tremens in patient with altered mental status and history of alcohol abuse as well as prior seizures. He was hypertensive and reportedly tremulous in the ED. He was treated with Ativan, thiamine, folic acid, and multivitamin. CT head with no acute abnormalities. Labs with WBC 4.9, Hb 13.7, platelets 157, NA 141, K3.5, BUN 5, CR 0.8, glucose 105, magnesium 1.9, AST 70, ALT 83, albumin 3.1, ethanol level 232 at 0030. Admitted for further treatment Past Medical History Cardiovascular: HTN Pulmonary: No pertinent hx CENTRAL NERVOUS SYSTEM: Seizure GI: GERD Heme/Onc: No pertinent hx Hepatobiliary: Cirrhosis Psych: Addictions, Depression Musculoskeletal: Osteoarthritis Rheumatologic: No pertinent hx Infectious disease: No pertinent hx Endocrine: Diabetes Past Surgical History Past Surgical History: Other Family History Family History: Hypertension Social History Smoke: 1 pack per day ALCOHOL: heavy Drugs: Cocaine, Marijuana, Heroin Current Problem List Problem List Problems Medical Problems: (1) Alcohol abuse Status: Acute Current Medications Current Medications Current Medications Sodium Chloride 1,000 ml @ 1,000 mls/hr 1X ONCE IV Last administered on 04/02/20at 00:44; Start 04/01/20 at 23:45; Stop 04/02/20 at 00:44; Status DC Thiamine HCl 100 mg/Dextrose 51 ml @ 102 mls/hr ONCE ONCE IV Last administered on 04/02/20at 00:44; Start 04/01/20 at 23:55; Stop 04/02/20 at 00:24; Status DC Multivit/ Folic Acid/Iron (Multivitamin ) 1 tab 1X ONCE PO Last administered on 04/02/20at 00:43; Start 04/01/20 at 23:55; Stop 04/01/20 at 23:56; Status DC Ondansetron HCl (Zofran) 4 mg PRN Q8HRS PRN IV NAUSEA/VOMITING; Start 04/02/20 at 02:00; Stop 04/04/20 at 01:59 Lorazepam (Ativan Inj) 1 mg PRN Q1HR PRN IV For CIWA 8-14; Start 04/02/20 at 02:00 Lorazepam (Ativan Inj) 2 mg PRN Q1HR PRN IV For CIWA 15 or greater; Start 04/02 at 02:00 Lorazepam (Ativan) 1 mg PRN Q1HR PRN PO For CIWA 8-14; Start 04/02/20 at 09:15; Status UNV Lorazepam (Ativan) 2 mg PRN Q1HR PRN PO For CIWA 15 or greater; Start 04/02/20 at 09:15; Status UNV Haloperidol Lactate (Haldol Inj) 5 mg PRN Q4HRS PRN IVP Hallucinatns,Confusn,Delirium; Start 04/02/20 at 09:15; Status UNV Clonidine HCl (Catapres) 0.1 mg PRN Q1HR PRN PO SBP > 180 or DBP > 100, MRX3; Start 04/02/20 at 09:15; Status UNV Enoxaparin Sodium (Lovenox 40mg Syringe) 40 mg Q24H SQ ; Start 04/02/20 at 09:15; Status UNV Acetaminophen (Tylenol) 650 mg PRN Q6HRS PRN PO MILD PAIN / TEMP > 100.3'F; Start 04/02/20 at 09:15; Status UNV Active Scripts Active Vitamin B-1 (Thiamine Mononitrate) 100 Mg Tablet 100 Mg PO DAILY 30 Days [Folic Acid] 1 MG Tablet 1 Mg PO DAILY 30 Days Lisinopril 10 Mg Tablet 1 Tab PO DAILY Fluoxetine Hcl 10 Mg Capsule 10 Mg PO DAILY 30 Days Protonix Packet (Pantoprazole Sodium) 40 Mg Granpkt.dr 40 Mg PO DAILY 30 Days Norvasc (Amlodipine Besylate) 10 Mg Tablet 10 Mg PO DAILY 30 Days Keppra (Levetiracetam) 500 Mg Tablet 500 Mg PO BID 30 Days Allergies Allergies: Coded Allergies: No Known Drug Allergies (Unverified , 08/08/14) ROS Review of System Very confused, not able to accurately obtain due to intoxication General: YES: Fatigue, Malaise; No: Chills, Night Sweats, Appetite, Other PSYCHOLOGICAL ROS: No: Anxiety, Behavioral Disorder, Concentration difficultie, Decreased libido, Depression, Disorientation, Hallucinations, Hostility, Irritablity, Memory difficulties, Mood Swings, Obsessive thoughts, Physical abuse, Sexual abuse, Sleep disturbances, Suicidal ideation, Other Eyes: No Blurry vision, No Decreased vision, No Double vision, No Dry eyes, No Excessive tearing, No Eye Pain, No Itchy Eyes, No Loss of vision, No Photophobia, No Scotomata, No Uses contacts, No Uses glasses, No Other HEENT: No: Heacaches, Visual Changes, Hearing change, Nasal congestion, Nasal discharge, Oral lesions, Sinus pain, Sore Throat, Epistaxis, Sneezing, Snoring, Tinnitus, Vertigo, Vocal changes, Other ALLERGY AND IMMUNOLOGY: No: Hives, Insect Bite Sensitivity, Itchy/Watery Eyes, Nasal Congestion, Post Nasal Drip, Seasonal Allergies, Other Hematological and Lymphatic: No: Bleeding Problems, Blood Clots, Blood Transfusions, Brusing, Night Sweats, Pallor, Swollen Lymph Nodes, Other ENDOCRINE: No: Breast Changes, Galactorrhea, Hair Pattern Changes, Hot Flashes, Malaise/lethargy, Mood Swings, Palpitations, Polydipsia/polyuria, Skin Changes, Temperature Intolerance, Unexpected Weight Changes, Other Breast: No New/Changing Breast Lumps, No Nipple changes, No Nipple discharge, No Other Respiratory: No: Cough, Hemoptysis, Orthopnea, Pleuritic Pain, Shortness of breath, SOB with excertion, Sputum Changes, Stridor, Tachypnea, Wheezing, Other Cardiovascular: No Chest Pain, No Palpitations, No Orthopnea, No Paroxysmal Noc. Dyspnea, No Edema, No Lt Headedness, No Other Gastrointestinal: Yes Nausea; No Vomiting, No Abdominal Pain, No Diarrhea, No Constipation, No Melena, No Hematochezia, No Other Genitourinary: No Dysuria, No Frequency, No Incontinence, No Hematuria, No Retention, No Discharge, No Urgency, No Pain, No Flank Pain, No Other, No , No , No , No , No , No , No Musculoskeletal: Yes Gait Disturbance; No Joint Pain, No Joint Stiffness, No Joint Swelling, No Muscle Pain, No Muscular Weakness, No Pain In:, No Swelling In:, No Other Neurological: Yes Confusion, Yes Dizziness, Yes Gait Disturbance, Yes Memory Loss, Yes Tremors, Yes Weakness; No Behavorial Changes, No Bowel/Bladder ControlChng, No Headaches, No Impaired Coord/balance, No Numbness/Tingling, No Seizures, No Speech Problems, No Visual Changes, No Other Skin: No Dry Skin, No Eczema, No Hair Changes, No Lumps, No Mole Changes, No Mottling, No Nail Changes, No Pruritus, No Rash, No Skin Lesion Changes, No Other, No Acne Physical Exam General: Alert, Cooperative, No acute distress HEENT: Atraumatic, PERRLA, EOMI, Mucous membr. moist/pink Lungs: Clear to auscultation, Normal air movement Heart: S1S2, RRR, no thrills, no rubs, no gallops, no murmurs Abdomen: Normal bowel sounds, Soft, No tenderness, No hepatosplenomegaly, No masses Extremities: No clubbing, No cyanosis, No edema, Normal pulses, No tenderness/swelling Skin: No rashes, No breakdown, No significant lesion Neuro: Normal speech, Strength at 5/5 X4 ext, Normal tone, Sensation intact, Cranial nerves 3-12 NL, Reflexes 2+ Psych/Mental Status: Other (Confused) Vitals Vitals Vital Signs Date Time Temp Pulse Resp B/P (MAP) Pulse Ox O2 Delivery O2 Flow Rate FiO2 04/02/20 07:00 98.8 88 16 134/62 (86) 97 Room Air 98.8 Labs Labs Laboratory Tests Test 04/01/20 23:05 04/02/20 00:30 04/02/20 02:25 Urine Collection Type Unknown Urine Color Yellow Urine Clarity Clear Urine pH 6.0 (<5.0-8.0) Urine Specific [place] <=1.005 (1.000-1.030) Urine Protein Negative mg/dL (NEG-TRACE) Urine Glucose (UA) Negative mg/dL (NEG) Urine Ketones (Stick) Negative mg/dL (NEG) Urine Blood Negative (NEG) Urine Nitrite Negative (NEG) Urine Bilirubin Negative (NEG) Urine Urobilinogen Dipstick 0.2 mg/dL (0.2 mg/dL) Urine Leukocyte Esterase Negative (NEG) Urine RBC 0 /HPF (0-2) Urine WBC 0 /HPF (0-4) Urine Squamous Epithelial Cells Occ /LPF Urine Bacteria 0 /HPF (0-FEW) Urine Opiates Screen Neg (NEG) Urine Methadone Screen Neg (NEG) Urine Barbiturates Neg (NEG) Urine Phencyclidine Screen Neg (NEG) Urine Amphetamine/Methamphetamine Neg (NEG) Urine Benzodiazepines Screen Neg (NEG) Urine Cocaine Screen Neg (NEG) Urine Cannabinoids Screen Neg (NEG) Urine Ethyl Alcohol Pos (NEG) White Blood Count 4.9 x10^3/uL (4.0-11.0) Red Blood Count 4.62 x10^6/uL (4.30-5.70) Hemoglobin 13.7 g/dL (13.0-17.5) Hematocrit 41.5 % (39.0-53.0) Mean Corpuscular Volume 90 fL (79-100) Mean Corpuscular Hemoglobin 30 pg (25-35) Mean Corpuscular Hemoglobin Concent 33 g/dL (31-37) Red Cell Distribution Width 15.1 % (11.5-14.5) Platelet Count 153 x10^3/uL (140-400) Neutrophils (%) (Auto) 42 % (31-73) Lymphocytes (%) (Auto) 47 % (24-48) Monocytes (%) (Auto) 9 % (0-9) Eosinophils (%) (Auto) 1 % (0-3) Basophils (%) (Auto) 1 % (0-3) Neutrophils # (Auto) 2.0 x10^3/uL (1.8-7.7) Lymphocytes # (Auto) 2.3 x10^3/uL (1.0-4.8) Monocytes # (Auto) 0.5 x10^3/uL (0.0-1.1) Eosinophils # (Auto) 0.0 x10^3/uL (0.0-0.7) Basophils # (Auto) 0.1 x10^3/uL (0.0-0.2) Sodium Level 141 mmol/L (136-145) Potassium Level 3.5 mmol/L (3.5-5.1) Chloride Level 106 mmol/L (98-107) Carbon Dioxide Level 21 mmol/L (21-32) Anion Gap 14 (6-14) Blood Urea Nitrogen 5 mg/dL (8-26) Creatinine 0.8 mg/dL (0.7-1.3) Estimated GFR (Cockcroft-Gault) 118.1 BUN/Creatinine Ratio 6 (6-20) Glucose Level 105 mg/dL (70-99) Calcium Level 8.1 mg/dL (8.5-10.1) Magnesium Level 1.9 mg/dL (1.8-2.4) Total Bilirubin 0.5 mg/dL (0.2-1.0) Aspartate Amino Transf (AST/SGOT) 70 U/L (15-37) Alanine Aminotransferase (ALT/SGPT) 83 U/L (16-63) Alkaline Phosphatase 106 U/L (46-116) Total Protein 8.1 g/dL (6.4-8.2) Albumin 3.1 g/dL (3.4-5.0) Albumin/Globulin Ratio 0.6 (1.0-1.7) Ethyl Alcohol Level 232 mg/dL (0-10) SARS-CoV-2 Antigen (Rapid) Negative (NEGATIVE) Laboratory Tests Test 04/01/20 23:05 04/02/20 00:30 04/02/20 02:25 Urine Collection Type Unknown Urine Color Yellow Urine Clarity Clear Urine pH 6.0 (<5.0-8.0) Urine Specific [place] <=1.005 (1.000-1.030) Urine Protein Negative mg/dL (NEG-TRACE) Urine Glucose (UA) Negative mg/dL (NEG) Urine Ketones (Stick) Negative mg/dL (NEG) Urine Blood Negative (NEG) Urine Nitrite Negative (NEG) Urine Bilirubin Negative (NEG) Urine Urobilinogen Dipstick 0.2 mg/dL (0.2 mg/dL) Urine Leukocyte Esterase Negative (NEG) Urine RBC 0 /HPF (0-2) Urine WBC 0 /HPF (0-4) Urine Squamous Epithelial Cells Occ /LPF Urine Bacteria 0 /HPF (0-FEW) Urine Opiates Screen Neg (NEG) Urine Methadone Screen Neg (NEG) Urine Barbiturates Neg (NEG) Urine Phencyclidine Screen Neg (NEG) Urine Amphetamine/Methamphetamine Neg (NEG) Urine Benzodiazepines Screen Neg (NEG) Urine Cocaine Screen Neg (NEG) Urine Cannabinoids Screen Neg (NEG) Urine Ethyl Alcohol Pos (NEG) White Blood Count 4.9 x10^3/uL (4.0-11.0) Red Blood Count 4.62 x10^6/uL (4.30-5.70) Hemoglobin 13.7 g/dL (13.0-17.5) Hematocrit 41.5 % (39.0-53.0) Mean Corpuscular Volume 90 fL (79-100) Mean Corpuscular Hemoglobin 30 pg (25-35) Mean Corpuscular Hemoglobin Concent 33 g/dL (31-37) Red Cell Distribution Width 15.1 % (11.5-14.5) Platelet Count 153 x10^3/uL (140-400) Neutrophils (%) (Auto) 42 % (31-73) Lymphocytes (%) (Auto) 47 % (24-48) Monocytes (%) (Auto) 9 % (0-9) Eosinophils (%) (Auto) 1 % (0-3) Basophils (%) (Auto) 1 % (0-3) Neutrophils # (Auto) 2.0 x10^3/uL (1.8-7.7) Lymphocytes # (Auto) 2.3 x10^3/uL (1.0-4.8) Monocytes # (Auto) 0.5 x10^3/uL (0.0-1.1) Eosinophils # (Auto) 0.0 x10^3/uL (0.0-0.7) Basophils # (Auto) 0.1 x10^3/uL (0.0-0.2) Sodium Level 141 mmol/L (136-145) Potassium Level 3.5 mmol/L (3.5-5.1) Chloride Level 106 mmol/L (98-107) Carbon Dioxide Level 21 mmol/L (21-32) Anion Gap 14 (6-14) Blood Urea Nitrogen 5 mg/dL (8-26) Creatinine 0.8 mg/dL (0.7-1.3) Estimated GFR (Cockcroft-Gault) 118.1 BUN/Creatinine Ratio 6 (6-20) Glucose Level 105 mg/dL (70-99) Calcium Level 8.1 mg/dL (8.5-10.1) Magnesium Level 1.9 mg/dL (1.8-2.4) Total Bilirubin 0.5 mg/dL (0.2-1.0) Aspartate Amino Transf (AST/SGOT) 70 U/L (15-37) Alanine Aminotransferase (ALT/SGPT) 83 U/L (16-63) Alkaline Phosphatase 106 U/L (46-116) Total Protein 8.1 g/dL (6.4-8.2) Albumin 3.1 g/dL (3.4-5.0) Albumin/Globulin Ratio 0.6 (1.0-1.7) Ethyl Alcohol Level 232 mg/dL (0-10) SARS-CoV-2 Antigen (Rapid) Negative (NEGATIVE) Images Images CT head and neck: CT head: No acute intracranial hemorrhage. No localized mass effect, midline shift or hydrocephalus. Saunders-white matter differentiation is maintained. Redemonstrated white matter findings which could indicate chronic microvascular ischemic change. Parenchymal volume loss. Small right frontal scalp lipoma. No depressed calvarial fracture. CT cervical spine: No acute fracture or traumatic malalignment. Unchanged mild retrolisthesis of C5 on C6. Degenerative changes with associated central canal narrowing again greatest at C5-C6. No soft tissue sequela of trauma. Unremarkable thyroid and lung apices. IMPRESSION: CT head: 1. No acute intracranial abnormality by CT. No significant change from the 03/02/[address] cervical spine: 1. No acute fracture or traumatic malalignment. 2. Scattered degenerative changes which have not progressed and are again greatest at C5-C6. VTE Prophylaxis Ordered VTE Prophylaxis Devices: No VTE Pharmacological Prophylaxi: Yes Assessment/Plan Assessment/Plan A/P: Severe alcohol withdrawal Acute encephalopathy Alcohol use disorder Fall - negative CT head. Likely due to gait instability from acute ETOH intoxication HX COCAINE ABUSE OBESITY HX DEPRESSION HX ALCOHOL RELATED SEIZURES Hypertension HYPOKALEMIA - replace Hepatitic steatosis THC ABUSE HC FEN - general diet PPX - lovenox FULL CODE Dispo - inpatient Justifications for Admission Other Justification AUSTIN GILBERT MD Apr 02, 2020 09:35
[2020-04-02] MEDS: FLUoxetine HCL 10 MG CAPSULE PO SCH (10:11)
[2020-04-02] MEDS: levETIRAcetam 500 MG TABLET PO SCH ×2 (10:11→20:44)
[2020-04-02] MEDS: ENOXAPARIN 40 MG/0.4 ML SYRINGE. SQ SCH (10:12)
[2020-04-02] MEDS: THIAMINE 100 MG TABLET. PO SCH (10:12)
[2020-04-02] MEDS: LISINOPRIL 10 MG TABLET PO SCH (10:12)
[2020-04-02] MEDS: PANTOPRAZOLE 40 MG TABLET.DR. PO SCH (10:12)
[2020-04-02 11:00] VITALS: BP 178/87
[2020-04-02 15:00] VITALS: BP 170/94
[2020-04-02 19:00] VITALS: BP 196/89
[2020-04-02 23:00] VITALS: BP 190/110
[2020-04-03] MEDS: cloNIDine HCL 0.1 MG TABLET PO PRN ×2 (00:28→08:35)
--- NOTE | 2020-04-03 00:32 | NUR ---
MED ADMINISTRATION NOTE: 1mg PO Ativan given with 0.1mg PO Clonidine per instructions on Clonidine order. See eMAR for additional details.
[2020-04-03 03:00] VITALS: BP 176/88
[2020-04-03 07:00] VITALS: BP 193/84
[2020-04-03 08:00] LABS: ALBUMIN 2.5 g/dL (3.4-5.0); ALBUMIN/GLOBULIN RATIO 0.6 (1.0-1.7); CALCIUM 8.1 mg/dL (8.5-10.1); CREATININE 0.9 mg/dL (0.7-1.3); GFR 103.1; POTASSIUM 3.7 mmol/L (3.5-5.1); TOTAL BILIRUBIN 0.8 mg/dL (0.2-1.0); TOTAL PROTEIN 6.9 g/dL (6.4-8.2)
[2020-04-03] MEDS: levETIRAcetam 500 MG TABLET PO SCH (08:35)
[2020-04-03] MEDS: LISINOPRIL 10 MG TABLET PO SCH (08:35)
[2020-04-03] MEDS: FLUoxetine HCL 10 MG CAPSULE PO SCH (08:35)
[2020-04-03] MEDS: THIAMINE 100 MG TABLET. PO SCH (08:35)
[2020-04-03] MEDS: ENOXAPARIN 40 MG/0.4 ML SYRINGE. SQ SCH (08:36)
[2020-04-03] MEDS: PANTOPRAZOLE 40 MG TABLET.DR. PO SCH (08:36)
[2020-04-03] MEDS ORDERED: FOLIC ACID 1 MG TABLET. PO SCH (09:00)
[2020-04-03 11:00] VITALS: BP 132/90
--- NOTE | 2020-04-03 11:36 | PDOC ---
[employer] PROGRESS NOTE Date of Service DOS: DATE: 04/03/20 TIME: 11:34 Chief Complaint Chief Complaint Fall/intoxication History of Present Illness History of Present Illness 04/03/2020 Patient seen and examined Discussed d/c later today Head and neck CT came back clean DWRN and SW Chart reviewed Vitals/I&O Vitals/I&O: Vital Signs Date Time Temp Pulse Resp B/P (MAP) Pulse Ox O2 Delivery O2 Flow Rate FiO2 04/03/20 11:00 98.7 72 18 132/90 (104) 98 Room Air 98.7 I & O 04/02/20 04/02/20 04/03/20 15:00 23:00 07:00 Output Total 100 ml 800 ml Balance -100 ml -800 ml Physical Exam General: Alert, Cooperative, No acute distress Lungs: Clear Abdomen: Normal bowel sounds, Soft, No tenderness, No hepatosplenomegaly, No masses Extremities: No clubbing, No cyanosis, No edema, Normal pulses, No tenderness/swelling Skin: No rashes, No breakdown, No significant lesion Labs Labs: Laboratory Tests Test 04/03/20 06:48 Sodium Level 140 mmol/L (136-145) Potassium Level 3.7 mmol/L (3.5-5.1) Chloride Level 106 mmol/L (98-107) Carbon Dioxide Level 26 mmol/L (21-32) Anion Gap 8 (6-14) Blood Urea Nitrogen 5 mg/dL (8-26) Creatinine 0.9 mg/dL (0.7-1.3) Estimated GFR (Cockcroft-Gault) 103.1 BUN/Creatinine Ratio 6 (6-20) Glucose Level 86 mg/dL (70-99) Calcium Level 8.1 mg/dL (8.5-10.1) Total Bilirubin 0.8 mg/dL (0.2-1.0) Aspartate Amino Transf (AST/SGOT) 47 U/L (15-37) Alanine Aminotransferase (ALT/SGPT) 56 U/L (16-63) Alkaline Phosphatase 97 U/L (46-116) Total Protein 6.9 g/dL (6.4-8.2) Albumin 2.5 g/dL (3.4-5.0) Albumin/Globulin Ratio 0.6 (1.0-1.7) Review of Systems Review of Systems: Juancarlos denies fever or headache Assessment and Plan Assessmemt and Plan Problems Medical Problems: (1) Alcohol abuse Status: Acute Severe alcohol withdrawal Acute encephalopathy Alcohol use disorder Fall - negative CT head. Likely due to gait instability from acute ETOH intoxication HX COCAINE ABUSE OBESITY HX DEPRESSION HX ALCOHOL RELATED SEIZURES Hypertension HYPOKALEMIA - replace Hepatitic steatosis THC ABUSE HC Plan: D/c home today FEN - general diet PPX - lovenox FULL CODE Cont home meds DVT prophylaxis Comment Review of Relevant I have reviewed the following items edward (where applicable) has been applied. Medications: Current Medications Medications (Trade) Dose Ordered Sig/Kay Route PRN Reason Start Time Stop Time Status Last Admin Dose Admin Folic Acid (Folic Acid) 1 mg DAILY PO 04/03/20 09:00 04/03/20 08:35 Justifications for Admission Other Justification DANILO JOHNSON III DO Apr 03, 2020 11:36
--- NOTE | 2020-04-03 12:13 | DS ---
DATE OF DISCHARGE: 04/03/2020 ADMISSION DIAGNOSIS: Alcohol withdrawal seizure. DISCHARGE DIAGNOSIS: Resolving alcohol withdrawal seizure. HOSPITAL COURSE: The patient is a pleasant middle-aged -[place] male who presented with alcohol withdrawal seizures. We gave him alcohol withdrawal protocol. This morning, I saw and examined him, he is doing well and wants to go home. We plan to discharge to home. DISPOSITION: Home. ACTIVITY: As tolerated. DIET: Low sodium. MEDICATIONS: Please see the MRAD. TOTAL TIME: 36 minutes. KAMRONL Nemo JOHNSON DO DR: LEONIDAS/alfonso JOB#: [id number] / [id number]
--- NOTE | 2020-04-03 12:29 | NUR ---
SW following for discharge planning. Spoke with RN and reviewed chart. Pt has a hx of alcohol abuse. SW consult per ETOH. Referral to [facility] with PAT. SW spoke with [facility] who stated pt was assessed over the weekend. Pt had a call at 10:30am today, 04/03 with Alma BECKETT to get connected to out-patient substance abuse treatment. Pt to discharge home today, self-care. No further SW needs at this time.
--- NOTE | 2020-04-03 13:48 | NUR ---
pt discharged home. pt did not want a cab pass and wanted to take the bus. pt escorted to main entrance in a wheel chair to wait for the next bus. meds and follow up reviewed. IV removed but MARLENY Valentine.
== END 2020-04-03 13:58 | disposition home or self-care (01) | DRG 101 ==
LOC: ER 22:18 → 5 NORTH 04-02 02:02
PROVIDERS: ADMIT Family Medicine; ATTEND Family Medicine
DX: R56.9 Unspecified convulsions (principal); F10.239 Alcohol dependence with withdrawal, unspecified; G93.40 Encephalopathy, unspecified; F10.229 Alcohol dependence with intoxication, unspecified; R26.89 Other abnormalities of gait and mobility; E66.9 Obesity, unspecified; F14.10 Cocaine abuse, uncomplicated; I10 Essential (primary) hypertension; E87.6 Hypokalemia; F12.10 Cannabis abuse, uncomplicated; E11.9 Type 2 diabetes mellitus without complications; F17.210 Nicotine dependence, cigarettes, uncomplicated; K74.60 Unspecified cirrhosis of liver; F32.9 Major depressive disorder, single episode, unspecified; K21.9 Gastro-esophageal reflux disease without esophagitis; M19.90 Unspecified osteoarthritis, unspecified site; Z20.822 Contact with and (suspected) exposure to COVID-19; K76.0 Fatty (change of) liver, not elsewhere classified; Z68.33 Body mass index [BMI] 33.0-33.9, adult; Z82.49 Family history of ischemic heart disease and other diseases of the circulatory system
CPT/HCPCS: 36415; 70450; 72125; 80053; 80307; 81001; 83735; 85025; 87426; G0480; J1650; J3411; J7030; J7060; U0003; 99285-25; G0378

== ENCOUNTER 2020-05-31 06:19 | Emergency (ER) | payer MEDICARE, OTHER ==
[~2020-05-31] VITALS: Ht 167.6 cm; Wt 81.8 kg
[2020-05-31] MEDS ORDERED: cloNIDine HCL 0.1 MG TABLET PO ONE (07:00)
[2020-05-31 07:03] LABS: BASO % 1 % (0-3); EOS % 0 % (0-3); HEMATOCRIT 42.1 % (39.0-53.0); HEMOGLOBIN 14.2 g/dL (13.0-17.5); LYMPH % 31 % (24-48); MEAN CORPUSCULAR HEMOGLOBIN 29 pg (25-35); MEAN CORPUSCULAR HGB CONC 34 g/dL (31-37); MEAN CORPUSCULAR VOLUME 85 fL (79-100); MONO # 0.5 x10^3/uL (0.0-1.1); MONO % 17 % (0-9); NEUT # 1.6 x10^3/uL (1.8-7.7); NEUT % 51 % (31-73); PLATELET COUNT 113 x10^3/uL (140-400); RED BLOOD COUNT 4.95 x10^6/uL (4.30-5.70); RED CELL DISTRIBUTION WIDTH 19.1 % (11.5-14.5); WHITE BLOOD COUNT 3.2 x10^3/uL (4.0-11.0)
[2020-05-31 07:17] LABS: BILIRUBIN,URINE SMALL (NEG); CLARITY,URINE CLEAR; COLOR,URINE AMBER; NITRITE,URINE NEGATIVE (NEG); PROTEIN,URINE 100 mg/dL (NEG-TRACE)
[2020-05-31 07:18] LABS: CALCIUM 8.8 mg/dL (8.5-10.1); CREATININE 0.9 mg/dL (0.7-1.3); GFR 103.1; POTASSIUM 3.8 mmol/L (3.5-5.1)
--- NOTE | 2020-05-31 07:21 | RAD ---
CT HEAD/BRAIN WO Date: 05/31/2020 6:55 AM Clinical Indication: HEADACHE, HEAD INJURY 1 MONTH AGO, CONTINUE TO HAVE HEADACHE Comparison: 04/01/2020. Technique: 5 mm axial tomographic images were obtained of the head without contrast. These were view ed on brain and bone windows. One or more of the following dose reduction techniques were utilized: A utomated exposure control (AEC), Adjustment of mA and/or kV according to patient size, Use of iterati ve reconstruction technique such as ASiR, CT scan done according to ALARA and image gently/image sanchez ly Findings: Mild generalized cerebral and cerebellar volume loss. Mild nonspecific periventricular hypoattenuatio n, most commonly seen with chronic small vessel ischemic disease. Calcified atherosclerosis of the bi lateral cavernous and paraclinoid internal carotid arteries and intracranial vertebral arteries. No intra- or extra-axial mass or fluid collection. No acute hemorrhage. The ventricles are normal in size, shape, and morphology. The hansen-white matter junction is normal. The subarachnoid cisterns are patent. The visualized paranasal sinuses are normal. The visualized portions of the orbits and globes are no rmal. The mastoid air cells are clear. The appliance mechanic topogram shows no lytic lesion or fracture. Right supraorbital scalp swelling. Additional r ight frontal scalp lipoma. Impression: No acute intracranial process. Mild cerebral volume loss. Mild chronic small vessel ischemic disease. Electronically signed by: Prasad Dan MD (05/31/2020 7:19 AM) [id number]
[2020-05-31 07:25] LABS: BARBITURATES NEG (NEG); BENZODIAZEPINES NEG (NEG); CANNABINOIDS POS (NEG); COCAINE POS (NEG); METHADONE NEG (NEG); OPIATES NEG (NEG); PHENCYCLIDINE NEG (NEG)
[2020-05-31 07:26] LABS: AMPHETAMINE/METHAMPHETAMINE NEG (NEG)
[2020-05-31 07:28] LABS: ALBUMIN 3.7 g/dL (3.4-5.0); ALBUMIN/GLOBULIN RATIO 0.7 (1.0-1.7); MAGNESIUM 1.8 mg/dL (1.8-2.4); TOTAL BILIRUBIN 1.3 mg/dL (0.2-1.0); TOTAL PROTEIN 8.8 g/dL (6.4-8.2)
[2020-05-31 07:30] LABS: BACTERIA,URINE 0 /HPF (0-FEW); RBC,URINE RARE /HPF (0-2); WBC,URINE RARE /HPF (0-4)
--- NOTE | 2020-05-31 07:30 | PHYS DOC ---
Past Medical History Past Medical History: Alcoholism, Hypertension, Seizure Additional Past Medical Histor: ALCOHOL ABUSE. etoh sz Past Surgical History: Other Additional Past Surgical Histo: pt reports right ankle has pins put in 1994, AND HERNIA REPAIR Smoking Status: Current Every Day Smoker Alcohol Use: Heavy Drug Use: Cocaine, Marijuana General Adult EDM: Chief Complaint: HEAD INJURY/TRAUMA HPI: HPI: Patient is a 64 year old male who presented to ER due to headache. Patient said he fell and hit his head a month ago, had a laceration to the right side forehead. Patient was evaluated at another hospital a month ago, the laceration was repaired. Patient said now he had a knot on the forehead area that he wonders what it is. It has been there for a month now. Patient admitted drinking alcohol and using cocaine last night. Patient said he has history of high blood pressure and he did not take his medication this morning. Patient de nies any chest pain, no abdominal pain, no nausea vomiting. Patient denies any cough or fever. Patient denies any neck pain, no blurry vision. Patient denies any numbness or weakness anywhere. Review of Systems: Review of Systems: Constitutional: Denies fever or chills. [] Eyes: Denies change in visual acuity. [] HENT: Denies nasal congestion or sore throat. [] Respiratory: Denies cough or shortness of breath. [] Cardiovascular: Denies chest pain or edema. [] GI: Denies abdominal pain, nausea, vomiting, bloody stools or diarrhea. [] : Denies dysuria. [] Musculoskeletal: Denies back pain or joint pain. [] Integument: Denies rash. [] Neurologic: Positive for headache, no focal weakness or numbness. Endocrine: Denies polyuria or polydipsia. [] Lymphatic: Denies swollen glands. [] Psychiatric: Denies depression or anxiety. [] Heart Score: C/O Chest Pain: N/A Risk Factors: Risk Factors: DM, Current or recent (<one month) smoker, HTN, HLP, family history of CAD, obesity. Risk Scores: Score 0 - 3: 2.5% MACE over next 6 weeks - Discharge Home Score 4 - 6: 20.3% MACE over next 6 weeks - Admit for Clinical Observation Score 7 - 10: 72.7% MACE over next 6 weeks - Early Invasive Strategies Current Medications: Current Medications Medications (Trade) Dose Ordered Sig/Kay Start Time Stop Time Status Last Admin Dose Admin Clonidine HCl (Catapres) 0.2 mg 1X ONCE 05/31/20 07:00 05/31/20 07:01 DC 05/31/20 07:15 0.2 MG Allergies: Allergies: Allergies Coded Allergies Type Severity Reaction Last Updated Verified No Known Drug Allergies 08/08/14 No Physical Exam: PE: Constitutional: Well developed, well nourished, no acute distress, non-toxic appearance. [] HENT: Normocephalic, a 2 cm by 2 cm knot on right forehead area, solid, rubbery, consistent with a lipoma, bilateral external ears normal, oropharynx moist, no oral exudates, nose normal. [] Eyes: PERRLA, EOMI, conjunctiva normal, no discharge. [] Neck: Normal range of motion, no tenderness, supple, no stridor. [] Cardiovascular:Heart rate regular rhythm, no murmur [] Lungs & Thorax: Bilateral breath sounds clear to auscultation [] Abdomen: Bowel sounds normal, soft, no tenderness, no masses, no pulsatile masses. [] Skin: Warm, dry, no erythema, no rash. [] Back: No tenderness, no CVA tenderness. [] Extremities: No tenderness, no cyanosis, no clubbing, ROM intact, no edema. [] Neurologic: Alert and oriented X 3, normal motor function, normal sensory function, no focal deficits noted. [] Psychologic: Affect normal, judgement normal, mood normal. [] Current Patient Data: Labs: Laboratory Tests Test 05/31/20 06:51 05/31/20 07:05 White Blood Count 3.2 x10^3/uL (4.0-11.0) L Red Blood Count 4.95 x10^6/uL (4.30-5.70) Hemoglobin 14.2 g/dL (13.0-17.5) Hematocrit 42.1 % (39.0-53.0) Mean Corpuscular Volume 85 fL (79-100) Mean Corpuscular Hemoglobin 29 pg (25-35) Mean Corpuscular Hemoglobin Concent 34 g/dL (31-37) Red Cell Distribution Width 19.1 % (11.5-14.5) H Platelet Count 113 x10^3/uL (140-400) L Neutrophils (%) (Auto) 51 % (31-73) Lymphocytes (%) (Auto) 31 % (24-48) Monocytes (%) (Auto) 17 % (0-9) H Eosinophils (%) (Auto) 0 % (0-3) Basophils (%) (Auto) 1 % (0-3) Neutrophils # (Auto) 1.6 x10^3/uL (1.8-7.7) L Lymphocytes # (Auto) 1.0 x10^3/uL (1.0-4.8) Monocytes # (Auto) 0.5 x10^3/uL (0.0-1.1) Eosinophils # (Auto) 0.0 x10^3/uL (0.0-0.7) Basophils # (Auto) 0.0 x10^3/uL (0.0-0.2) Sodium Level 141 mmol/L (136-145) Potassium Level 3.8 mmol/L (3.5-5.1) Chloride Level 104 mmol/L (98-107) Carbon Dioxide Level 28 mmol/L (21-32) Anion Gap 9 (6-14) Blood Urea Nitrogen 9 mg/dL (8-26) Creatinine 0.9 mg/dL (0.7-1.3) Estimated GFR (Cockcroft-Gault) 103.1 BUN/Creatinine Ratio 10 (6-20) Glucose Level 132 mg/dL (70-99) H Calcium Level 8.8 mg/dL (8.5-10.1) Magnesium Level 1.8 mg/dL (1.8-2.4) Total Bilirubin 1.3 mg/dL (0.2-1.0) H Aspartate Amino Transferase (AST) 155 U/L (15-37) H Alanine Aminotransferase (ALT) 106 U/L (16-63) H Alkaline Phosphatase 178 U/L (46-116) H Total Protein 8.8 g/dL (6.4-8.2) H Albumin 3.7 g/dL (3.4-5.0) Albumin/Globulin Ratio 0.7 (1.0-1.7) L Ethyl Alcohol Level < 10 mg/dL (0-10) Urine Opiates Screen Neg (NEG) Urine Methadone Screen Neg (NEG) Urine Barbiturates Neg (NEG) Urine Phencyclidine Screen Neg (NEG) Urine Amphetamine/Methamphetamine Neg (NEG) Urine Benzodiazepines Screen Neg (NEG) Urine Cocaine Screen Pos (NEG) Urine Cannabinoids Screen Pos (NEG) Urine Ethyl Alcohol Neg (NEG) Laboratory Tests 05/31/20 06:51 Laboratory Tests 05/31/20 06:51 Vital Signs: Vital Signs Date Time Temp Pulse Resp B/P (MAP) Pulse Ox O2 Delivery O2 Flow Rate FiO2 05/31/20 07:15 91 213/108 05/31/20 06:31 97.8 18 98 Room Air 97.8 EKG: EKG: EKG was done at 719, heart rate 91 beats per minutes, sinus rhythm, left axis deviation, no ST segment elevation when compared to old EKG. Radiology/Procedures: Radiology/Procedures: [][facility] [address] [place] [address] IMAGING REPORT Signed PATIENT: SHAKIR ROCKWELL ACCOUNT: [id number] : 1955 LOCATION: ER AGE: 64 SEX: M EXAM STATUS: REG ER ORD. PHYSICIAN: BREANNA FRANCO DO REASON: HEADACHE, HEAD INJURY 1 MONTH AGO, CONTINUE TO HAVE HEADACHE PROCEDURE: CT HEAD WO CONTRAST CT HEAD/BRAIN WO Date: 05/31/2020 6:55 AM Clinical Indication: HEADACHE, HEAD INJURY 1 MONTH AGO, CONTINUE TO HAVE HEADACHE Comparison: 04/01/2020. Technique: 5 mm axial tomographic images were obtained of the head without contrast. These were viewed on brain and bone windows. One or more of the following dose reduction techniques were utilized: Automated exposure control (AEC), Adjustment of mA and/or kV according to patient size, Use of iterative reconstruction technique such as ASiR, CT scan done according to ALARA and image gently/image wisely Findings: Mild generalized cerebral and cerebellar volume loss. Mild nonspecific periventricular hypoattenuation, most commonly seen with chronic small vessel ischemic disease. Calcified atherosclerosis of the bilateral cavernous and paraclinoid internal carotid arteries and intracranial vertebral arteries. No intra- or extra-axial mass or fluid collection. No acute hemorrhage. The ventricles are normal in size, shape, and morphology. The hansen-white matter junction is normal. The subarachnoid cisterns are patent. The visualized paranasal sinuses are normal. The visualized portions of the orbits and globes are normal. The mastoid air cells are clear. The exterminator helper termite topogram shows no lytic lesion or fracture. Right supraorbital scalp swelling. Additional right frontal scalp lipoma. Impression: No acute intracranial process. Mild cerebral volume loss. Mild chronic small vessel ischemic disease. Electronically signed by: Veronica Dan MD (05/31/2020 7:19 AM) [id number] DICTATED and SIGNED BY: VERONICA DAN MD DATE: 05/31/20 [id number] Course & Med Decision Making: Course & Med Decision Making Pertinent Labs and Imaging studies reviewed. (See chart for details) Patient is a 64-year-old male who presented to ER due to headache. Patient has history of substance abuse, he continues to abuse cocaine. Patient blood pressure was elevated. Patient did not take his blood pressure medication this morning. Patient said he had the blood pressure medication at home and he will take them when he got home. Patient denies any chest pain, no cough, no trouble breathing. CT scan his head today did not show any acute problem. Patient was discharged home in stable condition. [employer] Disclaimer: [employer] Disclaimer: This electronic medical record was generated, in whole or in part, using a voice recognition dictation system. Departure Departure Impression: Primary Impression: Hypertension Additional Impressions: Headache Substance abuse Disposition: 01 HOME / SELF CARE / HOMELESS Condition: STABLE Referrals: NO PCP (PCP) Please follow up with [facility] this week. [address], [address] [place] [address] Phone number: [phone] Patient Instructions: General Headache Without Cause, Hypertension, Substance Abuse-Brief Additional Instructions: Thank you for visiting our Emergency Department. We appreciate you trusting us with your care. If any additional problems come up don't hesitate to return to visit us. Please follow up with your primary care provider so they can plan additional care if needed and know about the problem that you had. If symptoms worsen come back to the Emergency Department. Any concerning symptoms that start such as chest pain, shortness of air, weakness or numbness on one side of the body, running high fevers or any other concerning symptoms return to the ER. BREANNA FRANCO DO May 31, 2020 07:30
[2020-05-31] MEDS ORDERED: amLODIPine BESYLATE 10 MG TABLET PO ONE (09:00)
[2020-05-31] MEDS ORDERED: LISINOPRIL 20 MG TABLET PO ONE (09:00)
[2020-05-31 10:52] VITALS: BP 179/106
--- NOTE | 2020-05-31 18:11 | EKG ---
[facility] [address] [place] [address] Test Date: 2020-05-31 Test Time: 07:17:22 Pat Name: SHAKIR ROCKWELL Department: Room: Gender: M Organizational Research Consultant: : 1955 Requested By: BREANNA FRANCO Order Number: [id number] Reading MD: Measurements Intervals [place] Rate: 91 P: 44 ND: 156 QRS: -8 QRSD: 102 T: 24 QT: 374 QTc: 462 Interpretive Statements SINUS RHYTHM LEFTWARD AXIS QRS(T) CONTOUR ABNORMALITY CONSISTENT WITH ANTEROSEPTAL INFARCT POSSIBLY RECENT ABNORMAL ECG RI6.01 No previous ECG available for comparison
== END 2020-05-31 11:10 | disposition home or self-care (01) ==
LOC: ER 06:19
DX: I10 Essential (primary) hypertension (principal); R51.9 Headache, unspecified; F14.10 Cocaine abuse, uncomplicated; F12.10 Cannabis abuse, uncomplicated; F17.200 Nicotine dependence, unspecified, uncomplicated; F10.20 Alcohol dependence, uncomplicated; Y90.9 Presence of alcohol in blood, level not specified; Z79.899 Other long term (current) drug therapy
CPT/HCPCS: 36415; 70450; 80053; 80307; 81001; 83735; 84484; 85025; 93005; 99285; G0480

== ENCOUNTER 2020-08-29 02:16 | Emergency (ER) | payer OTHER ==
[~2020-08-29] VITALS: Ht 167.6 cm; Wt 77.3 kg
--- NOTE | 2020-08-29 03:54 | PHYS DOC ---
Past Medical History Past Medical History: Alcoholism, Hypertension, Seizure Additional Past Medical Histor: ALCOHOL ABUSE. etoh sz Past Surgical History: Other Additional Past Surgical Histo: pt reports right ankle has pins put in 1994, AND HERNIA REPAIR Smoking Status: Current Every Day Smoker Alcohol Use: Heavy Drug Use: Cocaine, Marijuana General Adult EDM: Chief Complaint: ALCOHOL INTOXICATION HPI: HPI: Patient is a 65 year old male presents for evaluation of alcohol intoxication. Patient presents via EMS for evaluation. Patient admits to drinking and smoking THC. Patient states he was partying tonight. Denies HI or SI. Review of Systems: Review of Systems: ROS limited due to intoxication. Heart Score: C/O Chest Pain: N/A Risk Factors: Risk Factors: DM, Current or recent (<one month) smoker, HTN, HLP, family history of CAD, obesity. Risk Scores: Score 0 - 3: 2.5% MACE over next 6 weeks - Discharge Home Score 4 - 6: 20.3% MACE over next 6 weeks - Admit for Clinical Observation Score 7 - 10: 72.7% MACE over next 6 weeks - Early Invasive Strategies Allergies: Allergies: Allergies Coded Allergies Type Severity Reaction Last Updated Verified No Known Drug Allergies 08/08/14 No Physical Exam: PE: General: alert, no acute distress. Skin: warm, dry and intact. HENT: bilateral external ears normal, oropharynx moist, nose normal. Head:: Normocephalic, atraumatic. Neck: Trachea midline. Eyes: EOMI, Normal conjunctiva, No drainage CARDIOVASCULAR: Regular rate and rhythm RESPIRATORY: No respiratory distress Back: Full range of motion. Skin: Warm, dry, no erythema, no rash. MUSCULOSKELETAL: Full range of motion of bilateral upper and lower extremities. GASTROINTESTINAL: Abdomen soft without rebound or guarding. NEUROLOGICAL: Alert and noted to person, place and time. No neurological deficits observed Psychiatric: Cooperative. Intoxicated, alcohol on breath, Current Patient Data: Vital Signs: Vital Signs Date Time Temp Pulse Resp B/P (MAP) Pulse Ox O2 Delivery O2 Flow Rate FiO2 08/29/20 02:49 94 24 157/86 (109) 94 Room Air 08/29/20 02:20 98.2 98.2 EKG: EKG: [] Radiology/Procedures: Radiology/Procedures: [] Course & Med Decision Making: Course & Med Decision Making Pertinent Labs and Imaging studies reviewed. (See chart for details) []Patient observed to clinical sobriety. Patient discharged. [employer] Disclaimer: Naya Disclaimer: This electronic medical record was generated, in whole or in part, using a voice recognition dictation system. Departure Departure Impression: Primary Impression: Alcohol abuse Additional Impression: Marijuana abuse Disposition: 01 HOME / SELF CARE / HOMELESS Condition: STABLE Referrals: NO PCP (PCP) Patient Instructions: Alcohol Intoxication SHON ESPITIA DO Aug 29, 2020 03:54
[2020-08-29 07:42] VITALS: BP 166/87
== END 2020-08-29 07:47 | disposition home or self-care (01) ==
LOC: ER 02:16
DX: F10.229 Alcohol dependence with intoxication, unspecified (principal); Y90.9 Presence of alcohol in blood, level not specified; F12.10 Cannabis abuse, uncomplicated; I10 Essential (primary) hypertension; F17.200 Nicotine dependence, unspecified, uncomplicated
CPT/HCPCS: 99285-25

== ENCOUNTER 2020-09-21 12:05 | Emergency (ER) | payer OTHER ==
[~2020-09-21] VITALS: Ht 175.3 cm; Wt 86.1 kg
[2020-09-21] MEDS ORDERED: diphenhydrAMINE HCL 25 MG CAPSULE PO ONE (19:45)
--- NOTE | 2020-09-21 19:45 | PHYS DOC ---
Past Medical History Past Medical History: Alcoholism, Hypertension, Unknown Additional Past Medical Histor: ALCOHOL ABUSE. etoh sz (ROCHELLE OLIVEIRA FOAM CASTER) Past Surgical History: No Surgical History Additional Past Surgical Histo: pt reports right ankle has pins put in 1994, AND HERNIA REPAIR (ROCHELLE OLIVEIRA FOAM CASTER) Smoking Status: Current Every Day Smoker Alcohol Use: Heavy Additional Information: WITHDRAWL 24 HOURS PER PT Drug Use: Cocaine, Marijuana (ROCHELLE OLIVEIRA Juarez FOAM CASTER) General Adult EDM: Chief Complaint: WITHDRAWL HPI: HPI: Patient is a 65 year old male with history of alcoholism, hypertension, presenting to the ED today complaining of itching that began today and need to go to detox. Patient states he has not had any alcohol since yesterday. He states yesterday he had a half a pint of vodka and 3 beers. Denies any suicidal or homicidal ideations. Denies any abdominal pain, nausea or vomiting. (ROCHELLE OLIVEIRA FOAM CASTER) Review of Systems: Review of Systems: Constitutional: Denies fever or chills. [] Eyes: Denies change in visual acuity. [] HENT: Denies nasal congestion or sore throat. [] Respiratory: Denies cough or shortness of breath. [] Cardiovascular: Denies chest pain or edema. [] GI: Denies abdominal pain, nausea, vomiting, bloody stools or diarrhea. [] : Denies dysuria. [] Musculoskeletal: Denies back pain or joint pain. [] Integument: Reports itching Neurologic: Denies headache, focal weakness or sensory changes. [] Psychiatric: Request to go to rehab, alcohol abuse (ROCHELLE OLIVEIRA Juarez FOAM CASTER) Heart Score: C/O Chest Pain: N/A Risk Factors: Risk Factors: DM, Current or recent (<one month) smoker, HTN, HLP, family history of CAD, obesity. Risk Scores: Score 0 - 3: 2.5% MACE over next 6 weeks - Discharge Home Score 4 - 6: 20.3% MACE over next 6 weeks - Admit for Clinical Observation Score 7 - 10: 72.7% MACE over next 6 weeks - Early Invasive Strategies (ROCHELLE OLIVEIRA FOAM CASTER) Current Medications: Current Medications Medications (Trade) Dose Ordered Sig/Kay Start Time Stop Time Status Last Admin Dose Admin Clonidine HCl (Catapres) 0.2 mg 1X ONCE 09/21/20 20:00 09/21/20 20:01 Diphenhydramine HCl (Benadryl) 25 mg 1X ONCE 09/21/20 19:45 09/21/20 19:46 (ROXANNEROCHELLE Juarez FOAM CASTER) Allergies: Allergies: Allergies Coded Allergies Type Severity Reaction Last Updated Verified No Known Drug Allergies 08/08/14 No (ROXANNEROCHELLE Juarez ANTONY) Physical Exam: PE: Constitutional: Well developed, well nourished, no acute distress, non-toxic appearance. [] HENT: Normocephalic, atraumatic, bilateral external ears normal, oropharynx moist, no oral exudates, nose normal. [] Eyes: PERRLA, EOMI, conjunctiva normal, no discharge. [] Neck: Normal range of motion, no tenderness, supple, no stridor. [] Cardiovascular:Heart rate regular rhythm, no murmur [] Lungs & Thorax: Bilateral breath sounds clear to auscultation [] Abdomen: Bowel sounds normal, soft, no tenderness, no masses, no pulsatile masses. [] Skin: Warm, dry, no erythema, no rash. [] Back: No tenderness, no CVA tenderness. [] Extremities: No tenderness, no cyanosis, no clubbing, ROM intact, no edema. [] Neurologic: Alert and oriented X 3, normal motor function, normal sensory function, no focal deficits noted. [] Psychologic: Flat affect (NIAROCHELLE Jimenez APRN) Current Patient Data: Vital Signs: Vital Signs Date Time Temp Pulse Resp B/P (MAP) Pulse Ox O2 Delivery O2 Flow Rate FiO2 09/21/20 17:00 98.1 79 16 138/78 (98) 97 Room Air 98.1 (ROXANNEROCHELLE Juarez FOAM CASTER) EKG: EKG: [] (ROCHELLE OLIVEIRA APRN) Radiology/Procedures: Radiology/Procedures: [] (ROCHELLE OLIVEIRA APRN) Course & Med Decision Making: Course & Med Decision Making Pertinent Labs and Imaging studies reviewed. (See chart for details) This is a 65-year-old male patient presented to the ED today requesting to go to rehab will be given resources for alcoholism. Last time he drank was yesterday. He is also complaining of itching. Nubia from the pat team came and saw him, he was given resources. Blood pressure was 190/102, given clonidine. Also given Benadryl for his itching. Provided return precautions and discharged in stable condition. He requested medicine for itching at home. Hydroxyzine Rx given. (ROCHELLE OLIVEIRA APRN) Course & Med Decision Making Patients Care and treatment plan provided by ER Nurse Practitioner. I was available for consult. Patient's chart reviewed. (SHON ESPITIA DO) [place] Disclaimer: Naya Disclaimer: This electronic medical record was generated, in whole or in part, using a voice recognition dictation system. (ROCHELLE OLIVEIRA APRN) Departure Departure Impression: Primary Impression: Alcohol abuse Additional Impressions: Hypertension Qualified Codes: I10 - Essential (primary) hypertension Itching Disposition: HOME / SELF CARE / HOMELESS Condition: STABLE Referrals: NO PCP (PCP) Follow-up with your primary care doctor as well as resources provided by Nubia in the emergency room Patient Instructions: Alcohol Intoxication, [id number], Itching-Brief Additional Instructions: You were evaluated in the emergency room for alcoholism and itching. Take the prescribed medications as ordered. Please follow-up with the resources provided in the emergency room for alcohol abuse. Scripts Hydroxyzine Hcl (HYDROXYZINE HCL) 25 Mg Tablet 1 TAB PO TID, #30 TAB Prov: ROCHELLE OLIVEIRA APRN 09/21/20 ROCHELLE OLIVEIRA APRN Sep 21, 2020 19:45 SHON ESPITIA DO Sep 24, 2020 18:20
[2020-09-21] MEDS ORDERED: HYDR25TA PO (19:54)
[2020-09-21 20:00] VITALS: BP 190/102
[2020-09-21] MEDS ORDERED: cloNIDine HCL 0.1 MG TABLET PO ONE (20:00)
== END 2020-09-21 20:10 | disposition home or self-care (01) ==
LOC: ER 12:05
DX: F10.20 Alcohol dependence, uncomplicated (principal); I10 Essential (primary) hypertension; L29.9 Pruritus, unspecified; F17.200 Nicotine dependence, unspecified, uncomplicated; Y90.9 Presence of alcohol in blood, level not specified
CPT/HCPCS: 99285; Q0163

== ENCOUNTER 2020-10-18 18:47 | Emergency (ER) | payer OTHER ==
[~2020-10-18] VITALS: Ht 177.8 cm; Wt 86.0 kg
[~2020-10-18 18:47] MED LIST changes: +HYDR25TA PO
[2020-10-18 22:35] VITALS: BP 169/103
[2020-10-19 02:54] LABS: BASO % 1 % (0-3); EOS % 1 % (0-3); HEMATOCRIT 40.7 % (39.0-53.0); HEMOGLOBIN 13.8 g/dL (13.0-17.5); LYMPH # 1.8 x10^3/uL (1.0-4.8); LYMPH % 50 % (24-48); MEAN CORPUSCULAR HEMOGLOBIN 31 pg (25-35); MEAN CORPUSCULAR HGB CONC 34 g/dL (31-37); MEAN CORPUSCULAR VOLUME 91 fL (79-100); MONO # 0.4 x10^3/uL (0.0-1.1); MONO % 12 % (0-9); NEUT # 1.3 x10^3/uL (1.8-7.7); NEUT % 36 % (31-73); PLATELET COUNT 149 x10^3/uL (140-400); RED BLOOD COUNT 4.48 x10^6/uL (4.30-5.70); RED CELL DISTRIBUTION WIDTH 15.9 % (11.5-14.5); WHITE BLOOD COUNT 3.5 x10^3/uL (4.0-11.0)
[2020-10-19 03:01] LABS: BARBITURATES NEG (NEG); BENZODIAZEPINES NEG (NEG); CANNABINOIDS POS (NEG); COCAINE POS (NEG); METHADONE NEG (NEG); OPIATES NEG (NEG); PHENCYCLIDINE POS (NEG)
[2020-10-19 03:02] LABS: AMPHETAMINE/METHAMPHETAMINE NEG (NEG)
[2020-10-19 03:07] LABS: CALCIUM 8.5 mg/dL (8.5-10.1); POTASSIUM 3.4 mmol/L (3.5-5.1)
[2020-10-19 03:09] LABS: ALBUMIN 3.2 g/dL (3.4-5.0); ALBUMIN/GLOBULIN RATIO 0.6 (1.0-1.7); TOTAL BILIRUBIN 0.8 mg/dL (0.2-1.0); TOTAL PROTEIN 8.5 g/dL (6.4-8.2)
--- NOTE | 2020-10-19 05:20 | PHYS DOC ---
Past Medical History Past Medical History: Alcoholism, Hypertension, Unknown Additional Past Medical Histor: ALCOHOL ABUSE. etoh sz Past Surgical History: No Surgical History Additional Past Surgical Histo: pt reports right ankle has pins put in 1994, AND HERNIA REPAIR Smoking Status: Current Every Day Smoker Alcohol Use: Heavy Drug Use: Cocaine, Marijuana General Adult EDM: Chief Complaint: DRUG ABUSE HPI: HPI: 65-year-old homeless male well-known to this emergency department, presents to the ED stating he smoked cocaine and alcohol last night and had some associated nausea with this. Nausea has since resolved. States he is wanting rehab/detox from his substance abuse. Has no associated chest pain, difficulties breathing, fever or chills. No known history of Covid. Review of Systems: Review of Systems: Constitutional: Denies fever or chills. [] Eyes: Denies change in visual acuity. [] HENT: Denies nasal congestion or sore throat. [] Respiratory: Denies cough or shortness of breath. [] Cardiovascular: Denies chest pain or edema. [] GI: Denies abdominal pain, vomiting, bloody stools or diarrhea. [] : Denies incontinence or dysuria Musculoskeletal: Denies back pain or joint pain. [] Integument: Denies rash or diaphoresis Neurologic: Denies headache, focal weakness or sensory changes. [] Endocrine: Denies polyuria or polydipsia. [] Lymphatic: Denies swollen glands. [] Psychiatric: Denies depression or anxiety. [] Heart Score: C/O Chest Pain: No Risk Factors: Risk Factors: DM, Current or recent (<one month) smoker, HTN, HLP, family history of CAD, obesity. Risk Scores: Score 0 - 3: 2.5% MACE over next 6 weeks - Discharge Home Score 4 - 6: 20.3% MACE over next 6 weeks - Admit for Clinical Observation Score 7 - 10: 72.7% MACE over next 6 weeks - Early Invasive Strategies Allergies: Allergies: Allergies Coded Allergies Type Severity Reaction Last Updated Verified No Known Drug Allergies 08/08/14 No Physical Exam: PE: Constitutional: Lying in stretcher, resting comfortably in no active distress, hypertensive HENT: Normocephalic, atraumatic, no signs of head trauma Eyes: EOMI, conjunctiva normal, no discharge. Neck: Normal range of motion, supple, Cardiovascular: S1/2 present, regular rhythm Lungs & Thorax: Speaking in full sentences, bilateral equal chest rise, no tachypnea or increased work of breathing Skin: Warm, dry, no erythema, no rash. [] Extremities: No tenderness, no cyanosis, Neurologic: Alert and oriented X 3, normal motor function, normal sensory function, no focal deficits noted. [] Psychologic: Affect normal, judgement normal, mood normal. [] Current Patient Data: Labs: Laboratory Tests Test 10/19/20 02:38 10/19/20 02:42 10/19/20 02:46 SARS-CoV-2 Antigen (Rapid) Negative (NEGATIVE) White Blood Count 3.5 x10^3/uL (4.0-11.0) L Red Blood Count 4.48 x10^6/uL (4.30-5.70) Hemoglobin 13.8 g/dL (13.0-17.5) Hematocrit 40.7 % (39.0-53.0) Mean Corpuscular Volume 91 fL (79-100) Mean Corpuscular Hemoglobin 31 pg (25-35) Mean Corpuscular Hemoglobin Concent 34 g/dL (31-37) Red Cell Distribution Width 15.9 % (11.5-14.5) H Platelet Count 149 x10^3/uL (140-400) Neutrophils (%) (Auto) 36 % (31-73) Lymphocytes (%) (Auto) 50 % (24-48) H Monocytes (%) (Auto) 12 % (0-9) H Eosinophils (%) (Auto) 1 % (0-3) Basophils (%) (Auto) 1 % (0-3) Neutrophils # (Auto) 1.3 x10^3/uL (1.8-7.7) L Lymphocytes # (Auto) 1.8 x10^3/uL (1.0-4.8) Monocytes # (Auto) 0.4 x10^3/uL (0.0-1.1) Eosinophils # (Auto) 0.0 x10^3/uL (0.0-0.7) Basophils # (Auto) 0.0 x10^3/uL (0.0-0.2) Sodium Level 145 mmol/L (136-145) Potassium Level 3.4 mmol/L (3.5-5.1) L Chloride Level 106 mmol/L (98-107) Carbon Dioxide Level 29 mmol/L (21-32) Anion Gap 10 (6-14) Blood Urea Nitrogen 6 mg/dL (8-26) L Creatinine 1.0 mg/dL (0.7-1.3) Estimated GFR (Cockcroft-Gault) 91.0 BUN/Creatinine Ratio 6 (6-20) Glucose Level 97 mg/dL (70-99) Calcium Level 8.5 mg/dL (8.5-10.1) Total Bilirubin 0.8 mg/dL (0.2-1.0) Aspartate Amino Transferase (AST) 136 U/L (15-37) H Alanine Aminotransferase (ALT) 136 U/L (16-63) H Alkaline Phosphatase 129 U/L (46-116) H Total Protein 8.5 g/dL (6.4-8.2) H Albumin 3.2 g/dL (3.4-5.0) L Albumin/Globulin Ratio 0.6 (1.0-1.7) L Ethyl Alcohol Level 168 mg/dL (0-10) H Urine Opiates Screen Neg (NEG) Urine Methadone Screen Neg (NEG) Urine Barbiturates Neg (NEG) Urine Phencyclidine Screen Pos (NEG) Urine Amphetamine/Methamphetamine Neg (NEG) Urine Benzodiazepines Screen Neg (NEG) Urine Cocaine Screen Pos (NEG) Urine Cannabinoids Screen Pos (NEG) Urine Ethyl Alcohol Pos (NEG) Laboratory Tests 10/19/20 02:42 Laboratory Tests 10/19/20 02:42 Vital Signs: Vital Signs Date Time Temp Pulse Resp B/P (MAP) Pulse Ox O2 Delivery O2 Flow Rate FiO2 10/18/20 22:35 98.4 74 16 169/103 (125) 96 98.4 10/18/20 22:15 Room Air EKG: EKG: [] Radiology/Procedures: Radiology/Procedures: [] Course & Med Decision Making: Course & Med Decision Making Pertinent Labs and Imaging studies reviewed. (See chart for details) Concern for polysubstance abuse (PCP, marijuana, cocaine) in the setting of mild alcohol intoxication with a steady gait, patient is clinically sober. Patient is not a danger to himself or others. Patient is medically cleared. Was assessed by the PAT team and has placement at [facility]. Voucher will be given. Will discharge home with strict ED return precautions were given for homicidal or suicidal ideations, chest pain or neurologic deficits. Encouraged urgent out patient follow-up with PMD and RSI. Life-threatening processes were considered but are low suspicion at this time, given history, physical exam and ED workup. Pt was educated on all prescription medications and adverse effects. All patient's questions were answered and pt was stable at time of discharge. Life/limb-threatening differential includes but is not limited to, end organ damage/sepsis, trauma/abuse/neglect, neurologic deficit, alcohol/drug ingestion, toxidrome, suicidal/homicidal ideations plans or attempts, psychosis or mental illness resulting in self neglect and inability to care for self. I have spoken with the patient and/or caregivers. I explained the patient's condition, diagnoses and treatment plan based on the information available to me at this time. I have answered the patient and/or caregiver's questions and addressed any concerns. The patient and/or caregivers have a good understanding of patient's diagnosis, condition and treatment plan as can be expected at this point. Vital signs have been stable. Patient's condition is stable and appropriate for discharge from the emergency department. Patient will pursue further outpatient evaluation with primary care physician or other designated or consulting physician as outlined in the discharge instructi ons. The patient and/or caregivers are agreeable to this plan of care and follow-up instructions have been explained in detail. The patient and/or caregivers have received these instructions in written form and have expressed an understanding of the discharge instructions. The patient and/or caregivers are aware that any significant change of condition or worsening of symptoms should prompt immediate return to this or the closest emergency department or call to 911. Naya Disclaimer: Naya Disclaimer: This electronic medical record was generated, in whole or in part, using a voice recognition dictation system. Departure Departure Impression: Primary Impression: Polysubstance abuse Additional Impression: Alcohol intoxication Disposition: 01 HOME / SELF CARE / HOMELESS Condition: STABLE Referrals: NO PCP (PCP) Follow-up with your primary care physician in 24 to 48 hours OR FOLLOW UP WITH FAMILY MEDICINE: [address], [address] [place] [address] Patient Instructions: Alcohol Problems, Substance Abuse-Brief Additional Instructions: [email or web address] AND FOR SUBSTANCE ABUSE MANAGEMENT [address] [place] [id number] 24-hour crisis line: [phone] EMERGENCY DEPARTMENT GENERAL DISCHARGE INSTRUCTIONS Thank you for coming to [facility] Emergency Department (ED) today and trusting us with you care. We trust that you had a positive experience in our Emergency Department. If you wish to speak to the department management, you may call the Director at [phone]. YOUR FOLLOW UP INSTRUCTIONS ARE FOLLOWS: 1. Do you have a private Doctor? If you do not have a private doctor, please ask for a resource list of physicians or clinics that may be able to assist you with follow up care. 2. The Emergency Physicain has interpreted your x-rays. The X-Ray specialist will also review them. If there is a change in the findings, you will be notified in 48 hours when at all possible. 3. A lab test or culture has been done, your results will be reviewed and you will be notified if you need a change in treatment. ADDITIONAL INSTRUCTIONS AND INFORMATION: 1. Your care today has been supervised by a physician who is specially trained in emergency care. Many problems require more than one evaluation for a complete diagnosis and treatment. We recommend that you schedule your follow up appointment as recommended to ensure complete treatment of you illness or injury. If you are unable to obtain follow up care and continue to have a problem, or if your condition worsens, we recommend that you return to the ED. 2. We are not able to safely determine your condition over the phone nor are we able to give sound medical advice over the phone. For these safety reasons, if you call for medical advice we will ask you to come to the ED for further evaluation. 3. If you have any questions regarding these discharge instructions please call the ED at [phone]. SAFETY INFORMATION: In the interest of safety, wellness, and injury prevention; we encourage you to wear your sealbelt, if you smoke; quite smoking, and we encourage family to use a protective helmet for bicycling and other sporting events that present an increased risk for head injury. IF YOUR SYMPTOMS WORSEN OR NEW SYMPTOMS DEVELOP, OR YOU HAVE CONCERNS ABOUT YOUR CONDITION; OR IF YOUR CONDITION WORSENS WHILE YOU ARE WAITING FOR YOUR FOLLOW UP APPOI NTMENT; EITHER CONTACT YOUR PRIMARY CARE DOCTOR, THE PHYSICIAN WHOSE NAME AND NUMBER YOU WERE GIVEN, OR RETURN TO THE ED IMMEDIATELY. ELIUD BURGOS DO Oct 19, 2020 05:20
== END 2020-10-19 08:59 | disposition home or self-care (01) ==
LOC: ER 18:47
DX: F19.10 Other psychoactive substance abuse, uncomplicated (principal); Z20.822 Contact with and (suspected) exposure to COVID-19; F10.229 Alcohol dependence with intoxication, unspecified; Y90.6 Blood alcohol level of 120-199 mg/100 ml; I10 Essential (primary) hypertension; F17.200 Nicotine dependence, unspecified, uncomplicated; Z59.0 Homelessness
CPT/HCPCS: 36415; 80053; 80307; 85025; 87426; 99283; G0480

== ENCOUNTER 2020-10-27 01:56 | Emergency (ER) | payer OTHER ==
[~2020-10-27] VITALS: Ht 167.6 cm; Wt 80.0 kg
--- NOTE | 2020-10-27 02:28 | PHYS DOC ---
Past Medical History Past Medical History: Alcoholism, Hypertension, Unknown Additional Past Medical Histor: ALCOHOL ABUSE. etoh sz, DRUG ABUSE Past Surgical History: No Surgical History Additional Past Surgical Histo: pt reports right ankle has pins put in 1994, AND HERNIA REPAIR Smoking Status: Current Every Day Smoker Alcohol Use: Heavy Drug Use: Cocaine, Marijuana General Adult EDM: Chief Complaint: DRUG ABUSE HPI: HPI: Patient is a 65 year old past medical history of alcohol abuse presents via EMS intoxicated. Patient lives with his sister and prior to arrival he was trying to get into the house but able to do so. He states his sister was not answering the phone. Patient called EMS while intoxicated and stated he is having female problems. He admits to drinking a lot smoking marijuana and endorses doing crack cocaine tonight. On arrival patient is intoxicated he is alert but slurring his words. He ambulates with a slow steady gait. Patient has no signs of trauma. Patient is well-known to this department. I have seen the patient several times for alcohol intoxication. Patient has no complaint of chest pain or shortness of breath abdominal pain nausea or vomiting Review of Systems: Review of Systems: Constitutional: Denies fever or chills. [] Eyes: Denies change in visual acuity. [] HENT: Denies nasal congestion or sore throat. [] Respiratory: Denies cough or shortness of breath. [] Cardiovascular: Denies chest pain or edema. [] GI: Denies abdominal pain, nausea, vomiting, bloody stools or diarrhea. [] : Denies dysuria. [] Musculoskeletal: Denies back pain or joint pain. [] Integument: Denies rash. [] Neurologic: Denies headache, focal weakness or sensory changes. [] Endocrine: Denies polyuria or polydipsia. [] Lymphatic: Denies swollen glands. [] Psychiatric: Denies depression or anxiety. [] Positive intoxication Heart Score: C/O Chest Pain: N/A Risk Factors: Risk Factors: DM, Current or recent (<one month) smoker, HTN, HLP, family history of CAD, obesity. Risk Scores: Score 0 - 3: 2.5% MACE over next 6 weeks - Discharge Home Score 4 - 6: 20.3% MACE over next 6 weeks - Admit for Clinical Observation Score 7 - 10: 72.7% MACE over next 6 weeks - Early Invasive Strategies Allergies: Allergies: Allergies Coded Allergies Type Severity Reaction Last Updated Verified No Known Drug Allergies 08/08/14 No Physical Exam: PE: General: alert, no acute distress. Skin: warm, dry and intact, no erythema, no rash. HENT: bilateral external ears normal, oropharynx moist, nose normal. Head:: Normocephalic, atraumatic. Neck: Trachea midline. Eyes: EOMI, Normal conjunctiva, No drainage CARDIOVASCULAR: Regular rate and rhythm RESPIRATORY: No respiratory distress Back: Full range of motion. MUSCULOSKELETAL: Full range of motion of bilateral upper and lower extremities. GASTROINTESTINAL: Abdomen soft without rebound or guarding. NEUROLOGICAL: Alert and noted to person, place and time. No neurological deficits observed Psychiatric: Cooperative. Normal judgment Current Patient Data: Vital Signs: Vital Signs Date Time Temp Pulse Resp B/P (MAP) Pulse Ox O2 Delivery O2 Flow Rate FiO2 10/27/20 02:00 98.3 83 22 146/77 (100) 97 Room Air 98.3 EKG: EKG: [] Radiology/Procedures: Radiology/Procedures: [] Course & Med Decision Making: Course & Med Decision Making Pertinent Labs and Imaging studies reviewed. (See chart for details) [] Patient was observed to sobriety. Based upon history of present illness and physical exam I did not perform any laboratory or radiologic imaging. Patient was discharged home pending a ride. Naya Disclaimer: Naya Disclaimer: This electronic medical record was generated, in whole or in part, using a voice recognition dictation system. Departure Departure Impression: Primary Impression: Alcohol abuse Additional Impression: Alcohol intoxication Disposition: HOME / SELF CARE / HOMELESS Condition: STABLE Referrals: NO PCP (PCP) Patient Instructions: Alcohol Intoxication SHON ESPITIA I DO Oct 27, 2020 02:28
[2020-10-27 08:50] VITALS: BP 137/86
== END 2020-10-27 09:32 | disposition home or self-care (01) ==
LOC: ER 01:56
DX: F10.229 Alcohol dependence with intoxication, unspecified (principal); I10 Essential (primary) hypertension; F17.200 Nicotine dependence, unspecified, uncomplicated; F12.10 Cannabis abuse, uncomplicated; F14.10 Cocaine abuse, uncomplicated; Y90.9 Presence of alcohol in blood, level not specified
CPT/HCPCS: 99285

== ENCOUNTER 2020-10-28 22:53 | Emergency (ER) | payer OTHER ==
[~2020-10-28] VITALS: Ht 165.1 cm; Wt 110.0 kg
--- NOTE | 2020-10-29 00:07 | PHYS DOC ---
Past Medical History Past Medical History: Alcoholism, Hypertension, Unknown Additional Past Medical Histor: ALCOHOL ABUSE. etoh sz, DRUG ABUSE Past Surgical History: No Surgical History Additional Past Surgical Histo: pt reports right ankle has pins put in 1994, AND HERNIA REPAIR Smoking Status: Current Every Day Smoker Alcohol Use: Heavy Drug Use: Cocaine, Marijuana General Adult EDM: Chief Complaint: ACCIDENTAL INGESTION HPI: HPI: Patient is a 65 year old male who is a alcoholic presents via ems for evaluation due to alcohol intoxication. Patient is well known to this ER. I evaluated that patient yesterday for alcohol intoxication-- he was observed to sobriety then discharged home. Review of Systems: Review of Systems: Constitutional: Denies fever or chills. [] Eyes: Denies change in visual acuity. [] HENT: Denies nasal congestion or sore throat. [] Respiratory: Denies cough or shortness of breath. [] Cardiovascular: Denies chest pain or edema. [] GI: Denies abdominal pain, nausea, vomiting, bloody stools or diarrhea. [] : Denies dysuria. [] Musculoskeletal: Denies back pain or joint pain. [] Integument: Denies rash. [] Neurologic: Denies headache, focal weakness or sensory changes. [] Endocrine: Denies polyuria or polydipsia. [] Lymphatic: Denies swollen glands. [] Psychiatric: Denies depression or anxiety. [] Heart Score: C/O Chest Pain: N/A Risk Factors: Risk Factors: DM, Current or recent (<one month) smoker, HTN, HLP, family history of CAD, obesity. Risk Scores: Score 0 - 3: 2.5% MACE over next 6 weeks - Discharge Home Score 4 - 6: 20.3% MACE over next 6 weeks - Admit for Clinical Observation Score 7 - 10: 72.7% MACE over next 6 weeks - Early Invasive Strategies Allergies: Allergies: Allergies Coded Allergies Type Severity Reaction Last Updated Verified No Known Drug Allergies 08/08/14 No Physical Exam: PE: Constitutional: Well developed, well nourished, no acute distress, non-toxic appearance. [] HENT: Normocephalic, atraumatic, bilateral external ears normal, oropharynx moist, no oral exudates, nose normal. [] Eyes: PERRLA, EOMI, conjunctiva normal, no discharge. [] Neck: Normal range of motion, no tenderness, supple, no stridor. [] Cardiovascular:Heart rate regular rhythm, no murmur [] Lungs & Thorax: Bilateral breath sounds clear to auscultation [] Abdomen: Bowel sounds normal, soft, no tenderness, no masses, no pulsatile masses. [] Skin: Warm, dry, no erythema, no rash. [] Back: No tenderness, no CVA tenderness. [] Extremities: No tenderness, no cyanosis, no clubbing, ROM intact, no edema. [] Neurologic: Alert and oriented X 3, normal motor function, normal sensory function, no focal deficits noted. [] Psychologic: Affect normal, judgement normal, mood normal. [] Current Patient Data: Vital Signs: Vital Signs Date Time Temp Pulse Resp B/P (MAP) Pulse Ox O2 Delivery O2 Flow Rate FiO2 10/28/20 23:55 86 18 173/84 (113) 92 Room Air 10/28/20 23:01 99.1 99.1 EKG: EKG: [] Radiology/Procedures: Radiology/Procedures: [] Course & Med Decision Making: Course & Med Decision Making Pertinent Labs and Imaging studies reviewed. (See chart for details) [Observed to clinical sobriety. Ambulated with steady gait. Discharge. Dragon Disclaimer: Naya Disclaimer: This electronic medical record was generated, in whole or in part, using a voice recognition dictation system. Departure Departure Impression: Primary Impression: Alcohol intoxication Disposition: HOME / SELF CARE / HOMELESS Condition: STABLE Referrals: NO PCP (PCP) SHON ESPITIA DO Oct 29, 2020 00:07
[2020-10-29 05:00] VITALS: BP 157/88
== END 2020-10-29 06:00 | disposition home or self-care (01) ==
LOC: ER 22:53
DX: F10.129 Alcohol abuse with intoxication, unspecified (principal); Y90.9 Presence of alcohol in blood, level not specified; I10 Essential (primary) hypertension; F17.200 Nicotine dependence, unspecified, uncomplicated
CPT/HCPCS: 99285-25

== ENCOUNTER 2020-11-13 21:18 | Emergency (ER) | payer OTHER ==
[~2020-11-13] VITALS: Ht 162.6 cm; Wt 73.0 kg
[2020-11-13] MEDS ORDERED: cloNIDine HCL 0.1 MG TABLET PO ONE (21:30)
--- NOTE | 2020-11-13 22:29 | PHYS DOC ---
Past Medical History Past Medical History: Alcoholism, Hypertension, Unknown Additional Past Medical Histor: ALCOHOL ABUSE. etoh sz, DRUG ABUSE Past Surgical History: No Surgical History Additional Past Surgical Histo: pt reports right ankle has pins put in 1994, AND HERNIA REPAIR Smoking Status: Current Every Day Smoker Alcohol Use: Heavy Drug Use: Cocaine, Marijuana Social History Narrative: REPORTS USING CRACK COCAINE USE LAST NIGHT General Adult EDM: Chief Complaint: ALCOHOL INTOXICATION HPI: HPI: Patient is a 65 year old male with history of alcoholism, hypertension, who presents to the ED today with no specific complaint but states he had to take EMS ride to the ED so we can given him a cab ride to go to the sister's house. Patient reports using alcohol today which is a chronic issue with him. He also reports using crack and cocaine yesterday as well as smoking "weed". He states he has no complaints. He also wants food. Review of Systems: Review of Systems: Constitutional: Denies fever or chills. [] Eyes: Denies change in visual acuity. [] HENT: Denies nasal congestion or sore throat. [] Respiratory: Denies cough or shortness of breath. [] Cardiovascular: Denies chest pain or edema. [] GI: Denies abdominal pain, nausea, vomiting, bloody stools or diarrhea. [] : Denies dysuria. [] Musculoskeletal: Denies back pain or joint pain. [] Integument: Denies rash. [] Neurologic: Denies headache, focal weakness or sensory changes. [] Psychiatric: Reports alcohol intoxication, reports using crack cocaine and marijuana Heart Score: C/O Chest Pain: N/A Risk Factors: Risk Factors: DM, Current or recent (<one month) smoker, HTN, HLP, family history of CAD, obesity. Risk Scores: Score 0 - 3: 2.5% MACE over next 6 weeks - Discharge Home Score 4 - 6: 20.3% MACE over next 6 weeks - Admit for Clinical Observation Score 7 - 10: 72.7% MACE over next 6 weeks - Early Invasive Strategies Current Medications: Current Medications Medications (Trade) Dose Ordered Sig/Kay Start Time Stop Time Status Last Admin Dose Admin Clonidine HCl (Catapres) 0.1 mg 1X ONCE 11/13/20 21:30 11/13/20 21:31 DC 11/13/20 21:56 0.1 MG Allergies: Allergies: Allergies Coded Allergies Type Severity Reaction Last Updated Verified No Known Drug Allergies 08/08/14 No Physical Exam: PE: Constitutional: Well developed, well nourished, no acute distress, non-toxic appearance. [] HENT: Normocephalic, atraumatic, bilateral external ears normal, oropharynx moist, no oral exudates, nose normal. [] Eyes: PERRLA, EOMI, conjunctiva normal, no discharge. [] Neck: Normal range of motion, no tenderness, supple, no stridor. [] Cardiovascular:Heart rate regular rhythm, no murmur [] Lungs & Thorax: Bilateral breath sounds clear to auscultation [] Abdomen: Bowel sounds normal, soft, no tenderness, no masses, no pulsatile masses. [] Skin: Warm, dry, no erythema, no rash. [] Back: No tenderness, no CVA tenderness. [] Extremities: No tenderness, no cyanosis, no clubbing, ROM intact, no edema. [] Neurologic: Alert and oriented X 3, normal motor function, normal sensory function, no focal deficits noted. Cranial nerves II through XII intact Psychologic: Very pleasant, very fine making jokes. Current Patient Data: Vital Signs: Vital Signs Date Time Temp Pulse Resp B/P (MAP) Pulse Ox O2 Delivery O2 Flow Rate FiO2 11/13/20 21:56 78 152/65 11/13/20 21:18 97.9 18 98 Room Air 97.9 EKG: EKG: [] Radiology/Procedures: Radiology/Procedures: [] Course & Med Decision Making: Course & Med Decision Making SignificantPertinent Labs and Imaging studies reviewed. (See chart for details) This is a 65-year-old male patient well-known to this ED presenting today medical complaint. He is alcoholic, he states he took EMS ride to the ED so that we can get him a cab ride to go see the sister. He used alcohol today. He also used crack cocaine yesterday and smoked weed. His blood pressure on arrival was 180 over 110s. History of hypertension which is uncontrolled. He was given clonidine in the ED. He was allowed to rest/sleep until clinically sober. Was provided a cab voucher to go to the sister's house. He has been offered resources to rehab but refuses to go to rehab Dragon Disclaimer: Dragon Disclaimer: This electronic medical record was generated, in whole or in part, using a voice recognition dictation system. Departure Departure Impression: Primary Impression: Marijuana abuse Additional Impressions: Alcohol intoxication Qualified Codes: F10.929 - Alcohol use, unspecified with intoxication, unspecified Hypertension Qualified Codes: I10 - Essential (primary) hypertension Cocaine use Disposition: HOME / SELF CARE / HOMELESS Condition: STABLE Referrals: NO PCP (PCP) follow up with your doctor in 1-2 weeks Patient Instructions: Alcohol Intoxication, [id number], Drug Abuse and Addiction-SportsMed, Hypertension Additional Instructions: You were evaluated in the emergency room, we encourage you to consider getting help for alcohol and drug use. Also follow-up with your primary care doctor for blood pressure management ROCHELLE OLIVEIRA FRUIT GROWER Nov 13, 2020 22:29
[2020-11-13 22:35] VITALS: BP 148/82
== END 2020-11-13 22:37 | disposition home or self-care (01) ==
LOC: ER 21:18
DX: F12.129 Cannabis abuse with intoxication, unspecified (principal); I10 Essential (primary) hypertension; F14.90 Cocaine use, unspecified, uncomplicated; Y90.9 Presence of alcohol in blood, level not specified; F17.200 Nicotine dependence, unspecified, uncomplicated
CPT/HCPCS: 99283; 99285-25

== ENCOUNTER 2021-03-26 23:42 | Emergency (ER) | payer OTHER ==
[~2021-03-26 23:42] MED LIST changes: -FLUO10CA15 PO; +FLUO10CA17 PO
== END 2021-03-27 04:21 | disposition left against medical advice (07) ==
LOC: ER 23:42
DX: F10.20 Alcohol dependence, uncomplicated (principal); Y90.9 Presence of alcohol in blood, level not specified; Z53.21 Procedure and treatment not carried out due to patient leaving prior to being seen by health care provider

== ENCOUNTER 2021-03-27 23:47 | Emergency (ER) | payer OTHER ==
[~2021-03-27] VITALS: Ht 162.6 cm; Wt 73.0 kg
[2021-03-28] MEDS ORDERED: LABETALOL 20 MG/4 ML DISP.SYRIN. IVP ONE (00:30)
[2021-03-28 00:32] LABS: BASO % 0 % (0-3); EOS % 0 % (0-3); HEMATOCRIT 39.6 % (39.0-53.0); HEMOGLOBIN 13.1 g/dL (13.0-17.5); LYMPH % 49 % (24-48); MEAN CORPUSCULAR HEMOGLOBIN 30 pg (25-35); MEAN CORPUSCULAR HGB CONC 33 g/dL (31-37); MEAN CORPUSCULAR VOLUME 91 fL (79-100); MONO # 0.4 x10^3/uL (0.0-1.1); MONO % 11 % (0-9); NEUT # 1.6 x10^3/uL (1.8-7.7); NEUT % 40 % (31-73); PLATELET COUNT 115 x10^3/uL (140-400); RED BLOOD COUNT 4.35 x10^6/uL (4.30-5.70); RED CELL DISTRIBUTION WIDTH 15.1 % (11.5-14.5); WHITE BLOOD COUNT 4.1 x10^3/uL (4.0-11.0)
--- NOTE | 2021-03-28 00:40 | PHYS DOC ---
Past Medical History Past Medical History: Alcoholism, Hypertension, Unknown Additional Past Medical Histor: ALCOHOL ABUSE. etoh sz, DRUG ABUSE (ROCHELLE OLIVEIRA JACK SPINNER) Past Surgical History: Other Additional Past Surgical Histo: pt reports right ankle has pins put in 1994, AND HERNIA REPAIR (ROCHELLE OLIVEIRA Juarez JACK SPINNER) Smoking Status: Current Every Day Smoker Alcohol Use: Heavy Drug Use: Cocaine, Marijuana (ROCHELLE OLIVEIRA Juarez JACK SPINNER) General Adult EDM: Chief Complaint: ALCOHOL INTOXICATION HPI: HPI: Patient is a 65 year old male with history of alcoholism, drug use presenting to the ED today to be evaluated for alcohol intoxication, he also reports using weed and cocaine. Patient states his sister kicked him out and currently has no place to go. He states he will . Denies any chest pain, shortness of breath. Currently belligerent arguing with nursing staff. He arrived in the ED with a bottle of gin and wanted to drink it (ROCHELLE OLIVEIRA Juarez JACK SPINNER) Review of Systems: Review of Systems: Constitutional: Denies fever or chills. [] Eyes: Denies change in visual acuity. [] HENT: Denies nasal congestion or sore throat. [] Respiratory: Denies cough or shortness of breath. [] Cardiovascular: Denies chest pain or edema. [] GI: Denies abdominal pain, nausea, vomiting, bloody stools or diarrhea. [] : Denies dysuria. [] Musculoskeletal: Denies back pain or joint pain. [] Integument: Denies rash. [] Neurologic: Denies headache, focal weakness or sensory changes. [] Psychiatric: Reports alcohol intoxication (ROCHELLE OLIVEIRA Juarez JACK SPINNER) Heart Score: C/O Chest Pain: N/A Risk Factors: Risk Factors: DM, Current or recent (<one month) smoker, HTN, HLP, family hi story of CAD, obesity. Risk Scores: Score 0 - 3: 2.5% MACE over next 6 weeks - Discharge Home Score 4 - 6: 20.3% MACE over next 6 weeks - Admit for Clinical Observation Score 7 - 10: 72.7% MACE over next 6 weeks - Early Invasive Strategies (ROCHELLE OLIVEIRA Juarez JACK SPINNER) C/O Chest Pain: No HEART Score for Chest Pain: HEART Score for Chest Pain Response (Comments) Value History Slighlty/Non-Suspicious 0 ECG Normal 0 Age >45 - < 65 1 Risk Factors 1 or 2 Risk Factors 1 Troponin < Normal Limit 0 Total 2 (FABRIZIO CERON MD) Current Medications: Current Medications Medications (Trade) Dose Ordered Sig/Kay Start Time Stop Time Status Last Admin Dose Admin Labetalol HCl (Normodyne Iv Push) 10 mg 1X ONCE 03/28/21 00:30 03/28/21 00:31 DC Multivitamins 10 ml/Thiamine HCl 100 mg/Folic Acid 1 mg/Sodium Chloride 1,011.2 ml @ 1,000.088 mls/hr 1X ONCE 03/28/21 01:00 03/28/21 02:00 03/28/21 00:28 1,000.088 MLS/HR (MUTUNGA,ROCHELLE M JACK SPINNER) Allergies: Allergies: Allergies Coded Allergies Type Severity Reaction Last Updated Verified No Known Drug Allergies 08/08/14 No (MUTUNGA,ROCHELLE M JACK SPINNER) Physical Exam: PE: Constitutional: Well developed, well nourished, no acute distress, non-toxic appearance. [] HENT: Normocephalic, atraumatic, bilateral external ears normal, oropharynx moist, no oral exudates, nose normal. [] Eyes: PERRLA, EOMI, conjunctiva normal, no discharge. [] Neck: Normal range of motion, no tenderness, supple, no stridor. [] Cardiovascular:Heart rate regular rhythm, no murmur [] Lungs & Thorax: Bilateral breath sounds clear to auscultation [] Abdomen: Bowel sounds normal, soft, no tenderness, no masses, no pulsatile masses. [] Skin: Warm, dry, no erythema, no rash. [] Back: No tenderness, no CVA tenderness. [] Extremities: No tenderness, no cyanosis, no clubbing, ROM intact, no edema. [] Neurologic: Alert and oriented X 3, normal motor function, normal sensory function, no focal deficits noted. [] Psychologic: Belligerent, loud, smells of alcohol (MUTUNGA,ROCHELLE M JACK SPINNER) Current Patient Data: Labs: Laboratory Tests Test 03/28/21 00:24 White Blood Count 4.1 x10^3/uL (4.0-11.0) Red Blood Count 4.35 x10^6/uL (4.30-5.70) Hemoglobin 13.1 g/dL (13.0-17.5) Hematocrit 39.6 % (39.0-53.0) Mean Corpuscular Volume 91 fL (79-100) Mean Corpuscular Hemoglobin 30 pg (25-35) Mean Corpuscular Hemoglobin Concent 33 g/dL (31-37) Red Cell Distribution Width 15.1 % (11.5-14.5) H Platelet Count 115 x10^3/uL (140-400) L Neutrophils (%) (Auto) 40 % (31-73) Lymphocytes (%) (Auto) 49 % (24-48) H Monocytes (%) (Auto) 11 % (0-9) H Eosinophils (%) (Auto) 0 % (0-3) Basophils (%) (Auto) 0 % (0-3) Neutrophils # (Auto) 1.6 x10^3/uL (1.8-7.7) L Lymphocytes # (Auto) 2.0 x10^3/uL (1.0-4.8) Monocytes # (Auto) 0.4 x10^3/uL (0.0-1.1) Eosinophils # (Auto) 0.0 x10^3/uL (0.0-0.7) Basophils # (Auto) 0.0 x10^3/uL (0.0-0.2) Laboratory Tests 03/28/21 00:24 Vital Signs: Vital Signs Date Time Temp Pulse Resp B/P (MAP) Pulse Ox O2 Delivery O2 Flow Rate FiO2 03/27/21 23:50 98.6 97 26 236/101 (146) 98 Room Air 98.6 (ROCHELLE OLIVEIRA APRN) EKG: EK interpreted by Dr. Ceron sinus rhythm heart rate 88 no STEMI (ROCHELLE OLIVEIRA APRN) Radiology/Procedures: Radiology/Procedures: [] (ROCHELLE OLIVEIRA APRN) Course & Med Decision Making: Course & Med Decision Making Pertinent Labs and Imaging studies reviewed. (See chart for details) This a 65-year-old male patient well-known to this ED presenting today to be evaluated for alcohol intoxication. Patient is currently homeless, was kicked out by the sister. Also states he had weed and cocaine. Patient is well-known to this ED. He was here yesterday but left without being seen. [address] 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 Patient stating that he has been licha pyle a lot and doing cocaine that he is "going to " patient is ambulatory with a steady gait. Patient will be cordial other than sporadically hostile and screaming in the emergency department. Patient is medically cleared patient stating that he has no vertigo. Patient only stated the sister. Patient informed that he can wait numbers. Patient refusing substance abuse evaluation (FABRIZIO CERON MD) Dragon Disclaimer: Dragon Disclaimer: This electronic medical record was generated, in whole or in part, using a voice recognition dictation system. (ROCHELLE OLIVEIRA APRN) Departure Departure Impression: Primary Impression: Alcohol dependence Disposition: 01 HOME / SELF CARE / HOMELESS Condition: STABLE Referrals: NO PCP (PCP) Patient Instructions: Alcohol Intoxication, [id number] ROCHELLE OLIVEIRA APRN Mar 28, 2021 00:40 FABRIZIO CERON MD Mar 28, 2021 01:26
[2021-03-28 00:43] LABS: CALCIUM 7.5 mg/dL (8.5-10.1); POTASSIUM 3.4 mmol/L (3.5-5.1)
[2021-03-28 00:49] LABS: ALBUMIN 2.9 g/dL (3.4-5.0); ALBUMIN/GLOBULIN RATIO 0.5 (1.0-1.7); TOTAL BILIRUBIN 0.7 mg/dL (0.2-1.0); TOTAL PROTEIN 8.6 g/dL (6.4-8.2)
[2021-03-28 00:53] LABS: ACETAMIN < 2 mcg/ml (10-30); ETHANOL 368 mg/dL (0-10)
[2021-03-28 00:54] LABS: SALIC < 0.2 mg/dL (2.8-20.0)
[2021-03-28] MEDS ORDERED: MULTIVIT INFUSN,ADULT 4,VIT K 10 ML, THIAMINE INJ 100 MG, FOLIC ACID INJ 1 MG in IV NOR... IV ONE (01:00)
[2021-03-28 01:30] VITALS: BP 152/77
--- NOTE | 2021-03-28 03:46 | EKG ---
[facility] [address] [place] [address] Test Date: 2021-03-28 Test Time: 00:24:43 Pat Name: SHAKIR ROCKWELL Department: Room: Gender: M Evaluation Engineer: : 1955 Requested By: ROCHELLE OLIVEIRA Order Number: [id number] Reading MD: Delroy Reagan Measurements Intervals [place] Rate: 88 P: 28 AR: 158 QRS: -24 QRSD: 100 T: 57 QT: 400 QTc: 488 Interpretive Statements SINUS RHYTHM LEFTWARD AXIS PROLONGED QT Electronically Signed On 03-28-2021 19:58:20 MANAGER SIX SIGMA by Delroy Reagan
--- NOTE | 2021-03-29 10:47 | NUR ---
IP: Attempted to contact pt concerning covid results. Phone number provided is not in service.
== END 2021-03-28 02:01 | disposition home or self-care (01) ==
LOC: ER 23:47
DX: F10.229 Alcohol dependence with intoxication, unspecified (principal); Y90.8 Blood alcohol level of 240 mg/100 ml or more; Z20.822 Contact with and (suspected) exposure to COVID-19; I10 Essential (primary) hypertension; F17.200 Nicotine dependence, unspecified, uncomplicated
CPT/HCPCS: 36415; 80053; 80329; 83690; 84484; 85025; 93005; 96365; 99284; C9803; G0480; J3411; J3490; J7030; U0003

== ENCOUNTER 2021-04-19 02:29 | Emergency (ER) | payer OTHER ==
[~2021-04-19] VITALS: Ht 167.6 cm; Wt 90.0 kg
[2021-04-19 03:54] LABS: BILIRUBIN,URINE NEGATIVE (NEG); CLARITY,URINE CLEAR; COLOR,URINE YELLOW; NITRITE,URINE NEGATIVE (NEG); PROTEIN,URINE NEGATIVE (NEG-TRACE)
[2021-04-19 03:55] LABS: BACTERIA,URINE 0 /HPF (0-FEW); RBC,URINE 0 /HPF (0-2); WBC,URINE 0 /HPF (0-4)
--- NOTE | 2021-04-19 03:55 | PHYS DOC ---
Past Medical History Past Medical History: Alcoholism, Hypertension, Unknown Additional Past Medical Histor: ALCOHOL ABUSE. etoh sz, DRUG ABUSE Past Surgical History: Other Additional Past Surgical Histo: pt reports right ankle has pins put in 1994, AND HERNIA REPAIR Smoking Status: Current Every Day Smoker Alcohol Use: Heavy Drug Use: Cocaine, Marijuana General Adult EDM: Chief Complaint: ALCOHOL INTOXICATION HPI: HPI: Patient is a 65 year old male who presents with complaint of alcohol intoxication. Patient brought to the emergency department by EMS. Patient is well-known to this emergency department and has had multiple visits for evalu ation of alcohol and substance abuse. Patient states that he drank approximately 1/5 of hard alcohol and admits to using crack. Denies any other complaints at this time. States that he was trying to alliance party and also notes that he is homeless and has nowhere else to go. Denies abdominal pain, chest pain, fever, or bloody stools. Review of Systems: Review of Systems: Constitutional: Denies fever or chills. [] Eyes: Denies change in visual acuity. [] HENT: Denies nasal congestion or sore throat. [] Respiratory: Denies cough or shortness of breath. [] Cardiovascular: Denies chest pain or edema. [] GI: Denies abdominal pain, nausea, vomiting, bloody stools or diarrhea. [] : Denies dysuria. [] Musculoskeletal: Denies back pain or joint pain. [] Integument: Denies rash. [] Neurologic: Denies headache, focal weakness or sensory changes. [] Endocrine: Denies polyuria or polydipsia. [] Heart Score: C/O Chest Pain: No Risk Factors: Risk Factors: DM, Current or recent (<one month) smoker, HTN, HLP, family history of CAD, obesity. Risk Scores: Score 0 - 3: 2.5% MACE over next 6 weeks - Discharge Home Score 4 - 6: 20.3% MACE over next 6 weeks - Admit for Clinical Observation Score 7 - 10: 72.7% MACE over next 6 weeks - Early Invasive Strategies Allergies: Allergies: Allergies Coded Allergies Type Severity Reaction Last Updated Verified No Known Drug Allergies 08/08/14 No Physical Exam: PE: Constitutional: Alert, slurred speech, alcoholic halitosis present. [] HENT: Normocephalic, atraumatic, bilateral external ears normal, oropharynx moist, no oral exudates, nose normal. [] Eyes: PERRLA, EOMI, conjunctiva normal, no discharge. [] Neck: Normal range of motion, no tenderness, supple, no stridor. [] Cardiovascular:Heart rate regular rhythm, no murmur [] Lungs & Thorax: Bilateral breath sounds clear to auscultation [] Abdomen: Bowel sounds normal, soft, no tenderness, no masses, no pulsatile masses. [] Skin: Warm, dry, no erythema, no rash. [] Back: No tenderness, no CVA tenderness. [] Extremities: No tenderness, no cyanosis, no clubbing, ROM intact, no edema. [] Neurologic: Alert, slurred speech follows commands and is cooperative. [] Current Patient Data: Labs: Laboratory Tests Test 04/19/21 03:20 Urine Collection Type Unknown Urine Color Yellow Urine Clarity Clear Urine pH 6.0 Urine Specific [place] <=1.005 Urine Protein Negative mg/dL Urine Glucose (UA) Negative mg/dL Urine Ketones (Stick) Negative mg/dL Urine Blood Negative Urine Nitrite Negative Urine Bilirubin Negative Urine Urobilinogen Dipstick 1.0 mg/dL Urine Leukocyte Esterase Negative Urine RBC 0 /HPF Urine WBC 0 /HPF Urine Squamous Epithelial Cells Occ /LPF Urine Bacteria 0 /HPF Urine Opiates Screen Neg Urine Methadone Screen Neg Urine Barbiturates Neg Urine Phencyclidine Screen Neg Urine Amphetamine/Methamphetamine Pos Urine Benzodiazepines Screen Neg Urine Cocaine Screen Neg Urine Cannabinoids Screen Pos Urine Ethyl Alcohol Pos Vital Signs: Vital Signs Date Time Temp Pulse Resp B/P (MAP) Pulse Ox O2 Delivery O2 Flow Rate FiO2 04/19/21 02:35 98.7 89 22 163/99 (120) 98 Room Air 98.7 EKG: EKG: Not performed [] Radiology/Procedures: Radiology/Procedures: Not performed [] Course & Med Decision Making: Course & Med Decision Making Pertinent Labs and Imaging studies reviewed. (See chart for details) Patient was observed on continuous cardiac monitoring with stable vital signs in the emergency department. The patient's tox screen was positive for methamphetamine, alcohol, and THC. Patient was provided with a sandwich and drink in the emergency department which she was able to tolerate without difficulty. The patient clinically is showing improved sobriety. Patient appropriate for discharge at this time. Recommend follow-up with primary care provider for outpatient follow-up regarding substance abuse. Recommend return to the emergency department for any worsening symptoms. Patient voiced understanding and in agreement with treatment plan. [] Dragon Disclaimer: Dragon Disclaimer: This electronic medical record was generated, in whole or in part, using a voice recognition dictation system. Departure Departure Impression: Primary Impression: Alcohol intoxication Qualified Codes: F10.920 - Alcohol use, unspecified with intoxication, unc omplicated Additional Impression: Methamphetamine abuse Disposition: HOME / SELF CARE / HOMELESS Condition: STABLE Referrals: NO PCP (PCP) Patient Instructions: Alcohol Intoxication Additional Instructions: Return to the emergency department for any worsening symptoms. KENYON RODRIGUEZ MD Apr 19, 2021 03:54
[2021-04-19 03:59] LABS: AMPHETAMINE/METHAMPHETAMINE POS (NEG); BARBITURATES NEG (NEG); BENZODIAZEPINES NEG (NEG); CANNABINOIDS POS (NEG); COCAINE NEG (NEG); METHADONE NEG (NEG); OPIATES NEG (NEG); PHENCYCLIDINE NEG (NEG)
[2021-04-19 06:00] VITALS: BP 124/60
== END 2021-04-19 06:32 | disposition home or self-care (01) ==
LOC: ER 02:29
DX: F10.229 Alcohol dependence with intoxication, unspecified (principal); Y90.9 Presence of alcohol in blood, level not specified; F15.10 Other stimulant abuse, uncomplicated; I10 Essential (primary) hypertension; F17.200 Nicotine dependence, unspecified, uncomplicated; Z59.00 Homelessness unspecified
CPT/HCPCS: 80307; 81001; 96361; 96374; 96375; 99285-25

== ENCOUNTER 2021-05-13 15:13 | Emergency (ER) | payer OTHER ==
[~2021-05-13] VITALS: Ht 170.2 cm; Wt 79.5 kg
--- NOTE | 2021-05-13 17:46 | PHYS DOC ---
Past Medical History Past Medical History: Alcoholism, Hypertension, Unknown Additional Past Medical Histor: ALCOHOL ABUSE. etoh sz, DRUG ABUSE Past Surgical History: Other Additional Past Surgical Histo: pt reports right ankle has pins put in 1994, AND HERNIA REPAIR Smoking Status: Current Every Day Smoker Alcohol Use: Heavy Drug Use: Cocaine, Marijuana General Adult EDM: Chief Complaint: ALCOHOL INTOXICATION HPI: HPI: Patient is a 65 year old male who is well-known to the ER comes in intoxicated. 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 Denies any suicidal homicidal ideation. States that he wants a sandwhich Review of Systems: Review of Systems: Constitutional: Denies fever or chills. Eyes: Denies change in visual acuity. HENT: Denies nasal congestion or sore throat. Respiratory: Denies cough or shortness of breath. Cardiovascular: Denies chest pain or edema. GI: Denies abdominal pain, nausea, vomiting, bloody stools or diarrhea. : Denies dysuria. Musculoskeletal: Denies back pain or joint pain. Integument: Denies rash. Neurologic: Denies headache, focal weakness or sensory changes. Endocrine: Denies polyuria or polydipsia. Lymphatic: Denies swollen glands. Psychiatric: Alcohol dependence, denies suicidal homicidal ideation denies depression or anxiety. Heart Score: C/O Chest Pain: No Risk Factors: Risk Factors: DM, Current or recent (<one month) smoker, HTN, HLP, family history of CAD, obesity. Risk Scores: Score 0 - 3: 2.5% MACE over next 6 weeks - Discharge Home Score 4 - 6: 20.3% MACE over next 6 weeks - Admit for Clinical Observation Score 7 - 10: 72.7% MACE over next 6 weeks - Early Invasive Strategies Allergies: Allergies: Allergies Coded Allergies Type Severity Reaction Last Updated Verified No Known Drug Allergies 08/08/14 No Physical Exam: PE: Constitutional: Well developed, well nourished, no acute distress, non-toxic appearance. HENT: Normocephalic, atraumatic, bilateral external ears normal, oropharynx moist, no oral exudates, nose normal. Eyes: PERRLA, EOMI, conjunctiva normal, no discharge. Neck: Normal range of motion, no tenderness, supple, no stridor. Cardiovascular:Heart rate regular rhythm, no murmur Lungs & Thorax: Bilateral breath sounds clear to auscultation Abdomen: Bowel sounds normal, soft, no tenderness, no masses, no pulsatile masses. Skin: Warm, dry, no erythema, no rash. Back: No tenderness, no CVA tenderness. Extremities: No tenderness, no cyanosis, no clubbing, ROM intact, no edema. Neurologic: Alert and oriented X 3, normal motor function, normal sensory function, no focal deficits noted. Gait is stable Psychologic: Judgment impaired secondary to intoxication, speech is slurred. Current Patient Data: Vital Signs: Vital Signs Date Time Temp Pulse Resp B/P (MAP) Pulse Ox O2 Delivery O2 Flow Rate FiO2 05/13/21 15:21 98.0 83 20 165/90 (115) 97 Room Air 98.0 EKG: EKG: [] Radiology/Procedures: Radiology/Procedures: [] Course & Med Decision Making: Course & Med Decision Making Pertinent Labs and Imaging studies reviewed. (See chart for details) Case pending sobriety handed over and endorsed to Dr. Poncho Person Disclaimer: Naya Disclaimer: This electronic medical record was generated, in whole or in part, using a voice recognition dictation system. Departure Departure Referrals: NO PCP (PCP) BARRY TIJERINA DO May 13, 2021 17:46
[2021-05-13 21:48] VITALS: BP 118/55
== END 2021-05-13 22:35 | disposition home or self-care (01) ==
LOC: ER 15:13
DX: F10.229 Alcohol dependence with intoxication, unspecified (principal); Y90.9 Presence of alcohol in blood, level not specified; I10 Essential (primary) hypertension; F17.200 Nicotine dependence, unspecified, uncomplicated
CPT/HCPCS: 99285-25